=== PATIENT | female | born 1965 | race Caucasian/White ===

== ENCOUNTER 2023-12-07 20:51 | Inpatient (IN) | payer MEDICARE, SELFPAY ==
[2023-12-07] VITALS (11 sets, daily range): BP systolic 132–226; BP diastolic 75–121; PULSE 53–78; RESP 13–20; TEMP 35.1–35.8; O2SAT 94–100; BMI 33.3
--- NOTE | 2023-12-07 20:55 | CT_ITS ---
PROCEDURE INFORMATION: Exam: CTA Abdomen and Pelvis With Contrast Exam date and time: 12/07/2023 9:48 PM Age: 57 years old Clinical indication: Abdominal pain; Other: Diffuse; Additional info: Pain out of proportion to exam, diffuse TECHNIQUE: Imaging protocol: Computed tomographic angiography of the abdomen and pelvis with contrast. Exam focused on the arteries. 3D rendering (Not supervised by radiologist): MIP and/or 3D reconstructed images were created by the technologist. Radiation optimization: All CT scans at this facility use at least one of these dose optimization techniques: automated exposure control; mA and/or kV adjustment per patient size (includes targeted exams where dose is matched to clinical indication); or iterative reconstruction. Contrast material: ISOVUE; Contrast volume: 91 ml; Contrast route: INTRAVENOUS (IV); COMPARISON: No relevant prior studies available. FINDINGS: Diaphragm: There is a moderate hiatal hernia. Aorta: No aortic aneurysm. No aortic dissection. Celiac trunk and mesenteric arteries: No occlusion or significant stenosis. Renal arteries: No occlusion or significant stenosis. Right iliac arteries: No occlusion or significant stenosis. Left iliac arteries: No occlusion or significant stenosis. Liver: No mass. Gallbladder and bile ducts: Unremarkable. No calcified stones. No ductal dilation. Pancreas: Unremarkable. No mass. No ductal dilation. Spleen: Unremarkable. No splenomegaly. Adrenal glands: Unremarkable. No mass. Kidneys and ureters: Unremarkable. No solid mass. No hydronephrosis. Stomach and bowel: This causes significant upstream fluid distension of small bowel loops. No evidence for perforation. There are scattered colonic diverticula without evidence for active diverticulitis. Appendix: No evidence of appendicitis. Intraperitoneal space: Unremarkable. No free air. No significant fluid collection. Lymph nodes: Unremarkable. No enlarged lymph nodes. Urinary bladder: Unremarkable. No mass. Reproductive: Unremarkable as visualized. Bones/joints: No acute fracture. Soft tissues: There is an umbilical hernia containing multiple loops of bowel including an obstructed loop of small bowel. IMPRESSION: 1. Large umbilical hernia containing multiple loops of bowel with associated small bowel obstruction. No evidence for perforation. 2. Moderate hiatal hernia.
--- NOTE | 2023-12-07 21:00 | ED_ITS ---
Discharge Plan Disposition Patient Disposition: Admitted Referrals Follow up/Referrals: Provider,Referral, MD [Primary Care Provider] - See instructions Clinical Impressions Clinical Impression: Complete obstruction of small intestine, Abdominal pain, Acidosis, lactic, Incarcerated hernia Instructions Patient Instructions: DI for Acute Abdominal Pain Discharge ED Provider: Demarco Orozco General Adult HPI General Chief complaint: Abdominal Pain Stated complaint: abd pain Time Seen by Provider: 12/07/23 20:55 History of Present Illness HPI narrative: 57-year-old female history of hypertension, hyperlipidemia, diabetes, previously repaired bilateral inguinal hernias, cholecystectomy, hiatal hernia presenting with abdominal pain. Patient states that she ate [employer] around 4 PM today about 5 hours prior to this visit and started vomiting immediately thereafter. Vomiting is nonbloody, nonbilious and looks like that she ate. Has not had a bowel movement today and has not been passing gas. Has severe epigastric abdominal pain that does not radiate. It is sharp and cramping. has not taken anything for the pain. Related Data Allergies Allergy/AdvReac Type Severity Reaction Status Date / Time No Known Allergies Allergy Verified 12/07/23 21:01 [facility] Disclaimer: The information contained in this section may have been updated after the patient was seen, as this information can be updated by other users. Social History Smoking Status: Unknown if ever smoked alcohol intake: never current occupational status: unemployed Travel in the last 8 weeks: None ROS Obtained: Yes All systems reviewed & no additional complaints except as documented Physical Exam General General appearance: alert and other (Ill-appearing, mottled) Head Head exam: atraumatic and normocephalic Eye Eye exam: Present normal appearance, PERRL and EOMI ENT ENT exam: Present mucous membranes moist Neck Neck exam: Present normal inspection, full ROM and trachea midline Respiratory Respiratory exam: Present normal lung sounds bilaterally; Absent respiratory distress, wheezes, stridor, accessory muscle use or prolonged expiratory phase Cardiovascular Cardiovascular exam: Present regular rate, normal rhythm and other (Capillary refill delayed 6-7) Abdominal Exam Abdominal exam: Present soft and tenderness; Absent distention, guarding, rebound or rigidity Abdominal tenderness: Present epigastrium and mild Extremities Exam Extremities exam: Absent edema Neurological Exam Neurological exam: Present alert, oriented X3, CN II-XII intact and normal gait; Absent motor sensory deficit Skin Skin exam: Present dry (And cold) and mottled; Absent diaphoresis or erythema Medical Decision Making Medical Records Medical records reviewed: Yes I reviewed the patient's medical records. Jarek Inquiry Pt receiving controlled substance: No Jarek was queried for this patient: No Vital Signs: 12/07/23 20:56 12/07/23 21:01 12/07/23 21:33 Temperature 95.1 F L Temperature Source Rectal Pulse Rate 63 53 L Pulse Rate [Right Radial] 54 L Respiratory Rate 20 17 Blood Pressure Blood Pressure [Right Arm] 135/75 Blood Pressure Mean Blood Pressure Mean [Right Arm] 95 Blood Pressure Source [Right Arm] Automatic Cuff Blood Pressure Position [Right Arm] Supine 02 Sat by Pulse Oximetry 99 97 94 L Oxygen Delivery Method Room Air 12/07/23 22:00 12/07/23 22:03 Temperature Temperature Source Pulse Rate 64 58 L Pulse Rate [Right Radial] Respiratory Rate 16 18 Blood Pressure 226/121 H Blood Pressure [Right Arm] Blood Pressure Mean 142 Blood Pressure Mean [Right Arm] Blood Pressure Source [Right Arm] Blood Pressure Position [Right Arm] 02 Sat by Pulse Oximetry 100 100 Oxygen Delivery Method Lab Data Lab Results 12/07/23 21:15: WBC 13.2 H, RBC 5.95 H, Hgb 17.3 H, Hct 52.4 H, MCV 88.0, MCH 29.0, MCHC 33.0, RDW 13.6, Plt Count 318, MPV 8.6, Neut % (Auto) 81.9 H, Lymph % (Auto) 13.3, [place] % (Auto) 3.0, Eos % (Auto) 0.9, Baso % (Auto) 0.8, Neut # (Auto) 10.8 H, Lymph # (Auto) 1.8, [place] # (Auto) 0.4, Eos # (Auto) 0.1, Baso # (Auto) 0.1, Sodium 138, Potassium 4.8, Chloride 100, Carbon Dioxide 24, Anion Gap 18.8 H, BUN 22 H, Creatinine 0.80, Estimated Creat Clear 110, Estimated GFR 74, Est GFR ( Amer) 89, Glucose 196 H, Lactate 2.5 H, Calcium 10.7 H, Total Bilirubin 0.8, AST 53 H, ALT 34, Alkaline Phosphatase 79, Troponin I < 0.01, Total Protein 8.3 H, Albumin 4.9, Globulin 3.4 H, Albumin/Globulin Ratio 1.4, Lipase 80 12/07/23 21:27: VBG pH 7.41, VBG pCO2 38.1, VBG pO2 28.0, VBG HCO3 23.8, VBG Total CO2 25.0, VBG O2 Saturation 55.8, VBG Base Excess -0.7, VBG Lactic Acid 3.1 H 12/07/23 21:15 12/07/23 21:15 Orders (Tests/Meds): ED MEDICATIONS Generic Name Dose Route Start Last Admin Trade Name Freq PRN Reason Stop Dose Admin Vancomycin HCl 2,000 mg/ 250 mls @ 125 mls/hr 12/07/23 21:30 12/07/23 22:04 Sodium Chloride IV 12/07/23 23:29 125 mls/hr ONCE ONE Administration Miscellaneous 1 each 12/07/23 21:00 12/07/23 21:25 Vancomycin Consult Request NOTAPPLIC 01/06/24 20:59 1 each CONSULT PHARMACY PREET Administration Discontinued Medications Generic Name Dose Route Start Last Admin Trade Name Freq PRN Reason Stop Dose Admin Fentanyl Citrate 50 mcg 12/07/23 21:35 12/07/23 22:04 Fentanyl 100mcg/2ml Vial IV 12/07/23 21:36 50 mcg ONCE ONE Administration Lactated Ringer's 1,000 mls @ 999 mls/hr 12/07/23 20:55 12/07/23 21:12 Lactated Ringer's 1000 Ml Bag IV 12/07/23 21:55 999 mls/hr .Q1H1M ONE Administration Ampicillin Sodium/Sulbactam 100 mls @ 200 mls/hr 12/07/23 21:00 12/07/23 21:24 Sodium 3 gm/ Sodium Chloride IV 12/07/23 21:01 200 mls/hr ONCE ONE Administration Iopamidol 91 ml 12/07/23 22:00 12/07/23 22:02 Iopamidol-370 (76%);100ml Bottle IV 12/07/23 22:01 91 ml ONCE ONE Administration Lidocaine HCl 15 ml 12/07/23 22:09 Lidocaine 2% Viscous Shirley 15ml Udc PO 12/07/23 22:10 ONCE ONE Sodium Chloride 40 ml 12/07/23 22:00 03/09/24 22:01 0.9 % Sodium Chloride 50 Ml Vial IV 12/07/23 22:01 40 ml ONCE ONE Administration Sodium Chloride 10 ml 12/07/23 22:00 12/07/23 22:01 Sodium Chloride 0.9% 10ml Syr (Rad Only) IV 12/07/23 22:01 10 ml ONCE ONE Administration ORDERS Category Date Time Status CT angio abdomen pelvis Stat Cat Scan 12/07/23 20:55 Completed XR KUB Stat Exams 12/07/23 22:31 Ordered CBC w/Auto Diff [Complete Blood Count Auto Diff] Stat Lab 12/07/23 21:15 Completed CMP [Comprehensive Metabolic Panel] Stat Lab 12/07/23 21:15 Completed Lactate Venous Routine Lab 12/08/23 01:45 Ordered Lactate Venous Stat Lab 12/07/23 21:27 Completed Lactic Acid Stat Lab 12/07/23 21:15 Completed Lipase Stat Lab 12/07/23 21:15 Completed Trop I [Troponin I] Stat Lab 12/07/23 21:15 Completed Troponin I Q3H Lab 12/07/23 23:55 Ordered Troponin I Q3H Lab 12/08/23 03:55 Ordered UA [Urinalysis and Microscopic] Stat Lab 12/07/23 22:40 Received VBG [Venous Blood Gas] Stat RT 12/07/23 21:27 Completed Medical Decision Narrative: 57-year-old female history of hypertension, hyperlipidemia, diabetes, previously repaired bilateral inguinal hernias, cholecystectomy, hiatal hernia presenting with abdominal pain. Patient states that she ate [employer] around 4 PM today about 5 hours prior to this visit and started vomiting immediately thereafter. Vomiting is nonbloody, nonbilious and looks like that she ate. Has not had a bowel movement today and has not been passing gas. Has severe epigastric abdominal pain that does not radiate. It is sharp and cramping. has not taken anything for the pain. History obtained with patient and EMS. On arrival, patient hemodynamically stable, alert, oriented x4, GCS 15, moving all extremities spontaneously, pupils equal and reactive to light, but appears ill. Full physical exam performed and significant for ill-appearing woman in no acute distress. She is not tachycardic, normotensive, but skin is cold, she is mottled, delayed capillary refill. Abdomen is soft, but diffusely tender, worse in the epigastrium without signs of peritonitis. No flank tenderness. Cardiac exam within normal limits and lungs are clear to auscultation bilaterally. Differential includes gastritis, pancreatitis, SBO, colitis, diverticulitis, appendicitis, hepatitis, torsion, aortic pathology, mesenteric ischemia among others. Patient was given fluids, empiric vancomycin and Unasyn, as well as fentanyl IV for symptomatic management and correction of underlying abnormalities. Workup independently interpreted and significant for leukocytosis 13.2 with neutrophilic shift. Patient has a lactate of 3.1. Kidney function normal. Troponin negative. Lipase negative. CT of the abdomen and pelvis demonstrated umbilical hernia with associated small bowel obstruction with concern for second transition point just inferior to that in the abdomen. Concern for closed-loop bowel obstruction. See radiology read for full review of final results. Independent interpretation of EKG shows sinus rhythm 65 beats a minute with no ST or T wave changes Concerning for acute ischemia. OK, QRS, QT intervals within normal limits. General surgery was contacted and case was discussed at length, they agreed to come see patient on concern for possible surgical intervention. Patient be taken to the OR then admitted to the hospitalist. Hospitalist was contacted and case was discussed at length, see their note for recommendations. Because patient high risk for clinical decompensation, deemed appropriate for inpatient admission. Results were relayed to patient who voiced understanding and patient was agreeable to inpatient admission and management. Patient was admitted to the hospital for further definitive management. Critical Care Critical Care Time Critical Care Time: No
--- NOTE | 2023-12-07 21:01 | PC.NURSE ---
rectal temp 95.1 during triage. Pt moved to room 4 and bear hugger placed on pt. Warm LR bolus started at this time
--- NOTE | 2023-12-07 21:03 | ECG_ITS ---
APPROVED REPORT Exam: Resting ECG HR:65 bpm ECG Measurements Heart Rate 65 AXES LA 140 P 34 QRSd 105 QRS 53 QT 440 T 63 QTc 451 Conclusion SINUS RHYTHM Electronically signed by : LINETTE CASAREZ, 12/07/2023 22:38:49
[2023-12-07] MEDS: LACTATED RINGERS 1000ML 1,000 ML 999 ML IV ×2 (21:12→23:30)
--- NOTE | 2023-12-07 21:13 | PC.NURSE ---
finger stick 196
[2023-12-07 21:22] LABS: Basophils # 0.1 K/mm3 (0-0.2); Basophils % 0.8 % (0.1-2.0); Eosinophils # 0.1 K/mm3 (0.0-0.4); Eosinophils % 0.9 % (0.1-12.0); Hematocrit 52.4 % (37.0-47.0); Hemoglobin 17.3 g/dL (12.2-16.2); Lymphocytes # 1.8 K/mm3 (0.7-4.5); Lymphocytes % 13.3 % (10-50); Mean Platelet Volume 8.6 fl (7.4-10.4); Monocytes # 0.4 K/mm3 (0.1-1.0); Neutrophils # 10.8 K/mm3 (1.8-7.8); Neutrophils % 81.9 % (37.0-80.0); Platelet Count 318 K/mm3 (142-424); Red Blood Count 5.95 M/mm3 (4.20-5.40); Red Cell Distribution Width 13.6 % (11.5-17.5); White Blood Count 13.2 K/mm3 (4.8-10.8)
[2023-12-07] MEDS: AMPICILLIN/SULBACTAM 3 GM in 0.9 % SODIUM CHLORIDE 100 ML IV (21:24)
[2023-12-07] MEDS: VANCOMYCIN CONSULT REQUEST 1 EACH NOTAPPLIC (21:25)
[2023-12-07 21:26] LABS: Alanine Aminotransferase 34 U/L (12-78); Albumin Level 4.9 g/dl (3.5-5.0); Albumin/Globulin Ratio 1.4 (1.1-1.8); Alkaline Phosphatase 79 U/L (38-126); Anion Gap 18.8 mEq/L (5-15); Aspartate Amino Transferase 53 U/L (14-36); Bilirubin,Total 0.8 mg/dl (0.2-1.3); Blood Urea Nitrogen 22 mg/dl (7-17); Calcium 10.7 mg/dl (8.4-10.2); Carbon Dioxide 24 mmol/L (22.0-30.0); Chloride 100 mmol/L (98-107); Creatinine Clearance Estimated 110 mL/min (50-200); Estimated Glomerular Filt Rate 74 ml/min (>60); GFR (African American) 89 ML/MIN (>60); Globulin 3.4 g/dL (1.3-3.2); Glucose 196 mg/dl (74-100); Lactic Acid 2.5 mmol/L (0.7-2.1); Lipase 80 U/L (23-300); Potassium 4.8 mmoL/L (3.5-5.1); Sodium 138 mmol/L (136-145); Total Protein,Serum 8.3 g/dl (6.3-8.2)
[2023-12-07 21:35] LABS: Lactate Venous 3.1 mmol/L (0.4-2.0); VBG Base Excess -0.7 mmol/L (-2.4-2.3); VBG HCO3 23.8 mmol/L (23-30); VBG Oxygen Saturation 55.8 % (50-70); VBG PCO2 38.1 mmol/L (35-51); VBG PH 7.41 mmol/L (7.31-7.41)
[2023-12-07 21:42] LABS: Troponin I < 0.01 ng/ml (0.00-0.034)
[2023-12-07] MEDS: SODIUM CHLORIDE 0.9% 10ML SYR (RAD ONLY) 10 ML IV (22:01)
[2023-12-07] MEDS: 0.9 % SODIUM CHLORIDE 50 ML VIAL 40 ML IV (22:01)
--- NOTE | 2023-12-07 22:01 | PC.NURSE ---
paged dr patel to [phone] d/t suspected bowel obstruction.
[2023-12-07] MEDS: IOPAMIDOL-370 (76%);100ML BOTTLE 91 ML IV (22:02)
--- NOTE | 2023-12-07 22:02 | PC.NURSE ---
dr patel returned call.
[2023-12-07] MEDS: VANCOMYCIN HCL 2,000 MG in 0.9 % SODIUM CHLORIDE 250 ML 125 MG IV (22:04)
[2023-12-07] MEDS: FENTANYL 100MCG/2ML VIAL 50 MCG IV (22:04)
--- NOTE | 2023-12-07 22:31 | XR_ITS ---
PROCEDURE INFORMATION: Exam: XR Abdomen Exam date and time: 12/07/2023 10:48 PM Age: 58 years old Clinical indication: Device placement; Gi device; Nasogastric tube; Additional info: Ng placement TECHNIQUE: Imaging protocol: Radiologic exam of the abdomen. Views: Frontal supine view of the abdomen. 1 View. COMPARISON: CT ANGIO ABDOMEN PELVIS 12/07/2023 9:48 PM FINDINGS: Tubes, catheters and devices: Enteric tube in place, tip and side port project over the stomach. Heart/Mediastinum: Visualized portions of the heart, lungs, pleural spaces, and osseous structures are unchanged. Gastrointestinal tract: Stable bowel-gas pattern. Intraperitoneal space: There are right upper quadrant surgical clips suggesting prior cholecystectomy. Organs: There is a Terry catheter place within the urinary bladder. Excreted contrast in the urinary collecting system. Bones/joints: See Heart/Mediastinum finding. IMPRESSION: Radiographically appropriate position of enteric tube.
--- NOTE | 2023-12-07 22:41 | PC.NURSE ---
Dr. Valiente with patient and present in the ER spoke with Dr. Orozco
[2023-12-07 22:46] LABS: Microscopic, Urine URINE MICROSCOPIC (MICROSCOPIC)
--- NOTE | 2023-12-07 22:46 | PC.NURSE ---
house notified to call surg. team in
--- NOTE | 2023-12-07 22:49 | PC.NURSE ---
[phone]-Surgery team paged [phone]-Erickson returned call. [phone]-Alicia returned call. [phone]-[place] returned call.
--- NOTE | 2023-12-07 22:51 | PC.NURSE ---
Per patient request, Nicanor, family members have been updated with status and plan of care, understanding acknowledged
[2023-12-07 22:52] LABS: Appearance,Urine CLEAR (Clear); Blood, Urine Negative (Negative); Color,Urine YELLOW (Yellow); Glucose,Urine (UA) Negative (Negative); Ketones,Urine 2+ (Negative); Leukocyte Esterase,Urine Negative (Negative); Nitrate,Urine Negative (Negative); Protein,Urine Negative (Negative); Urobilinogen,Urine 0.2 EU/dl (0.2)
--- NOTE | 2023-12-07 22:57 | P.CONS_ITS ---
History of Present Illness *Admission Date: 12/07/23 *Reason for visit:: abdominal pain *History of present illness: 58 yo lady presents with diffuse abdominal pain. Sudden onset earlier today with severe cramping. Worse with time and eventually led to severe nausea and vomiting, bilious in nature. She denies any similar episodes. [facility] Disclaimer: The information contained in this section may have been updated after the patient was seen, as this information can be updated by other users. Social History (Updated 12/07/23 @ 22:48 by Demarco Orozco MD) Smoking Status: Unknown if ever smoked alcohol intake: never current occupational status: unemployed Travel in the last 8 weeks: None Review of Systems Review of Systems Review of systems:: pertinent systems reviewed and negative unless documented below Review of systems (narrative): Abdominal pain, vomiting, chills Meds Home Medications and Allergies New Prescriptions to Start Prescriptions: Allergies Allergy/AdvReac Type Severity Reaction Status Date / Time No Known Allergies Allergy Verified 12/07/23 21:01 Exam (Inpt) Vital signs and Labs for Last 24 Hours: Temp Pulse Resp BP Pulse Ox O2 Del Method 95.1 F L 58 L 18 226/121 H 100 Room Air 12/07/23 21:01 12/07/23 22:03 12/07/23 22:03 12/07/23 22:03 12/07/23 22:03 12/07/23 21:01 Laboratory Results - last 24 hr 12/07/23 21:15: WBC 13.2 H, RBC 5.95 H, Hgb 17.3 H, Hct 52.4 H, MCV 88.0, MCH 29.0, MCHC 33.0, RDW 13.6, Plt Count 318, MPV 8.6, Neut % (Auto) 81.9 H, Lymph % (Auto) 13.3, [place] % (Auto) 3.0, Eos % (Auto) 0.9, Baso % (Auto) 0.8, Neut # (Auto) 10.8 H, Lymph # (Auto) 1.8, [place] # (Auto) 0.4, Eos # (Auto) 0.1, Baso # (Auto) 0.1, Sodium 138, Potassium 4.8, Chloride 100, Carbon Dioxide 24, Anion Gap 18.8 H, BUN 22 H, Creatinine 0.80, Estimated Creat Clear 110, Estimated GFR 74, Est GFR ( Amer) 89, Glucose 196 H, Lactate 2.5 H, Calcium 10.7 H, Total Bilirubin 0.8, AST 53 H, ALT 34, Alkaline Phosphatase 79, Troponin I < 0.01, Total Protein 8.3 H, Albumin 4.9, Globulin 3.4 H, Albumin/Globulin Ratio 1.4, Lipase 80 12/07/23 21:27: VBG pH 7.41, VBG pCO2 38.1, VBG pO2 28.0, VBG HCO3 23.8, VBG Total CO2 25.0, VBG O2 Saturation 55.8, VBG Base Excess -0.7, VBG Lactic Acid 3.1 H I & O for Labs for Last 24 Hours: Intake & Output 12/04/23 12/05/23 12/06/23 12/07/23 23:59 23:59 23:59 23:59 Weight 200 lb Constitutional: mild distress and morbidly obese Comment:: Ill appearing, shaking chills Head: Present normocephalic and atraumatic Neck: Present normal inspection Respiratory: Present CTA bilaterally Cardiac: Present Reg Rate and Rhythm GI: Present soft, tenderness, guarding and hernia (Tender and incarcerated RLQ hernia, guarding, diffuse tenderness worse over hernia; obese) Extremities: Present cyanosis Results Labs 12/07/23 21:15 12/07/23 21:15 Labs: Laboratory Results - last 24 hr 12/07/23 21:15: WBC 13.2 H, RBC 5.95 H, Hgb 17.3 H, Hct 52.4 H, MCV 88.0, MCH 29.0, MCHC 33.0, RDW 13.6, Plt Count 318, MPV 8.6, Neut % (Auto) 81.9 H, Lymph % (Auto) 13.3, [place] % (Auto) 3.0, Eos % (Auto) 0.9, Baso % (Auto) 0.8, Neut # (Auto) 10.8 H, Lymph # (Auto) 1.8, [place] # (Auto) 0.4, Eos # (Auto) 0.1, Baso # (Auto) 0.1, Sodium 138, Potassium 4.8, Chloride 100, Carbon Dioxide 24, Anion Gap 18.8 H, BUN 22 H, Creatinine 0.80, Estimated Creat Clear 110, Estimated GFR 74, Est GFR ( Amer) 89, Glucose 196 H, Lactate 2.5 H, Calcium 10.7 H, Total Bilirubin 0.8, AST 53 H, ALT 34, Alkaline Phosphatase 79, Troponin I < 0.01, Total Protein 8.3 H, Albumin 4.9, Globulin 3.4 H, Albumin/Globulin Ratio 1.4, Lipase 80 12/07/23 21:27: VBG pH 7.41, VBG pCO2 38.1, VBG pO2 28.0, VBG HCO3 23.8, VBG Total CO2 25.0, VBG O2 Saturation 55.8, VBG Base Excess -0.7, VBG Lactic Acid 3.1 H Imaging US - abdomen: report reviewed and image reviewed (Agree with report) Assessment and Plan *Assessment and plan (1) Incarcerated hernia: Start date: 12/07/23 Problem Comment: Incarcerated hernia with tenderness and ct findings to suggest strangulation. I would recommend laparotomy and hernia repair. Risk of bleeding, infection, injury and anesthetic discussed and she agrees to proceed in an urgent manner. Status: Acute Category: Surgical Code(s): K46.0 - Unspecified abdominal hernia with obstruction, without gangrene Plan: See above discussion (2) Acidosis, lactic: Status: Acute Category: Medical Code(s): E87.20 - Acidosis, unspecified Plan: Aggressive resuscitation in the ER with fluid; start broad spectrum abx with suspicion for bowel ischemia. Hypothermia also suggests bowel ischemia. (3) Hypertension: Status: Acute Category: Medical Code(s): I10 - Essential (primary) hypertension Plan: Will admit to hospitalist. Aggressive pain control should help.
--- NOTE | 2023-12-07 22:59 | EXP.HP ---
History of Present Illness *Admission Date: 12/07/23 *Reason for visit:: abdominal pain *History of present illness: This is a 58-year-old morbidly obese female with PMHx of hypertension, hyperlipidemia, diabetes, previously repaired bilateral inguinal hernias, cholecystectomy, hiatal hernia presented to ED for acute abdominal pain. Patient stated that she ate [employer] around 4 PM today about 5 hours prior to this visit and started vomiting immediately thereafter. Vomiting is nonbloody, nonbilious and looks like that she ate. Has not had a bowel movement today and has not been passing gas. Has severe epigastric abdominal pain that does not radiate. It is sharp and cramping. has not taken anything for the pain. She denies any similar episodes. Admitted for treatment and management. [facility] Disclaimer: The information contained in this section may have been updated after the patient was seen, as this information can be updated by other users. Medical History (Updated 12/08/23 @ 06:21 by Carlos A Dumont APRN) Hernia Surgical History (Updated 12/08/23 @ 04:41 by Henny Swain RN) H/O hernia repair Hx of cholecystectomy H/O: hysterectomy Social History (Updated 12/07/23 @ 22:48 by Demarco Orozco MD) Smoking Status: Unknown if ever smoked alcohol intake: never current occupational status: unemployed Travel in the last 8 weeks: None Review of Systems Review of Systems Review of systems:: pertinent systems reviewed and negative unless documented below Meds Home Medications and Allergies Home Medications Medication Instructions Recorded Confirmed Type buspirone 30 mg tablet 30 mg PO BID Anxiety 12/07/23 12/08/23 History celecoxib 100 mg capsule 100 mg PO BID Pain 12/07/23 12/08/23 History duloxetine 20 mg capsule,delayed 20 mg PO BID Anxiety 12/07/23 12/08/23 History release ferrous sulfate 325 mg (65 mg 325 mg PO DAILY Supplement 12/07/23 12/07/23 History iron) tablet,delayed release hydroxyzine pamoate 25 mg capsule 25 mg PO QIDP PRN Itching 12/07/23 12/08/23 History loratadine 10 mg tablet 10 mg PO DAILY Allergy Symptoms 12/07/23 12/07/23 History losartan 25 mg tablet 25 mg PO DAILY High Blood Pressure 12/07/23 12/07/23 History montelukast 10 mg tablet 10 mg PO DAILY Allergy Symptoms 12/07/23 12/07/23 History omeprazole 20 mg capsule,delayed 20 mg PO DAILY Acid Reflux 12/07/23 12/07/23 History release ondansetron HCl 4 mg tablet 4 mg PO Q8HP PRN Vomiting 12/07/23 12/07/23 History magnesium oxide 400 mg (241.3 mg 400 mg PO DAILY Supplement 12/08/23 12/08/23 History magnesium) tablet metformin 1,000 mg tablet 1,000 mg PO BIDWMEAL Diabetes 12/08/23 12/08/23 History nystatin 100,000 unit/gram topical 1 applic topical DAILY Skin 12/08/23 12/08/23 History powder (Nystop) Condition rosuvastatin 40 mg tablet 40 mg PO HS Cholesterol 12/08/23 12/08/23 History New Prescriptions to Start Prescriptions: Allergies Allergy/AdvReac Type Severity Reaction Status Date / Time latex Allergy Verified 12/07/23 23:25 morphine AdvReac Verified 12/08/23 06:58 Exam Data for Last 24 hours Vital signs and Labs for Last 24 Hours: Temp Pulse Resp BP Pulse Ox O2 Del Method 95.1 F L 58 L 18 226/121 H 100 Room Air 12/07/23 21:01 12/07/23 22:03 12/07/23 22:03 12/07/23 22:03 12/07/23 22:03 12/07/23 21:01 Laboratory Results - last 24 hr 12/07/23 21:15: WBC 13.2 H, RBC 5.95 H, Hgb 17.3 H, Hct 52.4 H, MCV 88.0, MCH 29.0, MCHC 33.0, RDW 13.6, Plt Count 318, MPV 8.6, Neut % (Auto) 81.9 H, Lymph % (Auto) 13.3, [place] % (Auto) 3.0, Eos % (Auto) 0.9, Baso % (Auto) 0.8, Neut # (Auto) 10.8 H, Lymph # (Auto) 1.8, [place] # (Auto) 0.4, Eos # (Auto) 0.1, Baso # (Auto) 0.1, Sodium 138, Potassium 4.8, Chloride 100, Carbon Dioxide 24, Anion Gap 18.8 H, BUN 22 H, Creatinine 0.80, Estimated Creat Clear 110, Estimated GFR 74, Est GFR ( Amer) 89, Glucose 196 H, Lactate 2.5 H, Calcium 10.7 H, Total Bilirubin 0.8, AST 53 H, ALT 34, Alkaline Phosphatase 79, Troponin I < 0.01, Total Protein 8.3 H, Albumin 4.9, Globulin 3.4 H, Albumin/Globulin Ratio 1.4, Lipase 80 12/07/23 21:27: VBG pH 7.41, VBG pCO2 38.1, VBG pO2 28.0, VBG HCO3 23.8, VBG Total CO2 25.0, VBG O2 Saturation 55.8, VBG Base Excess -0.7, VBG Lactic Acid 3.1 H I & O for Last 24 hours: Intake & Output 12/04/23 12/05/23 12/06/23 12/07/23 23:59 23:59 23:59 23:59 Weight 90.718 kg Constitutional Constitutional: moderate distress, morbidly obese, diaphoretic and cooperative *Routine HEENT Exam Head: Present normocephalic and atraumatic Eye: Present EOMI, PERRL and normal accommodation ENT: Present mucous membranes moist *Routine Neck Exam Neck: Present supple, full ROM and trachea midline *Routine Respiratory Exam Respiratory: Present CTA bilaterally, normal respiratory effort and symmetric chest movement; Absent respiratory distress *Routine Cardiovascular Exam Cardiovascular: Present RRR, Normal S1, Normal S2 and tachycardia *Routine Abdominal Exam Abdominal: Present soft, tenderness, distended, rebound, guarding and obese; Absent normoactive bowel sounds *Routine Rectal Exam Rectal:: deferred *Routine Genitalia Exam Genitalia:: deferred *Routine Extremities Exam Extremities: Present full ROM and pulses intact; Absent cyanosis, clubbing or edema *Routine Skin Exam Skin: Present intact; Absent cyanosis, erythema or rash *Routine Neurological Exam Neurological: Present alert, oriented X3, normal reflexes, moving all extremities and normal speech Routine Psychiatric Exam Psychiatric: Present cooperative, good insight and good judgment H&P: Result Imaging and Cardiology CT scan - abdomen: Status: image reviewed by me, Preliminary report and final report EKG: Status: image reviewed by me, Preliminary report and final report Assessment and Plan *Assessment and plan (1) Abdominal pain: Status: Acute Qualifiers: Abdominal location: epigastric Qualified Code(s): R10.13 - Epigastric pain Category: Medical Code(s): R10.9 - Unspecified abdominal pain (2) Incarcerated hernia: Problem Comment: Incarcerated hernia with tenderness and ct findings to suggest strangulation. I would recommend laparotomy and hernia repair. Risk of bleeding, infection, injury and anesthetic discussed and she agrees to proceed in an urgent manner. Status: Acute Category: Surgical Code(s): K46.0 - Unspecified abdominal hernia with obstruction, without gangrene (3) Complete obstruction of small intestine: Status: Acute Category: Medical Code(s): K56.601 - Complete intestinal obstruction, unspecified as to cause (4) Acidosis, lactic: Status: Acute Category: Medical Code(s): E87.20 - Acidosis, unspecified (5) Hypertension: Status: Acute Qualifiers: Hypertension type: unspecified Qualified Code(s): I10 - Essential (primary) hypertension Category: Medical Code(s): I10 - Essential (primary) hypertension (6) Diabetes: Status: Acute Qualifiers: Diabetes mellitus complication status: with other specified complication Diabetes mellitus skilled nursing insulin use: without skilled nursing use Diabetes mellitus type: type 2 Qualified Code(s): E11.69 - Type 2 diabetes mellitus with other specified complication Category: Medical Code(s): E11.9 - Type 2 diabetes mellitus without complications Plan 58-year-old morbidly obese female with PMHx of hypertension, hyperlipidemia, diabetes, previously repaired bilateral inguinal hernias, cholecystectomy, hiatal hernia presented to ED for acute abdominal pain. initial work up included CTA of abdomen concerning for incarcerated hernia with complete obstruction of the bowel. elevated WBC, and lact acid. started on IV vanco. emergent taken to OR. Discussed with ED and surgical consulted. Plan as follow: -Acute abdominal pain secondary to incarcerated hernia complete SBO: leukocytosis and lactic acidosis: admit patient surgical consult. taken to OR started on Vancomycin and unasyn at ER. keep NPO NG inserted pain management. repeat labs. monitor for sepsis - HTN: resume home meds on losartan NIDDM: acute check on sliding scale. treat BS greater than 200 Continous IV hydration while NPO SCD for dvt ppx. On protonix Full code Rounded on patient after nurse practitioner. Personally examined and interviewed patient. Agree with exam findings and care plan as documented.
[2023-12-07 23:04] LABS: Bilirubin,Urine 1+ (Negative)
[2023-12-07 23:05] LABS: WBC,Urine Occasional #/hpf (0-3)
--- NOTE | 2023-12-07 23:10 | PC.NURSE ---
spoke with ahsan who is en route at this time.
[2023-12-07] MEDS: LIDOCAINE 2% VISCOUS SOL 15ML UDC 15 ML PO (23:24)
--- NOTE | 2023-12-07 23:25 | PC.NURSE ---
josafat gunderson received a phone call from a family member stating that patient has a hard time tolerating anesthesia. primary nurse aware and will advise surg team
[2023-12-07] MEDS: ONDANSETRON 4MG/2ML VIAL 4 MG IV (23:28)
--- NOTE | 2023-12-07 23:32 | PC.NURSE ---
Pt sitting up in bed. 18Fr NG placed in left nare @58cm 16Fr Terry catheter inserted, dark yellow clear urine draining at bedside.
--- NOTE | 2023-12-07 23:34 | PC.NURSE ---
2230 pt rectal temp 96.5. bare hugger removed. Warm blankets placed on pt
--- NOTE | 2023-12-07 23:50 | PC.NURSE ---
3 rings taken off pt and placed in specimen cup in pts medication box
--- NOTE | 2023-12-07 23:55 | PC.NURSE ---
pt to OR at this time
[2023-12-08] VITALS (22 sets, daily range): BP systolic 111–161; BP diastolic 62–95; PULSE 67–109; RESP 12–18; TEMP 35.3–43; O2SAT 91–100; BMI 34.9
--- NOTE | 2023-12-08 | PC.NURSE ---
registration notified patient left department and gone to surgery via surgery assistant and anesthesia
[2023-12-08 00:33] LABS: Troponin I < 0.01 ng/ml (0.00-0.034)
[2023-12-08] MEDS: BUPIVACAINE 0.25% 30ML VIAL 75 MG (00:42)
[2023-12-08] MEDS: SODIUM CHLORIDE IRRIG SOLUTION 3,000 ML 999 ML IR (00:42)
[2023-12-08 01:16] LABS: Reflex Lactic Add Lactic Reflex
--- NOTE | 2023-12-08 03:11 | EXP.COCOPNOT ---
Date of procedure: 12/08/23 Pre-op Diagnosis:: Incarcerated ventral hernia Post-op Diagnosis:: same Procedure performed:: Exploratory laparotomy with extensive lysis of adhesions and repair of incarcerated ventral hernia Surgeon:: Dion Valiente MD Road Design Draftsperson(s):: Yari Kothari Anesthesia: GETA Estimated blood loss (mL): 150 Clinical Note:: Mrs. Jarrell is a 58 yo lady that presented with an incarcerated ventral hernia with bowel compromise. She was taken urgently to the OR for exploration. Operative findings:: Incarerated ventral hernia with severe adhesions. Bowel viable Operative note:: Patient was taken to the OR and placed in the supine position. General anesthesia was instituted without complication. Her abdomen was prepped and draped in usual sterile fashion and a brief surgical pause was performed. I began the procedure with a midline laparotomy incision and carried this down to the fascial level above the incarcerated ventral hernia. I entered the abdomen with a knife and immediately encountered dense adhesions. I carried out an extensive lysis of adhesions for greater than 2 hours and I was finally able to reduce the incarcerated ventral hernia. The bowel was purple but became viable appearing after several minutes. I then ran the bowel from the ligament of Treitz all the way to the cecum and there were no further worrisome adhesions. I then irrigated the abdomen. I then excised the vast hernia sac. I then closed the fascia with 0 Ethibond in interrupted [id number] fashion. Given her morbid obesity and uncontrolled diabetes I felt that any mesh was likely to get infected and there were no biologic mesh options available. I then irrigated the subcu space with copious amounts of irrigation. I then placed a 19 DARREN drain through a stab incision on the right lateral aspect of the abdomen and to the previous space occupied by the hernia sac and incarcerated hernia. I closed the deep fat with 2-0 Vicryl in running fashion. Closed the skin with skin prabha and a sterile dressing was applied. She tolerated the procedure well was awoken from anesthesia and transferred to the PACU in stable condition. Condition: stable Disposition: PACU Complications:: none
--- NOTE | 2023-12-08 03:23 | EXP.ANES.I ---
[facility] Anesthesia Record Part I Anesthesia Record I Intake, IV Amount: 1,700 Hydration: Adequate Estimated blood loss (mL): 150 Urine output (mL): 100 Blood Products used (#): none Blood Pressure: 132/80 SaO2: 93 Pulse Rate: 85 Airway Patency: Patent Respiratory Rate: 12 Temperature: 97.0 F Patient is:: Awake and Stable Stable to PACU at:: 03:25
[2023-12-08 03:40] LABS: POC Glucose,Bedside 178 (70-110)
[2023-12-08 05:44] LABS: Basophils # 0.1 K/mm3 (0-0.2); Basophils % 0.5 % (0.1-2.0); Eosinophils # 0.1 K/mm3 (0.0-0.4); Hematocrit 40.1 % (37.0-47.0); Lymphocytes # 0.5 K/mm3 (0.7-4.5); Lymphocytes % 5.5 % (10-50); Mean Corpuscular HGB Conc 32.3 g/dL (31.8-35.4); Mean Corpuscular Hemoglobin 28.7 pg (27.0-31.2); Mean Corpuscular Volume 88.8 fl (81-99); Mean Platelet Volume 8.3 fl (7.4-10.4); Monocytes # 0.2 K/mm3 (0.1-1.0); Monocytes % 2.6 % (1.7-9.3); Neutrophils # 8.1 K/mm3 (1.8-7.8); Neutrophils % 90.4 % (37.0-80.0); Platelet Count 233 K/mm3 (142-424); Red Blood Count 4.51 M/mm3 (4.20-5.40); Red Cell Distribution Width 13.6 % (11.5-17.5); White Blood Count 8.9 K/mm3 (4.8-10.8)
[2023-12-08 05:51] LABS: Lactic Acid Follow Up (RFLX 1) 1.8 mmol/L (0.7-2.1)
[2023-12-08 05:52] LABS: Alanine Aminotransferase 28 U/L (12-78); Albumin Level 2.9 g/dl (3.5-5.0); Albumin/Globulin Ratio 1.3 (1.1-1.8); Alkaline Phosphatase 57 U/L (38-126); Anion Gap 9.6 mEq/L (5-15); Aspartate Amino Transferase 33 U/L (14-36); Bilirubin,Total 0.3 mg/dl (0.2-1.3); Blood Urea Nitrogen 17 mg/dl (7-17); Carbon Dioxide 25 mmol/L (22.0-30.0); Chloride 108 mmol/L (98-107); Creatinine Clearance Estimated 152 mL/min (50-200); Estimated Glomerular Filt Rate 102 ml/min (>60); GFR (African American) 124 ML/MIN (>60); Globulin 2.2 g/dL (1.3-3.2); Glucose 187 mg/dl (74-100); MANUAL DIFFERENTIAL MANUAL DIFFERENTIAL (MANUAL DIFF); Potassium 3.6 mmoL/L (3.5-5.1); Sodium 139 mmol/L (136-145); Total Protein,Serum 5.1 g/dl (6.3-8.2)
[2023-12-08 06:02] LABS: Lactate Venous 2.4 mmol/L (0.4-2.0)
[2023-12-08 06:04] LABS: Eosinophils % 1 % (0-3); Lymphocytes % 7 % (10-50); Monocytes % 5 % (2-9); Neutrophils % 87 % (42-76); Platelet Estimate Normal; RBC Morphology Normal; Total Cells Counted 100
[2023-12-08 06:23] LABS: POC Glucose,Bedside 179 (70-110)
[2023-12-08] MEDS: 0.9 % SODIUM CHLORIDE 1000ML 1,000 ML 100 ML IV ×2 (06:53→19:48)
[2023-12-08] MEDS: KETOROLAC 30MG/ML VIAL 30 MG IV (07:03)
--- NOTE | 2023-12-08 08:22 | SUR.OPER ---
12/07/23 4725- MD Valiente states he does not want patient to have any more preop abx, that he is satisfied with the abx patient received in the ER 12/08/23 7367- Detailed report given to NEGIN Guillen. NEGIN Guillen requested that this property underwriter would call report to 2nd floor nurse. Detailed report then given to NEGIN Willingham by this property underwriter. NEGIN Guillen did vitals and pt recovery in PACU.
[2023-12-08] MEDS: SODIUM CHLORIDE 0.9% 10ML VIAL 10 ML IV ×2 (08:43→20:59)
[2023-12-08] MEDS: PANTOPRAZOLE 40MG VIAL 40 MG IV ×2 (08:43→20:59)
[2023-12-08] MEDS: ACETAMINOPHEN 1,000 MG/100 ML ML 400 MG IV ×3 (09:45→19:48)
[2023-12-08 10:25] LABS: Lactate Venous 2.6 mmol/L (0.4-2.0)
[2023-12-08] MEDS: AMPICILLIN SODIUM/SULBACTAM 3 GM in 0.9 % SODIUM CHLORIDE 100 ML IV ×3 (10:31→20:59)
--- NOTE | 2023-12-08 10:41 | HMH.PHAINT1 ---
Pharmacy Intervention Comments: MEDICATION RECONCILIATION COMPLETE USING EXTERNAL PHARMACY FILL HISTORY.
[2023-12-08 10:51] LABS: POC Glucose,Bedside 154 (70-110)
--- NOTE | 2023-12-08 12:20 | EXP.ACUTE.PN ---
Subjective *Date: 12/08/23 *Time: 12:46 Interval history: Bilious morning of surgery, still having some mild abdominal pain. No nausea or vomiting. NG in place. Afebrile. On room air Medical Exam Vital signs and Labs for Last 24 Hours: Vital Signs Temp Pulse Pulse Resp BP BP Pulse Ox 12/08/23 11:00 98.2 F 100 H 18 122/72 94 L 12/08/23 11:00 12/08/23 10:00 98.2 F 102 H 18 114/62 94 L 12/08/23 09:00 97.5 F L 101 H 17 112/68 96 12/08/23 09:00 12/08/23 08:00 12/08/23 08:00 98.0 F 109 H 17 113/64 91 L 12/08/23 07:00 12/08/23 07:00 97.9 F 106 H 16 111/66 93 L 12/08/23 06:30 102 H 15 121/73 92 L 12/08/23 06:00 97.2 F L 101 H 16 123/83 93 L 12/08/23 05:30 94 H 15 126/78 95 12/08/23 05:00 12/08/23 05:00 90 13 132/83 96 12/08/23 04:45 87 13 133/83 96 12/08/23 04:30 82 13 127/77 91 L 12/08/23 04:15 95.6 F L 84 12 121/72 95 12/08/23 04:13 95.6 F L 84 12 121/72 95 12/08/23 04:00 95.6 F L 79 17 121/72 93 L 12/08/23 03:50 97.0 F L 81 16 161/83 H 96 12/08/23 03:40 97.4 F L 82 16 152/87 H 93 L 12/08/23 03:30 97.1 F L 82 18 153/95 H 94 L 12/08/23 03:28 97.0 F L 85 12 132/80 12/08/23 03:20 97 F L 84 17 135/84 92 L 12/07/23 23:56 96.5 F L 67 13 160/99 H 12/07/23 23:30 72 14 158/78 H 99 12/07/23 23:15 61 13 146/83 H 97 12/07/23 23:00 78 19 138/94 H 97 12/07/23 22:46 75 17 132/88 96 12/07/23 22:40 65 15 143/96 H 97 12/07/23 22:03 58 L 18 226/121 H 100 12/07/23 22:00 64 16 100 12/07/23 21:33 53 L 17 94 L 12/07/23 21:01 95.1 F L 54 L 20 135/75 97 12/07/23 20:56 63 99 O2 Del Method 12/08/23 11:00 Room Air 12/08/23 11:00 Room Air 12/08/23 10:00 Room Air 12/08/23 09:00 Room Air 12/08/23 09:00 Room Air 12/08/23 08:00 Room Air 12/08/23 08:00 Room Air 12/08/23 07:00 Room Air 12/08/23 07:00 Room Air 12/08/23 06:30 Room Air 12/08/23 06:00 Room Air 12/08/23 05:30 Room Air 12/08/23 05:00 Room Air 12/08/23 05:00 Room Air 12/08/23 04:45 Room Air 12/08/23 04:30 Room Air 12/08/23 04:15 Room Air 12/08/23 04:13 Room Air 12/08/23 04:00 Room Air 12/08/23 03:50 Room Air 12/08/23 03:40 Room Air 12/08/23 03:30 Room Air 12/08/23 03:28 12/08/23 03:20 Room Air 12/07/23 23:56 Room Air 12/07/23 23:30 12/07/23 23:15 12/07/23 23:00 12/07/23 22:46 12/07/23 22:40 12/07/23 22:03 12/07/23 22:00 12/07/23 21:33 12/07/23 21:01 Room Air 12/07/23 20:56 Intake and Output 12/07/23 12/08/23 12/08/23 22:59 07:59 15:59 Intake Total Output Total Balance 1679 Intake: Intake, Total IV Amount Output: Output, Urine Amount 0 / 0 Output, Drainage Amount Right Lower Abdomen Other: Number of Voids 0 Weight Patient Weight 12/09/23 00:59 Weight 95.254 kg Laboratory Results - last 24 hr 12/07/23 21:15: WBC 13.2 H, RBC 5.95 H, Hgb 17.3 H, Hct 52.4 H, MCV 88.0, MCH 29.0, MCHC 33.0, RDW 13.6, Plt Count 318, MPV 8.6, Neut % (Auto) 81.9 H, Lymph % (Auto) 13.3, [place] % (Auto) 3.0, Eos % (Auto) 0.9, Baso % (Auto) 0.8, Neut # (Auto) 10.8 H, Lymph # (Auto) 1.8, [place] # (Auto) 0.4, Eos # (Auto) 0.1, Baso # (Auto) 0.1, Sodium 138, Potassium 4.8, Chloride 100, Carbon Dioxide 24, Anion Gap 18.8 H, BUN 22 H, Creatinine 0.80, Estimated Creat Clear 110, Estimated GFR 74, Est GFR ( Amer) 89, Glucose 196 H, Lactate 2.5 H, Calcium 10.7 H, Total Bilirubin 0.8, AST 53 H, ALT 34, Alkaline Phosphatase 79, Troponin I < 0.01, Total Protein 8.3 H, Albumin 4.9, Globulin 3.4 H, Albumin/Globulin Ratio 1.4, Lipase 80 12/07/23 21:27: VBG pH 7.41, VBG pCO2 38.1, VBG pO2 28.0, VBG HCO3 23.8, VBG Total CO2 25.0, VBG O2 Saturation 55.8, VBG Base Excess -0.7, VBG Lactic Acid 3.1 H 12/07/23 22:40: Urine Color Yellow, Urine Appearance Clear, Urine pH 7.0, Ur Specific [place] 1.010, Urine Protein Negative, Urine Glucose (UA) Negative, Urine Ketones 2+, Urine Blood Negative, Urine Nitrate Negative, Urine Bilirubin 1+ A, Urine Urobilinogen 0.2, Ur Leukocyte Esterase Negative, Urine RBC None, Urine WBC Occasional, Ur Squamous Epith Cells None, Urine Bacteria None 12/07/23 23:53: Troponin I < 0.01 12/08/23 03:32: POC Glucose 178 H 12/08/23 05:30: WBC 8.9 D, RBC 4.51, Hgb 13.0 D, Hct 40.1, MCV 88.8, MCH 28.7, MCHC 32.3, RDW 13.6, Plt Count 233 D, MPV 8.3, Neut % (Auto) 90.4 H, Lymph % (Auto) 5.5 L, [place] % (Auto) 2.6, Eos % (Auto) 1.0, Baso % (Auto) 0.5, Neut # (Auto) 8.1 H, Lymph # (Auto) 0.5 L, [place] # (Auto) 0.2, Eos # (Auto) 0.1, Baso # (Auto) 0.1, Total Counted 100, Neutrophils % (Manual) 87 H, Lymphocytes % (Manual) 7 L, Monocytes % (Manual) 5, Eosinophils % (Manual) 1, Platelet Estimate Normal, RBC Morphology Normal, Sodium 139, Potassium 3.6 D, Chloride 108 H, Carbon Dioxide 25, Anion Gap 9.6, BUN 17, Creatinine 0.60 D, Estimated Creat Clear 152, Estimated GFR 102, Est GFR ( Amer) 124 D, Glucose 187 H, Lactate 1.8, Calcium 8.0 L, Total Bilirubin 0.3, AST 33 D, ALT 28, Alkaline Phosphatase 57, Total Protein 5.1 L D, Albumin 2.9 L D, Globulin 2.2, Albumin/Globulin Ratio 1.3 12/08/23 06:01: VBG Lactic Acid 2.4 H 12/08/23 06:09: POC Glucose 179 H 12/08/23 09:25: VBG Lactic Acid 2.6 H 12/08/23 09:35: POC Glucose 154 H I & O for Labs for Last 24 Hours: Intake & Output 12/05/23 12/06/23 12/07/23 12/09/23 23:59 23:59 23:59 00:59 Intake Total 1700 / 1700 Output Total Balance 1680 / 1680 Weight 90.718 kg 95.254 kg Constitutional: Present no acute distress, obese and cooperative Head: Present atraumatic and normocephalic ENT: Present normal exam Comment:: NG in left nare Respiratory: Present normal respiratory effort; Absent rhonchi, wheezes or crackles Cardiac: Present Reg Rate and Rhythm GI: Present soft, tenderness (lower abdomen) and diminished bowel sounds; Absent distention Comments:: DARREN in right lower quadrant with scant bloody drainage. Bandage on abdomen clean dry and intact Extremities: Present normal inspection and full ROM Skin: Present intact; Absent erythema Neuro: Present Grossly Intact, alert, awake, oriented x 3 and moves all extremities Assessment and Plan *Assessment and plan (1) Abdominal pain: Status: Acute Qualifiers: Abdominal location: epigastric Qualified Code(s): R10.13 - Epigastric pain Category: Medical Code(s): R10.9 - Unspecified abdominal pain (2) Incarcerated hernia: Problem Comment: Incarcerated hernia with tenderness and ct findings to suggest strangulation. I would recommend laparotomy and hernia repair. Risk of bleeding, infection, injury and anesthetic discussed and she agrees to proceed in an urgent manner. Status: Acute Category: Surgical Code(s): K46.0 - Unspecified abdominal hernia with obstruction, without gangrene (3) Complete obstruction of small intestine: Status: Acute Category: Medical Code(s): K56.601 - Complete intestinal obstruction, unspecified as to cause (4) Acidosis, lactic: Status: Acute Category: Medical Code(s): E87.20 - Acidosis, unspecified (5) Hypertension: Status: Acute Qualifiers: Hypertension type: unspecified Qualified Code(s): I10 - Essential (primary) hypertension Category: Medical Code(s): I10 - Essential (primary) hypertension (6) Diabetes: Status: Acute Qualifiers: Diabetes mellitus complication status: with other specified complication Diabetes mellitus intermission coordinator insulin use: without intermission coordinator use Diabetes mellitus type: type 2 Qualified Code(s): E11.69 - Type 2 diabetes mellitus with other specified complication Category: Medical Code(s): E11.9 - Type 2 diabetes mellitus without complications Plan 58-year-old morbidly obese female with PMHx of hypertension, hyperlipidemia, diabetes, previously repaired bilateral inguinal hernias, cholecystectomy, hiatal hernia presented to ED for acute abdominal pain. initial work up included CTA of abdomen concerning for incarcerated hernia with complete obstruction of the bowel. elevated WBC, and lact acid. Discontinue vancomycin, initiate Unasyn for 24 to 48 hours, monitor for stable labs. Patient feeling somewhat better this morning. Will discontinue Terry. Ambulate if tolerable by patient. Continues to require inpatient management. Problems addressed as follows: -Acute abdominal pain secondary to incarcerated hernia complete SBO: leukocytosis and lactic acidosis: Status post surgery for incarcerated hernia. No sections of bowel removed. -Discussed case with surgery, continues to require inpatient management. Okay to proceed with sips and chips. Okay to mobilize and ambulate as tolerated. -Continue Unasyn every 6 hours IV -Continue NG for decompression - Pain control with Toradol every 6 hours as needed and Tylenol every 4 hours as needed. Monitor kidney and liver function for toxicity - Kidney function normal with BUN of 17, creatinine 1.6. White cell count normal 8.9. HTN: Normotensive at this time, will hold losartan pending improvement in blood pressure. Hyperlipidemia: Holding statin, will resume prior to discharge NIDDM: acute check on sliding scale. treat BS greater than 200 Continous IV hydration while NPO PT and OT consults placed, assist with mobilization and rehab recommendations. CBC, CMP, ordered for the morning SCD for dvt ppx. On protonix Full code
--- NOTE | 2023-12-08 12:39 | XR_ITS ---
PROCEDURE INFORMATION: Exam: XR Abdomen Exam date and time: 12/08/2023 12:54 PM Age: 58 years old Clinical indication: Device placement; Gi device; Nasogastric tube; Additional info: Ng placement TECHNIQUE: Imaging protocol: Radiologic exam of the abdomen. Views: Frontal supine view of the abdomen. 1 View. COMPARISON: CR XR KUB 12/07/2023 10:48 PM FINDINGS: Tubes, catheters and devices: There is an NG tube coursing into the stomach with tip terminating at the gastroduodenal junction. Visualized bowel gas pattern is unremarkable. Lungs: Visualized lung bases are clear. Gastrointestinal tract: See Tubes, catheters and devices finding. Bones/joints: Unremarkable. IMPRESSION: NG tube tip within the distal stomach.
[2023-12-08 17:07] LABS: POC Glucose,Bedside 106 (70-110)
--- NOTE | 2023-12-08 18:08 | PC.NURSE ---
A&OX4. TOLERATING RA WELL. HAS BEEN UP TO CHAIR MAJORITY OF SHIFT. TOLERATING WELL. PT DOES VERY WELL WITH AMBULATING-STANDBY ASSIST. PAIN HAS BEEN VERY WELL UNDER CONTROL. HAS HAD NO COMPLAINTS THUS FAR THIS SHIFT. NG TUBE DID COME OUT AT ONE POINT. REINSERTED IN LEFT NARE AT 58CM. PLACEMENT CONFIRMED PER XRAY. LIGHT BROWN DRAINAGE NOTED FROM NG TUBE. MIDLINE INCISION PRESENT. DX INTACT. DARREN DRAIN TO LRQ, SMALL AMOUNT OF DARK RED BLOOD PRESENT, WILL MEASURE AND CHART AT END OF SHIFT. PT TOLERATED F/C REMOVAL WELL, AND IS ABOUT TO ATTEMPT TO URINATE. BEDSIDE COMMODE IN USE. HAS HAD SOME ICE CHIPS T/O DAY. VSS.
[2023-12-08 21:28] LABS: POC Glucose,Bedside 98 (70-110)
--- NOTE | 2023-12-08 22:56 | XR_ITS ---
PROCEDURE INFORMATION: Exam: XR Abdomen Exam date and time: 12/08/2023 10:58 PM Age: 58 years old Clinical indication: Device placement; Gi device; Nasogastric tube; Prior surgery; Surgery date: Post-operative (0-2 days); Surgery type: Hernia; Additional info: Ng placement TECHNIQUE: Imaging protocol: Radiologic exam of the abdomen. Views: Frontal supine view of the abdomen. 1 View. COMPARISON: CR XR KUB 12/08/2023 12:54 PM FINDINGS: Tubes, catheters and devices: Esophagogastric tube tip projecting in the right upper quadrant, grossly unchanged from prior exam. This could lie in the distal gastric lumen, pylorus, or duodenal bulb. Surgical skin prabha project over the rightward abdomen probable surgical drain projecting over the right hemipelvis. Gastrointestinal tract: Air distended borderline dilated mid abdominal small bowel loops unchanged. Intraperitoneal space: No gross free air is evident although supine technique limits sensitivity. Organs: Cholecystectomy clips in the right upper quadrant. Bones/joints: Osteopenia. Moderate thoracolumbar spondylosis. IMPRESSION: Esophagogastric tube tip projects in the right upper quadrant in the distribution of the distal gastric lumen, pylorus, or duodenal bulb. This is unchanged from prior exam.
--- NOTE | 2023-12-08 22:58 | PC.NURSE ---
Pt called out stating she felt nauseous. When assessing pt, ng tube was noted to be at 18cm. Ng tube was advanced back to 58cm without complication. E Tim made aware. Stated to order portable KUB STAT to confirm position. Radiology notified of order.
[2023-12-09] VITALS: BP 119/53; PULSE 68; RESP 18; TEMP 37.1; O2SAT 96
[2023-12-09] MEDS: AMPICILLIN SODIUM/SULBACTAM 3 GM in 0.9 % SODIUM CHLORIDE 100 ML IV ×4 (02:17→21:05)
[2023-12-09] MEDS: ACETAMINOPHEN 1,000 MG/100 ML ML 400 MG IV ×2 (02:17→08:44)
[2023-12-09 04:00] VITALS: BP 105/57; PULSE 69; RESP 18; TEMP 36.6; O2SAT 94; BMI 34.7
[2023-12-09 06:36] LABS: POC Glucose,Bedside 107 (70-110)
--- NOTE | 2023-12-09 07:02 | P.PN_ITS ---
Subjective Patient reports: no new complaints, no flatus and no bowel movement Exam Data for Last 24 hours Vital signs and Labs for Last 24 Hours: Temp Pulse Resp BP Pulse Ox O2 Del Method 97.9 F 69 18 105/57 L 94 L Room Air 12/09/23 04:00 12/09/23 04:00 12/09/23 04:00 12/09/23 04:00 12/09/23 04:00 12/09/23 06:11 Laboratory Results - last 24 hr 12/08/23 09:25: VBG Lactic Acid 2.6 H 12/08/23 09:35: POC Glucose 154 H 12/08/23 16:59: POC Glucose 106 12/08/23 21:06: POC Glucose 98 12/09/23 06:29: POC Glucose 107 I & O for Last 24 hours: Intake & Output 12/06/23 12/07/23 12/08/23 12/09/23 10:59 10:59 11:59 11:59 Intake Total 200 / 200 Output Total 1320 / 1320 Balance -1120 / -1120 Weight 208 lb 7 oz Constitutional Constitutional: no acute distress *Routine Respiratory Exam Respiratory: Absent respiratory distress *Routine Cardiovascular Exam Cardiovascular: Absent tachycardia *Routine Abdominal Exam Abdominal: Present soft Comments: Dressings intact. No spreading cellulitis. Serosanguineous fluid via Jeffry- Perdomo drain Progress Note: A&P Assessment and plan (1) Incarcerated hernia: Problem details: Status post exploratory laparotomy with lysis of adhesions and repair of incar cerated ventral hernia on December 08, 2023 Status: Acute Assessment and plan: Continue nasogastric decompression for now Increase ambulation (2) Complete obstruction of small intestine: Status: Acute (3) Acidosis, lactic: Status: Acute (4) Hypertension: Status: Acute (5) Diabetes: Status: Acute
[2023-12-09 07:59] LABS: Basophils # 0.1 K/mm3 (0-0.2); Basophils % 0.9 % (0.1-2.0); Eosinophils # 0.2 K/mm3 (0.0-0.4); Eosinophils % 2.9 % (0.1-12.0); Hematocrit 35.7 % (37.0-47.0); Hemoglobin 11.7 g/dL (12.2-16.2); Lymphocytes # 1.8 K/mm3 (0.7-4.5); Lymphocytes % 30.3 % (10-50); Mean Corpuscular HGB Conc 32.8 g/dL (31.8-35.4); Mean Corpuscular Hemoglobin 29.3 pg (27.0-31.2); Mean Corpuscular Volume 89.4 fl (81-99); Mean Platelet Volume 9.4 fl (7.4-10.4); Monocytes # 0.4 K/mm3 (0.1-1.0); Monocytes % 6.4 % (1.7-9.3); Neutrophils # 3.6 K/mm3 (1.8-7.8); Neutrophils % 59.5 % (37.0-80.0); Platelet Count 233 K/mm3 (142-424); Red Blood Count 3.99 M/mm3 (4.20-5.40); Red Cell Distribution Width 13.8 % (11.5-17.5)
[2023-12-09 08:22] LABS: Alanine Aminotransferase 18 U/L (12-78); Albumin Level 2.6 g/dl (3.5-5.0); Albumin/Globulin Ratio 1.1 (1.1-1.8); Alkaline Phosphatase 43 U/L (38-126); Anion Gap 7.2 mEq/L (5-15); Aspartate Amino Transferase 29 U/L (14-36); Bilirubin,Total 0.6 mg/dl (0.2-1.3); Blood Urea Nitrogen 14 mg/dl (7-17); Carbon Dioxide 26 mmol/L (22.0-30.0); Chloride 113 mmol/L (98-107); Creatinine Clearance Estimated 151 mL/min (50-200); Estimated Glomerular Filt Rate 102 ml/min (>60); GFR (African American) 124 ML/MIN (>60); Globulin 2.4 g/dL (1.3-3.2); Glucose 102 mg/dl (74-100); Potassium 4.2 mmoL/L (3.5-5.1); Sodium 142 mmol/L (136-145)
[2023-12-09] MEDS: PANTOPRAZOLE 40MG VIAL 40 MG IV ×2 (08:44→21:14)
--- NOTE | 2023-12-09 10:03 | HMH.OTEV ---
OT Inpatient Evaluation Rehab OT IP Evaluation Start: 12/08/23 12:42 Freq: ONCE Status: Active Protocol: Document 12/09/23 09:57 ELOISAMEME (Rec: 12/09/23 10:03 FIDE [id number]) Rehab OT IP Assessment Subjective History Mrs. Jarrell is a 58 yo lady that presented with an incarcerated ventral hernia with bowel compromise. She was taken urgently to the OR for exploration. Operative findings:: Incareratal ventral hernia with severe adhesions. Bowel viable. This is a 58- year-old morbidly obese female with PMHx of hypertension, hyperlipidemia, diabetes, previously repaired bilateral inguinal hernias, cholecystectomy, hiatal hernia presented to ED for acute abdominal pain. Patient stated that she ate [employer] around 4 PM today about 5 hours prior to this visit and started vomiting immediately thereafter. Vomiting is nonbloody, nonbilious and looks like that she ate. Has not had a bowel movement today and has not been passing gas. Has severe epigastric abdominal pain that does not radiate. It is sharp and cramping. has not taken anything for the pain. She denies any similar episodes. Admitted for treatment and management. I can get up. Resident lives alone in 1 story apt on the 2nd floor. Independent with ADLs and continues to drive daily. Subjective Assisted Patient on safety awareness during bed mobility, transfesr, ADLs of LB drsg and toileting. Patient completed all tasks with SBA for safety. Objective Patient Orientation Person,Place,Name,Age,Birthday ,Year Right Upper Extremity Gross ROM WFL Left Upper Extremity Gross ROM WFL Bed Mobility bed mobility - supine/sit Assist Level Supervision/Stand by Transfer Training Sit/Stand/Pivot Transfer Assist Level Supervision/Stand by Chair Transfer Ability Supervision/Stand by Chair Transfer Technique Sit to/from Ambulatory Performing Toilet Hygiene Ability Independent Overall Commode/Toilet Transfer Ability Standby Assistance Commode/Toilet Transfer Technique Sit to/from Ambulatory Rehab OT IP prob,goals,plan Problems Date of Evaluation: 12/09/23 OT IP Problems Bed Mobility,Transfers,Balance ,Self care,Safety Rehab Potential Rehab Potential Good Equipment Needs Assistive Devices Rolling / Wheeled Walker Plan OT intervention Plan Bed Mobility,Transfers,Balance ,Self care,Safety,Therapeutic Exercise OT Plan Frequency Daily Duration LOS Discharge Goals Bed Mobility Ability Independent Sit to Stand Chair Transfer Ability Independent Chair Transfer Ability Independent Chair Transfer Technique Sit to/from Ambulatory Discharge Plan OT Discharge Plan Patient to continue skilled OT IP services while here at [facility] . However after medical d/c, recommend patient to return home. Eval Complexity Eval Charge Codes 61747 - Low Complexity PHYSICIAN CERTIFICATION: I certify the specified therapy services for Kavitha Jarrell are required, authorized, and reviewed every 30 days.
--- NOTE | 2023-12-09 10:12 | PC.NURSE ---
Patient ambulated in pang with SBA. Tolerated fair. Returned to chair with NG to LCS.
--- NOTE | 2023-12-09 10:38 | HMH.PTEV ---
Physical Therapy Evaluation Rehab PT IP Evaluation Start: 12/08/23 12:42 Freq: ONCE Status: Active Protocol: Document 12/09/23 10:14 BONILLA (Rec: 12/09/23 10:38 BONILLA [id number]) Subjective/History History History Patient is a 58 year old female that admits to [facility] with an incarcerated hernia. The patient underwent an exploratory laparotomy. The patient has a PMH significant for HTN, HLD, DM, BL surgically repaired inguinal hernias, cholecsytectomy. Subjective Subjective The patient is agreeable to PT and presents with a peripheral IV and a NG tube. The patient reports that she is not in any pain at the moment. Reports that she lives alone in a second floor apartment with an elevator. Reports that she has no difficulty getting around, ADLs and drives at baseline. New diagnosis of cancer in past 12 No months? Rehab PT IP Eval Objective Appearance Patient Behavior Appropriate,Cooperative, Patient Baseline Patient Orientation Person,Place,Time,Birthday Difficulty following instructions none Speech Pattern Clear,Appropriate,Coherent Ambulation Patient Able to Ambulate Yes Ambulation Observation IP General Gait Pattern Observation Decrease Stride Lngth (R), Decrease Stride Lngth (L) Ambulation Distance (feet) 20 Ambulation Assistive Device None Ambulation Ability Contact Guard/Hand Hold Balance Ability to Arise Able, w/o using arms Sitting Balance Steady, safe Standing Balance Narrow stance w/o support Dynamic Sitting Balance Ability Good Dynamic Standing Balance Ability Good Transfers Bed Transfer Ability Supervision/Stand by Chair Transfer Ability Supervision/Stand by Sit to Stand Chair Transfer Ability Supervision/Stand by Pain abd Pain Intensity 0 Rehab PT IP prob,goals,plan Problems Date of Evaluation: 12/09/23 PT IP Problems Bed Mobility,Transfers,Gait, Balance Rehab Potential Rehab Potential Good Equipment Needs Assistive Devices None / NA Plan PT Intervention Plan Bed Mobility,Transfers,Gait, Balance,Therapeutic Exercise PT Plan Frequency Daily Duration LOS Discharge Goals Bed Transfer Ability Independent Sit to Stand Chair Transfer Ability Independent Ambulation Assistive Device None Ambulation Distance (feet) 100 Discharge Plan PT Discharge Plan Patient presents for initial evaluation. At baseline, the patient presents fully independent for all activities of daily living and lives alone. At present, the patient presents below baseline in her level of function. Skilled PT is indicated to promote a return to her prior level of function and to prevent further injuries during her hospital stay. The patient may be most appropriate for discharge to home upon her leave from the hospital. Eval Complexity Eval Charge Codes 44186 - High Complexity PHYSICIAN CERTIFICATION: I certify the specified therapy services for Kavitha Jarrell are required, authorized, and reviewed every 30 days.
[2023-12-09 11:57] LABS: POC Glucose,Bedside 87 (70-110)
[2023-12-09 12:00] VITALS: BP 135/84; PULSE 71; RESP 18; TEMP 36.6; O2SAT 98
--- NOTE | 2023-12-09 12:00 | PC.NURSE ---
Patient ambulated length of pang with SBA. Tolerated well
--- NOTE | 2023-12-09 14:13 | EXP.ACUTE.PN ---
Subjective *Date: 12/09/23 *Time: 14:13 Medical Exam Vital signs and Labs for Last 24 Hours: Vital Signs Temp Pulse Resp BP Pulse Ox O2 Del Method 12/09/23 13:04 Room Air 12/09/23 12:00 97.9 F 71 18 135/84 98 Room Air 12/09/23 11:57 Room Air 12/09/23 09:00 Room Air 12/09/23 08:36 Room Air 12/09/23 06:11 Room Air 12/09/23 05:00 Room Air 12/09/23 04:00 97.9 F 69 18 105/57 L 94 L Room Air 12/09/23 03:00 Room Air 12/09/23 01:00 Room Air 12/09/23 00:00 98.8 F 68 18 119/53 L 96 Room Air 12/08/23 23:00 Room Air 12/08/23 21:00 Room Air 12/08/23 20:00 Room Air 12/08/23 20:00 98.3 F 67 16 123/73 100 Room Air 12/08/23 18:57 Room Air 12/08/23 17:00 Room Air 12/08/23 16:00 98 F 104 H 17 128/64 94 L Room Air 12/08/23 15:00 Room Air Intake and Output 12/08/23 12/09/23 12/09/23 23:59 07:59 15:59 Intake Total 200 / 1900 311 / 311 Output Total 620 / 1340 Balance -420 / 560 311 / 311 Intake: Intake, Total IV Amount 200 / 200 311 / 311 0.9 % Sodium Chloride 1000ML 1, 311 / 311 000 ml @ 100 mls/hr IV .Q10H PREET Rx#:[id number] Acetaminophen 1,000 mg In 100 100 / 100 ml @ 400 mls/hr IV Q6H PREET Rx#: [id number] Ampicillin Sodium/Sulbactam 3 100 / 100 gm In 0.9 % Sodium Chloride 100 ml @ 200 mls/hr IV Q6H PREET Rx# :[id number] Output: Output, Urine Amount 0 / 700 Output, Gastric Drainage Amount 620 / 620 Left Nare 620 / 620 Other: Number of Voids 0 Number of Unmeasured Voids 1 Weight 94.546 kg Patient Weight 12/09/23 23:59 Weight 94.546 kg Laboratory Results - last 24 hr 12/08/23 16:59: POC Glucose 106 12/08/23 21:06: POC Glucose 98 12/09/23 06:29: POC Glucose 107 12/09/23 07:38: WBC 6.0 D, RBC 3.99 L, Hgb 11.7 L, Hct 35.7 L, MCV 89.4, MCH 29.3, MCHC 32.8, RDW 13.8, Plt Count 233, MPV 9.4, Neut % (Auto) 59.5, Lymph % (Auto) 30.3, [place] % (Auto) 6.4, Eos % (Auto) 2.9, Baso % (Auto) 0.9, Neut # (Auto) 3.6, Lymph # (Auto) 1.8, [place] # (Auto) 0.4, Eos # (Auto) 0.2, Baso # (Auto) 0.1, Sodium 142, Potassium 4.2, Chloride 113 H, Carbon Dioxide 26, Anion Gap 7.2, BUN 14, Creatinine 0.60, Estimated Creat Clear 151, Estimated GFR 102, Est GFR ( Amer) 124, Glucose 102 H, Calcium 8.0 L, Total Bilirubin 0.6, AST 29, ALT 18 D, Alkaline Phosphatase 43, Total Protein 5.0 L, Albumin 2.6 L D, Globulin 2.4, Albumin/Globulin Ratio 1.1 12/09/23 11:50: POC Glucose 87 I & O for Labs for Last 24 Hours: Intake & Output 12/06/23 12/07/23 12/08/23 12/09/23 22:59 22:59 23:59 23:59 Intake Total 311 / 311 Output Total Balance 311 / 311 Weight 94.546 kg Assessment and Plan *Assessment and plan (1) Abdominal pain: Status: Acute Qualifiers: Abdominal location: epigastric Qualified Code(s): R10.13 - Epigastric pain Category: Medical Code(s): R10.9 - Unspecified abdominal pain (2) Incarcerated hernia: Problem Comment: Status post exploratory laparotomy with lysis of adhesions and repair of incarcerated ventral hernia on December 08, 2023 Status: Acute Category: Surgical Code(s): K46.0 - Unspecified abdominal hernia with obstruction, without gangrene (3) Complete obstruction of small intestine: Status: Acute Category: Medical Code(s): K56.601 - Complete intestinal obstruction, unspecified as to cause (4) Acidosis, lactic: Status: Acute Category: Medical Code(s): E87.20 - Acidosis, unspecified (5) Hypertension: Status: Acute Qualifiers: Hypertension type: unspecified Qualified Code(s): I10 - Essential (primary) hypertension Category: Medical Code(s): I10 - Essential (primary) hypertension (6) Diabetes: Status: Acute Qualifiers: Diabetes mellitus type: type 2 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 initial work up included CTA of abdomen concerning for incarcerated hernia with complete obstruction of the bowel. elevated WBC, and lact acid. Discontinue vancomycin, initiate Unasyn for 24 to 48 hours, monitor for stable labs. Patient feeling somewhat better this morning. Ambulating. Pain stable. Still no advancement in diet, no flatus. Continues to require inpatient management. Problems addressed as follows: -Acute abdominal pain secondary to incarcerated hernia complete SBO: leukocytosis and lactic acidosis: Status post surgery for incarcerated hernia. No sections of bowel removed. -Discussed case with surgery, continues to require inpatient management. Continue with sips and chips and NG until passing flatus. Mobilize is much as possible. -Continue Unasyn every 6 hours IV, if white cell count remains stable tomorrow, consider discontinuing 48 hours after surgery. -Continue NG for decompression - Pain control with Toradol every 6 hours as needed and Tylenol every 4 hours as needed. Monitor kidney and liver function for toxicity - BUN 14, creatinine 0.6. No electrolyte disturbances. White cell count normal at 6. Hemoglobin 11.7. Repeat CBC, CMP, magnesium ordered for the morning. HTN: Normotensive at this time, will hold losartan pending improvement in blood pressure. Hyperlipidemia: Holding statin, will resume prior to discharge NIDDM: acute check on sliding scale. treat BS greater than 200 PT and OT consults placed, assist with mobilization and rehab recommendations. SCD for dvt ppx. On protonix Full code
--- NOTE | 2023-12-09 15:07 | PC.NURSE ---
Patient states she is passing flatus. Bowel sounds continue to be hypoactive
--- NOTE | 2023-12-09 15:10 | PC.NURSE ---
Patient alert and oriented. VSS. Minimal complaint of pain. Midline abdominal dressing dry and intact. Minimal DARREN outpu. NG to LCS when in room. Ambulated in hallway multiple times today with SBA. Voiding via toilet. States she is passing flatus. Plan to continue NG and increase activity as tolerated.
[2023-12-09 16:00] VITALS: BP 133/77; PULSE 73; RESP 18; TEMP 36.3; O2SAT 99
[2023-12-09 16:39] LABS: POC Glucose,Bedside 64 (70-110)
--- NOTE | 2023-12-09 16:51 | PC.NURSE ---
Dr. Stokes notified of patient's FSBS of 64. Order received to give juice and recheck. Suction to NG temporarily shut off
[2023-12-09 17:32] LABS: POC Glucose,Bedside 80 (70-110)
[2023-12-09 20:00] VITALS: BP 122/70; PULSE 64; RESP 16; TEMP 36.7; O2SAT 99
[2023-12-09] MEDS: SODIUM CHLORIDE 0.9% 10ML VIAL 10 ML IV (21:14)
[2023-12-09 21:20] LABS: POC Glucose,Bedside 75 (70-110)
--- NOTE | 2023-12-09 21:30 | PC.NURSE ---
patient ambulated hallway before bed - active bowel sounds, passing flatus but bm. NGT @58 on CLWS has yellow output, see I/O's. abd dsg intact with no drainage. DARREN drain intact with scant red output. patient denies pain, n/v.
[2023-12-10] VITALS: BP 115/67; PULSE 62; RESP 16; TEMP 36.6; O2SAT 93
[2023-12-10] MEDS: AMPICILLIN SODIUM/SULBACTAM 3 GM in 0.9 % SODIUM CHLORIDE 100 ML IV ×4 (01:56→20:44)
[2023-12-10 04:00] VITALS: BP 123/71; PULSE 72; RESP 16; TEMP 36.3; O2SAT 96; BMI 35.9
[2023-12-10 05:39] LABS: POC Glucose,Bedside 91 (70-110)
[2023-12-10 07:29] LABS: Alanine Aminotransferase 12 U/L (12-78); Albumin Level 2.8 g/dl (3.5-5.0); Albumin/Globulin Ratio 1.2 (1.1-1.8); Alkaline Phosphatase 57 U/L (38-126); Anion Gap 8.5 mEq/L (5-15); Aspartate Amino Transferase 22 U/L (14-36); Bilirubin,Total 0.4 mg/dl (0.2-1.3); Blood Urea Nitrogen 12 mg/dl (7-17); Calcium 8.2 mg/dl (8.4-10.2); Carbon Dioxide 25 mmol/L (22.0-30.0); Chloride 111 mmol/L (98-107); Creatinine Clearance Estimated 156 mL/min (50-200); Estimated Glomerular Filt Rate 102 ml/min (>60); GFR (African American) 124 ML/MIN (>60); Globulin 2.3 g/dL (1.3-3.2); Glucose 99 mg/dl (74-100); Magnesium 1.9 mg/dl (1.6-2.3); Potassium 3.5 mmoL/L (3.5-5.1); Sodium 141 mmol/L (136-145); Total Protein,Serum 5.1 g/dl (6.3-8.2)
--- NOTE | 2023-12-10 07:47 | P.PNANES_ITS ---
[facility] Anesthesia Record Part II Anesthesia Record Part II Discharge Time: 03:50 Destination: Medical Surgical Department PACU nurse assessment reviewed?: Yes Patient Condition:: Good Anesthesia Complications:: None Swallowing reflex intact?: Yes Airway Patency: Patent Cyanosis?: No Blood Pressure: 161/83 SaO2: 96 Respiratory Rate: 16 Pulse Rate: 81 Temperature: 97 F Mental Status: Alert & Oriented Pain level:: 0 Nausea and/or vomitting:: None Intake, IV Amount: 0 Hydration: Adequate
[2023-12-10 07:48] VITALS: BP 161/83; PULSE 81; RESP 16; TEMP 36.1; O2SAT 96
[2023-12-10 08:00] VITALS: BP 107/67; PULSE 63; RESP 16; TEMP 37.1; O2SAT 95
[2023-12-10 08:14] LABS: Basophils % 0.5 % (0.1-2.0); Eosinophils # 0.2 K/mm3 (0.0-0.4); Eosinophils % 3.9 % (0.1-12.0); Hematocrit 35.6 % (37.0-47.0); Hemoglobin 12.6 g/dL (12.2-16.2); Lymphocytes # 1.6 K/mm3 (0.7-4.5); Lymphocytes % 27.6 % (10-50); Mean Corpuscular HGB Conc 35.3 g/dL (31.8-35.4); Mean Corpuscular Volume 90.8 fl (81-99); Mean Platelet Volume 8.7 fl (7.4-10.4); Monocytes # 0.3 K/mm3 (0.1-1.0); Monocytes % 5.3 % (1.7-9.3); Neutrophils # 3.6 K/mm3 (1.8-7.8); Neutrophils % 62.7 % (37.0-80.0); Platelet Count 225 K/mm3 (142-424); Red Blood Count 3.92 M/mm3 (4.20-5.40); Red Cell Distribution Width 13.7 % (11.5-17.5); White Blood Count 5.7 K/mm3 (4.8-10.8)
--- NOTE | 2023-12-10 08:33 | EXP.SURG.PN ---
Subjective Patient reports: feels better and flatus Exam Data for Last 24 hours Vital signs and Labs for Last 24 Hours: Temp Pulse Resp BP Pulse Ox O2 Del Method 98.8 F 63 16 107/67 L 95 Room Air 12/10/23 08:00 12/10/23 08:00 12/10/23 08:00 12/10/23 08:00 12/10/23 08:00 12/10/23 08:00 Laboratory Results - last 24 hr 12/09/23 11:50: POC Glucose 87 12/09/23 16:31: POC Glucose 64 L 12/09/23 17:23: POC Glucose 80 12/09/23 21:12: POC Glucose 75 12/10/23 05:32: POC Glucose 91 12/10/23 07:00: WBC 5.7, RBC 3.92 L, Hgb 12.6, Hct 35.6 L, MCV 90.8, MCH 32.0 H, MCHC 35.3, RDW 13.7, Plt Count 225, MPV 8.7, Neut % (Auto) 62.7, Lymph % (Auto) 27.6, [place] % (Auto) 5.3, Eos % (Auto) 3.9, Baso % (Auto) 0.5, Neut # (Auto) 3.6, Lymph # (Auto) 1.6, [place] # (Auto) 0.3, Eos # (Auto) 0.2, Baso # (Auto) 0.0, Sodium 141, Potassium 3.5, Chloride 111 H, Carbon Dioxide 25, Anion Gap 8.5, BUN 12, Creatinine 0.60, Estimated Creat Clear 156, Estimated GFR 102, Est GFR ( Amer) 124, Glucose 99, Calcium 8.2 L, Magnesium 1.9, Total Bilirubin 0.4, AST 22, ALT 12 D, Alkaline Phosphatase 57, Total Protein 5.1 L, Albumin 2.8 L, Globulin 2.3, Albumin/Globulin Ratio 1.2 I & O for Last 24 hours: Intake & Output 12/07/23 12/08/23 12/09/23 12/10/23 10:59 11:59 11:59 11:59 Intake Total 511 / 511 660 / 660 Output Total 1320 / 1320 1056 / 1056 Balance -809 / -809 -396 / -396 Weight 208 lb 7 oz 215 lb 9.6 oz Constitutional Constitutional: no acute distress *Routine Respiratory Exam Respiratory: Absent respiratory distress *Routine Cardiovascular Exam Cardiovascular: Absent tachycardia *Routine Abdominal Exam Abdominal: Present soft Comments: Serosanguineous Jeffry-Perdomo drainage Progress Note: A&P Assessment and plan (1) Incarcerated hernia: Problem details: Status post exploratory laparotomy with lysis of adhesions and repair of incarcerated ventral hernia on December 08, 2023 Status: Acute Assessment and plan: Overall, doing well status post extensive lysis of adhesions and primary repair of hernia. Bowel function returning. Likely remove nasogastric tube and slowly increase diet later today (2) Complete obstruction of small intestine: Status: Acute
[2023-12-10] MEDS: SODIUM CHLORIDE 0.9% 10ML VIAL 10 ML IV ×2 (09:09→20:44)
[2023-12-10] MEDS: PANTOPRAZOLE 40MG VIAL 40 MG IV ×2 (09:09→20:44)
[2023-12-10 11:46] LABS: POC Glucose,Bedside 121 (70-110)
--- NOTE | 2023-12-10 13:36 | PC.NURSE ---
pt has ambulated a few rounds around the unit independently today and yesterday. pt ambulates well with minimal rest periods taken. pt is back in her room, up to chair with call light within reach
[2023-12-10 16:00] VITALS: BP 125/73; PULSE 65; RESP 18; TEMP 36.8; O2SAT 99
[2023-12-10 16:53] LABS: POC Glucose,Bedside 132 (70-110)
--- NOTE | 2023-12-10 17:05 | PC.NURSE ---
A&OX4. TOLERATING RA WELL. NG REMOVED TODAY, ADVANCED TO CLEAR LIQUID DIET, TOLERATING WELL. PT UP INDEPENDENTLY IN ROOM AND HALLWAY. PASSING GAS AND HAS HAD FORMED BM X1. NO NEEDS OR C/O NOTED. MIDLINE PRESENT, WILLIE INTACT AND APPROXIMATED. DARREN DRAIN PRESENT WITH MINIMAL AMOUNT OF SEROSANG DRAINAGE NOTED. VSS.
[2023-12-10 20:00] VITALS: BP 148/71; PULSE 64; RESP 16; TEMP 36.9; O2SAT 91
[2023-12-10 21:09] LABS: POC Glucose,Bedside 84 (70-110)
[2023-12-11] MEDS: AMPICILLIN SODIUM/SULBACTAM 3 GM in 0.9 % SODIUM CHLORIDE 100 ML IV ×4 (03:18→20:29)
[2023-12-11 04:00] VITALS: BP 148/78; PULSE 60; RESP 16; TEMP 36.6; O2SAT 97; BMI 35.3
[2023-12-11 05:39] LABS: POC Glucose,Bedside 111 (70-110)
--- NOTE | 2023-12-11 06:42 | PC.NURSE ---
ambulated frequently tonight, rested well. denies pain n/v. incision WNL. tolerating diet well w/ advancing
[2023-12-11 07:24] LABS: Alanine Aminotransferase 15 U/L (12-78); Albumin/Globulin Ratio 1.2 (1.1-1.8); Alkaline Phosphatase 60 U/L (38-126); Anion Gap 8.5 mEq/L (5-15); Aspartate Amino Transferase 24 U/L (14-36); Bilirubin,Total 0.4 mg/dl (0.2-1.3); Blood Urea Nitrogen 8 mg/dl (7-17); Calcium 8.6 mg/dl (8.4-10.2); Carbon Dioxide 28 mmol/L (22.0-30.0); Chloride 108 mmol/L (98-107); Creatinine Clearance Estimated 153 mL/min (50-200); Estimated Glomerular Filt Rate 102 ml/min (>60); GFR (African American) 124 ML/MIN (>60); Globulin 2.5 g/dL (1.3-3.2); Glucose 115 mg/dl (74-100); Potassium 3.5 mmoL/L (3.5-5.1); Sodium 141 mmol/L (136-145); Total Protein,Serum 5.5 g/dl (6.3-8.2)
[2023-12-11 08:00] VITALS: BP 146/87; PULSE 77; RESP 19; TEMP 36.6; O2SAT 97
[2023-12-11] MEDS: SODIUM CHLORIDE 0.9% 10ML VIAL 10 ML IV ×2 (08:04→20:29)
[2023-12-11] MEDS: PANTOPRAZOLE 40MG VIAL 40 MG IV ×2 (08:04→20:29)
--- NOTE | 2023-12-11 08:48 | P.PN_ITS ---
Subjective Patient reports: no new complaints, feels better and bowel movement Exam Data for Last 24 hours Vital signs and Labs for Last 24 Hours: Temp Pulse Resp BP Pulse Ox O2 Del Method 97.9 F 60 16 148/78 H 97 Room Air 12/11/23 04:00 12/11/23 04:00 12/11/23 04:00 12/11/23 04:00 12/11/23 04:00 12/11/23 06:34 Laboratory Results - last 24 hr 12/10/23 11:29: POC Glucose 121 H 12/10/23 16:46: POC Glucose 132 H 12/10/23 20:44: POC Glucose 84 12/11/23 05:32: POC Glucose 111 H 12/11/23 07:00: Sodium 141, Potassium 3.5, Chloride 108 H, Carbon Dioxide 28, Anion Gap 8.5, BUN 8 D, Creatinine 0.60, Estimated Creat Clear 153, Estimated GFR 102, Est GFR ( Amer) 124, Glucose 115 H, Calcium 8.6, Total Bilirubin 0.4, AST 24, ALT 15, Alkaline Phosphatase 60, Total Protein 5.5 L, Albumin 3.0 L , Globulin 2.5, Albumin/Globulin Ratio 1.2 I & O for Last 24 hours: Intake & Output 12/08/23 12/09/23 12/10/23 12/11/23 11:59 11:59 11:59 11:59 Intake Total 511 / 511 660 / 660 1645 / 1645 Output Total 1320 / 1320 1056 / 1056 0 / 0 Balance -809 / -809 -396 / -396 1645 / 1645 Weight 208 lb 7 oz 215 lb 9.6 oz 212 lb 1.355 oz Constitutional Constitutional: no acute distress *Routine Respiratory Exam Respiratory: Absent respiratory distress *Routine Cardiovascular Exam Cardiovascular: Absent tachycardia *Routine Abdominal Exam Abdominal: Present soft Comments: Minimal Jeffry-Perdomo drainage Progress Note: A&P Assessment and plan (1) Incarcerated hernia: Problem details: Status post exploratory laparotomy with lysis of adhesions and repair of incarcerated ventral hernia on December 08, 2023 Status: Acute Assessment and plan: Overall, doing well status post extensive lysis of adhesions and primary repair of hernia. Bowel function returning. Continue to slowly advance diet If she continues to progress she will likely be stable for discharge home tomorrow (2) Complete obstruction of small intestine: Status: Acute
[2023-12-11 09:44] VITALS: BMI 35.3
--- NOTE | 2023-12-11 09:55 | PC.NURSE ---
Pt voices concerns of not passing gas and no bowel movements this shift. Pt C/O moderate pain in abdomen. Pt abdomen not extended, bowel sounds normal in all 4 quads, incision site is free of signs of infection and DARREN drain remains with scant amount of drainage. SAHARA Strauss made aware at 2203, no new orders at this time.
--- NOTE | 2023-12-11 10:38 | SW/DCPLANNER ---
I spoke w/ this patient regarding discharge plans. PT evaluated patient and recommended home health services. Patient is not interested in home health services at this time. The plan for this patient is to discharge home tomorrow. I will continue to follow up w/ this patient until medically stable for discharge.
--- NOTE | 2023-12-11 15:51 | P.PN_ITS ---
Subjective *Date: 12/10/23 *Time: 10:00 Interval history: patient seen at bedside, complains of not feeling well, denied CP, SOB, N/V Exam Data for Last 24 hours Vital signs and Labs for Last 24 Hours: Temp Pulse Resp BP Pulse Ox O2 Del Method 97.9 F 77 19 146/87 H 97 Room Air 12/11/23 08:00 12/11/23 08:00 12/11/23 08:00 12/11/23 08:00 12/11/23 08:00 12/11/23 13:00 Laboratory Results - last 24 hr 12/10/23 16:46: POC Glucose 132 H 12/10/23 20:44: POC Glucose 84 12/11/23 05:32: POC Glucose 111 H 12/11/23 07:00: Sodium 141, Potassium 3.5, Chloride 108 H, Carbon Dioxide 28, Anion Gap 8.5, BUN 8 D, Creatinine 0.60, Estimated Creat Clear 153, Estimated GFR 102, Est GFR ( Amer) 124, Glucose 115 H, Calcium 8.6, Total Bilirubin 0.4, AST 24, ALT 15, Alkaline Phosphatase 60, Total Protein 5.5 L, Albumin 3.0 L , Globulin 2.5, Albumin/Globulin Ratio 1.2 I & O for Last 24 hours: Intake & Output 12/08/23 12/09/23 12/10/23 12/11/23 23:59 23:59 23:59 23:59 Intake Total 871 / 871 1525 / 1745 1180 / 1180 Output Total 806 / 806 250 / 250 0 / 0 Balance 65 / 65 1275 / 1495 1180 / 1180 Weight 94.546 kg 97.795 kg 96.2 kg Constitutional Constitutional: no acute distress *Routine HEENT Exam Head: Present normocephalic Eye: Present EOMI and PERRL ENT: Present mucous membranes moist *Routine Neck Exam Neck: Present supple; Absent lymphadenopathy *Routine Respiratory Exam Respiratory: Present CTA bilaterally *Routine Cardiovascular Exam Cardiovascular: Present RRR *Routine Abdominal Exam Abdominal: Present soft and normoactive bowel sounds; Absent tenderness *Routine Extremities Exam Extremities: Absent cyanosis, clubbing or edema *Routine Skin Exam Skin: Present warm; Absent rash *Routine Neurological Exam Neurological: Present alert and oriented X3 Assessment and Plan *Assessment and plan (1) Abdominal pain: Status: Acute Qualifiers: Abdominal location: epigastric Qualified Code(s): R10.13 - Epigastric pain Category: Medical Code(s): R10.9 - Unspecified abdominal pain (2) Incarcerated hernia: Problem Comment: Status post exploratory laparotomy with lysis of adhesions and repair of incarcerated ventral hernia on December 08, 2023 Status: Acute Category: Surgical Code(s): K46.0 - Unspecified abdominal hernia with obstruction, without gangrene (3) Complete obstruction of small intestine: Status: Acute Category: Medical Code(s): K56.601 - Complete intestinal obstruction, unspecified as to cause (4) Acidosis, lactic: Status: Acute Category: Medical Code(s): E87.20 - Acidosis, unspecified (5) Hypertension: Status: Acute Qualifiers: Hypertension type: unspecified Qualified Code(s): I10 - Essential (primary) hypertension Category: Medical Code(s): I10 - Essential (primary) hypertension (6) Diabetes: Status: Acute Qualifiers: Diabetes mellitus type: type 2 Diabetes mellitus longterm insulin use: without longwall foreman use Diabetes mellitus complication status: with other specified complication Qualified Code(s): E11.69 - Type 2 diabetes mellitus with other specified complication Category: Medical Code(s): E11.9 - Type 2 diabetes mellitus without complications Plan 58-year-old morbidly obese female with PMHx of hypertension, hyperlipidemia, diabetes, previously repaired bilateral inguinal hernias, cholecystectomy, hiatal hernia presented to ED for acute abdominal pain. initial work up included CTA of abdomen concerning for incarcerated hernia with complete obstruction of the bowel. elevated WBC, and lact acid. Discontinue vancomycin, initiate Unasyn for 24 to 48 hours, monitor for stable labs. Patient feeling somewhat better this morning. Ambulating. Pain stable. Still no advancement in diet, no flatus. Continues to require inpatient management. Problems addressed as follows: -Acute abdominal pain secondary to incarcerated hernia complete SBO: leukocytosis and lactic acidosis: Status post surgery for incarcerated hernia. -Discussed case with surgery, continues to require inpatient management. Continue with sips and chips and NG until passing flatus. Mobilize is much as possible. -Continue Unasyn every 6 hours IV, if white cell count remains stable tomorrow, consider discontinuing 48 hours after surgery. -Continue NG for decompression - Pain control with Toradol every 6 hours as needed and Tylenol every 4 hours as needed. Monitor kidney and liver function for toxicity - BUN 14, creatinine 0.6. No electrolyte disturbances. White cell count normal at 6. Hemoglobin 11.7. Repeat CBC, CMP, magnesium ordered for the morning. HTN: Normotensive at this time, will hold losartan pending improvement in blood pressure. Hyperlipidemia: Holding statin, will resume prior to discharge NIDDM: acute check on sliding scale. treat BS greater than 200 PT and OT consults placed, assist with mobilization and rehab recommendations. SCD for dvt ppx. On protonix Full code continue to advance diet as tolerated
[2023-12-11 16:00] VITALS: BP 151/92; PULSE 67; RESP 19; O2SAT 99
--- NOTE | 2023-12-11 16:02 | EXP.PN ---
Subjective *Date: 12/11/23 *Time: 16:02 Interval history: patient seen at bedside, complains of not feeling well, however able to hold down food, no nausea vomiting, had breakfast, denied CP, SOB, N/V Exam Data for Last 24 hours Vital signs and Labs for Last 24 Hours: Temp Pulse Resp BP Pulse Ox O2 Del Method 97.9 F 77 19 146/87 H 97 Room Air 12/11/23 08:00 12/11/23 08:00 12/11/23 08:00 12/11/23 08:00 12/11/23 08:00 12/11/23 13:00 Laboratory Results - last 24 hr 12/10/23 16:46: POC Glucose 132 H 12/10/23 20:44: POC Glucose 84 12/11/23 05:32: POC Glucose 111 H 12/11/23 07:00: Sodium 141, Potassium 3.5, Chloride 108 H, Carbon Dioxide 28, Anion Gap 8.5, BUN 8 D, Creatinine 0.60, Estimated Creat Clear 153, Estimated GFR 102, Est GFR ( Amer) 124, Glucose 115 H, Calcium 8.6, Total Bilirubin 0.4, AST 24, ALT 15, Alkaline Phosphatase 60, Total Protein 5.5 L, Albumin 3.0 L, Globulin 2.5, Albumin/Globulin Ratio 1.2 I & O for Last 24 hours: Intake & Output 12/08/23 12/09/23 12/10/23 12/11/23 23:59 23:59 23:59 23:59 Intake Total 871 / 871 1525 / 1745 1180 / 1180 Output Total 806 / 806 250 / 250 0 / 0 Balance 65 / 65 1275 / 1495 1180 / 1180 Weight 94.546 kg 97.795 kg 96.2 kg Constitutional Constitutional: no acute distress *Routine HEENT Exam Head: Present normocephalic Eye: Present EOMI and PERRL ENT: Present mucous membranes moist *Routine Neck Exam Neck: Present supple; Absent lymphadenopathy *Routine Respiratory Exam Respiratory: Present CTA bilaterally *Routine Cardiovascular Exam Cardiovascular: Present RRR *Routine Abdominal Exam Abdominal: Present soft and normoactive bowel sounds; Absent tenderness *Routine Extremities Exam Extremities: Absent cyanosis, clubbing or edema *Routine Skin Exam Skin: Present warm; Absent rash *Routine Neurological Exam Neurological: Present alert and oriented X3 Assessment and Plan *Assessment and plan (1) Abdominal pain: Status: Acute Qualifiers: Abdominal location: epigastric Qualified Code(s): R10.13 - Epigastric pain Category: Medical Code(s): R10.9 - Unspecified abdominal pain (2) Incarcerated hernia: Problem Comment: Status post exploratory laparotomy with lysis of adhesions and repair of incarcerated ventral hernia on December 08, 2023 Status: Acute Category: Surgical Code(s): K46.0 - Unspecified abdominal hernia with obstruction, without gangrene (3) Complete obstruction of small intestine: Status: Acute Category: Medical Code(s): K56.601 - Complete intestinal obstruction, unspecified as to cause (4) Acidosis, lactic: Status: Acute Category: Medical Code(s): E87.20 - Acidosis, unspecified (5) Hypertension: Status: Acute Qualifiers: Hypertension type: unspecified Qualified Code(s): I10 - Essential (primary) hypertension Category: Medical Code(s): I10 - Essential (primary) hypertension (6) Diabetes: Status: Acute Qualifiers: Diabetes mellitus type: type 2 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 initial work up included CTA of abdomen concerning for incarcerated hernia with complete obstruction of the bowel. elevated WBC, and lact acid. Discontinue vancomycin, initiate Unasyn for 24 to 48 hours, monitor for stable labs. Patient feeling somewhat better this morning. Ambulating. Pain stable. Still no advancement in diet, no flatus. Continues to require inpatient management. Problems addressed as follows: -Acute abdominal pain secondary to incarcerated hernia complete SBO: leukocytosis and lactic acidosis: Status post surgery for incarcerated hernia. -Discussed case with surgery, continues to require inpatient management. Continue with sips and chips and NG until passing flatus. Mobilize is much as possible. -Continue NG for decompression - Pain control with Toradol every 6 hours as needed and Tylenol every 4 hours as needed. Monitor kidney and liver function for toxicity - BUN 14, creatinine 0.6. No electrolyte disturbances. White cell count normal at 6. Hemoglobin 11.7. Repeat CBC, CMP, magnesium ordered for the morning. HTN: Normotensive at this time, will hold losartan pending improvement in blood pressure. Hyperlipidemia: Holding statin, will resume prior to discharge NIDDM: acute check on sliding scale. treat BS greater than 200 PT and OT consults placed, assist with mobilization and rehab recommendations. SCD for dvt ppx. On protonix Full code continue to advance diet as tolerated, started on reguklar diet today, likely DC tomorrow
--- NOTE | 2023-12-11 17:40 | PC.NURSE ---
A&OX4. TOLERATING RA WELL. HAS HAD NO C/O THUS FAR THIS SHIFT. HAS BEEN UP WALKING PLENTY AROUND FLOOR AND ROOM. HAD SHOWER. NEW DRESSING APPLIED TO DARREN DRAIN INSERTION SITE. DRAINING SMALL AMOUNT OF SEROSANG DRAINAGE. TOLERATING REGULAR DIET WELL. VSS.
[2023-12-11 20:00] VITALS: BP 154/95; PULSE 80; RESP 18; TEMP 36.6; O2SAT 96
[2023-12-11 21:01] LABS: POC Glucose,Bedside 135 (70-110)
[2023-12-11] MEDS: KETOROLAC 30MG/ML VIAL 30 MG IV (21:45)
[2023-12-12] MEDS: AMPICILLIN SODIUM/SULBACTAM 3 GM in 0.9 % SODIUM CHLORIDE 100 ML IV (02:34)
[2023-12-12 04:00] VITALS: BP 136/71; PULSE 61; RESP 18; TEMP 36.4; O2SAT 100; BMI 35.2
[2023-12-12 06:25] LABS: POC Glucose,Bedside 106 (70-110)
--- NOTE | 2023-12-12 06:46 | PC.NURSE ---
Pt is alert and oriented x4, and currently tolerating RA. Pt midline incision site remains free of infection and open to air with prabha intact. DARREN drain is dressed with gauze and tegaderm and scant amount of drainage. Pt denies pain at this time but did c/o pain earlier in shift and was treated per nov. Pt glucose has been slightly elevated but dose not require insulin. Pt has slept well since pain medication was given and denies pain and other needs.
[2023-12-12 06:53] LABS: Basophils # 0.1 K/mm3 (0-0.2); Basophils % 1.2 % (0.1-2.0); Eosinophils # 0.3 K/mm3 (0.0-0.4); Eosinophils % 6.9 % (0.1-12.0); Hematocrit 35.6 % (37.0-47.0); Lymphocytes # 1.7 K/mm3 (0.7-4.5); Lymphocytes % 37.4 % (10-50); Mean Corpuscular HGB Conc 33.7 g/dL (31.8-35.4); Mean Corpuscular Hemoglobin 29.7 pg (27.0-31.2); Mean Corpuscular Volume 88.1 fl (81-99); Mean Platelet Volume 8.9 fl (7.4-10.4); Monocytes # 0.3 K/mm3 (0.1-1.0); Monocytes % 5.9 % (1.7-9.3); Neutrophils # 2.2 K/mm3 (1.8-7.8); Neutrophils % 48.6 % (37.0-80.0); Platelet Count 238 K/mm3 (142-424); Red Blood Count 4.04 M/mm3 (4.20-5.40); Red Cell Distribution Width 13.4 % (11.5-17.5); White Blood Count 4.5 K/mm3 (4.8-10.8)
[2023-12-12 07:10] LABS: Alanine Aminotransferase 14 U/L (12-78); Albumin/Globulin Ratio 1.3 (1.1-1.8); Alkaline Phosphatase 61 U/L (38-126); Anion Gap 7.4 mEq/L (5-15); Aspartate Amino Transferase 23 U/L (14-36); Bilirubin,Total 0.5 mg/dl (0.2-1.3); Blood Urea Nitrogen 10 mg/dl (7-17); Calcium 8.6 mg/dl (8.4-10.2); Carbon Dioxide 27 mmol/L (22.0-30.0); Chloride 108 mmol/L (98-107); Creatinine Clearance Estimated 153 mL/min (50-200); Estimated Glomerular Filt Rate 102 ml/min (>60); GFR (African American) 124 ML/MIN (>60); Globulin 2.4 g/dL (1.3-3.2); Glucose 120 mg/dl (74-100); Potassium 3.4 mmoL/L (3.5-5.1); Sodium 139 mmol/L (136-145); Total Protein,Serum 5.4 g/dl (6.3-8.2)
[2023-12-12 07:58] VITALS: BP 130/69; PULSE 65; RESP 17; TEMP 36.7; O2SAT 98
[2023-12-12] MEDS: PANTOPRAZOLE 40MG VIAL 40 MG IV (08:01)
--- NOTE | 2023-12-12 09:20 | P.PN_ITS ---
Subjective Patient reports: no new complaints, feels better, flatus and bowel movement Exam Data for Last 24 hours Vital signs and Labs for Last 24 Hours: Temp Pulse Resp BP Pulse Ox O2 Del Method 98.1 F 65 17 130/69 98 Room Air 12/12/23 07:58 12/12/23 07:58 12/12/23 07:58 12/12/23 07:58 12/12/23 07:58 12/12/23 07:58 Laboratory Results - last 24 hr 12/11/23 20:28: POC Glucose 135 H 12/12/23 06:00: POC Glucose 106 12/12/23 06:31: WBC 4.5 L, RBC 4.04 L, Hgb 12.0 L, Hct 35.6 L, MCV 88.1, MCH 29.7, MCHC 33.7, RDW 13.4, Plt Count 238, MPV 8.9, Neut % (Auto) 48.6, Lymph % (Auto) 37.4, [place] % (Auto) 5.9, Eos % (Auto) 6.9, Baso % (Auto) 1.2, Neut # (Auto) 2.2, Lymph # (Auto) 1.7, [place] # (Auto) 0.3, Eos # (Auto) 0.3, Baso # (Auto) 0.1, Sodium 139, Potassium 3.4 L, Chloride 108 H, Carbon Dioxide 27, Anion Gap 7.4, BUN 10, Creatinine 0.60, Estimated Creat Clear 153, Estimated GFR 102, Est GFR ( Amer) 124, Glucose 120 H, Calcium 8.6, Total Bilirubin 0.5, AST 23, ALT 14, Alkaline Phosphatase 61, Total Protein 5.4 L, Albumin 3.0 L , Globulin 2.4, Albumin/Globulin Ratio 1.3 I & O for Last 24 hours: Intake & Output 12/09/23 12/10/23 12/11/23 12/12/23 11:59 11:59 11:59 11:59 Intake Total 511 / 511 660 / 660 5 / 2245 1450 / 1450 Output Total 1320 / 1320 1056 / 1056 0 / 0 0 / 0 Balance -809 / -809 -396 / -396 2244 / 2245 1450 / 1450 Weight 208 lb 7 oz 215 lb 9.6 oz 212 lb 1.355 oz 211 lb 6.4 oz Constitutional Constitutional: no acute distress *Routine Respiratory Exam Respiratory: Absent respiratory distress *Routine Cardiovascular Exam Cardiovascular: Absent tachycardia *Routine Abdominal Exam Abdominal: Present soft Comments: Incision healing without evidence of infection. Minimal Jeffry-Perdomo drainage. Progress Note: A&P Assessment and plan (1) Incarcerated hernia: Problem details: Status post exploratory laparotomy with lysis of adhesions and repair of incarcerated ventral hernia on December 08, 2023 Status: Acute Assessment and plan: Overall, doing well status post extensive lysis of adhesions and primary repair of hernia. Bowel function returned. Okay from surgical standpoint for discharge home with close outpatient follow-up (2) Complete obstruction of small intestine: Status: Acute
[2023-12-12 11:42] LABS: POC Glucose,Bedside 121 (70-110)
--- NOTE | 2023-12-12 11:57 | EXP.DC.SUM ---
General Admission date:: 12/08/23 Discharge date: 12/12/23 HPI HPI HPI: This is a 58-year-old morbidly obese female with PMHx of hypertension, hyperlipidemia, diabetes, previously repaired bilateral inguinal hernias, cholecystectomy, hiatal hernia presented to ED for acute abdominal pain. Patient stated that she ate [employer] around 4 PM today about 5 hours prior to this visit and started vomiting immediately thereafter. Vomiting is nonbloody, nonbilious and looks like that she ate. Has not had a bowel movement today and has not been passing gas. Has severe epigastric abdominal pain that does not radiate. It is sharp and cramping. has not taken anything for the pain. She denies any similar episodes. Admitted for treatment and management. Hospital Course Hospital Course Hospital Course: Patient was seen and evaluated at the bedside on the day of discharge. Patient wishes to be discharged. All patient questions were answered and patient was given time to ask questions. Patient was discharged in stable condition. Patient understands that she can return to ER in case of any sudden changes in health. Total time spent on DC - 38 mins 58-year-old morbidly obese female with PMHx of hypertension, hyperlipidemia, diabetes, previously repaired bilateral inguinal hernias, cholecystectomy, hiatal hernia presented to ED for acute abdominal pain. Acute abdominal pain secondary to incarcerated hernia - s/p surgery complete SBO: - resolved, having BMs and passing gas, tolerating diet Status post surgery for incarcerated hernia HTN: Normotensive at this time NIDDM: stable PT and OT consults placed, assist with mobilization and rehab recommendations follow up with surgery as OP Exam Data for Last 24 hours Vital signs and Labs for Last 24 Hours: Temp Pulse Resp BP Pulse Ox O2 Del Method 98.1 F 65 17 130/69 98 Room Air 12/12/23 07:58 12/12/23 07:58 12/12/23 07:58 12/12/23 07:58 12/12/23 07:58 12/12/23 11:00 Laboratory Results - last 24 hr 12/11/23 20:28: POC Glucose 135 H 12/12/23 06:00: POC Glucose 106 12/12/23 06:31: WBC 4.5 L, RBC 4.04 L, Hgb 12.0 L, Hct 35.6 L, MCV 88.1, MCH 29.7, MCHC 33.7, RDW 13.4, Plt Count 238, MPV 8.9, Neut % (Auto) 48.6, Lymph % (Auto) 37.4, [place] % (Auto) 5.9, Eos % (Auto) 6.9, Baso % (Auto) 1.2, Neut # (Auto) 2.2, Lymph # (Auto) 1.7, [place] # (Auto) 0.3, Eos # (Auto) 0.3, Baso # (Auto) 0.1, Sodium 139, Potassium 3.4 L, Chloride 108 H, Carbon Dioxide 27, Anion Gap 7.4, BUN 10, Creatinine 0.60, Estimated Creat Clear 153, Estimated GFR 102, Est GFR ( Amer) 124, Glucose 120 H, Calcium 8.6, Total Bilirubin 0.5, AST 23, ALT 14, Alkaline Phosphatase 61, Total Protein 5.4 L, Albumin 3.0 L, Globulin 2.4, Albumin/Globulin Ratio 1.3 12/12/23 11:35: POC Glucose 121 H I & O for Last 24 hours: Intake & Output 12/09/23 12/10/23 12/11/23 12/12/23 23:59 23:59 23:59 23:59 Intake Total 871 / 871 1525 / 1745 1449 820 / 820 Output Total 806 / 806 250 / 250 0 / 0 350 / 350 Balance 65 / 65 1275 / 1495 1449 / 2029 470 / 470 Weight 94.546 kg 97.795 kg 96.2 kg 95.889 kg Constitutional Constitutional: no acute distress *Routine HEENT Exam Head: Present normocephalic Eye: Present EOMI and PERRL ENT: Present mucous membranes moist *Routine Neck Exam Neck: Present supple; Absent lymphadenopathy *Routine Respiratory Exam Respiratory: Present CTA bilaterally *Routine Cardiovascular Exam Cardiovascular: Present RRR *Routine Abdominal Exam Abdominal: Present soft and normoactive bowel sounds; Absent tenderness *Routine Extremities Exam Extremities: Absent cyanosis, clubbing or edema *Routine Skin Exam Skin: Present warm; Absent rash *Routine Neurological Exam Neurological: Present alert and oriented X3 Results Data Completed and Pending Labs on day of discharge: Labs from last 24 hours 12/12/23 12/12/23 12/12/23 11:35 06:31 06:00 WBC 4.5 L RBC 4.04 L Hgb 12.0 L Hct 35.6 L MCV 88.1 MCH 29.7 MCHC 33.7 RDW 13.4 Plt Count 238 MPV 8.9 Neut % (Auto) 48.6 Lymph % (Auto) 37.4 [place] % (Auto) 5.9 Eos % (Auto) 6.9 Baso % (Auto) 1.2 Neut # (Auto) 2.2 Lymph # (Auto) 1.7 [place] # (Auto) 0.3 Eos # (Auto) 0.3 Baso # (Auto) 0.1 Sodium 139 Potassium 3.4 L Chloride 108 H Carbon Dioxide 27 Anion Gap 7.4 BUN 10 Creatinine 0.60 Estimated Creat Clear 153 Estimated GFR 102 Est GFR ( Amer) 124 Glucose 120 H POC Glucose 121 H 106 Calcium 8.6 Total Bilirubin 0.5 AST 23 ALT 14 Alkaline Phosphatase 61 Total Protein 5.4 L Albumin 3.0 L Globulin 2.4 Albumin/Globulin Ratio 1.3 12/11/23 20:28 WBC RBC Hgb Hct MCV MCH MCHC RDW Plt Count MPV Neut % (Auto) Lymph % (Auto) [place] % (Auto) Eos % (Auto) Baso % (Auto) Neut # (Auto) Lymph # (Auto) [place] # (Auto) Eos # (Auto) Baso # (Auto) Sodium Potassium Chloride Carbon Dioxide Anion Gap BUN Creatinine Estimated Creat Clear Estimated GFR Est GFR ( Amer) Glucose POC Glucose 135 H Calcium Total Bilirubin AST ALT Alkaline Phosphatase Total Protein Albumin Globulin Albumin/Globulin Ratio DS: Diagnosis Discharge Diagnosis (1) Incarcerated hernia: Status: Acute Code(s): K46.0 - Unspecified abdominal hernia with obstruction, without gangrene Problem details: Status post exploratory laparotomy with lysis of adhesions and repair of incarcerated ventral hernia on December 08, 2023 (2) Complete obstruction of small intestine: Status: Acute Code(s): K56.601 - Complete intestinal obstruction, unspecified as to cause Meds Home Medications and Allergies Home Medications Medication Instructions Recorded Confirmed Type buspirone 30 mg tablet 30 mg PO BID Anxiety 12/07/23 12/08/23 History celecoxib 100 mg capsule 100 mg PO BID Pain 12/07/23 12/08/23 History duloxetine 20 mg capsule,delayed 20 mg PO BID Anxiety 12/07/23 12/08/23 History release ferrous sulfate 325 mg (65 mg 325 mg PO DAILY Supplement 12/07/23 12/07/23 History iron) tablet,delayed release hydroxyzine pamoate 25 mg capsule 25 mg PO QIDP PRN Itching 12/07/23 12/08/23 History loratadine 10 mg tablet 10 mg PO DAILY Allergy Symptoms 12/07/23 12/07/23 History losartan 25 mg tablet 25 mg PO DAILY High Blood Pressure 12/07/23 12/07/23 History montelukast 10 mg tablet 10 mg PO DAILY Allergy Symptoms 12/07/23 12/07/23 History omeprazole 20 mg capsule,delayed 20 mg PO DAILY Acid Reflux 12/07/23 12/07/23 History release ondansetron HCl 4 mg tablet 4 mg PO Q8HP PRN Vomiting 12/07/23 12/07/23 History magnesium oxide 400 mg (241.3 mg 400 mg PO DAILY Supplement 12/08/23 12/08/23 History magnesium) tablet metformin 1,000 mg tablet 1,000 mg PO BIDWMEAL Diabetes 12/08/23 12/08/23 History nystatin 100,000 unit/gram topical 1 applic topical DAILY Skin 12/08/23 12/08/23 History powder (Nystop) Condition rosuvastatin 40 mg tablet 40 mg PO HS Cholesterol 12/08/23 12/08/23 History New Prescriptions to Start Prescriptions: Allergies Allergy/AdvReac Type Severity Reaction Status Date / Time latex Allergy Verified 12/07/23 23:25 morphine AdvReac Verified 12/08/23 06:58 Discharge Plan Disposition Patient Disposition: Home, Self-Care Condition: Good Discharge Order Discharge Orders: Discharge Order (Routine); Ordered 12/12/23 Ordered By: Xiao Londono Follow up Plan Follow up with: [place] MD [Staff Physician] - 12/18/23 2:45 pm Prescriptions/Medication Reconciliation: Continued ondansetron HCl 4 mg tablet 4 mg PO Q8HP PRN (Reason: Vomiting) Patient Comments: TAKE 1 TABLET BY MOUTH EVERY 8 HOURS NEEDED FOR NAUSEA AND VOMITING buspirone 30 mg tablet 30 mg PO BID Patient Comments: TAKE 1 TABLET BY MOUTH TWICE DAILY losartan 25 mg tablet 25 mg PO DAILY Patient Comments: TAKE 1 TABLET BY MOUTH DAILY omeprazole 20 mg capsule,delayed release(DR/EC) 20 mg PO DAILY Patient Comments: TAKE 1 CAPSULE BY MOUTH ONCE DAILY montelukast 10 mg tablet 10 mg PO DAILY Patient Comments: TAKE 1 TABLET BY MOUTH DAILY ferrous sulfate 325 mg (65 mg iron) tablet,delayed release (DR/EC) 325 mg PO DAILY Patient Comments: TAKE 1 TABLET BY MOUTH DAILY celecoxib 100 mg capsule 100 mg PO BID Patient Comments: TAKE 1 CAPSULE BY MOUTH TWICE DAILY loratadine 10 mg Tablet 10 mg PO DAILY hydroxyzine pamoate 25 mg capsule 25 mg PO QIDP PRN (Reason: Itching) Patient Comments: TAKE 1 CAPSULE BY MOUTH 4 TIMES DAILY NEEDED FOR ITCHING duloxetine 20 mg capsule,delayed release(DR/EC) 20 mg PO BID Patient Comments: TAKE 1 CAPSULE BY MOUTH TWICE DAILY magnesium oxide 400 mg (241.3 mg magnesium) tablet 400 mg PO DAILY Patient Comments: TAKE 1 TABLET BY MOUTH ONCE DAILY metformin 1,000 mg tablet 1,000 mg PO BIDWMEAL nystatin [Nystop] 100,000 unit/gram powder 1 applic TOPICAL DAILY Patient Comments: APPLY POWDER TOPICALLY ONCE DAILY rosuvastatin 40 mg tablet 40 mg PO HS Problem Reconciliation Problems Reviewed?: Yes Patient Discharge Instructions ACTIVITY: Ambulate as tolerated DIET: continue same diet Patient Instructions: DI for Acute Abdominal Pain Providers Primary Care Provider: Provider,Referral Admit Provider: Galdino Stokes Attending Provider: Galdino Stokes
--- NOTE | 2023-12-16 16:53 | CARE MANAGER ---
Attempted to contact patient x2 related to hospital discharge. Left VM message. NEGIN Mckeon
== END 2023-12-12 14:10 | disposition home or self-care (01) | DRG 354 ==
LOC: ER 23:04 → OR 12-08 00:01 → 2ND 12-08 00:49
PROVIDERS: Internal Medicine; Nurse Practitioner Family; Student in an Organized Health Care Education/Training Program; Admitting Provider Internal Medicine Adolescent Medicine; Emergency Provider Emergency Medicine; Visit Provider Internal Medicine Adolescent Medicine
PROC: 0WQF0ZZ Repair Abdominal Wall, Open Approach (ICD-10-PCS; CPT 49000; principal; 2023-12-08)
DX: K43.6 Other and unspecified ventral hernia with obstruction, without gangrene (principal); E87.20 Acidosis, unspecified; I10 Essential (primary) hypertension; E11.69 Type 2 diabetes mellitus with other specified complication; Z79.84 Long term (current) use of oral hypoglycemic drugs
CPT/HCPCS: 49592; 36415; 51702; 74018; 74174; 80053; 81001; 82803; 82962; 83605; 83690; 83735; 84484; 85007; 85025; 93005; 96374; 97116; 97163; 97165; 97530; 97535; 99285; J0131; J2405; J3370; Q9967

== ENCOUNTER 2024-01-08 14:20 | Outpatient (CLI) | payer MEDICARE, SELFPAY ==
--- NOTE | 2024-01-08 14:26 | XR_ITS ---
FINAL REPORT CLINICAL HISTORY: RT KNEE PAIN injury years ago FINDINGS: Right knee Three views were obtained. There is no acute fracture or dislocation. There are moderate to severe degenerative changes. No joint effusion is identified. No soft tissue abnormality is identified. IMPRESSION: Degenerative changes as above. Reviewed, Interpreted and Dictated by Yosef Tom III, MD Transcribed by Jenna Lopez Authenticated and [facility]
== END 2024-01-08 23:59 ==
PROVIDERS: PCP Family Medicine; Visit Provider Family Medicine
DX: M25.561 Pain in right knee (principal)
CPT/HCPCS: 73562

== ENCOUNTER 2024-07-22 10:28 | Outpatient (CLI) | payer MEDICARE, SELFPAY ==
--- NOTE | 2024-07-22 10:33 | XR_ITS ---
PROCEDURE INFORMATION: Exam: XR Right Knee Exam date and time: 07/22/2024 10:34 AM Age: 58 years old Clinical indication: Pain; Knee; Right; Additional info: Knee pain TECHNIQUE: Imaging protocol: Radiologic exam of the right knee. Views: 3 views. COMPARISON: CR XR KNEE RT 3V 01/08/2024 2:31 PM FINDINGS: Bones/joints: Severe Tricompartmental joint space narrowing and osteophyte formation consistent with degenerative changes. There is no evidence of acute fracture.There is no evidence of malalignment or dislocation. Soft tissues: Normal. IMPRESSION: 1. Severe Tricompartmental joint space narrowing and osteophyte formation consistent with degenerative changes. 2. There is no evidence of acute fracture.There is no evidence of malalignment or dislocation.
--- OUTSIDE RECORDS SUMMARY | 2024-07-22 10:33 | XMS_ITS | Continuity of Care Document ---
Author Name [facility] [employer] Address [facility] [address] [place] [id number] Organization [facility] [employer] Address [address] [place] [id number] Support Name Relationship Address Phone Nisa Hunter Primary Care Provider [facility] [place] [place] [id number] [address] Nisa Hunter Attending Provider [facility] [place] [id number] [address] Allergies, Adverse Reactions, Alerts Allergen Type Severity Reaction Last Updated Verified Status latex Allergy Rash April 05, 2022 Y Active Medications Active Medications Medication Dose Units Route Sig Qty Days Start Date Status Instructions Levalbuterol Hcl [Xopenex] 0.63 MG INHALED EVERY 6-8 HOURS PRN For shortness of breath or wheezing March 07, 2022 Active Losartan 25 MG ORAL DAILY 30 March Active Potassium Chloride 10 MEQ ORAL DAILY PRN For for swelling April 09, 2022 Active Rosuvastatin 40 MG ORAL DAILY 30 Mar Active Duloxetine 30 MG ORAL DAILY 30 April 23, 2022 Active Metformin 1000 MG ORAL TWICE A DAY 60 April 25, 2022 Active Montelukast 10 MG ORAL DAILY 30 April 25, 2022 Active Magnesium Oxide 400 MG ORAL DAILY 30 April 25, 2022 Active Ergocalciferol (Vitamin D2) 1250 MCG ORAL Every Week 4 April 25, 2022 Active Celecoxib 100 MG ORAL TWICE A DAY 60 April 25, 2022 Active Buspirone 30 MG ORAL TWICE A DAY 60 May 07, 2022 Active Fvfgpjy-Ldpz-Lm jvt-Ovzs-Ehgdvx 1 CAP ORAL DAILY Oct2020 Active Hydrocodone-Ibu profen 1 TAB ORAL DAILY April 05, 2022 Active Gabapentin 400 MG ORAL DAILY April 05, 2022 Active Nitrofurantoin Monohyd/M-Cryst [Macrobid] 100 MG ORAL TWICE A DAY August 17, 2021 Active must administer with a meal/food Ferrous Sulfate 325 MG ORAL DAILY August 09, 2021 Active Ondansetron Hcl [Zofran] 4 MG ORAL Q8H PRN For nausea and vomiting August 09, 2021 Active Empagliflozin 25 MG ORAL DAILY 30 Ju ne 2021 Active Albuterol Sulfate [Ventolin Hfa] 2 PUFF INHALED Q6H PRN For shortness of breath or wheezing 8.5 January 10, 2022 Active Cyanocobalamin (Vitamin B-12) 1000 MCG INTRAMUSCULA R every month January 10, 2022 Active Furosemide 40 MG ORAL DAILY PRN For for swelling January 10, 2022 Active Duloxetine 60 MG ORAL DAILY 30 January 10, 2022 Active Discontinued Medications Medication Dose Units Route Sig Qty Days Start Date Discontinued Date Status Instructions Duloxetine 60 MG ORAL DAILY 30 December 24, 2019 February 24, 2020 Discont inued Buspirone 15 MG ORAL TWICE A DAY PRN For anxie ty 60 December 24, 2019 February 24, 2020 Discont inued Potassium Chloride 10 MEQ ORAL DAILY PRN For edema 30 December 24, 2019 February 24, 2020 Discont inued take with lasix Albuterol Sulfate [Proair Respiclick] 2 INHALAT ION INHALED Q6H PRN For short ness of breat h or wheez ing 1 December 30, 2019 February 25, 2020 Discont inued Fluticasone Propion-Salm eterol [Advair Diskus] 1 INHALAT ION INHALED TWICE A DAY 60 December 30, 2019 October 24, 2020 Discont inued Celecoxib 100 MG ORAL TWICE A DAY 60 December 30, 2019 June 03, 2020 Discont inued Ergocalcifer ol (Vitamin D2) [Vitamin D2] 04990 UNIT ORAL Every Week 4 December 30, 2019 June 03, 2020 Discont inued Metformin 1000 MG ORAL TWICE A DAY 60 December 30, 2019 May 25, 2020 Discont inued Montelukast 10 MG ORAL DAILY 30 Apri l 2019June 03, 2020 Discont inued Rosuvastatin [Crestor] 40 MG ORAL DAILY 30 December 30, 2019 June 03, 2020 Discont inued Magnesium Oxide 400 MG ORAL DAILY 30 December 30, 2019 June 03, 2020 Discont inued Ferrous Sulfate 325 MG ORAL DAILY 30 December 30, 2019 April 07, 2020 Discont inued Ascorbic Acid (Vitamin C) 500 MG ORAL DAILY 30 December 30, 2019 June 03, 2020 Discont inued Take with iron Empagliflozi n [Jardiance] 10 MG ORAL DAILY 30 December 30, 2019 April 25, 2020 Discont inued Cyanocobalam in (Vitamin B-12) 1000 MCG INTRAMU SCULAR every month December 30, 2019 June 03, 2020 Discont inued Buspirone 15 MG ORAL TWICE A DAY PRN For anxie ty 60 February 24, 2020 June 03, 2020 Discont inued Duloxetine 60 MG ORAL DAILY 30 February 24, 2020 June 03, 2020 Discont inued Potassium Chloride 10 MEQ ORAL DAILY PRN For edema February 24, 2020 June 03, 2020 Discont inued take with lasix Albuterol Sulfate [Ventolin Hfa] 2 PUFF INHALED Q6H PRN For short ness of breat h or wheez ing 8.5 February 25, 2020 June 03, 2020 Discont inued Ferrous Sulfate 325 MG ORAL DAILY 30 April 07, 2020 June 03, 2020 Discont inued Empagliflozi n [Jardiance] 10 MG ORAL DAILY 30 April 25, 2020 June 03, 2020 Discont inued Metformin 1000 MG ORAL TWICE A DAY 60 May 25, 2020 June 03, 2020 Discont inued Empagliflozi n [Jardiance] 10 MG ORAL DAILY 30 Novemb er 2019August 23, 2020 Discont inued Potassium Chloride 10 MEQ ORAL DAILY PRN For edema 30 Februa ry 2020February 13, 2021 Discont inued Metformin 1000 MG ORAL TWICE A DAY 60 November 30, 2020 February 15, 2021 Discont inued Magnesium Oxide 400 MG ORAL DAILY 30 November 30, 2020 February 15, 2021 Discont inued Buspirone 15 MG ORAL TWICE A DAY PRN For for anxie ty 60 January 25, 2021 May 16, 2021 Discont inued Duloxetine 60 MG ORAL DAILY 30 January 26, 2021 April 03, 2021 Discont inued Fluticasone Propion-Salm eterol [Advair Diskus] 1 INHALAT ION INHALED TWICE A DAY 60 January 26, 2021 February 13, 2021 Discont inued Albuterol Sulfate [Ventolin Hfa] 2 PUFF INHALED Q6H PRN For short ness of breat h or wheez ing 8.5 January 26, 2021 August 09, 2021 Discont inued Gabapentin 400 MG ORAL DAILY 30 February 14, 2021 March 15, 2021 Discont inued Hydrocodone- Ibuprofen 1 TAB ORAL . daily PRN For sever e pain 7 February 14, 2021 March 15, 2021 Discont inued Buspirone 15 MG ORAL TWICE A DAY PRN For for anxie ty 60 May 16, 2021 August 09, 2021 Discont inued Furosemide 40 MG ORAL DAILY PRN For for swell ing 30 May 22, 2021 August 09, 2021 Discont inued Metformin 1000 MG ORAL TWICE A DAY 60 May 22, 2021 August 09, 2021 Discont inued Duloxetine 60 MG ORAL DAILY 30 Augus t 2020August 09, 2021 Discont inued Ferrous Sulfate 325 MG ORAL DAILY 30 May 22, 2021 August 09, 2021 Discont inued Potassium Chloride 10 MEQ ORAL DAILY 30 May 22, 2021 August 09, 2021 Discont inued Empagliflozi n [Jardiance] 25 MG ORAL DAILY 30 Septem ra 2020August 07, 2021 Discont inued Montelukast 10 MG ORAL DAILY 30 Octo be r 2020August 09, 2021 Discont inued Magnesium Oxide 400 MG ORAL DAILY 30 Novemb er 2020August 07, 2021 Discont inued Empagliflozi n [Jardiance] 10 MG ORAL DAILY 30 Novemb er 2020August 07, 2021 Discont inued Magnesium Oxide 400 MG ORAL DAILY 30 Novemb er 2020April 25, 2022 Discont inued Empagliflozi n [Jardiance] 10 MG ORAL DAILY 30 Novemb er 2020January 10, 2022 Discont inued Rosuvastatin [Crestor] 40 MG ORAL DAILY 30 Decemb er 2020January 10, 2022 Discont inued Hydrocodone- Ibuprofen 1 TAB ORAL DAILY 28 Decemb er 2020October 09, 2021 Discont inued Buspirone 15 MG ORAL TWICE A DAY PRN For for anxie ty 60 Sepuar y 2021January 10, 2022 Discont inued Celecoxib 100 MG ORAL TWICE A DAY 60 Januar y 2021January 10, 2022 Discont inued Ergocalcifer ol (Vitamin D2) 1250 MCG ORAL Every Week 4 ry 2021January 10, 2022 Discont inued Potassium Chloride 10 MEQ ORAL DAILY PRN For for swell ing 30 ua ry 2021January 10, 2022 Discont inued Metformin 1000 MG ORAL TWICE A DAY 60 January 29, 2022 April 25, 2022 Discont inued Montelukast 10 MG ORAL DAILY 30 April 23, 2022 April 25, 2022 Discont inued Esomeprazole Magnesium [Nexium] 40 MG ORAL DAILY February 13, 2021 February 01, 2022 Discont inued Potassium Chloride 10 MEQ ORAL DAILY February 13, 2021 May 22, 2021 Discont inued Lisinopril 2.5 MG ORAL DAILY PRN For Hyper tensi on February 13, 2021 July 21, 2021 Discont inued Celecoxib [Celebrex] 100 MG ORAL TWICE A DAY April 03, 2021 October 30, 2021 Discont inued Duloxetine [Cymbalta] 60 MG ORAL DAILY April 03, 2021 May 22, 2021 Discont inued Empagliflozi n [Jardiance] 25 MG ORAL DAILY April 03, 2021 June 01, 2021 Discont inued Cinnamon Bark [Cinnamon] 500 MG ORAL DAILY Octobe r 2020February 01, 2022 Discont inued Gabapentin 400 MG ORAL DAILY 30 Decem b er 2019October 26, 2020 Discont inued Hydrocodone- Ibuprofen 1 TAB ORAL . daily PRN For sever e pain 30 Decemb er 2019October 26, 2020 Discont inued Celecoxib 100 MG ORAL TWICE A DAY 60 r y 2020December 21, 2020 Discont inued Gabapentin 400 MG ORAL DAILY 30 Sepua r y 2020December 21, 2020 Discont inued Hydrocodone- Ibuprofen 1 TAB ORAL . daily PRN For sever e pain 30 Sepuar y 2020December 21, 2020 Discont inued ketorolac 30 mg/mL (1 mL) injection solution 30 MG INTRAMU SCULAR ONCE 1 December 21, 2020 December 21, 2020 Discont inued dexamethason e sodium phosphate 4 mg/mL injection solution 4 MG INTRAMU SCULAR ONCE 1 December 21, 2020 December 21, 2020 Discont inued Gabapentin 400 MG ORAL DAILY 30 December 21, 2020 January 18, 2021 Discont inued Hydrocodone- Ibuprofen 1 TAB ORAL . daily PRN For sever e pain 30 December 21, 2020 January 18, 2021 Discont inued Celecoxib 100 MG ORAL TWICE A DAY 60 December 21, 2020 January 18, 2021 Discont inued Gabapentin 400 MG ORAL DAILY 30 January 18, 2021 February 14, 2021 Discont inued Hydrocodone- Ibuprofen 1 TAB ORAL . daily PRN For sever e pain 30 January 18, 2021 January 18, 2021 Discont inued Celecoxib 100 MG ORAL TWICE A DAY 60 January 18, 2021 April 03, 2021 Discont inued Hydrocodone- Ibuprofen 1 TAB ORAL . daily PRN For sever e pain January 18, 2021 February 14, 2021 Discont inued Gabapentin 400 MG ORAL DAILY 28 Septe m ra 2020August 02, 2021 Discont inued Hydrocodone- Ibuprofen 1 TAB ORAL DAILY 28 Septem ra 2020August 02, 2021 Discont inued Gabapentin 400 MG ORAL DAILY 30 March 15, 2021 April 27, 2021 Discont inued Hydrocodone- Ibuprofen 1 TAB ORAL . daily PRN For sever e pain March 15, 2021 April 03, 2021 Discont inued Gabapentin 400 MG ORAL DAILY 30 April 27, 2021 May 25, 2021 Discont inued Hydrocodone- Ibuprofen 1 TAB ORAL DAILY April 27, 2021 May 25, 2021 Discont inued Gabapentin 400 MG ORAL DAILY 28 Augus t 2020June 21, 2021 Discont inued Hydrocodone- Ibuprofen 1 TAB ORAL DAILY May 25, 2021 June 21, 2021 Discont inued Gabapentin 400 MG ORAL DAILY 28 Decem b er 2020October 09, 2021 Discont inued Ferrous Sulfate [Ferosul] 325 MG ORAL DAILY ry 2021February 01, 2022 Discont inued Gabapentin 400 MG ORAL DAILY 28 Febru a ry 2021December 06, 2021 Discont inued Hydrocodone- Ibuprofen 1 TAB ORAL DAILY 28 ua ry 2021December 06, 2021 Discont inued Hydrocodone- Ibuprofen 1 TAB ORAL DAILY 28 December 06, 2021 January 04, 2022 Discont inued Gabapentin 400 MG ORAL DAILY 28 December 06, 2021 January 04, 2022 Discont inued Hydrocodone- Ibuprofen 1 TAB ORAL DAILY January 04, 2022 January 04, 2022 Discont inued Gabapentin 400 MG ORAL DAILY January 04, 2022 January 04, 2022 Discont inued Hydrocodone- Ibuprofen 1 TAB ORAL DAILY January 04, 2022 February 01, 2022 Discont inued Gabapentin 400 MG ORAL DAILY January 04, 2022 February 01, 2022 Discont inued Gabapentin 400 MG ORAL DAILY Novem b er 2020August 30, 2021 Discont inued Hydrocodone- Ibuprofen 1 TAB ORAL DAILY Novemb er 2020September 06, 2021 Discont inued Gabapentin [Neurontin] 400 MG ORAL DAILY Novemb er 2020August 30, 2021 Discont inued Gabapentin 400 MG ORAL DAILY r y 2021November 06, 2021 Discont inued Hydrocodone- Ibuprofen 1 TAB ORAL DAILY y 2021November 06, 2021 Discont inued Gabapentin 400 MG ORAL DAILY JanuaryMarch 05, 2022 Discont inued Hydrocodone- Ibuprofen 1 TAB ORAL DAILY February 01, 2022 March 05, 2022 Discont inued Gabapentin 400 MG ORAL DAILY March 05, 2022 April 05, 2022 Discont inued Hydrocodone- Ibuprofen 1 TAB ORAL DAILY March 05, 2022 April 05, 2022 Discont inued Ergocalcifer ol (Vitamin D2) [Vitamin D2] 1 CAP ORAL Every Week ua ry 2018March 09, 2019 Discont inued Buspirone 15 MG ORAL TWICE A DAY ua ry 2018March 09, 2019 Discont inued Duloxetine 60 MG ORAL DAILY a ry 2018March 09, 2019 Discont inued Metformin 1000 MG ORAL TWICE A DAY ua ry 2018March 09, 2019 Discont inued Montelukast 10 MG ORAL DAILY ua ry 2018March 09, 2019 Discont inued Budesonide-F ormoterol [Symbicort] 2 INHALAT ION INHALED TWICE A DAY ua ry 2018March 09, 2019 Discont inued Gabapentin 400 MG ORAL DAILY u a ry 2018March 09, 2019 Discont inued Hydrocodone- Acetaminophe n 1 TAB ORAL DAILY ua ry 2018March 09, 2019 Discont inued Lisinopril-H ydrochloroth iazide 1 TAB ORAL DAILY 2018March 09, 2019 Discont inued Simvastatin 40 MG ORAL DAILY Febr ua ry 2018March 09, 2019 Discont inued Furosemide 40 MG ORAL DAILY Febru a 2018March 09, 2019 Discont inued Potassium Chloride 10 MEQ ORAL DAILY 2018March 09, 2019 Discont inued Celecoxib 100 MG ORAL TWICE A DAY January 20, 2019 March 09, 2019 Discont inued Budesonide-F ormoterol [Symbicort] 2 INHALAT ION INHALED TWICE A DAY 10.2 2018November 02, 2019 Discont inued Buspirone 15 MG ORAL TWICE A DAY PRN For anxie ty 60 2018November 02, 2019 Discont inued Celecoxib 100 MG ORAL TWICE A DAY 60 2018November 02, 2019 Discont inued Duloxetine 60 MG ORAL DAILY 30 2018November 02, 2019 Discont inued Ergocalcifer ol (Vitamin D2) [Vitamin D2] 97367 UNIT ORAL Every Week 4 2018November 02, 2019 Discont inued Furosemide 40 MG ORAL DAILY PRN For edema 30 2018November 02, 2019 Discont inued Lisinopril 2.5 MG ORAL DAILY 30 2018November 02, 2019 Discont inued Metformin 1000 MG ORAL TWICE A DAY 60 2018November 02, 2019 Discont inued Montelukast 10 MG ORAL DAILY 30 MayNovember 02, 2019 Discont inued Potassium Chloride 10 MEQ ORAL DAILY PRN For edema 30 2018November 02, 2019 Discont inued take with lasix Simvastatin 40 MG ORAL DAILY 30 May em 2018June 25, 2019 Discont inued Rosuvastatin [Crestor] 40 MG ORAL DAILY 2018December 30, 2019 Discont inued Budesonide-F ormoterol [Symbicort] 2 INHALAT ION INHALED TWICE A DAY 10.2 March 09, 2019 June 09, 2019 Discont inued Buspirone 15 MG ORAL TWICE A DAY PRN For anxie ty 60 March 09, 2019 June 09, 2019 Discont inued Celecoxib 100 MG ORAL TWICE A DAY 60 March 09, 2019 June 09, 2019 Discont inued Duloxetine 60 MG ORAL DAILY 30 March 09, 2019 June 09, 2019 Discont inued Ergocalcifer ol (Vitamin D2) [Vitamin D2] 74079 UNIT ORAL Every Week 4 March 09, 2019 June 09, 2019 Discont inued Furosemide 40 MG ORAL DAILY PRN For edema 30 March 09, 2019 June 09, 2019 Discont inued Gabapentin 400 MG ORAL DAILY March 09, 2019 June 28, 2020 Discont inued Hydrocodone- Acetaminophe n 1 TAB ORAL DAILY March 09, 2019 June 28, 2020 Discont inued Metformin 1000 MG ORAL TWICE A DAY 60 March 09, 2019 June 09, 2019 Discont inued Montelukast 10 MG ORAL DAILY 30 March 09, 2019 June 09, 2019 Discont inued Potassium Chloride 10 MEQ ORAL DAILY PRN For edema 30 March 09, 2019 June 09, 2019 Discont inued take with lasix Simvastatin 40 MG ORAL DAILY 30 March 09, 2019 June 09, 2019 Discont inued Lisinopril 2.5 MG ORAL DAILY 30 March 09, 2019 June 09, 2019 Discont inued methylpredni solone acetate 40 mg/mL suspension for injection 40 MG INTRAMU SCULAR ONCE 1 Februa ry 2019November 02, 2019 Discont inued Budesonide-F ormoterol [Symbicort] 2 INHALAT ION INHALED TWICE A DAY 10.2 Februa ry 2019December 30, 2019 Discont inued Buspirone 15 MG ORAL TWICE A DAY PRN For anxie ty 60 Februa ry 2019December 24, 2019 Discont inued Celecoxib 100 MG ORAL TWICE A DAY 60 Februa ry 2019December 30, 2019 Discont inued Duloxetine 60 MG ORAL DAILY 30 Febru a ry 2019December 24, 2019 Discont inued Ergocalcifer ol (Vitamin D2) [Vitamin D2] 71731 UNIT ORAL Every Week 4 Februa ry 2019December 30, 2019 Discont inued Furosemide 40 MG ORAL DAILY PRN For edema 30 Februa ry 2019June 03, 2020 Discont inued Lisinopril 2.5 MG ORAL DAILY 30 Febru a ry 2019December 30, 2019 Discont inued Metformin 1000 MG ORAL TWICE A DAY 60 Februa ry 2019December 30, 2019 Discont inued Potassium Chloride 10 MEQ ORAL DAILY PRN For edema 30 Februa ry 2019December 24, 2019 Discont inued take with lasix Montelukast 10 MG ORAL DAILY 30 Febr ua ry 2019December 30, 2019 Discont inued Albuterol Sulfate [Ventolin Hfa] 2 PUFF INHALED Q6H PRN For short ness of breat h or wheez ing 8.5 Septem ra 2019August 23, 2020 Discont inued Buspirone 15 MG ORAL TWICE A DAY PRN For anxie ty 60 Septem ra 2019August 23, 2020 Discont inued Celecoxib 100 MG ORAL TWICE A DAY 60 Septem ra 2019August 23, 2020 Discont inued Cyanocobalam in (Vitamin B-12) 1000 MCG INTRAMU SCULAR every month 1 Mayem ra 2019August 23, 2020 Discont inued Duloxetine 60 MG ORAL DAILY 30 Septe m ra 2019August 23, 2020 Discont inued Empagliflozi n [Jardiance] 10 MG ORAL DAILY 30 Mayem ra 2019August 08, 2020 Discont inued Ergocalcifer ol (Vitamin D2) [Vitamin D2] 22268 UNIT ORAL Every Week 4 Mayem ra 2019August 23, 2020 Discont inued Ferrous Sulfate 325 MG ORAL DAILY 30 Septem ra 2019August 23, 2020 Discont inued Furosemide 40 MG ORAL DAILY PRN For edema 30 Mayem ra , 2019August 23, 2020 Discont inued Magnesium Oxide 400 MG ORAL DAILY 30 Septem ra 2019August 23, 2020 Discont inued Metformin 1000 MG ORAL TWICE A DAY 60 Septem ra 2019August 23, 2020 Discont inued Montelukast 10 MG ORAL DAILY 30 Sept em ra 2019August 23, 2020 Discont inued Potassium Chloride 10 MEQ ORAL DAILY PRN For edema 30 Mayem ra 2019August 23, 2020 Discont inued take with lasix Rosuvastatin [Crestor] 40 MG ORAL DAILY 30 Septem ra 2019August 23, 2020 Discont inued Fluconazole [Diflucan] 150 MG ORAL DAILY 2 2 Septem ra 2019June 05, 2020 Discont inued Gabapentin 400 MG ORAL DAILY 30 Octob e r 2019August 23, 2020 Discont inued Hydrocodone- Ibuprofen 1 TAB ORAL . daily PRN For sever e pain 30 Octobe r 2019August 23, 2020 Discont inued Albuterol Sulfate [Ventolin Hfa] 2 PUFF INHALED Q6H PRN For short ness of breat h or wheez ing 8.5 Novemb er 2019January 26, 2021 Discont inued Buspirone 15 MG ORAL TWICE A DAY PRN For anxie ty 60 Novemb er , 2019October 24, 2020 Discont inued Celecoxib 100 MG ORAL TWICE A DAY 60 Novemb er , 2019October 24, 2020 Discont inued Cyanocobalam in (Vitamin B-12) 1000 MCG INTRAMU SCULAR every month 1 Novemb er , 2019October 24, 2020 Discont inued Diabetic Supplies, Miscellan. 0 Route .MEDS UPPLY 1 Novemb er , 2019October 24, 2020 Discont inued Test Strips and Lancets for daily BG testing Duloxetine 60 MG ORAL DAILY 30 Novem b er , 2019October 24, 2020 Discont inued Empagliflozi n [Jardiance] 10 MG ORAL DAILY 30 Novemb er , 2019September 20, 2020 Discont inued Ergocalcifer ol (Vitamin D2) [Vitamin D2] 74703 UNIT ORAL Every Week 4 Novemb er , 2019October 24, 2020 Discont inued Ferrous Sulfate 325 MG ORAL DAILY 30 Novemb er , 2019October 24, 2020 Discont inued Furosemide 40 MG ORAL DAILY PRN For edema 30 Novemb er , 2019October 24, 2020 Discont inued Gabapentin 400 MG ORAL DAILY 30 Novem b er , 2019September 28, 2020 Discont inued Metformin 1000 MG ORAL TWICE A DAY 60 Novemb er , 2019October 24, 2020 Discont inued Magnesium Oxide 400 MG ORAL DAILY 30 Novemb er , 2019October 24, 2020 Discont inued Montelukast 10 MG ORAL DAILY 30 Nove mb er 2019October 24, 2020 Discont inued Potassium Chloride 10 MEQ ORAL DAILY PRN For edema 30 Novemb er 2019October 24, 2020 Discont inued take with lasix Rosuvastatin [Crestor] 40 MG ORAL DAILY 30 Novemb er , 2019October 24, 2020 Discont inued Hydrocodone- Ibuprofen 1 TAB ORAL . daily PRN For sever e pain 30 Novemb er 2019September 28, 2020 Discont inued Lisinopril 2.5 MG ORAL DAILY 30 Novem b er 2019October 24, 2020 Discont inued Buspirone 15 MG ORAL TWICE A DAY PRN For anxie ty 60 2020January 25, 2021 Discont inued Celecoxib 100 MG ORAL TWICE A DAY 60 2020October 26, 2020 Discont inued Cyanocobalam in (Vitamin B-12) 1000 MCG INTRAMU SCULAR every month 1 2020February 15, 2021 Discont inued Diabetic Supplies, Miscellan. 0 Route .MEDS UPPLY 1 2020February 15, 2021 Discont inued Test Strips and Lancets for daily BG testing Duloxetine 60 MG ORAL DAILY 30 r 2020January 26, 2021 Discont inued Empagliflozi n 25 MG ORAL DAILY 30 2020February 13, 2021 Discont inued Ergocalcifer ol (Vitamin D2) [Vitamin D2] 49052 UNIT ORAL Every Week 4 2020February 15, 2021 Discont inued Ferrous Sulfate 325 MG ORAL DAILY 30 2020February 15, 2021 Discont inued Fluticasone Propion-Salm eterol [Advair Diskus] 1 INHALAT ION INHALED TWICE A DAY 60 2020January 26, 2021 Discont inued Furosemide 40 MG ORAL DAILY PRN For edema 30 2020February 15, 2021 Discont inued Lisinopril 2.5 MG ORAL DAILY 30 r 2020February 13, 2021 Discont inued Magnesium Oxide 400 MG ORAL DAILY 30 2020November 30, 2020 Discont inued Metformin 1000 MG ORAL TWICE A DAY 60 2020November 30, 2020 Discont inued Montelukast 10 MG ORAL DAILY 30 2020February 15, 2021 Discont inued Potassium Chloride 10 MEQ ORAL DAILY PRN For edema 30 2020November 08, 2020 Discont inued take with lasix Rosuvastatin [Crestor] 40 MG ORAL DAILY 30 2020February 15, 2021 Discont inued Cyanocobalam in (Vitamin B-12) 1000 MCG INTRAMU SCULAR every month 1 February 15, 2021 August 09, 2021 Discont inued Diabetic Supplies, Miscellan. 0 Route .MEDS UPPLY February 15, 2021 April 03, 2021 Discont inued Test Strips and Lancets for daily BG testing Ergocalcifer ol (Vitamin D2) [Vitamin D2] 14638 UNIT ORAL Every Week 4 February 15, 2021 August 09, 2021 Discont inued Ferrous Sulfate 325 MG ORAL DAILY 30 February 15, 2021 May 22, 2021 Discont inued Furosemide 40 MG ORAL DAILY PRN For edema February 15, 2021 May 22, 2021 Discont inued Magnesium Oxide 400 MG ORAL DAILY 30 February 15, 2021 August 07, 2021 Discont inued Metformin 1000 MG ORAL TWICE A DAY 60 February 15, 2021 May 22, 2021 Discont inued Montelukast 10 MG ORAL DAILY 30 February 15, 2021 July 04, 2021 Discont inued Rosuvastatin [Crestor] 40 MG ORAL DAILY 30 February 15, 2021 September 04, 2021 Discont inued Empagliflozi n 25 MG ORAL DAILY 30 February 15, 2021 April 03, 2021 Discont inued Albuterol Sulfate [Ventolin Hfa] 2 PUFF INHALED Q6H PRN For short ness of breat h or wheez ing 8.5 Novemb er 2020January 10, 2022 Discont inued Buspirone 15 MG ORAL TWICE A DAY PRN For for anxie ty 60 Novemb er 2020October 23, 2021 Discont inued Cyanocobalam in (Vitamin B-12) 1000 MCG INTRAMU SCULAR every month 1 Novemb er 2020January 10, 2022 Discont inued Duloxetine 60 MG ORAL DAILY 30 Novem b er 2020January 10, 2022 Discont inued Ergocalcifer ol (Vitamin D2) [Vitamin D2] 05484 UNIT ORAL Every Week 4 Novemb er 2020November 02, 2021 Discont inued Furosemide 40 MG ORAL DAILY PRN For for swell ing 30 Novemb er 2020January 10, 2022 Discont inued Metformin 1000 MG ORAL TWICE A DAY 60 Novemb er 2020January 10, 2022 Discont inued Montelukast 10 MG ORAL DAILY 30 Nove mb er 2020January 10, 2022 Discont inued Potassium Chloride 10 MEQ ORAL DAILY 30 Novemb er 2020November 27, 2021 Discont inued Dextromethor jaramillo-Guaifen esin 10 ML ORAL EVERY 4-8 HOURS PRN For cough 180 Novemb er 2020February 01, 2022 Discont inued methylpredni solone sod suc(PF) 125 mg/2 mL solution for injection 125 MG INTRAMU SCULAR ONCE 1 2019June 28, 2020 Discont inued Gabapentin 400 MG ORAL DAILY 30 m 2019July 30, 2020 Discont inued Hydrocodone- Ibuprofen 1 TAB ORAL . daily PRN For sever e pain 30 2019July 30, 2020 Discont inued Blood-Glucos e Meter 0 Route .MEDS UPPLY 1 2019April 03, 2021 Discont inued Glucometer Diabetic Supplies, Miscellan. 0 Route .MEDS UPPLY 1 2019August 23, 2020 Discont inued Test Strips and Lancets for daily BG testing Empagliflozi n 25 MG ORAL DAILY 30 Decemb er 2019October 24, 2020 Discont inued Amoxicillin- Pot Clavulanate [Augmentin] 1 TAB ORAL Q12H 19 07May 09, 2021 May 19, 2021 Discont inued Methylpredni solone [Medrol (Lb)] 0 ORAL Per packa ge direc tions 21 May 09, 2021 July 21, 2021 Discont inued PO PER PKG DIR Fluconazole [Diflucan] 150 MG ORAL Q3D 2 May 09, 2021 July 21, 2021 Discont inued may repeat second dose 72 hrs after first dose if symptoms persist Duloxetine 30 MG ORAL DAILY 30 January 10, 2022 April 23, 2022 Discont inued Take with 60mg to make 90mg total Losartan 25 MG ORAL DAILY 30 January 10, 2022 April 09, 2022 Discont inued Buspirone 30 MG ORAL TWICE A DAY 60 January 10, 2022 May 07, 2022 Discont inued Celecoxib 100 MG ORAL TWICE A DAY 60 January 10, 2022 April 25, 2022 Discont inued Empagliflozi n [Jardiance] 10 MG ORAL DAILY 30 January 10, 2022 February 28, 2022 Discont inued Ergocalcifer ol (Vitamin D2) 1250 MCG ORAL Every Week 4 January 10, 2022 April 25, 2022 Discont inued Metformin 1000 MG ORAL TWICE A DAY 60 January 10, 2022 January 29, 2022 Discont inued Montelukast 10 MG ORAL DAILY 30 Apri l 2021April 23, 2022 Discont inued Potassium Chloride 10 MEQ ORAL DAILY PRN For for swell ing 30 January 10, 2022 April 09, 2022 Discont inued Rosuvastatin [Crestor] 40 MG ORAL DAILY 30 January 10, 2022 April 09, 2022 Discont inued Problem List Active Problems Medical Problem Onset Date Status Diabetes mellitus type 2 in obese Active Obstructive sleep apnea Active Other senior care (current) drug therapy Active Lumbar radiculopathy Active Low back pain Active Joint pain Active Shortness of breath Active Palpitations Active Chronic fatigue Active Increased urinary frequency Acti ve Anxiety Active Bereavement Active Depression Active Hyperlipidemia Active Osteoarthritis Active Diastolic dysfunction Active Skin lesion Active Spondylolisthesis Active 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 Right knee pain Active Chronic neck pain Active Chronic pain syndrome Active Lumbar disc disease Active Hospital discharge follow-up Act karolina Hypertension Active Vitamin D deficiency Active Lumbar spondylosis Active Obesity Active Asthma Active Hypomagnesemia Active Inactive/Resolved Problems Medical Problem Onset Date Status Candidiasis Resolved Dysuria Resolved Small bowel obstruction Resolved Procedures Procedure Date Status Blood Culture February 01, [address] abdomen pelvis w con February 01, 2022 complete d Reason for Referral Reason for Referral Date Referral was Provided Provider Office Contact Location Z. - Disappearance and of family member January 10, 2022 Nisa Hunter [facility] [place] [id number] [place] [address] Relevant Diagnostic Tests and/or Laboratory Data Laboratory Results Test Date/Time Result Interp. Ref. Range Result Co mment White Blood Count February 01, 2022 9:08pm 16.62 x10^3/uL High 3.98-10.04 Red Blood Count February 01, 2022 9:08pm 5.90 x10^6/uL High 3.93-5.22 Hemoglobin February 01, 2022 9:08pm 16.5 g/dL High 11.8-15.3 Hematocrit February 01, 2022 9:08pm 50.2 % High 36.9-46.9 Mean Corpuscular Volume February 01, 2022 9:08pm 85.1 fL 79.4-94.8 Mean Corpuscular Hemoglobin February 01, 2022 9:08pm 28.0 pg 25.6-32.2 Mean Corpuscular Hemoglobin Concent February 01, 2022 9:08pm 32.9 g/dL 32.2-35.5 RDW Standard Deviation February 01, 2022 9:08pm 40.6 fL 36.4-46.3 RDW Coefficient of Variation February 01, 2022 9:08pm 13.1 % 11.7-14.4 Platelet Count February 01, 2022 9:08pm 329 x10^3/uL 182-369 Mean Platelet Volume February 01, 2022 9:08pm 10.1 fL 9.4-12.3 Neutrophils (%) (Auto) February 01, 2022 9:08pm 88.5 % High 34.0-71.1 Lymphocytes (%) (Auto) February 01, 2022 9:08pm 8.1 % Low 19.3-51.7 Monocytes (%) (Auto) February 01, 2022 9:08pm 2.7 % Low 4.7-12.5 Eosinophils (%) (Auto) February 01, 2022 9:08pm 0.1 % Low 0.7-5.8 Basophils (%) (Auto) February 01, 2022 9:08pm 0.2 % 0.1-1.2 Nucleated Red Blood Cells % (auto) February 01, 2022 9:08pm 0.0 /100 WBC 0-0.2 Immature/Total Granulocytes (auto) February 01, 2022 9:08pm 0.400 % 0-0.429 Neutrophils # (Auto) February 01, 2022 9:08pm 14.70 x10^3/uL High 1.56-6.13 Lymphocytes # (Auto) February 01, 2022 9:08pm 1.35 x10^3/uL 1.18-3.74 Monocytes # (Auto) February 01, 2022 9:08pm 0.45 x10^3/uL 0.24-0.86 Eosinophils # (Auto) February 01, 2022 9:08pm 0.01 x10^3/uL Low 0.04-0.36 Basophils # (Auto) February 01, 2022 9:08pm 0.04 x10^3/uL 0.01-0.08 Nucleated Red Blood Cells # February 01, 2022 9:08pm 0.000 x10^3/uL 0-0.012 Absolute Immature Granulocyte (auto February 01, 2022 9:08pm 0.0700 X10^3/uL High 0-0.0310 Sodium Level February 01, 2022 9:08pm 138 mmol/L 136-145 Potassium Level February 01, 2022 9:08pm 4.3 mmol/L 3.5-5.1 Chloride Level February 01, 2022 9:08pm 98 mmol/L 98-107 Carbon Dioxide Level February 01, 2022 9:08pm 23.9 mmol/L 21.0-32 Anion Gap February 01, 2022 9:08pm 16.1 mmol/L High 5.0-15.0 Blood Urea Nitrogen February 01, 2022 9:08pm 17 mg/dL 7.0-18.0 Creatinine February 01, 2022 9:08pm 0.87 mg/dL 0.55-1.02 Estimat Glomerular Filtration Rate February 01, 2022 9:08pm > 60.0 eGFR Interpretation: Disease State Ref Ranges (Calculated) Units: ml/min/1.73 m2 Stage eGFR Description I/II >60 Normal/Mildly reduced kidney function III 30-59 Moderately reduced kidney function IV 15-29 Severely reduced kidney function V <15 End-stage kidney failure Calculated using MDRD formula based on gender,race(*GFR AA is for the population),and age. GFR estimates are unreliable in patients with rapidly changing kidney function,recent dialysis,extremes in body size,severe malnutrition or obesity,loss of limbs, abnormal muscle mass,or during . In these patients,alternati ve determinations of GFR should be obtained. Estimated GFR () February 01, 2022 9:08pm > 60.0 BUN/Creatinine Ratio February 01, 2022 9:08pm 19.5 Ratio 6.0-20.0 Glucose Level February 01, 2022 9:08pm 249 mg/dL High 70-99 Falsely depresse d or elevated results may occur on samples drawn from patients taking Sulfasalazine and Sulfapyridine, if the blood sample is drawn before clearance of the drug. Calcium Level February 01, 2022 9:08pm 11.1 mg/dL High 8.5-10.1 Total Bilirubin February 01, 2022 9:08pm 0.61 mg/dL 0.20-1.00 Use of this assa y is not recommended for patients undergoing treatment with eltrombopag due to the potential for falsely elevated results Aspartate Amino Transf (AST/SGOT) February 01, 2022 9:08pm 31 U/L 15-37 Falsely depresse d or elevated results may occur on samples drawn from patients taking Sulfasalazine and Sulfapyridine, if the blood sample is drawn before clearance of the drug. Alanine Aminotransferase February 01, 2022 9:08pm 42 U/L 14-59 Falsely depresse d or elevated results may occur on samples drawn from patients taking Sulfasalazine and Sulfapyridine, if the blood sample is drawn before clearance of the drug. Troponin I February 01, 2022 11:00pm 7.0 pg/mL 4.0-51.3 PLEASE NOTE: Method Change and New Reference Ranges This Troponin is a High Sensitive method. The units have changed from ng/mL to pg/mL. Critical threshold is at the 99th percentile based on gender. Consideration should be given to any significant changes from the initial Troponin result to the 2nd and 3rd samples collected in a series. Excess Biotin intake can cause falsely depressed results Total Protein February 01, 2022 9:08pm 8.3 g/dL High 6.4-8.2 Albumin February 01, 2022 9:08pm 4.7 g/dL 3.4-5.0 Albumin/Globulin Ratio February 01, 2022 9:08pm 1.3 Ratio 1.0-2.0 Alkaline Phosphatase February 01, 2022 9:08pm 102 U/L 46-116 Lipase February 01, 2022 9:08pm 123 U/L 73-393 Influenza Virus Type A (PCR) February 01, 2022 9:58pm Negative Negative Influenza Virus Type B (PCR) February 01, 2022 9:58pm Negative Negative Respiratory Syncytial Virus (PCR) February 01, 2022 9:58pm Negative Negative Coronavirus (COVID-19)(PCR) February 01, 2022 9:58pm Negative DNAPCR Negative Coronavirus (COVID-19)(PCR) May 05, 2022 8:15am Positive DNAPCR Neg/NotDet Microbiology Results Procedure Source Result Collection Date/Time Resu lt Date/Time Blood Culture Blood NO GROWTH AFTER 5 DAYS February 01 9:08pm Advance Directives Advance Directive Response Recorded Date/ Time Advance Directives No February 01, 2022 8 :49pm Living Will No February 01, 2022 8:49 pm Power of Dispatcher Radio No February 01, 2022 8: 49pm Chief Complaint and Reason for Visit Encounter Admit Date Chief Complaint Reason for V isit Departed Clinical May 05, 2022 7:33am COVID Hospital Discharge Instructions No known hospital discharge instructions. Hospital Discharge Medications Medication Dose Units Route Sig Qty Days Order Date Status Instructions Duloxetine 60 MG ORAL DAILY 30 December 24, 2019 Discontin ued Buspirone 15 MG ORAL TWICE A DAY PRN For anxiety 60 December 24, 2019 Discontin ued Potassium Chloride 10 MEQ ORAL DAILY PRN For edema December 24, 2019 Discontin ued take with lasix Albuterol Sulfate 2 INHALATIO N INHALED Q6H PRN For shortne ss of breath or wheezin g 1 December 30, 2019 Discontin ued Fluticasone Propion-Salmet payal 1 INHALATIO N INHALED TWICE A DAY 60 December 30, 2019 Discontin ued Celecoxib 100 MG ORAL TWICE A DAY 60 December 30, 2019 Discontin ued Ergocalciferol (Vitamin D2) 97100 UNIT ORAL Every Week 4 December 30, 2019 Discontin ued Metformin 1000 MG ORAL TWICE A DAY 60 December 30, 2019 Discontin ued Montelukast 10 MG ORAL DAILY 30 Apri l 2019 Discontin ued Rosuvastatin 40 MG ORAL DAILY 30 Dec il 2019 Discontin ued Magnesium Oxide 400 MG ORAL DAILY 30 December 30, 2019 Discontin ued Ferrous Sulfate 325 MG ORAL DAILY 30 December 30, 2019 Discontin ued Ascorbic Acid (Vitamin C) 500 MG ORAL DAILY 30 December 30, 2019 Discontin ued Take with iron Empagliflozin 10 MG ORAL DAILY 30 Ap ril 2019 Discontin ued Cyanocobalamin (Vitamin B-12) 1000 MCG INTRAMUSC ULAR every month December 30, 2019 Discontin ued Buspirone 15 MG ORAL TWICE A DAY PRN For anxiety 60 February 24, 2020 Discontin ued Duloxetine 60 MG ORAL DAILY January [id number] Discontin ued Potassium Chloride 10 MEQ ORAL DAILY PRN For edema February 24, 2020 Discontin ued take with lasix Albuterol Sulfate 2 PUFF INHALED Q6H PRN For shortne ss of breath or wheezin g 8.5 February 25, 2020 Discontin ued Ferrous Sulfate 325 MG ORAL DAILY 30 April 07, 2020 Discontin ued Empagliflozin 10 MG ORAL DAILY 30 Ju ly 2019 Discontin ued Metformin 1000 MG ORAL TWICE A DAY 60 May 25, 2020 Discontin ued Empagliflozin 10 MG ORAL DAILY 30 No vember 2019 Discontin ued Potassium Chloride 10 MEQ ORAL DAILY PRN For edema November 08, 2020 Discontin ued Metformin 1000 MG ORAL TWICE A DAY 60 November 30, 2020 Discontin ued Magnesium Oxide 400 MG ORAL DAILY 30 November 30, 2020 Discontin ued Buspirone 15 MG ORAL TWICE A DAY PRN For for anxiety 60 January 25, 2021 Discontin ued Duloxetine 60 MG ORAL DAILY 30 January 26, 2021 Discontin ued Fluticasone Propion-Salmet payal 1 INHALATIO N INHALED TWICE A DAY 60 January 26, 2021 Discontin ued Albuterol Sulfate 2 PUFF INHALED Q6H PRN For shortne ss of breath or wheezin g 8.5 January 26, 2021 Discontin ued Gabapentin 400 MG ORAL DAILY 30 January [id number] Discontin ued Hydrocodone-Ib uprofen 1 TAB ORAL . daily PRN For severe pain 7 February 14, 2021 Discontin ued Buspirone 15 MG ORAL TWICE A DAY PRN For for anxiety 60 May 16, 2021 Discontin ued Furosemide 40 MG ORAL DAILY PRN For for swellin g 30 May 22, 2021 Discontin ued Metformin 1000 MG ORAL TWICE A DAY 60 May 22, 2021 Discontin ued Duloxetine 60 MG ORAL DAILY 30 Augus t 2020 Discontin ued Ferrous Sulfate 325 MG ORAL DAILY 30 May 22, 2021 Discontin ued Potassium Chloride 10 MEQ ORAL DAILY 30 May 22, 2021 Discontin ued Empagliflozin 25 MG ORAL DAILY 30 Se ptember 2020 Discontin ued Montelukast 10 MG ORAL DAILY 30 Octo ra 2020 Discontin ued Magnesium Oxide 400 MG ORAL DAILY 30 August 07, 2021 Discontin ued Empagliflozin 10 MG ORAL DAILY 30 No vember 2020 Discontin ued Magnesium Oxide 400 MG ORAL DAILY August 07, 2021 Discontin ued Empagliflozin 10 MG ORAL DAILY 30 No vember , 2021 Discontin ued Rosuvastatin 40 MG ORAL DAILY 30 Aug Discontin ued Hydrocodone-Ib uprofen 1 TAB ORAL DAILY September 06, 2021 Discontin ued Buspirone 15 MG ORAL TWICE A DAY PRN For for anxiety 60 October 23, 2021 Discontin ued Celecoxib 100 MG ORAL TWICE A DAY 60 October 30, 2021 Discontin ued Ergocalciferol (Vitamin D2) 1250 MCG ORAL Every Week 4 November 02, 2021 Discontin ued Potassium Chloride 10 MEQ ORAL DAILY PRN For for swellin g 30 November 27, 2021 Discontin ued Metformin 1000 MG ORAL TWICE A DAY 60 January 29, 2022 Discontin ued Levalbuterol Hcl 0.63 MG INHALED EVERY 6-8 HOURS PRN For shortne ss of breath or wheezin g March 07, 2022 Active Losartan 25 MG ORAL DAILY 30 March Active Potassium Chloride 10 MEQ ORAL DAILY PRN For for swellin g April 09, 2022 Active Rosuvastatin 40 MG ORAL DAILY 30 Mar Active Montelukast 10 MG ORAL DAILY 30 April 23, 2022 Discontin ued Duloxetine 30 MG ORAL DAILY 30 April 23, 2022 Active Metformin 1000 MG ORAL TWICE A DAY 60 April 25, 2022 Active Montelukast 10 MG ORAL DAILY 30 April 25, 2022 Active Magnesium Oxide 400 MG ORAL DAILY 30 April 25, 2022 Active Ergocalciferol (Vitamin D2) 1250 MCG ORAL Every Week 4 April 25, 2022 Active Celecoxib 100 MG ORAL TWICE A DAY 60 April 25, 2022 Active Buspirone 30 MG ORAL TWICE A DAY 60 May 07, 2022 Active Esomeprazole Magnesium 40 MG ORAL DAILY February 13, 2021 Discontin ued Potassium Chloride 10 MEQ ORAL DAILY February 13, 2021 Discontin ued Lisinopril 2.5 MG ORAL DAILY PRN For Hyperte nsion February 13, 2021 Discontin ued Celecoxib 100 MG ORAL TWICE A DAY April 03, 2021 Discontin ued Duloxetine 60 MG ORAL DAILY April 03, 2021 Discontin ued Empagliflozin 25 MG ORAL DAILY Ju ly 2020 Discontin ued Cinnamon Bark 500 MG ORAL DAILY Oc tober 2020 Discontin ued Ckywjqw-Xirk-O fuuu-Kjud-Qxcz yl 1 CAP ORAL DAILY July 21, 2021 Active Gabapentin 400 MG ORAL DAILY 30 Dece2019 Discontin ued Hydrocodone-Ib uprofen 1 TAB ORAL . daily PRN For severe pain September 28, 2020 Discontin ued Celecoxib 100 MG ORAL TWICE A DAY 60 October 26, 2020 Discontin ued Gabapentin 400 MG ORAL DAILY 30 ry 2020 Discontin ued Hydrocodone-Ib uprofen 1 TAB ORAL . daily PRN For severe pain October 26, 2020 Discontin ued ketorolac 30 mg/mL (1 mL) injection solution 30 MG INTRAMUSC ULAR ONCE December 21, 2020 Discontin ued dexamethasone sodium phosphate 4 mg/mL injection solution 4 MG INTRAMUSC ULAR ONCE December 21, 2020 Discontin ued Gabapentin 400 MG ORAL DAILY 30 December 21, 2020 Discontin ued Hydrocodone-Ib uprofen 1 TAB ORAL . daily PRN For severe pain December 21, 2020 Discontin ued Celecoxib 100 MG ORAL TWICE A DAY 60 December 21, 2020 Discontin ued Gabapentin 400 MG ORAL DAILY 30 January 18, 2021 Discontin ued Hydrocodone-Ib uprofen 1 TAB ORAL . daily PRN For severe pain January 18, 2021 Discontin ued Celecoxib 100 MG ORAL TWICE A DAY 60 January 18, 2021 Discontin ued Hydrocodone-Ib uprofen 1 TAB ORAL . daily PRN For severe pain January 18, 2021 Discontin ued Gabapentin 400 MG ORAL DAILY [id number] Discontin ued Hydrocodone-Ib uprofen 1 TAB ORAL DAILY June 21, 2021 Discontin ued Gabapentin 400 MG ORAL DAILY March 15, 2021 Discontin ued Hydrocodone-Ib uprofen 1 TAB ORAL . daily PRN For severe pain March 15, 2021 Discontin ued Gabapentin 400 MG ORAL DAILY April 27, 2021 Discontin ued Hydrocodone-Ib uprofen 1 TAB ORAL DAILY April 27, 2021 Discontin ued Gabapentin 400 MG ORAL DAILY Aprus t 2020 Discontin ued Hydrocodone-Ib uprofen 1 TAB ORAL DAILY May 25, 2021 Discontin ued Gabapentin 400 MG ORAL DAILY Dece ra 2020 Discontin ued Ferrous Sulfate 325 MG ORAL DAILY November 06, 2021 Discontin ued Gabapentin 400 MG ORAL DAILY u kevin 2021 Discontin ued Hydrocodone-Ib uprofen 1 TAB ORAL DAILY November 06, 2021 Discontin ued Hydrocodone-Ib uprofen 1 TAB ORAL DAILY December 06, 2021 Discontin ued Gabapentin 400 MG ORAL DAILY December 06, 2021 Discontin ued Hydrocodone-Ib uprofen 1 TAB ORAL DAILY January 04, 2022 Discontin ued Gabapentin 400 MG ORAL DAILY January 04, 2022 Discontin ued Hydrocodone-Ib uprofen 1 TAB ORAL DAILY January 04, 2022 Discontin ued Gabapentin 400 MG ORAL DAILY January 04, 2022 Discontin ued Hydrocodone-Ib uprofen 1 TAB ORAL DAILY April 05, 2022 Active Gabapentin 400 MG ORAL DAILY April 05, 2022 Active Gabapentin 400 MG ORAL DAILY 2020 Discontin ued Hydrocodone-Ib uprofen 1 TAB ORAL DAILY August 02, 2021 Discontin ued Gabapentin 400 MG ORAL DAILY 2020 Discontin ued Gabapentin 400 MG ORAL DAILY 2021 Discontin ued Hydrocodone-Ib uprofen 1 TAB ORAL DAILY October 09, 2021 Discontin ued Gabapentin 400 MG ORAL DAILY January Discontin ued Hydrocodone-Ib uprofen 1 TAB ORAL DAILY February 01, 2022 Discontin ued Gabapentin 400 MG ORAL DAILY March 05, 2022 Discontin ued Hydrocodone-Ib uprofen 1 TAB ORAL DAILY March 05, 2022 Discontin ued Ergocalciferol (Vitamin D2) 1 CAP ORAL Every Week November 04, 2018 Discontin ued Buspirone 15 MG ORAL TWICE A DAY November 04, 2018 Discontin ued Duloxetine 60 MG ORAL DAILY 2018 Discontin ued Metformin 1000 MG ORAL TWICE A DAY November 04, 2018 Discontin ued Montelukast 10 MG ORAL DAILY 2018 Discontin ued Budesonide-For moterol 2 INHALATIO N INHALED TWICE A DAY November 04, 2018 Discontin ued Gabapentin 400 MG ORAL DAILY 2018 Discontin ued Hydrocodone-Ac etaminophen 1 TAB ORAL DAILY November 04, 2018 Discontin ued Lisinopril-Hyd rochlorothiazi de 1 TAB ORAL DAILY November 04, 2018 Discontin ued Simvastatin 40 MG ORAL DAILY 2018 Discontin ued Furosemide 40 MG ORAL DAILY 2018 Discontin ued Potassium Chloride 10 MEQ ORAL DAILY November 04, 2018 Discontin ued Celecoxib 100 MG ORAL TWICE A DAY January 20, 2019 Discontin ued Nitrofurantoin Monohyd/M-Gifty t 100 MG ORAL TWICE A DAY 10 August 17, 2021 Active must administer with a meal/food Budesonide-For moterol 2 INHALATIO N INHALED TWICE A DAY 10.2 June 09, 2019 Discontin ued Buspirone 15 MG ORAL TWICE A DAY PRN For anxiety 60 June 09, 2019 Discontin ued Celecoxib 100 MG ORAL TWICE A DAY 60 June 09, 2019 Discontin ued Duloxetine 60 MG ORAL DAILY 30 2018 Discontin ued Ergocalciferol (Vitamin D2) 39053 UNIT ORAL Every Week 4 June 09, 2019 Discontin ued Furosemide 40 MG ORAL DAILY PRN For edema 30 June 09, 2019 Discontin ued Lisinopril 2.5 MG ORAL DAILY 30 2018 Discontin ued Metformin 1000 MG ORAL TWICE A DAY 60 June 09, 2019 Discontin ued Montelukast 10 MG ORAL DAILY 30 May Discontin ued Potassium Chloride 10 MEQ ORAL DAILY PRN For edema 30 June 09, 2019 Discontin ued take with lasix Simvastatin 40 MG ORAL DAILY 30 May Discontin ued Rosuvastatin 40 MG ORAL DAILY May Discontin ued Budesonide-For moterol 2 INHALATIO N INHALED TWICE A DAY 10.2 March 09, 2019 Discontin ued Buspirone 15 MG ORAL TWICE A DAY PRN For anxiety 60 March 09, 2019 Discontin ued Celecoxib 100 MG ORAL TWICE A DAY 60 March 09, 2019 Discontin ued Duloxetine 60 MG ORAL DAILY 30 March 09, 2019 Discontin ued Ergocalciferol (Vitamin D2) 77237 UNIT ORAL Every Week 4 March 09, 2019 Discontin ued Furosemide 40 MG ORAL DAILY PRN For edema 30 March 09, 2019 Discontin ued Gabapentin 400 MG ORAL DAILY March 09, 2019 Discontin ued Hydrocodone-Ac etaminophen 1 TAB ORAL DAILY March 09, 2019 Discontin ued Metformin 1000 MG ORAL TWICE A DAY 60 March 09, 2019 Discontin ued Montelukast 10 MG ORAL DAILY 30 March 09, 2019 Discontin ued Potassium Chloride 10 MEQ ORAL DAILY PRN For edema March 09, 2019 Discontin ued take with lasix Simvastatin 40 MG ORAL DAILY 30 March 09, 2019 Discontin ued Lisinopril 2.5 MG ORAL DAILY 30 March 09, 2019 Discontin ued methylpredniso lone acetate 40 mg/mL suspension for injection 40 MG INTRAMUSC ULAR ONCE 1 November 02, 2019 Discontin ued Budesonide-For moterol 2 INHALATIO N INHALED TWICE A DAY 10.2 November 02, 2019 Discontin ued Buspirone 15 MG ORAL TWICE A DAY PRN For anxiety 60 November 02, 2019 Discontin ued Celecoxib 100 MG ORAL TWICE A DAY 60 November 02, 2019 Discontin ued Duloxetine 60 MG ORAL DAILY 30 2019 Discontin ued Ergocalciferol (Vitamin D2) 73147 UNIT ORAL Every Week November 02, 2019 Discontin ued Furosemide 40 MG ORAL DAILY PRN For edema November 02, 2019 Discontin ued Lisinopril 2.5 MG ORAL DAILY 30 2019 Discontin ued Metformin 1000 MG ORAL TWICE A DAY 60 November 02, 2019 Discontin ued Potassium Chloride 10 MEQ ORAL DAILY PRN For edema November 02, 2019 Discontin ued take with lasix Montelukast 10 MG ORAL DAILY 30 [id number] Discontin ued Albuterol Sulfate 2 PUFF INHALED Q6H PRN For shortne ss of breath or wheezin g 8.5 June 03, 2020 Discontin ued Buspirone 15 MG ORAL TWICE A DAY PRN For anxiety 60 June 03, 2020 Discontin ued Celecoxib 100 MG ORAL TWICE A DAY 60 June 03, 2020 Discontin ued Cyanocobalamin (Vitamin B-12) 1000 MCG INTRAMUSC ULAR every month June 03, 2020 Discontin ued Duloxetine 60 MG ORAL DAILY 30 [id number] Discontin ued Empagliflozin 10 MG ORAL DAILY 30 ptember 2019 Discontin ued Ergocalciferol (Vitamin D2) 87325 UNIT ORAL Every Week June 03, 2020 Discontin ued Ferrous Sulfate 325 MG ORAL DAILY 30 June 03, 2020 Discontin ued Furosemide 40 MG ORAL DAILY PRN For edema June 03, 2020 Discontin ued Magnesium Oxide 400 MG ORAL DAILY 30 June 03, 2020 Discontin ued Metformin 1000 MG ORAL TWICE A DAY 60 June 03, 2020 Discontin ued Montelukast 10 MG ORAL DAILY 30 May Discontin ued Potassium Chloride 10 MEQ ORAL DAILY PRN For edema June 03, 2020 Discontin ued take with lasix Rosuvastatin 40 MG ORAL DAILY 30 May Discontin ued Fluconazole 150 MG ORAL DAILY 2 2 May Discontin ued Gabapentin 400 MG ORAL DAILY 30 2019 Discontin ued Hydrocodone-Ib uprofen 1 TAB ORAL . daily PRN For severe pain July 30, 2020 Discontin ued Albuterol Sulfate 2 PUFF INHALED Q6H PRN For shortne ss of breath or wheezin g 8.5 August 23, 2020 Discontin ued Buspirone 15 MG ORAL TWICE A DAY PRN For anxiety August 23, 2020 Discontin ued Celecoxib 100 MG ORAL TWICE A DAY August 23, 2020 Discontin ued Cyanocobalamin (Vitamin B-12) 1000 MCG INTRAMUSC ULAR every month August 23, 2020 Discontin ued Diabetic Supplies, Miscellan. 0 Route .MEDSUP PLY August 23, 2020 Discontin ued Test Strips and Lancets for daily BG testing Duloxetine 60 MG ORAL DAILY 30 2019 Discontin ued Empagliflozin 10 MG ORAL DAILY 30 2019 Discontin ued Ergocalciferol (Vitamin D2) 89806 UNIT ORAL Every Week August 23, 2020 Discontin ued Ferrous Sulfate 325 MG ORAL DAILY August 23, 2020 Discontin ued Furosemide 40 MG ORAL DAILY PRN For edema August 23, 2020 Discontin ued Gabapentin 400 MG ORAL DAILY 2019 Discontin ued Metformin 1000 MG ORAL TWICE A DAY August 23, 2020 Discontin ued Magnesium Oxide 400 MG ORAL DAILY August 23, 2020 Discontin ued Montelukast 10 MG ORAL DAILY 30 2019 Discontin ued Potassium Chloride 10 MEQ ORAL DAILY PRN For edema August 23, 2020 Discontin ued take with lasix Rosuvastatin 40 MG ORAL DAILY 30 Jul Discontin ued Hydrocodone-Ib uprofen 1 TAB ORAL . daily PRN For severe pain August 29, 2020 Discontin ued Lisinopril 2.5 MG ORAL DAILY 30 2019 Discontin ued Buspirone 15 MG ORAL TWICE A DAY PRN For anxiety October 24, 2020 Discontin ued Celecoxib 100 MG ORAL TWICE A DAY 60 October 24, 2020 Discontin ued Cyanocobalamin (Vitamin B-12) 1000 MCG INTRAMUSC ULAR every month October 24, 2020 Discontin ued Diabetic Supplies, Miscellan. 0 Route .MEDSUP PLY October 24, 2020 Discontin ued Test Strips and Lancets for daily BG testing Duloxetine 60 MG ORAL DAILY 30 2020 Discontin ued Empagliflozin 25 MG ORAL DAILY 30 Ja nuary 2020 Discontin ued Ergocalciferol (Vitamin D2) 75161 UNIT ORAL Every Week October 24, 2020 Discontin ued Ferrous Sulfate 325 MG ORAL DAILY 30 October 24, 2020 Discontin ued Fluticasone Propion-Salmet payal 1 INHALATIO N INHALED TWICE A DAY 60 October 24, 2020 Discontin ued Furosemide 40 MG ORAL DAILY PRN For edema October 24, 2020 Discontin ued Lisinopril 2.5 MG ORAL DAILY 30 Sepua ry 2020 Discontin ued Magnesium Oxide 400 MG ORAL DAILY 30 October 24, 2020 Discontin ued Metformin 1000 MG ORAL TWICE A DAY 60 October 24, 2020 Discontin ued Montelukast 10 MG ORAL DAILY 30 Ghassan kevin 2020 Discontin ued Potassium Chloride 10 MEQ ORAL DAILY PRN For edema October 24, 2020 Discontin ued take with lasix Rosuvastatin 40 MG ORAL DAILY 30 Sep uary 2020 Discontin ued Cyanocobalamin (Vitamin B-12) 1000 MCG INTRAMUSC ULAR every month February 15, 2021 Discontin ued Diabetic Supplies, Miscellan. 0 Route .MEDSUP PLY February 15, 2021 Discontin ued Test Strips and Lancets for daily BG testing Ergocalciferol (Vitamin D2) 09813 UNIT ORAL Every Week February 15, 2021 Discontin ued Ferrous Sulfate 325 MG ORAL DAILY 30 February 15, 2021 Discontin ued Furosemide 40 MG ORAL DAILY PRN For edema February 15, 2021 Discontin ued Magnesium Oxide 400 MG ORAL DAILY 30 February 15, 2021 Discontin ued Metformin 1000 MG ORAL TWICE A DAY 60 February 15, 2021 Discontin ued Montelukast 10 MG ORAL DAILY 30 February 15, 2021 Discontin ued Rosuvastatin 40 MG ORAL DAILY 30 February 15, 2021 Discontin ued Empagliflozin 25 MG ORAL DAILY 30 Ma y 2020 Discontin ued Albuterol Sulfate 2 PUFF INHALED Q6H PRN For shortne ss of breath or wheezin g 8.5 August 09, 2021 Discontin ued Buspirone 15 MG ORAL TWICE A DAY PRN For for anxiety 60 August 09, 2021 Discontin ued Cyanocobalamin (Vitamin B-12) 1000 MCG INTRAMUSC ULAR every month August 09, 2021 Discontin ued Duloxetine 60 MG ORAL DAILY 30 2020 Discontin ued Ergocalciferol (Vitamin D2) 87557 UNIT ORAL Every Week 4 August 09, 2021 Discontin ued Ferrous Sulfate 325 MG ORAL DAILY 30 August 09, 2021 Active Furosemide 40 MG ORAL DAILY PRN For for swellin g 30 August 09, 2021 Discontin ued Metformin 1000 MG ORAL TWICE A DAY 60 August 09, 2021 Discontin ued Montelukast 10 MG ORAL DAILY 30 Nover 2020 Discontin ued Potassium Chloride 10 MEQ ORAL DAILY 30 August 09, 2021 Discontin ued Dextromethorph an-Guaifenesin 10 ML ORAL EVERY 4-8 HOURS PRN For cough 180 August 09, 2021 Discontin ued Ondansetron Hcl 4 MG ORAL Q8H PRN For nausea and vomitin g 30 August 09, 2021 Active methylpredniso lone sod suc(PF) 125 mg/2 mL solution for injection 125 MG INTRAMUSC ULAR ONCE June 28, 2020 Discontin ued Gabapentin 400 MG ORAL DAILY 30 er 2019 Discontin ued Hydrocodone-Ib uprofen 1 TAB ORAL . daily PRN For severe pain June 28, 2020 Discontin ued Blood-Glucose Meter 0 Route .MEDSUP PLY June 28, 2020 Discontin ued Glucometer Diabetic Supplies, Miscellan. 0 Route .MEDSUP PLY June 28, 2020 Discontin ued Test Strips and Lancets for daily BG testing Empagliflozin 25 MG ORAL DAILY 30 2019 Discontin ued Amoxicillin-Po t Clavulanate 1 TAB ORAL Q12H 20 May 09, 2021 Discontin ued Methylpredniso lone 0 ORAL Per package directi ons May 09, 2021 Discontin ued PO PER PKG DIR Fluconazole 150 MG ORAL Q3D [address] 2020 Discontin ued may repeat second dose 72 hrs after first dose if symptoms persist Empagliflozin 25 MG ORAL DAILY 30 ne 2021 Active Duloxetine 30 MG ORAL DAILY 30 January 10, 2022 Discontin ued Take with 60mg to make 90mg total Losartan 25 MG ORAL DAILY December 292021 Discontin ued Buspirone 30 MG ORAL TWICE A DAY 60 January 10, 2022 Discontin ued Albuterol Sulfate 2 PUFF INHALED Q6H PRN For shortne ss of breath or wheezin g 8.5 January 10, 2022 Active Celecoxib 100 MG ORAL TWICE A DAY 60 January 10, 2022 Discontin ued Cyanocobalamin (Vitamin B-12) 1000 MCG INTRAMUSC ULAR every month 1 January 10, 2022 Active Empagliflozin 10 MG ORAL DAILY 30 Ap ril 2021 Discontin ued Ergocalciferol (Vitamin D2) 1250 MCG ORAL Every Week 4 January 10, 2022 Discontin ued Furosemide 40 MG ORAL DAILY PRN For for swellin g 30 January 10, 2022 Active Metformin 1000 MG ORAL TWICE A DAY 60 January 10, 2022 Discontin ued Montelukast 10 MG ORAL DAILY 30 Apri l 2021 Discontin ued Potassium Chloride 10 MEQ ORAL DAILY PRN For for swellin g 30 January 10, 2022 Discontin ued Rosuvastatin 40 MG ORAL DAILY 30 Dec [place] 2021 Discontin ued Duloxetine 60 MG ORAL DAILY 30 January 10, 2022 Active Encounters Encounter Facility Location Admit/Visit Date Discharge/Departure Date Attending Provider Departed Clinical [facility] May 05, 2022 7:33am May 05, 2022 7:34am Nisa Hunter Departed Clinical [facility] Sleep April 25, 2022 6:36pm April 26, 2022 6:00am Nisa Hunter Departed Physician/Pro vider Office Visit [facility] April 05, 2022 1:52pm April 05, 2022 2:33pm Moises Pinzon Departed Physician/Pro vider Office Visit [facility] March 05, 2022 3:58pm March 05, 2022 11:59pm Araceli Sethi Departed Clinical [facility] February 28, 2022 6:25pm March 01, 2022 6:00am Nisa Hunter Departed Physician/Pro vider Office Visit [facility] February 14, 2022 3:29pm February 14, 2022 4:46pm Nisa Hunter Registered Inpatient [facility] February 01, 2022 8:39pm Yaya Parham Departed Physician/Pro vider Office Visit [facility] February 01, 2022 3:20pm February 01, 2022 3:30pm Moises Pinzon Departtristin Physician/Pro vider Office Visit [facility] January 10, 2022 3:55pm January 10, 2022 5:26pm Nisa Hunter Functional Status No known functional status. Immunizations No known immunizations. Plan of Care No Known Plan of Care Information Social History Query Response Date Recorded Comment alcohol intake never February 01, 2022 8:49pm substance use type does not use February 01, 2022 8:49pm Query Response Start Date Stop Date Smoking Status Never smoker Vital Signs Vital Reading Result Reference Range Collection Date/Time Height 5 ft 1 in April 05, 2022 2: 20pm Weight 243 lb April 05, 2022 2: 20pm Temperature 97.4 F 97.6 F-99.6 F April 05, 2022 2 :20pm Pulse 78 BPM 60-100 April 05, 2022 2: 20pm Respiration 20 RPM 12-20 April 05, 2022 2: 20pm Pulse Oximetry 98 % 95-100 April 05, 2022 2:20pm Blood Pressure Systolic 146 90-120 April 05, 2022 2:20pm Blood Pressure Diastolic 88 60-80 Alberto 2021 2:20pm Body Mass Index 45.9 April 05, 2022 2:20pm
--- OUTSIDE RECORDS SUMMARY | 2024-07-22 10:33 | XMS_ITS | Continuity of Care Document ---
Author Name [facility] Address [address] [place] [id number] Organization [facility] Address [address] [place] [id number] Support Name Relationship Address Phone Jason Mi Attending Provider [id number] M n [id number] [place] [address] Nisa Hunter Primary Care Provider [facility] [place] [place] [address] [facility] [address]nd [place] [address] Allergies, Adverse Reactions, Alerts Allergen Type Severity Reaction Last Updated Verified Status latex Allergy Rash May 23, 2022 Y Active Medications Active Medications Medication Dose Units Route Sig Qty Days Start Date Status Ins tructions Levalbuterol Hcl [Xopenex] 0.63 MG INHALED EVERY 6-8 HOURS PRN For shortness of breath or wheezing 15 March 07, 2022 Active Ergocalciferol (Vitamin D2) 1250 MCG ORAL Every Week 4 April 25, 2022 Active Celecoxib 100 MG ORAL TWICE A DAY 60 April 25, 2022 Active Buspirone 30 MG ORAL TWICE A DAY 60 May 07, 2022 Active Furosemide 40 MG ORAL DAILY PRN For for swelling May 22, 2022 Active Njsbqpy-Zwyo-Zx rqu-Dyfo-Jttpqw 1 CAP ORAL DAILY 2020 Active Hydrocodone-Ibu profen 1 TAB ORAL DAILY June 13, 2022 Active Gabapentin 400 MG ORAL DAILY mb2021 Active Ondansetron Hcl [Zofran] 4 MG ORAL Q8H PRN For nausea and vomiting August 09, 2021 Active Albuterol Sulfate [Ventolin Hfa] 2 PUFF INHALED Q6H PRN For shortness of breath or wheezing 8.5 January 10, 2022 Active Cyanocobalamin (Vitamin B-12) 1000 MCG INTRAMUSCUL AR every month 1 May 23, 2022 Active Duloxetine 120 MG ORAL DAILY 60 Augus t 2021 Active Empagliflozin 25 MG ORAL DAILY 30 Au mary lou 2021 Active Ferrous Sulfate 325 MG ORAL DAILY 30 May 23, 2022 Active Losartan 25 MG ORAL DAILY 30 May 23, 2022 Active Magnesium Oxide 400 MG ORAL DAILY 30 May 23, 2022 Active Metformin 1000 MG ORAL TWICE A DAY 60 May 23, 2022 Active Montelukast 10 MG ORAL DAILY [address] 2021 Active Rosuvastatin 40 MG ORAL DAILY 30 Apr ust 2021 Active Potassium Chloride 10 MEQ ORAL DAILY PRN For for swelling May 23, 2022 Active Discontinued Medications Medication Dose Units Route Sig Qty Days Start Date Discontinued Date Status Instructions Duloxetine 60 MG ORAL DAILY 30 December 24, 2019 February 24, 2020 Discont inued Buspirone 15 MG ORAL TWICE A DAY PRN For anxie ty 60 December 24, 2019 February 24, 2020 Discont inued Potassium Chloride 10 MEQ ORAL DAILY PRN For edema December 24, 2019 February 24, 2020 Discont [...] inued Ergocalcifer ol (Vitamin D2) [Vitamin D2] 99854 UNIT ORAL Every Week 4 December 30, [...] 1000 MCG INTRAMU SCULAR every month 1 December 30, 2019 June 03, 2020 Discont inued Buspirone 15 MG ORAL TWICE A DAY PRN For anxie ty 60 February 24, 2020 June 03, 2020 Discont inued Duloxetine 60 MG ORAL DAILY 30 February 24, 2020 June 03, 2020 Discont inued Potassium Chloride 10 MEQ ORAL DAILY PRN For edema 30 February 24, 2020 June 03, 2020 [...] MEQ ORAL DAILY PRN For edema 30 2020February 13, 2021 Discont inued Metformin 1000 [...] 100 MG ORAL TWICE A DAY 60 Sepuar y 2021January 10, 2022 Discont inued Ergocalcifer ol (Vitamin D2) 1250 MCG ORAL Every Week 4 ry 2021January 10, 2022 Discont inued Potassium Chloride 10 MEQ ORAL DAILY PRN For for swell ing 30 Februa ry 2021January 10, 2022 Discont inued Metformin 1000 MG ORAL TWICE A DAY 60 January 29, 2022 April 25, 2022 Discont inued Losartan 25 MG ORAL DAILY 30 April 09, 2022 May 23, 2022 Discont inued Potassium Chloride 10 MEQ ORAL DAILY PRN For for swell ing 30 April 09, 2022 May 23, 2022 Discont inued Rosuvastatin 40 MG ORAL DAILY 30 MarMay 23, 2022 Discont inued Montelukast 10 MG ORAL DAILY 30 April 23, 2022 April 25, 2022 Discont inued Duloxetine 30 MG ORAL DAILY 30 April 23, 2022 May 23, 2022 Discont inued Metformin 1000 MG ORAL TWICE A DAY 60 April 25, 2022 May 23, 2022 Discont inued Montelukast 10 MG ORAL DAILY 30 April 25, 2022 May 23, 2022 Discont inued Magnesium Oxide 400 MG ORAL DAILY 30 April 25, 2022 May 23, 2022 Discont inued Esomeprazole Magnesium [Nexium] 40 [...] 100 MG ORAL TWICE A DAY 60 Sepua y 2020December 21, 2020 Discont inued Gabapentin 400 MG ORAL DAILY 30 r y 2020December 21, 2020 Discont inued Hydrocodone- Ibuprofen 1 TAB ORAL . daily PRN For sever e pain 30 r y 2020December 21, 2020 Discont inued ketorolac 30 mg/mL (1 mL) injection solution 30 MG INTRAMU SCULAR ONCE December 21, 2020 December 21, 2020 Discont inued dexamethason e sodium phosphate 4 mg/mL injection solution 4 MG INTRAMU SCULAR ONCE December 21, 2020 December 21, 2020 Discont inued Gabapentin 400 MG ORAL DAILY 30 December 21, 2020 January 18, 2021 Discont inued Hydrocodone- Ibuprofen 1 TAB ORAL . daily PRN For sever e pain December 21, 2020 January 18, 2021 Discont [...] daily PRN For sever e pain 7 January 18, 2021 February 14, 2021 Discont [...] Hydrocodone- Ibuprofen 1 TAB ORAL DAILY 28 April 27, 2021 May 25, 2021 Discont inued Gabapentin 400 MG ORAL DAILY 28 Augus t 2020June 21, 2021 Discont inued Hydrocodone- Ibuprofen 1 TAB ORAL DAILY 28 May 25, 2021 June 21, 2021 Discont inued Gabapentin 400 MG ORAL DAILY 28 Decem b er 2020October 09, 2021 Discont inued Ferrous Sulfate [Ferosul] 325 MG ORAL DAILY ua ry 2021February 01, 2022 Discont inued Gabapentin 400 MG ORAL DAILY Febru a ry 2021December 06, 2021 Discont inued Hydrocodone- Ibuprofen 1 TAB ORAL DAILY Februa ry 2021December 06, 2021 Discont inued Hydrocodone- Ibuprofen 1 TAB ORAL DAILY December 06, 2021 January 04, 2022 Discont inued Gabapentin 400 MG ORAL DAILY December 06, 2021 January 04, 2022 Discont inued Hydrocodone- Ibuprofen 1 TAB ORAL DAILY January 04, 2022 January 04, 2022 Discont inued Gabapentin 400 MG ORAL DAILY January 04, 2022 January 04, 2022 Discont inued Hydrocodone- Ibuprofen 1 TAB ORAL DAILY January 04, 2022 February 01, 2022 Discont inued Gabapentin 400 MG ORAL DAILY January 04, 2022 February 01, 2022 Discont inued Hydrocodone- Ibuprofen 1 TAB ORAL DAILY April 05, 2022 May 14, 2022 Discont inued Gabapentin 400 MG ORAL DAILY April 05, 2022 May 14, 2022 Discont inued Gabapentin 400 MG ORAL DAILY Augus t 2021June 13, 2022 Discont inued Hydrocodone- Ibuprofen 1 TAB ORAL DAILY May 14, 2022 June 13, 2022 Discont inued Gabapentin 400 MG ORAL DAILY Novem b er 2020August 30, 2021 Discont inued Hydrocodone- Ibuprofen 1 TAB ORAL DAILY Novemb er 2020September 06, 2021 Discont inued Gabapentin [Neurontin] 400 MG ORAL DAILY Novemb er 2020August 30, 2021 Discont inued Gabapentin 400 MG ORAL DAILY 28 Sepua r y 2021November 06, 2021 Discont inued Hydrocodone- Ibuprofen 1 TAB ORAL DAILY Sepuar y 2021November 06, 2021 Discont inued Gabapentin [...] [Vitamin D2] 1 CAP ORAL Every Week Februa ry 2018March 09, 2019 Discont inued Buspirone 15 MG ORAL TWICE A DAY Februa ry 2018March 09, 2019 Discont inued Duloxetine 60 MG ORAL DAILY Febru a 2018March 09, 2019 Discont inued Metformin 1000 MG ORAL TWICE A DAY Februa 2018March 09, 2019 Discont inued Montelukast 10 MG ORAL DAILY Febr ua 2018March 09, 2019 Discont inued Budesonide-F ormoterol [Symbicort] 2 INHALAT ION INHALED TWICE A DAY ua 2018March 09, 2019 Discont inued Gabapentin 400 MG ORAL DAILY Febru a 2018March 09, 2019 Discont inued Hydrocodone- Acetaminophe n 1 TAB ORAL DAILY 2018March 09, 2019 Discont inued Lisinopril-H ydrochloroth iazide 1 TAB ORAL DAILY Februa 2018March 09, 2019 Discont inued Simvastatin 40 MG ORAL DAILY Febr ua ry 2018March 09, 2019 Discont inued Furosemide 40 MG ORAL DAILY Febru a 2018March 09, 2019 Discont inued Potassium Chloride 10 MEQ ORAL DAILY Februa 2018March 09, 2019 Discont inued Celecoxib 100 MG ORAL TWICE A DAY January 20, 2019 March 09, 2019 Discont inued Nitrofuranto in Monohyd/M-Cr yst [Macrobid] 100 MG ORAL TWICE A DAY 10 Novemb er 2020May 23, 2022 Discont inued must administer with a meal/food Budesonide-F ormoterol [Symbicort] 2 INHALAT ION INHALED TWICE A DAY 10.2 Septem ra 2018November 02, 2019 Discont inued Buspirone 15 MG ORAL TWICE A DAY PRN For anxie ty 60 Mayem ra 2018November 02, 2019 Discont inued Celecoxib 100 MG ORAL TWICE A DAY 60 Mayem ra 2018November 02, 2019 Discont inued Duloxetine 60 MG ORAL DAILY 30 Septe m 2018November 02, 2019 Discont inued Ergocalcifer ol (Vitamin D2) [Vitamin D2] 78520 UNIT ORAL Every Week 4 2018November 02, 2019 Discont inued Furosemide 40 MG ORAL DAILY PRN For edema 30 2018November 02, 2019 Discont inued Lisinopril 2.5 MG ORAL DAILY 30 Septe m 2018November 02, 2019 Discont inued Metformin 1000 MG ORAL TWICE A DAY 60 2018November 02, 2019 Discont inued Montelukast 10 MG ORAL DAILY 30 Sept em 2018November 02, 2019 Discont inued Potassium Chloride 10 MEQ ORAL DAILY PRN For edema 30 2018November 02, 2019 Discont inued take with lasix Simvastatin 40 MG ORAL DAILY 30 Sept em 2018June 25, 2019 Discont inued Rosuvastatin [Crestor] 40 MG ORAL DAILY Septem 2018December 30, 2019 Discont inued Budesonide-F ormoterol [...] inued Ergocalcifer ol (Vitamin D2) [Vitamin D2] 50476 UNIT ORAL Every Week 4 March 09, [...] 60 MG ORAL DAILY 30 Febru a 2019December 24, 2019 Discont inued Ergocalcifer ol (Vitamin D2) [Vitamin D2] 15845 UNIT ORAL Every Week 4 ua ry 2019December 30, 2019 Discont inued Furosemide 40 MG ORAL DAILY PRN For edema 30 ua ry 2019June 03, 2020 Discont inued Lisinopril 2.5 MG ORAL DAILY 30 u a ry 2019December 30, 2019 Discont inued Metformin 1000 MG ORAL TWICE A DAY 60 ua ry 2019December 30, 2019 Discont inued Potassium Chloride 10 MEQ ORAL DAILY PRN For edema 30 ua ry 2019December 24, 2019 Discont inued take with lasix Montelukast 10 MG ORAL DAILY 30 ua ry 2019December 30, 2019 Discont inued [...] n [Jardiance] 10 MG ORAL DAILY 30 Septem ra 2019August 08, 2020 Discont inued Ergocalcifer ol (Vitamin D2) [Vitamin D2] 26511 UNIT ORAL Every Week 4 Septem ra , 2019August 23, 2020 Discont inued Ferrous Sulfate 325 MG ORAL DAILY 30 Septem ra , 2019August 23, 2020 Discont inued Furosemide 40 MG ORAL DAILY PRN For edema 30 Septem ra 4, 2019August 23, 2020 Discont inued Magnesium Oxide 400 MG ORAL DAILY 30 Septem ra , 2019August 23, 2020 Discont inued Metformin 1000 MG ORAL TWICE A DAY 60 Septem ra , 2019August 23, 2020 Discont inued Montelukast 10 MG ORAL DAILY 30 Sept em ra 4, 2019August 23, 2020 Discont inued Potassium Chloride 10 MEQ ORAL DAILY PRN For edema 30 Septem ra 4, 2019August 23, 2020 Discont inued take with lasix Rosuvastatin [Crestor] 40 MG ORAL DAILY 30 Septem ra , 2019August 23, 2020 Discont inued Fluconazole [Diflucan] 150 MG ORAL DAILY 2 2 Septem ra , 2019June 05, 2020 Discont inued Gabapentin 400 MG ORAL DAILY 30 Octob e r 2019August 23, 2020 Discont inued Hydrocodone- Ibuprofen 1 TAB ORAL . daily PRN For sever e pain 30 Octobe r 2019August 23, 2020 Discont inued Albuterol Sulfate [Ventolin Hfa] 2 PUFF INHALED Q6H PRN For short ness of breat h or wheez ing 8.5 Novemb er , 2019January 26, 2021 Discont inued Buspirone 15 MG ORAL TWICE A DAY PRN For anxie ty 60 Novemb er , 2019October 24, 2020 Discont inued Celecoxib 100 MG ORAL TWICE A DAY 60 Novemb er 2019October 24, 2020 Discont inued Cyanocobalam in (Vitamin B-12) 1000 MCG INTRAMU SCULAR every month 1 Novemb er 2019October 24, 2020 Discont inued Diabetic Supplies, Miscellan. 0 Route .MEDS UPPLY 1 Novemb er , 2019October 24, 2020 Discont inued Test Strips and Lancets for daily BG testing Duloxetine 60 MG ORAL DAILY 30 Novem b er , 2019October 24, 2020 Discont inued Empagliflozi n [Jardiance] 10 MG ORAL DAILY 30 Novemb er 2019September 20, 2020 Discont inued Ergocalcifer ol (Vitamin D2) [Vitamin D2] 85586 UNIT ORAL Every Week 4 Novemb er [...] MG ORAL DAILY 30 Nove mb er , 2019October 24, 2020 Discont inued Potassium Chloride 10 MEQ ORAL DAILY PRN For edema 30 Novemb er , 2019October 24, 2020 Discont inued take with lasix Rosuvastatin [Crestor] 40 MG ORAL DAILY 30 Novemb er , 2019October 24, 2020 Discont inued Hydrocodone- Ibuprofen 1 TAB ORAL . daily PRN For sever e pain 30 Novemb er , 2019September 28, 2020 Discont inued Lisinopril 2.5 MG ORAL DAILY 30 Novem b er , 2019October 24, 2020 Discont inued Buspirone 15 MG ORAL TWICE A DAY PRN For anxie ty 60 r y 2020January 25, 2021 Discont inued Celecoxib 100 MG ORAL TWICE A DAY 60 Sepuar y 2020October 26, 2020 Discont inued Cyanocobalam in (Vitamin B-12) 1000 MCG INTRAMU SCULAR every month 1 y 2020February 15, 2021 Discont inued Diabetic Supplies, Miscellan. 0 Route .MEDS UPPLY 1 r y 2020February 15, 2021 Discont inued Test Strips and Lancets for daily BG testing Duloxetine 60 MG ORAL DAILY 30 r y 2020January 26, 2021 Discont inued Empagliflozi n 25 MG ORAL DAILY 30 Sepuar y 2020February 13, 2021 Discont inued Ergocalcifer ol (Vitamin D2) [Vitamin D2] 29969 UNIT ORAL Every Week 4 r y 2020February 15, 2021 Discont inued Ferrous Sulfate 325 MG ORAL DAILY 30 y 2020February 15, 2021 Discont inued Fluticasone Propion-Salm eterol [Advair Diskus] 1 INHALAT ION INHALED TWICE A DAY 60 y 2020January 26, 2021 Discont inued Furosemide 40 MG ORAL DAILY PRN For edema 30 2020February 15, 2021 Discont inued Lisinopril 2.5 MG ORAL DAILY 30 r 2020February 13, 2021 Discont inued Magnesium Oxide 400 MG ORAL DAILY 30 y 2020November 30, 2020 Discont inued Metformin 1000 MG ORAL TWICE A DAY 60 2020November 30, 2020 Discont inued Montelukast 10 MG ORAL DAILY 30 y 2020February 15, 2021 Discont inued Potassium Chloride 10 MEQ ORAL DAILY PRN For edema 30 2020November 08, 2020 Discont inued take with lasix Rosuvastatin [Crestor] 40 MG ORAL DAILY 30 2020February 15, 2021 Discont inued Cyanocobalam in (Vitamin B-12) 1000 MCG INTRAMU SCULAR every month February 15, 2021 August 09, 2021 Discont inued Diabetic Supplies, Miscellan. 0 Route .MEDS UPPLY February 15, 2021 April 03, 2021 Discont inued Test Strips and Lancets for daily BG testing Ergocalcifer ol (Vitamin D2) [Vitamin D2] 95494 UNIT ORAL Every Week 4 February 15, 2021 August 09, 2021 Discont inued Ferrous Sulfate 325 MG ORAL DAILY 30 February 15, 2021 May 22, 2021 Discont inued Furosemide 40 MG ORAL DAILY PRN For edema 30 February 15, 2021 May 22, 2021 [...] inued Ergocalcifer ol (Vitamin D2) [Vitamin D2] 20325 UNIT ORAL Every Week 4 Novemb er 2020November 02, 2021 Discont inued Ferrous Sulfate 325 MG ORAL DAILY 30 Novemb er 2020May 23, 2022 Discont inued Furosemide 40 MG ORAL DAILY [...] injection 125 MG INTRAMU SCULAR ONCE 1 Mayem ra 2019June 28, 2020 Discont inued Gabapentin 400 MG ORAL DAILY 30 Septe m 2019July 30, 2020 Discont inued Hydrocodone- Ibuprofen 1 TAB ORAL . daily PRN For sever e pain 30 Mayem ra 2019July 30, 2020 Discont inued Blood-Glucos e Meter 0 Route .MEDS UPPLY 1 2019April 03, 2021 Discont inued Glucometer Diabetic Supplies, Miscellan. 0 Route .MEDS UPPLY 1 Sept2019August 23, 2020 Discont inued Test Strips and Lancets for daily BG testing Empagliflozi n 25 MG ORAL DAILY 30 Decemb er 2019October 24, 2020 Discont inued Amoxicillin- Pot Clavulanate [Augmentin] 1 TAB ORAL Q12H 20 May 09, 2021 May 19, 2021 Discont inued Methylpredni solone [Medrol (Lb)] 0 ORAL Per packa ge direc tions May 09, 2021 July 21, 2021 Discont inued PO PER PKG DIR Fluconazole [Diflucan] 150 MG ORAL Q3D May 09, 2021 July 21, 2021 Discont inued may repeat second dose 72 hrs after first dose if symptoms persist Empagliflozi n 25 MG ORAL DAILY 30 February 28, 2022 May 23, 2022 Discont inued Duloxetine 30 MG ORAL DAILY 30 January [...] 10, 2022 April 25, 2022 Discont inued Cyanocobalam in (Vitamin B-12) 1000 MCG INTRAMU SCULAR every month 1 January 10, 2022 May 23, 2022 Discont inued Empagliflozi n [Jardiance] 10 MG ORAL DAILY 30 January 10, 2022 February 28, 2022 Discont inued Ergocalcifer ol (Vitamin D2) 1250 MCG ORAL Every Week 4 January 10, 2022 April 25, 2022 Discont inued Furosemide 40 MG ORAL DAILY PRN For for swell ing 30 January 10, 2022 May 22, 2022 Discont inued Metformin 1000 MG ORAL TWICE A DAY 60 January 10, 2022 January 29, 2022 Discont inued Montelukast 10 MG ORAL DAILY 30 Apri 2021April 23, 2022 Discont inued Potassium Chloride 10 MEQ ORAL DAILY PRN For for swell ing 30 January 10, 2022 April 09, 2022 Discont inued Rosuvastatin [Crestor] 40 MG ORAL DAILY 30 January 10, 2022 April 09, 2022 Discont inued Duloxetine 60 MG ORAL DAILY January 10, 2022 May 23, 2022 Discont inued Problem List Active Problems Medical Problem Onset Date Status Diabetes mellitus type 2 in obese Active Obstructive sleep apnea Active 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 Lumbar radiculopathy Active Low back pain Active Joint pain Active Shortness of breath Active Palpitations Active Chronic fatigue Active Increased urinary frequency Acti ve Anxiety Active Bereavement Active Depression Active Hyperlipidemia Active Osteoarthritis Active Diastolic dysfunction Active Skin lesion Active Spondylolisthesis Active Long-term use of high-risk medication Active 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 Relevant Diagnostic Tests and/or Laboratory Data Laboratory Results Test Date/Time Result Interp. Ref. Range Result Co mment White Blood Count July 20, 2022 6:08am 7.00 x10^3/uL 3.98-10.04 Red Blood Count July 20, 2022 6:08am 4.94 x10^6/uL 3.93-5.22 Hemoglobin July 20, 2022 6:08am 13.9 g/dL 11.8-15.3 Hematocrit July 20, 2022 6:08am 42.3 % 36.9-46.9 Mean Corpuscular Volume July 20, 2022 6:08am 85.6 fL 79.4-94.8 Mean Corpuscular Hemoglobin July 20, 2022 6:08am 28.1 pg 25.6-32.2 Mean Corpuscular Hemoglobin Concent July 20, 2022 6:08am 32.9 g/dL 32.2-35.5 RDW Standard Deviation July 20, 2022 6:08am 43.8 fL 36.4-46.3 RDW Coefficient of Variation July 20, 2022 6:08am 13.7 % 11.7-14.4 Platelet Count July 20, 2022 6:08am 305 x10^3/uL 182-369 Mean Platelet Volume July 20, 2022 6:08am 9.6 fL 9.4-12.3 Neutrophils (%) (Auto) July 20, 2022 6:08am 50.9 % 34.0-71.1 Lymphocytes (%) (Auto) July 20, 2022 6:08am 35.9 % 19.3-51.7 Monocytes (%) (Auto) July 20, 2022 6:08am 8.4 % 4.7-12.5 Eosinophils (%) (Auto) July 20, 2022 6:08am 4.4 % 0.7-5.8 Basophils (%) (Auto) July 20, 2022 6:08am 0.3 % 0.1-1.2 Immature/Total Granulocytes (auto) July 20, 2022 6:08am 0.100 % 0-0.429 Neutrophils # (Auto) July 20, 2022 6:08am 3.56 x10^3/uL 1.56-6.13 Lymphocytes # (Auto) July 20, 2022 6:08am 2.51 x10^3/uL 1.18-3.74 Monocytes # (Auto) July 20, 2022 6:08am 0.59 x10^3/uL 0.24-0.86 Eosinophils # (Auto) July 20, 2022 6:08am 0.31 x10^3/uL 0.04-0.36 Basophils # (Auto) July 20, 2022 6:08am 0.02 x10^3/uL 0.01-0.08 Absolute Immature Granulocyte (auto July 20, 2022 6:08am 0.0100 X10^3/uL 0-0.0310 Urine Microalbumin July 20, 2022 6:08am 5.3 mg/L 1.3-20.0 Sodium Level July 20, 2022 6:08am 140 mmol/L 136-145 Potassium Level July 20, 2022 6:08am 4.6 mmol/L 3.5-5.0 Chloride Level July 20, 2022 6:08am 103 mmol/L 98.0-107 Carbon Dioxide Level July 20, 2022 6:08am 25.0 mmol/L 23.0-29.0 Anion Gap July 20, 2022 6:08am 12.0 mmol/L 5.0-15.0 Blood Urea Nitrogen July 20, 2022 6:08am 14 mg/dL 8- Creatinine July 20, 2022 6:08am 0.70 mg/dL 0.70-1.20 Estimat Glomerular Filtration Rate July 20, 2022 6:08am > 60.0 eGFR Interpretation: Disease State Ref [...] GFR should be obtained. Estimated GFR () July 20, 2022 6:08am > 60.0 BUN/Creatinine Ratio July 20, 2022 6:08am 20.0 Ratio 6.0-20.0 Glucose Level July 20, 2022 6:08am 160 mg/dL High 70-105 Hemoglobin A1c July 20, 2022 6:08am 7.8 % High 4.5-5.7 Estimated Average Glucose (eAG) July 20, 2022 6:08am 177 mg/dL High 70-99 Calcium Level July 20, 2022 6:08am 9.2 mg/dL 8.8-10.2 Magnesium Level July 20, 2022 6:08am 1.7 mg/dL 1.4-2.4 Total Bilirubin July 20, 2022 6:08am 0.31 mg/dL 0.00-1.30 Aspartate Amino Transf (AST/SGOT) July 20, 2022 6:08am 18 U/L 7.0-27.0 Alanine Aminotransferase July 20, 2022 6:08am 18 U/L 3.5-33.9 Total Protein July 20, 2022 6:08am 6.6 g/dL 6.6-8.7 Albumin July 20, 2022 6:08am 3.8 g/dL 3.5-5.0 Albumin/Globulin Ratio July 20, 2022 6:08am 1.0 Ratio 1.0-2.0 Triglycerides Level July 20, 2022 6:08am 249 mg/dL High 30.0-200 Cholesterol Level July 20, 2022 6:08am 192 mg/dL 0-199 LDL Cholesterol Direct July 20, 2022 6:08am 115 mg/dL High 0-99 VLDL Cholesterol July 20, 2022 6:08am 50 mg/dL High 0-30 HDL Cholesterol July 20, 2022 6:08am 41 mg/dL 35.0-55.0 Cholesterol/HDL Ratio July 20, 2022 6:08am 4 Ratio 4-5 Alkaline Phosphatase July 20, 2022 6:08am 86 U/L 45-122 Vitamin B12 Level July 20, 2022 6:08am 640.4 pg/mL 181-879.4 Folic Acid (LAB) July 20, 2022 6:08am > 20.00 ng/mL 3.17-24.25 Thyroid Stimulating Hormone (TSH) July 20, 2022 6:08am 2.13 mIU/mL 0.34-4.82 Falsely depresse d or elevated results may occur on samples drawn from patients taking supplements that contain Biotin in excess of the daily recommended allowance, if the blood sample is drawn before clearance of the drug. 25-Hydroxy Vitamin D Total July 20, 2022 6:08am 17.1 ng/mL Low 30.0-100.0 Vitamin D deficiency has been defined by the [place] [employer] and an [employer] Society practice guideline as a level of serum 25-OH vitamin D less than 20 ng/mL. This Total Vitamin D result includes both the D2 and D3 precursors. Coronavirus (COVID-19)(PCR) July 19, 2022 7:50pm Negative DNAPCR Negative Coronavirus (COVID-19)(PCR) May 05, 2022 8:15am Positive DNAPCR Neg/NotDet Urine Opiates Screen June 11, 2022 2:08pm Negative Negative Urine Barbiturates Screen June 11, 2022 2:08pm Negative Negative E522 Urine Amphetamines Screen June 11, 2022 2:08pm Negative Negative E522 Urine Benzodiazepines Screen June 11, 2022 2:08pm Negative Negative Urine Cocaine Screen June 11, 2022 2:08pm Negative Negative Urine Marijuana (THC) Screen June 11, 2022 2:08pm Positive Negative Serum Alcohol June 11, 2022 2:08pm < 10 mg/dL 0-10 FOR MEDICAL PURPOSES ONLY Urine Oxycodone Screen June 11, 2022 2:08pm Negative Negative Urine Methadone Screen June 11, 2022 2:08pm Negative Negative Urine Buprenorphine Screen June 11, 2022 2:08pm Negative Negative ~~~Drug Screen Cut-Off Levels (ng/ml):~~~ Benzo - 200 Skylar - 200 Rosa - 300 Metdon - 300 Amp - 1000 Propoxy - 300 THC - 50 Methaq - 300 Opi - 300 Bup - 5 Oxy - 100 Bup - 10 (Kit) All Drug Screen results are unconfirmed. If confirmation is desired, order the specific Drug Confirmation and results will follow. All unconfirmed Drug Screen results are for medical purposes only. Chief Complaint and Reason for Visit Encounter Admit Date Chief Complaint Reason for V isit Departed Clinical July 19, 2022 7:28pm [facility] Discharge Instructions No known hospital discharge [...] 30, 2019 Discontin ued Ergocalciferol (Vitamin D2) 80056 UNIT ORAL Every Week 4 December 30, [...] Duloxetine 60 MG ORAL DAILY 30 January 292019 Discontin ued Potassium Chloride 10 [...] Empagliflozin 10 MG ORAL DAILY 30 No [id number] Discontin ued Potassium Chloride 10 MEQ ORAL [...] ued Gabapentin 400 MG ORAL DAILY January 282020 Discontin ued Hydrocodone-Ib uprofen 1 [...] Empagliflozin 10 MG ORAL DAILY 30 No 2020 Discontin ued Rosuvastatin 40 MG ORAL DAILY [...] shortne ss of breath or wheezin g 15 March 07, 2022 Active Losartan 25 MG ORAL DAILY 30 March Discontin ued Potassium Chloride 10 MEQ ORAL DAILY PRN For for swellin g 30 April 09, 2022 Discontin ued Rosuvastatin 40 MG ORAL DAILY 30 Mar Discontin ued Montelukast 10 MG ORAL DAILY 30 April 23, 2022 Discontin ued Duloxetine 30 MG ORAL DAILY 30 April 23, 2022 Discontin ued Metformin 1000 MG ORAL TWICE A DAY 60 April 25, 2022 Discontin ued Montelukast 10 MG ORAL DAILY 30 April 25, 2022 Discontin ued Magnesium Oxide 400 MG ORAL DAILY 30 April 25, 2022 Discontin ued Ergocalciferol (Vitamin D2) 1250 MCG ORAL Every Week 4 April 25, 2022 Active Celecoxib 100 MG ORAL TWICE A DAY 60 April 25, 2022 Active Buspirone 30 MG ORAL TWICE A DAY 60 May 07, 2022 Active Furosemide 40 MG ORAL DAILY PRN For for swellin g 30 May 22, 2022 Active Esomeprazole Magnesium 40 MG ORAL [...] ORAL DAILY Oc tober 2020 Discontin ued Pbtodrz-Gscu-C vjwd-Urxb-Yhlv yl 1 CAP ORAL DAILY July 21, 2021 Active Gabapentin 400 MG ORAL DAILY 30 Decem ra 2019 Discontin ued Hydrocodone-Ib uprofen 1 TAB ORAL . daily PRN For severe pain September 28, 2020 Discontin ued Celecoxib 100 MG ORAL TWICE A DAY 60 October 26, 2020 Discontin ued Gabapentin 400 MG ORAL DAILY 30 Janua ry 2020 Discontin ued Hydrocodone-Ib uprofen 1 [...] Discontin ued Gabapentin 400 MG ORAL DAILY mber 2020 Discontin ued Hydrocodone-Ib uprofen 1 TAB [...] Discontin ued Gabapentin 400 MG ORAL DAILY Augus t 2020 Discontin ued Hydrocodone-Ib uprofen 1 TAB ORAL DAILY May 25, 2021 Discontin ued Gabapentin 400 MG ORAL DAILY 28 Decem ra 1, 2021 Discontin ued Ferrous Sulfate 325 MG [...] 1 TAB ORAL DAILY April 05, 2022 Discontin ued Gabapentin 400 MG ORAL DAILY April 05, 2022 Discontin ued Gabapentin 400 MG ORAL DAILY 2021 Discontin ued Hydrocodone-Ib uprofen 1 TAB ORAL DAILY May 14, 2022 Discontin ued Gabapentin 400 MG ORAL [...] Hydrocodone-Ib uprofen 1 TAB ORAL DAILY June 13, 2022 Active Gabapentin 400 MG ORAL DAILY 2021 Active Ergocalciferol (Vitamin D2) 1 CAP ORAL Every Week November 04, 2018 Discontin ued Buspirone 15 MG ORAL TWICE A DAY November 04, 2018 Discontin ued Duloxetine 60 MG ORAL DAILY 2018 Discontin ued Metformin 1000 MG ORAL TWICE A DAY November 04, 2018 Discontin ued Montelukast 10 MG ORAL DAILY ry 2018 Discontin ued Budesonide-For moterol 2 INHALATIO [...] t 100 MG ORAL TWICE A DAY August 17, 2021 Discontin ued must administer with a meal/food Budesonide-For moterol 2 INHALATIO N INHALED TWICE A DAY 10.2 June 09, 2019 Discontin ued Buspirone 15 MG ORAL TWICE A DAY PRN For anxiety 60 June 09, 2019 Discontin ued Celecoxib 100 MG ORAL TWICE A DAY 60 June 09, 2019 Discontin ued Duloxetine 60 MG ORAL DAILY 30 2018 Discontin ued Ergocalciferol (Vitamin D2) 68081 UNIT ORAL Every Week 4 June 09, [...] Discontin ued Rosuvastatin 40 MG ORAL DAILY Sep 2018 Discontin ued Budesonide-For moterol 2 INHALATIO N INHALED TWICE A DAY 10.2 March 09, 2019 Discontin ued Buspirone 15 MG ORAL TWICE A DAY PRN For anxiety 60 March 09, 2019 Discontin ued Celecoxib 100 MG ORAL TWICE A DAY 60 March 09, 2019 Discontin ued Duloxetine 60 MG ORAL DAILY 30 March 09, 2019 Discontin ued Ergocalciferol (Vitamin D2) 19104 UNIT ORAL Every Week 4 March 09, [...] edema 30 March 09, 2019 Discontin ued take with [...] ued Duloxetine 60 MG ORAL DAILY 30 Febru kevin2019 Discontin ued Ergocalciferol (Vitamin D2) 59525 UNIT ORAL Every Week November 02, 2019 Discontin ued Furosemide 40 MG ORAL DAILY PRN For edema November 02, 2019 Discontin ued Lisinopril 2.5 MG ORAL DAILY 30 u kevin2019 Discontin ued Metformin 1000 MG ORAL TWICE A DAY 60 November 02, 2019 Discontin ued Potassium Chloride 10 MEQ ORAL DAILY PRN For edema November 02, 2019 Discontin ued take with lasix Montelukast 10 MG ORAL DAILY 30 Febr [email or web address] Discontin ued Albuterol Sulfate 2 PUFF INHALED Q6H PRN For shortne ss of breath or wheezin g 8.5 June 03, 2020 Discontin ued Buspirone 15 MG ORAL TWICE A DAY PRN For anxiety 60 June 03, 2020 Discontin ued Celecoxib 100 MG ORAL TWICE A DAY 60 June 03, 2020 Discontin ued Cyanocobalamin (Vitamin B-12) 1000 MCG INTRAMUSC ULAR every month 1 June 03, 2020 Discontin ued Duloxetine 60 MG ORAL DAILY 30 Septe mb2019 Discontin ued Empagliflozin 10 MG ORAL DAILY 30 Se ptember 2019 Discontin ued Ergocalciferol (Vitamin D2) 60682 UNIT ORAL Every Week June 03, 2020 Discontin ued Ferrous Sulfate 325 MG ORAL DAILY 30 June 03, 2020 Discontin ued Furosemide 40 MG ORAL DAILY PRN For edema June 03, 2020 Discontin ued Magnesium Oxide 400 MG ORAL DAILY 30 June 03, 2020 Discontin ued Metformin 1000 MG ORAL TWICE A DAY June 03, 2020 Discontin ued Montelukast 10 MG ORAL DAILY 30 May Discontin ued Potassium Chloride 10 MEQ ORAL DAILY PRN For edema June 03, 2020 Discontin ued take with lasix Rosuvastatin 40 MG ORAL DAILY 30 May Discontin ued Fluconazole 150 MG ORAL DAILY 2 2 May Discontin ued Gabapentin 400 MG ORAL DAILY 30 Junob er 2019 Discontin ued Hydrocodone-Ib uprofen 1 [...] 30 2019 Discontin ued Ergocalciferol (Vitamin D2) 81493 UNIT ORAL Every Week August 23, 2020 [...] TWICE A DAY PRN For anxiety 60 October 24, 2020 Discontin ued Celecoxib 100 [...] ued Empagliflozin 25 MG ORAL DAILY 30 nuary 2020 Discontin ued Ergocalciferol (Vitamin D2) 07843 UNIT ORAL Every Week October 24, 2020 Discontin ued Ferrous Sulfate 325 MG ORAL DAILY 30 October 24, 2020 Discontin ued Fluticasone Propion-Salmet payal 1 INHALATIO N INHALED TWICE A DAY 60 October 24, 2020 Discontin ued Furosemide 40 MG ORAL DAILY PRN For edema October 24, 2020 Discontin ued Lisinopril 2.5 MG ORAL DAILY 30 2020 Discontin ued Magnesium Oxide 400 MG ORAL DAILY 30 October 24, 2020 Discontin ued Metformin 1000 MG ORAL TWICE A DAY 60 October 24, 2020 Discontin ued Montelukast 10 MG ORAL DAILY 30 kevin2020 Discontin ued Potassium Chloride 10 MEQ ORAL [...] for daily BG testing Ergocalciferol (Vitamin D2) 08912 UNIT ORAL Every Week February 15, 2021 [...] 1000 MCG INTRAMUSC ULAR every month 1 August 09, 2021 Discontin ued Duloxetine 60 MG ORAL DAILY 30 2020 Discontin ued Ergocalciferol (Vitamin D2) 92892 UNIT ORAL Every Week 4 August 09, 2021 Discontin ued Ferrous Sulfate 325 MG ORAL DAILY 30 August 09, 2021 Discontin ued Furosemide 40 MG ORAL DAILY PRN For for swellin g 30 August 09, 2021 Discontin ued Metformin 1000 MG ORAL TWICE A DAY 60 August 09, 2021 Discontin ued Montelukast 10 MG ORAL DAILY 30 2020 Discontin ued Potassium Chloride 10 MEQ [...] persist Empagliflozin 25 MG ORAL DAILY 30 Ju ne 2021 Discontin ued Duloxetine 30 MG ORAL DAILY 30 January 10, 2022 Discontin ued Take with 60mg to make 90mg total Losartan 25 MG ORAL DAILY 30 December 292021 Discontin ued Buspirone 30 MG ORAL TWICE A DAY 60 January 10, 2022 Discontin ued Albuterol Sulfate 2 PUFF INHALED Q6H PRN For shortne ss of breath or wheezin g 8.5 January 10, 2022 Active Celecoxib 100 MG ORAL TWICE A DAY 60 January 10, 2022 Discontin ued Cyanocobalamin (Vitamin B-12) 1000 MCG INTRAMUSC ULAR every month 1 January 10, 2022 Discontin ued Empagliflozin 10 MG ORAL DAILY 30 Ap ril 2021 Discontin ued Ergocalciferol (Vitamin D2) 1250 MCG ORAL Every Week 4 January 10, 2022 Discontin ued Furosemide 40 MG ORAL DAILY PRN For for swellin g 30 January 10, 2022 Discontin ued Metformin 1000 MG ORAL TWICE A DAY 60 January 10, 2022 Discontin ued Montelukast 10 MG ORAL DAILY 30 Apri l 2021 Discontin ued Potassium Chloride 10 MEQ ORAL DAILY PRN For for swellin g 30 January 10, 2022 Discontin ued Rosuvastatin 40 MG ORAL DAILY 30 Apr il 2021 Discontin ued Duloxetine 60 MG ORAL DAILY 30 January 10, 2022 Discontin ued Cyanocobalamin (Vitamin B-12) 1000 MCG INTRAMUSC ULAR every month May 23, 2022 Active Duloxetine 120 MG ORAL DAILY 60 Augus t 2021 Active Empagliflozin 25 MG ORAL DAILY 30 Au mary lou 2021 Active Ferrous Sulfate 325 MG ORAL DAILY 30 May 23, 2022 Active Losartan 25 MG ORAL DAILY 30 May 23, 2022 Active Magnesium Oxide 400 MG ORAL DAILY 30 May 23, 2022 Active Metformin 1000 MG ORAL TWICE A DAY 60 May 23, 2022 Active Montelukast 10 MG ORAL DAILY [address] 2021 Active Rosuvastatin 40 MG ORAL DAILY 30 Aug ust 2021 Active Potassium Chloride 10 MEQ ORAL DAILY PRN For for swellin g 30 May 23, 2022 Active Encounters Encounter Facility Location Admit/Visit Date Discharge/Departure Date Attending Provider Departed Clinical [facility] July 20, 2022 5:48am July 20, 2022 5:49am Nisa Hunter Departed Clinical [facility] July 19, 2022 7:31pm July 19, 2022 7:32pm Jason Mi Departed Clinical [facility] July 19, 2022 7:28pm July 20, 2022 6:00am Jason Mi Departed Physician/Pro vider Office Visit [facility] June 13, 2022 3:04pm June 13, 2022 11:59pm Araceli Sethi Departed Clinical [facility] June 11, 2022 1:46pm June 11, 2022 1:47pm Moises Gamez Departed Physician/Pro vider Office Visit [facility] DC TM June 11, 2022 1:19pm June 11, 2022 3:49pm Moises Gamez Departed Physician/Pro vider Office [facility] May 23, 2022 3:27pm May 23, 2022 3:58pm Nisa Hunter Departed Physician/Pro vider Office Visit [facility] May 14, 2022 3:47pm May 14, 2022 11:59pm Moises Pinzon Departed Clinical [facility] May 05, 2022 7:33am May 05, 2022 7:34am Nisa Hunter Departed Clinical [facility] Sleep April 25, 2022 6:36pm April 26, 2022 6:00am Nisa Hunter Departed Physician/Pro vider Office Visit [facility] April 05, 2022 1:52pm April 05, 2022 2:33pm Moises Pinzon Functional Status Query Response Date Recorded Comment Patient Behavior Appropriate Cooperative June 11, 2022 6:28pm Immunizations No known immunizations. Plan of Care No Known Plan of Care Information Social History Query Response Date Recorded Comment alcohol intake never May 14, 2022 2:13pm substance use type does not use May 14, 2022 2:13pm Query Response Start Date Stop Date Smoking Status Never smoker Vital Signs Vital Reading Result Reference Range Collection Date/Time Height 5 ft 1 in May 23, 2022 3:31pm Weight 241 lb May 23, 2022 3:31pm Temperature 97.1 F 97.6 F-99.6 F May 23 3:31pm Pulse 87 BPM 60-100 May 23, 2022 3:31pm Respiration 18 RPM 12-20 May 23, 2022 3:31pm Pulse Oximetry 97 % 95-100 May 23 3:31pm [facility] 138 [facility] Blood Pressure Diastolic 86 60-80 Apr t 2021 3:31pm Body Mass Index 45.5 May 23 022 3:31pm
--- OUTSIDE RECORDS SUMMARY | 2024-07-22 10:34 | XMS_ITS | Continuity of Care Document ---
Author Name [email or web address] Address [facility] [address] [place] [id number] Organization [email or web address] Address [address] [place] [id number] Support Name Relationship Address Phone Nisa Hunter Primary Care Provider [facility] [place] [address] [facility] [address] [place] [address] Jason Mi Attending Provider [address] [place], [place] [id number] Allergies, Adverse Reactions, Alerts Allergen Type Severity [...] For for swelling May 22, 2022 Active Unowrub-Nqwg-Pl ilp-Tdhy-Ufecie 1 CAP ORAL DAILY 2020 Active Hydrocodone-Ibu profen 1 TAB ORAL DAILY June 13, 2022 Active Gabapentin 400 MG ORAL DAILY 2021 Active Ondansetron Hcl [Zofran] 4 MG [...] inued Ergocalcifer ol (Vitamin D2) [Vitamin D2] 14247 UNIT ORAL Every Week 4 December 30, [...] inued Ergocalcifer ol (Vitamin D2) [Vitamin D2] 79817 UNIT ORAL Every Week 4 2018November 02, [...] inued Ergocalcifer ol (Vitamin D2) [Vitamin D2] 07383 UNIT ORAL Every Week 4 March 09, [...] inued Ergocalcifer ol (Vitamin D2) [Vitamin D2] 49964 UNIT ORAL Every Week 4 ua ry [...] inued Ergocalcifer ol (Vitamin D2) [Vitamin D2] 66898 UNIT ORAL Every Week 4 Septem ra [...] inued Ergocalcifer ol (Vitamin D2) [Vitamin D2] 98627 UNIT ORAL Every Week 4 Novemb er [...] inued Ergocalcifer ol (Vitamin D2) [Vitamin D2] 28149 UNIT ORAL Every Week 4 r y [...] testing Ergocalcifer ol (Vitamin D2) [Vitamin D2] 01648 UNIT ORAL Every Week 4 February 15, [...] inued Ergocalcifer ol (Vitamin D2) [Vitamin D2] 78390 UNIT ORAL Every Week 4 Novemb er [...] obese Active Obstructive sleep apnea 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 Ref. Range Result Co mment Coronavirus (COVID-19)(PCR) July 19, 2022 7:50pm Negative [...] Encounter Admit Date Chief Complaint Reason for Annie chiu Departed Clinical July 19, 2022 7:31pm Covid swab f or sleep study Hospital Discharge Instructions No known hospital discharge [...] 30, 2019 Discontin ued Ergocalciferol (Vitamin D2) 12057 UNIT ORAL Every Week 4 December 30, 2019 Discontin ued Metformin 1000 MG ORAL TWICE A DAY 60 December 30, 2019 Discontin ued Montelukast 10 MG ORAL DAILY 30 l 2019 Discontin ued Rosuvastatin 40 MG ORAL DAILY 30 Dec Discontin ued Magnesium Oxide 400 MG ORAL [...] ORAL . daily PRN For severe pain February 14, 2021 Discontin ued Buspirone 15 [...] ued Montelukast 10 MG ORAL DAILY 30 Juno 2020 Discontin ued Magnesium Oxide 400 MG ORAL DAILY 30 August 07, 2021 Discontin ued Empagliflozin 10 MG ORAL DAILY 30 No [email or web address] Discontin ued Magnesium Oxide 400 MG ORAL DAILY 30 August 07, 2021 Discontin ued Empagliflozin 10 MG ORAL DAILY 30 No [email or web address] Discontin ued Rosuvastatin 40 MG ORAL DAILY 30 Aug emb2020 Discontin ued Hydrocodone-Ib uprofen 1 TAB ORAL [...] ued Empagliflozin 25 MG ORAL DAILY Ju 2020 Discontin ued Cinnamon Bark 500 MG ORAL DAILY Oc tober 2020 Discontin ued Oycewsb-Cohu-Y fokz-Btnn-Uytp yl 1 CAP ORAL DAILY July 21, [...] ued Gabapentin 400 MG ORAL DAILY December 21, 2020 Discontin ued Hydrocodone-Ib uprofen [...] 100 MG ORAL TWICE A DAY January 18, 2021 Discontin ued Hydrocodone-Ib uprofen [...] Discontin ued Furosemide 40 MG ORAL DAILY Febru 2018 Discontin ued Potassium Chloride 10 MEQ ORAL DAILY November 04, 2018 Discontin ued Celecoxib 100 MG ORAL TWICE A DAY January 20, 2019 Discontin ued Nitrofurantoin Monohyd/M-Gifty t 100 MG ORAL TWICE A DAY 10 August 17, 2021 Discontin ued must administer [...] 30 2018 Discontin ued Ergocalciferol (Vitamin D2) 41962 UNIT ORAL Every Week 4 June 09, 2019 Discontin ued Furosemide 40 MG ORAL DAILY PRN For edema 30 June 09, 2019 Discontin ued Lisinopril 2.5 MG ORAL DAILY 30 2018 Discontin ued Metformin 1000 MG ORAL TWICE A DAY 60 June 09, 2019 Discontin ued Montelukast 10 MG ORAL DAILY 30 May [facility]2018 Discontin ued Potassium Chloride 10 MEQ ORAL [...] 09, 2019 Discontin ued Ergocalciferol (Vitamin D2) 35996 UNIT ORAL Every Week 4 March 09, 2019 Discontin ued Furosemide 40 MG ORAL DAILY PRN For edema March 09, 2019 Discontin ued Gabapentin 400 [...] ued Duloxetine 60 MG ORAL DAILY 30 kevin2019 Discontin ued Ergocalciferol (Vitamin D2) 88393 UNIT ORAL Every Week November 02, 2019 [...] ptember 2019 Discontin ued Ergocalciferol (Vitamin D2) 22653 UNIT ORAL Every Week June 03, 2020 Discontin ued Ferrous Sulfate 325 MG ORAL DAILY June 03, 2020 Discontin ued Furosemide 40 [...] 30 2019 Discontin ued Ergocalciferol (Vitamin D2) 98432 UNIT ORAL Every Week August 23, 2020 [...] nuary 2020 Discontin ued Ergocalciferol (Vitamin D2) 61893 UNIT ORAL Every Week October 24, 2020 [...] ued Montelukast 10 MG ORAL DAILY 30 kevin 2020 Discontin ued Potassium Chloride 10 [...] for daily BG testing Ergocalciferol (Vitamin D2) 42946 UNIT ORAL Every Week February 15, 2021 Discontin ued Ferrous Sulfate 325 MG ORAL DAILY February 15, 2021 Discontin ued Furosemide 40 MG ORAL DAILY PRN For edema February 15, 2021 Discontin ued Magnesium Oxide 400 MG ORAL DAILY February 15, 2021 Discontin ued Metformin 1000 MG ORAL TWICE A DAY 60 February 15, 2021 Discontin ued Montelukast 10 MG ORAL DAILY 30 February 15, 2021 Discontin ued Rosuvastatin 40 MG ORAL DAILY 30 February 15, 2021 Discontin ued Empagliflozin 25 MG ORAL DAILY 30 2020 Discontin ued Albuterol Sulfate 2 PUFF [...] 30 2020 Discontin ued Ergocalciferol (Vitamin D2) 82477 UNIT ORAL Every Week 4 August 09, [...] ued Potassium Chloride 10 MEQ ORAL DAILY August 09, 2021 Discontin ued Dextromethorph an-Guaifenesin [...] Amoxicillin-Po t Clavulanate 1 TAB ORAL Q12H 19 07May 09, 2021 Discontin ued Methylpredniso lone 0 ORAL Per package directi ons May 09, 2021 Discontin ued PO PER PKG DIR Fluconazole 150 MG ORAL Q3D 2 2020 Discontin ued may repeat second dose 72 hrs after first dose if symptoms persist Empagliflozin 25 MG ORAL DAILY 30 2021 Discontin ued Duloxetine 30 MG ORAL DAILY January 10, 2022 Discontin ued Take with [...] 1000 MCG INTRAMUSC ULAR every month 1 May 23, 2022 Active [...] Departed Clinical [facility] July 19, 2022 7:31pm July 19, 2022 7:32pm Jason Mi Registered Clinical [facility] Sleep July 19, 2022 7:28pm Jason Mi Departed Physician/Pro vider Office Visit [facility] June 13, 2022 3:04pm June 13, 2022 11:59pm Araceli Sethi Departed Clinical [facility] June 11, 2022 1:46pm June [...] Clinical [facility] May 05, 2022 7:33am May 05, 2022 7:34am Nisa Hunter Departed Clinical [facility] April 25, 2022 6:36pm April 26, [...] 23 3:31pm [facility] 138 90[facility] Blood Pressure Diastolic 86 60-80 Apr 2021 3:31pm Body Mass Index 45.5 May 23 3:31pm
--- OUTSIDE RECORDS SUMMARY | 2024-07-22 10:34 | XMS_ITS | Continuity of Care Document ---
Author Name [facility] Address [address] [place] [id number] Organization [facility] Address [address] [place] [address] Support Name Relationship Address Phone Galdino Langford Attending Provider [facility] [address] [address] Allergies, Adverse Reactions, Alerts Allergen Type Severity Reaction Last Updated Verified Status latex Allergy Rash September 07, 2022 Y Active Medications Active Medications Medication Dose Units Route Sig Qty Days Start Date Status Ins tructions Levalbuterol Hcl [Xopenex] 0.63 MG INHALED EVERY 6-8 HOURS PRN For shortnes s of breath or wheezing March 07, 2022 Active Furosemide 40 MG ORAL DAILY PRN For for swelling May 22, 2022 Active Udxcile-Bthj-Azu bu-Pmou-Tdlwhh 1 CAP ORAL DAILY Octob er 2020 Active Hydrocodone-Ibup rofen 1 TAB ORAL DAILY June 13, 2022 Active Gabapentin 400 MG ORAL DAILY 2021 Active Ondansetron Hcl [Zofran] 4 MG ORAL Q8H PRN For nausea and vomiting August 09, 2021 Active Albuterol Sulfate [Ventolin Hfa] 2 PUFF INHALED Q6H PRN For shortnes s of breath or wheezing 8.5 January 10, 2022 Active Potassium Chloride 10 MEQ ORAL DAILY PRN For for swelling May 23, 2022 Active Fluconazole [Diflucan] 150 MG ORAL Q3D 2 August 13, 2022 Active may repeat second dose 72 hrs after first dose if symptoms persist Mupirocin 1 JERRY TOPICAL TWICE A DAY August 13, 2022 Active Buspirone 30 MG ORAL TWICE A DAY 60 July 25, 2022 Active Celecoxib 100 MG ORAL TWICE A DAY 60 July 25, 2022 Active Cyanocobalamin (Vitamin B-12) 1000 MCG INTRAMUSCUL AR every month 1 July 25, 2022 Active Duloxetine 120 MG ORAL DAILY 60 Octob er 2021 Active Empagliflozin 25 MG ORAL DAILY 30 Oc tober 2021 Active Cholecalciferol (Vitamin D3) 1250 MCG ORAL Every Week 5 30 July 25, 2022 Active Ferrous Sulfate 325 MG ORAL DAILY 30 July 25, 2022 Active Losartan 25 MG ORAL DAILY 30 July 25, 2022 Active Magnesium Oxide 400 MG ORAL DAILY July 25, 2022 Active Metformin 1000 MG ORAL TWICE A DAY 60 July 25, 2022 Active Montelukast 10 MG ORAL DAILY 30 Octo ra 2021 Active Rosuvastatin 40 MG ORAL DAILY 30 Oct mark 2021 Active Cefdinir 300 MG ORAL Q12H 14 Decembe r 2021 Active Chlorpheniram-Dm -Acetaminophen [Coricidin Hbp Flu] 1 TAB ORAL Q4H PRN For cold symptoms September 07, 2022 Active Discontinued Medications Medication Dose Units [...] inued Ergocalcifer ol (Vitamin D2) [Vitamin D2] 27583 UNIT ORAL Every Week 4 December 30, [...] MEQ ORAL DAILY PRN For edema 30 ry 2020February 13, 2021 Discont inued Metformin [...] DAY PRN For for anxie ty 60 Januar y 2021January 10, 2022 Discont inued Celecoxib 100 MG ORAL TWICE A DAY 60 y 2021January 10, 2022 Discont inued Ergocalcifer ol (Vitamin D2) 1250 MCG ORAL Every Week 4 2021January 10, 2022 Discont inued Potassium Chloride 10 MEQ ORAL DAILY PRN For for swell ing 30 ry 2021January 10, 2022 Discont inued Metformin [...] 25, 2022 May 23, 2022 Discont inued Ergocalcifer ol (Vitamin D2) 1250 MCG ORAL Every Week 4 April 25, 2022 July 25, 2022 Discont inued Celecoxib 100 MG ORAL TWICE A DAY 60 April 25, 2022 July 25, 2022 Discont inued Buspirone 30 MG ORAL TWICE A DAY 60 May 07, 2022 July 25, 2022 Discont inued Esomeprazole Magnesium [Nexium] [...] ORAL TWICE A DAY 60 Sepuar y 2020December 21, 2020 Discont inued Gabapentin 400 MG ORAL DAILY 30 Janua r y 2020December 21, 2020 Discont inued [...] inued Hydrocodone- Ibuprofen 1 TAB ORAL DAILY ua ry 2021December 06, 2021 Discont inued [...] 400 MG ORAL DAILY 28 Augus t 2021June 13, 2022 Discont inued Hydrocodone- Ibuprofen 1 TAB ORAL DAILY May 14, 2022 June 13, 2022 Discont inued Gabapentin 400 MG ORAL DAILY 28 Novem b er 2020August 30, 2021 Discont inued Hydrocodone- Ibuprofen 1 TAB ORAL DAILY 28 Novemb er 2020September 06, 2021 Discont inued Gabapentin [Neurontin] 400 MG ORAL DAILY 28 Novemb er 2020August 30, 2021 Discont inued Gabapentin 400 MG ORAL DAILY 2021November 06, 2021 Discont inued Hydrocodone- Ibuprofen 1 TAB ORAL DAILY 2021November 06, 2021 Discont inued Gabapentin 400 [...] Discont inued Duloxetine 60 MG ORAL DAILY u a ry 2018March 09, 2019 Discont inued Metformin 1000 MG ORAL TWICE A DAY ua ry 2018March 09, 2019 Discont inued Montelukast 10 MG ORAL DAILY Febr ua ry 2018March [...] Potassium Chloride 10 MEQ ORAL DAILY Februa ry 2018March 09, 2019 Discont inued Celecoxib 100 [...] inued Ergocalcifer ol (Vitamin D2) [Vitamin D2] 49291 UNIT ORAL Every Week 4 2018November 02, [...] lasix Simvastatin 40 MG ORAL DAILY 30 MayJune 25, 2019 Discont inued Rosuvastatin [Crestor] 40 [...] inued Ergocalcifer ol (Vitamin D2) [Vitamin D2] 61925 UNIT ORAL Every Week 4 March 09, [...] injection 40 MG INTRAMU SCULAR ONCE 1 ua ry 2019November 02, 2019 Discont inued Budesonide-F ormoterol [Symbicort] 2 INHALAT ION INHALED TWICE A DAY 10.2 Februa 2019December 30, 2019 Discont inued Buspirone 15 MG ORAL TWICE A DAY PRN For anxie ty 60 Februa ry 2019December 24, 2019 Discont inued Celecoxib 100 MG ORAL TWICE A DAY 60 ua ry 2019December 30, 2019 Discont inued Duloxetine 60 MG ORAL DAILY 30 u a 2019December 24, 2019 Discont inued Ergocalcifer ol (Vitamin D2) [Vitamin D2] 15302 UNIT ORAL Every Week 4 ua ry [...] PRN For anxie ty 60 Septem ra 4, 2019August 23, 2020 Discont inued Celecoxib 100 MG ORAL TWICE A DAY 60 Septem ra 2019August 23, 2020 Discont inued Cyanocobalam in (Vitamin B-12) 1000 MCG INTRAMU SCULAR every month 1 Septem ra , 2019August 23, 2020 Discont inued Duloxetine 60 MG ORAL DAILY 30 Septe m ra , 2019August 23, 2020 Discont inued Empagliflozi n [Jardiance] 10 MG ORAL DAILY 30 Septem ra , 2019August 08, 2020 Discont inued Ergocalcifer ol (Vitamin D2) [Vitamin D2] 24021 UNIT ORAL Every Week 4 Septem ra , 2019August 23, 2020 Discont inued Ferrous Sulfate 325 MG ORAL DAILY 30 Septem ra , 2019August 23, 2020 Discont inued Furosemide 40 MG ORAL DAILY PRN For edema 30 Septem ra , 2019August 23, 2020 Discont inued Magnesium Oxide 400 MG ORAL DAILY 30 Septem ra , 2019August 23, 2020 Discont inued Metformin 1000 MG ORAL TWICE A DAY 60 Septem ra , 2019August 23, 2020 Discont inued Montelukast 10 MG ORAL DAILY 30 Sept em ra , 2019August 23, 2020 Discont inued Potassium Chloride 10 MEQ ORAL DAILY PRN For edema 30 Mayem ra , 2019August 23, 2020 Discont inued take with [...] daily PRN For sever e pain 30 Junobe r 2019August 23, 2020 Discont inued Albuterol Sulfate [Ventolin Hfa] 2 PUFF INHALED Q6H PRN For short ness of breat h or wheez ing 8.5 Novemb er 2019January 26, 2021 Discont inued Buspirone 15 MG ORAL TWICE A DAY PRN For anxie ty 60 Novemb er 2019October 24, 2020 Discont inued Celecoxib 100 MG ORAL TWICE A DAY 60 Novemb er 2019October 24, 2020 Discont inued Cyanocobalam in (Vitamin B-12) 1000 MCG INTRAMU SCULAR every month 1 Novemb er 2019October 24, 2020 Discont inued Diabetic Supplies, Miscellan. 0 Route .MEDS UPPLY 1 Novemb er 2019October 24, 2020 Discont inued Test Strips and Lancets for daily BG testing Duloxetine 60 MG ORAL DAILY 30 Novem b er 2019October 24, 2020 Discont inued Empagliflozi n [Jardiance] 10 MG ORAL DAILY 30 Novemb er , 2019September 20, 2020 Discont inued Ergocalcifer ol (Vitamin D2) [Vitamin D2] 52172 UNIT ORAL Every Week 4 Novemb er 2019October 24, 2020 Discont inued Ferrous Sulfate 325 MG ORAL DAILY 30 Novemb er , 2019October 24, 2020 Discont inued Furosemide 40 MG ORAL DAILY PRN For edema 30 Novemb er , 2019October 24, 2020 Discont inued Gabapentin 400 MG ORAL DAILY 30 Novem b er 2019September 28, 2020 Discont inued Metformin 1000 [...] A DAY PRN For anxie ty 60 Sepuar y 2020January 25, 2021 Discont inued Celecoxib [...] inued Ergocalcifer ol (Vitamin D2) [Vitamin D2] 20675 UNIT ORAL Every Week 4 2020February 15, [...] Supplies, Miscellan. 0 Route .MEDS UPPLY 1 February 15, 2021 April 03, 2021 Discont inued Test Strips and Lancets for daily BG testing Ergocalcifer ol (Vitamin D2) [Vitamin D2] 33708 UNIT ORAL Every Week 4 February 15, [...] inued Ergocalcifer ol (Vitamin D2) [Vitamin D2] 61318 UNIT ORAL Every Week 4 Novemb er [...] inued Gabapentin 400 MG ORAL DAILY 30 2019July 30, 2020 Discont inued Hydrocodone- Ibuprofen [...] MG ORAL DAILY 30 January 10, 2022 May 23, 2022 Discont inued Cyanocobalam in (Vitamin B-12) 1000 MCG INTRAMU SCULAR every month 1 May 23, 2022 July 25, 2022 Discont inued Duloxetine 120 MG ORAL DAILY 60 Aprus t 2021July 25, 2022 Discont inued Empagliflozi n 25 MG ORAL DAILY 30 May 23, 2022 July 25, 2022 Discont inued Ferrous Sulfate 325 MG ORAL DAILY 30 May 23, 2022 July 25, 2022 Discont inued Losartan 25 MG ORAL DAILY 30 May 23, 2022 July 25, 2022 Discont inued Magnesium Oxide 400 MG ORAL DAILY 30 May 23, 2022 July 25, 2022 Discont inued Metformin 1000 MG ORAL TWICE A DAY 60 May 23, 2022 July 25, 2022 Discont inued Montelukast 10 MG ORAL DAILY [address] 2021July 25, 2022 Discont inued Rosuvastatin 40 MG ORAL DAILY 30 Apr ust 2021July 25, 2022 Discont inued Doxycycline Hyclate 100 MG ORAL TWICE A DAY 14 7 Novemb er 2021August 20, 2022 Discont inued Problem List Active Problems Medical Problem Onset Date Status Diabetes mellitus type 2 in obese Active Obstructive sleep apnea Active 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 (current) drug therapy Active Lumbar radiculopathy Active Low back pain Active Joint pain Active Shortness of breath Active Palpitations Active Chronic fatigue Active Increased urinary frequency Acti ve Anxiety Active Bereavement Active Cough Active Depression Active Hyperlipidemia Active Osteoarthritis Active Diastolic dysfunction Active Skin lesion Active Spondylolisthesis Active Long-term use of high-risk medication Active Acute bronchitis Active 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 This Total Vitamin D result includes both the D2 and D3 precursors. Coronavirus (COVID-19)(PCR) July 19, 2022 7:50pm Negative DNAPCR Negative Urine Opiates Screen June 11, 2022 2:08pm [...] Screen results are for medical purposes only. Hospital Discharge Instructions No known hospital discharge instructions. Hospital Discharge Medications Medication Dose Units Route Sig Qty Days Order Date Status Instructions Duloxetine 60 MG ORAL DAILY 30 December 24, 2019 Discontin ued Buspirone 15 MG ORAL TWICE A DAY PRN For anxiety 60 December 24, 2019 Discontin ued Potassium Chloride 10 MEQ ORAL DAILY PRN For edema 30 December 24, 2019 Discontin ued take with lasix Albuterol Sulfate 2 INHALATIO N INHALED Q6H PRN For shortne ss of breath or wheezin g 1 December 30, 2019 Discontin ued Fluticasone Propion-Salmet payal 1 INHALATIO N INHALED TWICE A DAY 60 December 30, 2019 Discontin ued Celecoxib 100 MG ORAL TWICE A DAY 60 December 30, 2019 Discontin ued Ergocalciferol (Vitamin D2) 11026 UNIT ORAL Every Week 4 December 30, [...] 1000 MCG INTRAMUSC ULAR every month 1 December 30, 2019 Discontin ued Buspirone 15 [...] ued Duloxetine 60 MG ORAL DAILY 30 t 2020 Discontin ued Ferrous Sulfate 325 MG ORAL DAILY 30 May 22, 2021 Discontin ued Potassium Chloride 10 MEQ ORAL DAILY 30 May 22, 2021 Discontin ued Empagliflozin 25 MG ORAL DAILY 30 ptember 2020 Discontin ued Montelukast 10 MG ORAL DAILY 30 2020 Discontin ued Magnesium Oxide 400 MG ORAL DAILY 30 August 07, 2021 Discontin ued Empagliflozin 10 MG ORAL DAILY 30 No 2020 Discontin ued Magnesium Oxide 400 MG [...] ORAL Every Week 4 April 25, 2022 Discontin ued Celecoxib 100 MG ORAL TWICE A DAY 60 April 25, 2022 Discontin ued Buspirone 30 MG ORAL TWICE A DAY 60 May 07, 2022 Discontin ued Furosemide 40 MG ORAL [...] ORAL DAILY Oc tober 2020 Discontin ued Ntuqvxp-Kztk-R aequ-Zmho-Ulfp yl 1 CAP ORAL DAILY July 21, [...] Celecoxib 100 MG ORAL TWICE A DAY December 21, 2020 Discontin ued Gabapentin 400 MG ORAL DAILY January 18, 2021 Discontin ued Hydrocodone-Ib uprofen [...] Discontin ued Gabapentin 400 MG ORAL DAILY Decem ra 2020 Discontin ued Ferrous Sulfate 325 [...] 30 2018 Discontin ued Ergocalciferol (Vitamin D2) 41949 UNIT ORAL Every Week 4 June 09, [...] 09, 2019 Discontin ued Ergocalciferol (Vitamin D2) 60173 UNIT ORAL Every Week 4 March 09, [...] 30 2019 Discontin ued Ergocalciferol (Vitamin D2) 26998 UNIT ORAL Every Week 4 November 02, 2019 Discontin ued Furosemide 40 [...] ued Empagliflozin 10 MG ORAL DAILY 30 pt2019 Discontin ued Ergocalciferol (Vitamin D2) 29348 UNIT ORAL Every Week June 03, 2020 [...] Montelukast 10 MG ORAL DAILY 30 May emb2019 Discontin ued Potassium Chloride 10 MEQ ORAL [...] TWICE A DAY PRN For anxiety 60 August 23, 2020 Discontin ued Celecoxib 100 MG ORAL TWICE A DAY 60 August 23, 2020 Discontin ued Cyanocobalamin (Vitamin B-12) 1000 MCG INTRAMUSC ULAR every month August 23, 2020 Discontin ued Diabetic Supplies, Miscellan. 0 Route .MEDSUP PLY August 23, 2020 Discontin ued Test Strips and Lancets for daily BG testing Duloxetine 60 MG ORAL DAILY 30 2019 Discontin ued Empagliflozin 10 MG ORAL DAILY 30 2019 Discontin ued Ergocalciferol (Vitamin D2) 61053 UNIT ORAL Every Week August 23, 2020 [...] testing Duloxetine 60 MG ORAL DAILY 30 Janua ry 2020 Discontin ued Empagliflozin 25 MG ORAL DAILY 30 Ja nuary 2020 Discontin ued Ergocalciferol (Vitamin D2) 09577 UNIT ORAL Every Week 4 October 24, 2020 Discontin ued Ferrous Sulfate 325 MG ORAL DAILY 30 October 24, 2020 Discontin ued Fluticasone Propion-Salmet payal 1 INHALATIO N INHALED TWICE A DAY 60 October 24, 2020 Discontin ued Furosemide 40 MG ORAL DAILY PRN For edema 30 October 24, 2020 Discontin ued Lisinopril 2.5 MG ORAL DAILY 30 ry 2020 Discontin ued Magnesium Oxide 400 [...] for daily BG testing Ergocalciferol (Vitamin D2) 60236 UNIT ORAL Every Week February 15, 2021 [...] Discontin ued Rosuvastatin 40 MG ORAL DAILY February 15, 2021 Discontin ued Empagliflozin 25 [...] ued Duloxetine 60 MG ORAL DAILY 30 ra 2020 Discontin ued Ergocalciferol (Vitamin D2) 10468 UNIT ORAL Every Week 4 August 09, 2021 Discontin ued Ferrous Sulfate 325 MG ORAL DAILY 30 August 09, 2021 Discontin ued Furosemide 40 MG ORAL DAILY PRN For for swellin g 30 August 09, 2021 Discontin ued Metformin 1000 MG ORAL TWICE A DAY 60 August 09, 2021 Discontin ued Montelukast 10 MG ORAL DAILY 30 Nove 2020 Discontin ued Potassium Chloride 10 MEQ [...] for injection 125 MG INTRAMUSC ULAR ONCE 1 June 28, 2020 Discontin ued Gabapentin 400 [...] DIR Fluconazole 150 MG ORAL Q3D 2 st 2020 Discontin ued may repeat second [...] INTRAMUSC ULAR every month May 23, 2022 Discontin ued Duloxetine 120 MG ORAL DAILY 60 Augus t 2021 Discontin ued Empagliflozin 25 MG ORAL DAILY 30 Au mary lou 2021 Discontin ued Ferrous Sulfate 325 MG ORAL DAILY 30 May 23, 2022 Discontin ued Losartan 25 MG ORAL DAILY 30 May 23, 2022 Discontin ued Magnesium Oxide 400 MG ORAL DAILY 30 May 23, 2022 Discontin ued Metformin 1000 MG ORAL TWICE A DAY 60 May 23, 2022 Discontin ued Montelukast 10 MG ORAL DAILY [address] 2021 Discontin ued Rosuvastatin 40 MG ORAL DAILY 30 Aug ust 2021 Discontin ued Potassium Chloride 10 MEQ ORAL DAILY PRN For for swellin g May 23, 2022 Active Doxycycline Hyclate 100 MG ORAL TWICE A DAY 14 August 13, 2022 Discontin ued Fluconazole 150 MG ORAL Q3D 2 Nove mber 2021 Active may repeat second dose 72 hrs after first dose if symptoms persist Mupirocin 1 JERRY TOPICAL TWICE A DAY August 13, 2022 Active Buspirone 30 MG ORAL TWICE A DAY 60 July 25, 2022 Active Celecoxib 100 MG ORAL TWICE A DAY 60 July 25, 2022 Active Cyanocobalamin (Vitamin B-12) 1000 MCG INTRAMUSC ULAR every month 1 July 25, 2022 Active Duloxetine 120 MG ORAL DAILY 60 Octob er 2021 Active Empagliflozin 25 MG ORAL DAILY 30 Oc tober 2021 Active Cholecalcifero l (Vitamin D3) 1250 MCG ORAL Every Week 5 30 July 25, 2022 Active Ferrous Sulfate 325 MG ORAL DAILY 30 July 25, 2022 Active Losartan 25 MG ORAL DAILY 30 July 25, 2022 Active Magnesium Oxide 400 MG ORAL DAILY 30 July 25, 2022 Active Metformin 1000 MG ORAL TWICE A DAY 60 July 25, 2022 Active Montelukast 10 MG ORAL DAILY 30 Octo ra 2021 Active Rosuvastatin 40 MG ORAL DAILY 30 Oct mark 2021 Active Cefdinir 300 MG ORAL Q12H 14 Decembe r 2021 Active Chlorpheniram- Dm-Acetaminoph en 1 TAB ORAL Q4H PRN For cold symptom s September 07, 2022 Active Encounters Encounter Facility Location Admit/Visit Date Discharge/Departure Date Attending Provider Departed Clinical [facility] September 07, 2022 7:05pm September 07, 2022 7:06pm Galdino Langford Departed Physician/Pro vider Office Visit [facility] September 07, 2022 6:54pm September 07, 2022 7:55pm Galdino Langford Departed Physician/Pro vider Office Visit [facility] Telemed August 13, 2022 2:00pm August 13, 2022 2:20pm Stefan Pal Departed Physician/Pro vider Office Visit [facility] July 25, 2022 2:20pm July 25, 2022 2:53pm Stefan Pal Departed Clinical [facility] July 20, 2022 5:48am July 20, 2022 5:49am Nisa Hunter Departed Clinical [facility] July 19, 2022 7:31pm July 19, 2022 7:32pm Jason Mi Departed Clinical [facility] Sleep July 19, 2022 7:28pm July 20, 2022 6:00am Jason Mi Departed Physician/Pro vider Office Visit [facility] Pain [facility]V June 13, 2022 3:04pm June 13, 2022 11:59pm Araceli Sethi Departed Clinical [facility] June 11, 2022 1:46pm June 11, 2022 1:47pm Moises Gamez Departed Physician/Pro vider Office Visit [facility] BH DC TM June 11, 2022 1:19pm June 11, 2022 3:49pm Moises Gamez Departed Physician/Pro vider Office Visit [facility] May 23, 2022 3:27pm May 23, 2022 3:58pm Nisa Hunter Functional Status Query Response Date Recorded Comment Patient Behavior Appropriate Cooperative June 11, 2022 6:28pm Immunizations No known immunizations. Plan of Care No Known Plan of Care Information Social History No known social history. Vital Signs Vital Reading Result Reference Range Collection Date/Time Height 5 ft 1 in September 07 7:03pm Weight 242 lb September 07 7:03pm Temperature 97.2 F 97.6 F-99.6 F September 07 7:03pm Pulse 99 BPM 60-100 September 07 7:03pm Respiration 18 RPM -September 07 7:03pm Pulse Oximetry 98 % 95-100 September 07 022 7:03pm Blood Pressure Systolic 138 90-120 Octo ra 2021 2:25pm Blood Pressure Diastolic 90 60-80 Oct mark 2021 2:25pm Body Mass Index 45.7 September 07, 2022 7:03pm
--- OUTSIDE RECORDS SUMMARY | 2024-07-22 10:34 | XMS_ITS | Continuity of Care Document ---
Author Name [facility] Address [facility] [employer] [place] [address] Organization [facility] Address [address] [place] [address] Support Name Relationship Address Phone Nisa Hunter Primary Care Provider [facility] [place] [address] [address] Nisa Hunter Attending Provider [facility] [place] [address] [address] Allergies, Adverse Reactions, Alerts Allergen [...] A DAY 60 April 25, 2022 Active Jngcwwz-Iqvj-So fkr-Qfcp-Qhrlmo 1 CAP ORAL DAILY Juno 2020 Active Hydrocodone-Ibu profen 1 TAB ORAL DAILY 28 April 05, 2022 Active Gabapentin 400 MG ORAL DAILY 28 April 05, 2022 Active Nitrofurantoin Monohyd/M-Cryst [Macrobid] 100 MG ORAL TWICE A DAY 10 August 17, 2021 Active must administer with a meal/food Ferrous Sulfate 325 MG ORAL DAILY 30 August 09, 2021 Active Ondansetron Hcl [Zofran] 4 MG ORAL Q8H PRN For nausea and vomiting August 09, 2021 Active Empagliflozin 25 MG ORAL DAILY 30 Ju ne 2021 Active Buspirone 30 MG ORAL TWICE A DAY 60 January 10, 2022 Active Albuterol Sulfate [Ventolin Hfa] 2 PUFF INHALED Q6H PRN For shortness of breath or wheezing 8.5 January 10, 2022 Active Cyanocobalamin (Vitamin B-12) 1000 MCG INTRAMUSCULA R every month 1 January 10, 2022 Active Furosemide 40 MG [...] inued Ergocalcifer ol (Vitamin D2) [Vitamin D2] 14089 UNIT ORAL Every Week 4 December 30, 2019 June 03, 2020 Discont inued Metformin 1000 MG ORAL TWICE A DAY 60 December 30, 2019 May 25, 2020 Discont inued Montelukast 10 MG ORAL DAILY 30 2019June 03, 2020 Discont inued Rosuvastatin [Crestor] [...] Cinnamon Bark [Cinnamon] 500 MG ORAL DAILY Oct r 2020February 01, 2022 Discont inued Gabapentin [...] Ferrous Sulfate [Ferosul] 325 MG ORAL DAILY 2021February 01, 2022 Discont inued Gabapentin 400 MG ORAL DAILY 28 u a ry 2021December 06, 2021 Discont inued Hydrocodone- Ibuprofen 1 TAB ORAL DAILY 28 2021December 06, 2021 Discont inued Hydrocodone- Ibuprofen [...] 1000 MG ORAL TWICE A DAY Februa ry 2018March 09, 2019 Discont inued Montelukast [...] Lisinopril-H ydrochloroth iazide 1 TAB ORAL DAILY ua 2018March 09, 2019 Discont inued Simvastatin 40 MG ORAL DAILY Febr ua 2018March 09, 2019 Discont inued Furosemide 40 [...] inued Ergocalcifer ol (Vitamin D2) [Vitamin D2] 93930 UNIT ORAL Every Week 4 2018November 02, [...] inued Rosuvastatin [Crestor] 40 MG ORAL DAILY Mayem 2018December 30, 2019 Discont inued Budesonide-F ormoterol [...] inued Ergocalcifer ol (Vitamin D2) [Vitamin D2] 02426 UNIT ORAL Every Week 4 March 09, [...] inued Ergocalcifer ol (Vitamin D2) [Vitamin D2] 19667 UNIT ORAL Every Week 4 Februa ry 2019December 30, 2019 Discont inued Furosemide 40 MG ORAL DAILY PRN For edema 30 Februa ry 2019June 03, 2020 Discont inued Lisinopril 2.5 MG ORAL DAILY 30 Febru a ry 2019December 30, 2019 Discont inued Metformin 1000 MG ORAL TWICE A DAY 60 Februa ry , 2019December 30, 2019 Discont inued Potassium Chloride [...] inued Ergocalcifer ol (Vitamin D2) [Vitamin D2] 19283 UNIT ORAL Every Week 4 Septem ra 2019August 23, 2020 Discont inued Ferrous Sulfate 325 MG ORAL DAILY 30 Septem ra 2019August 23, 2020 Discont inued Furosemide 40 MG ORAL DAILY PRN For edema 30 Mayem ra 2019August 23, 2020 Discont inued Magnesium Oxide 400 MG ORAL DAILY 30 Septem ra 2019August 23, 2020 Discont inued Metformin 1000 MG ORAL TWICE A DAY 60 Septem ra 2019August 23, 2020 Discont inued Montelukast 10 MG ORAL DAILY 30 Sept em ra 2019August 23, 2020 Discont inued Potassium Chloride 10 MEQ ORAL DAILY PRN For edema 30 Septem ra 2019August 23, 2020 Discont inued take [...] inued Ergocalcifer ol (Vitamin D2) [Vitamin D2] 37741 UNIT ORAL Every Week 4 Novemb er [...] Novemb er 2019October 24, 2020 Discont inued Magnesium Oxide [...] inued Ergocalcifer ol (Vitamin D2) [Vitamin D2] 88443 UNIT ORAL Every Week 4 2020February 15, [...] testing Ergocalcifer ol (Vitamin D2) [Vitamin D2] 11500 UNIT ORAL Every Week 4 February 15, [...] inued Ergocalcifer ol (Vitamin D2) [Vitamin D2] 04557 UNIT ORAL Every Week 4 Novemb er [...] injection 125 MG INTRAMU SCULAR ONCE 1 ra 2019June 28, 2020 Discont inued Gabapentin 400 MG ORAL DAILY 30 Sept m ra 2019July 30, 2020 Discont inued Hydrocodone- Ibuprofen [...] 10, 2022 April 09, 2022 Discont inued Celecoxib 100 MG ORAL [...] obese Active Obstructive sleep apnea Active Other intermediate (current) drug therapy Active Lumbar radiculopathy Active [...] Referral was Provided Provider Office Contact Location Z63. - Disappearance and of family member January 10, 2022 Nisa Hunter [facility] [place] [address] [place] [address] Relevant Diagnostic Tests and/or Laboratory Data Laboratory [...] February 01, 2022 9:58pm Negative DNAPCR Negative Microbiology Results Procedure Source Result Collection Date/Time Resu lt Date/Time Blood Culture Blood NO GROWTH AFTER 5 DAYS February 01 9:08pm Advance Directives Advance Directive Response Recorded Date/ Time Advance Directives No February 01, 2022 8 :49pm Living Will No February 01, 2022 8:49 pm Power of Therapeutic Massage Technician No February 01, 2022 8: 49pm Chief Complaint and Reason for Visit Encounter Admit Date Chief Complaint Reason for V aram Departed Clinical May 05, 2022 7:33am [facility] Discharge Instructions No known hospital discharge [...] 30, 2019 Discontin ued Ergocalciferol (Vitamin D2) 54868 UNIT ORAL Every Week 4 December 30, [...] ued Ferrous Sulfate 325 MG ORAL DAILY April 07, 2020 Discontin ued Empagliflozin 10 [...] A DAY 60 April 25, 2022 Active Esomeprazole Magnesium 40 MG ORAL [...] ORAL DAILY Oc tober 2020 Discontin ued Rosokcp-Ckbp-X yusi-Xrkt-Zbsj yl 1 CAP ORAL DAILY July 21, 2021 Active Gabapentin 400 MG ORAL DAILY 30 Decem ra 2019 Discontin ued Hydrocodone-Ib uprofen 1 TAB ORAL . daily PRN For severe pain September 28, 2020 Discontin ued Celecoxib 100 MG ORAL TWICE A DAY 60 October 26, 2020 Discontin ued Gabapentin 400 MG ORAL DAILY 30 Sepua ry 2020 Discontin ued Hydrocodone-Ib uprofen 1 [...] Discontin ued Gabapentin 400 MG ORAL DAILY Febru kevin 2021 Discontin ued Hydrocodone-Ib uprofen 1 [...] 30 2018 Discontin ued Ergocalciferol (Vitamin D2) 32362 UNIT ORAL Every Week 4 June 09, 2019 Discontin ued Furosemide 40 MG ORAL DAILY PRN For edema June 09, 2019 Discontin ued Lisinopril 2.5 MG ORAL DAILY 30 2018 Discontin ued Metformin 1000 MG ORAL TWICE A DAY 60 June 09, 2019 Discontin ued Montelukast 10 MG ORAL DAILY 30 May Discontin ued Potassium Chloride 10 MEQ ORAL DAILY PRN For edema June 09, 2019 Discontin ued take with lasix Simvastatin 40 MG ORAL DAILY 30 May Discontin ued Rosuvastatin 40 MG ORAL DAILY May Discontin ued Budesonide-For moterol 2 INHALATIO N INHALED TWICE A DAY 10.2 March 09, 2019 Discontin ued Buspirone 15 MG ORAL TWICE A DAY PRN For anxiety March 09, 2019 Discontin ued Celecoxib 100 MG ORAL TWICE A DAY 60 March 09, 2019 Discontin ued Duloxetine 60 MG ORAL DAILY 30 March 09, 2019 Discontin ued Ergocalciferol (Vitamin D2) 28539 UNIT ORAL Every Week 4 March 09, [...] 30 2019 Discontin ued Ergocalciferol (Vitamin D2) 30977 UNIT ORAL Every Week November 02, 2019 Discontin ued Furosemide 40 MG ORAL DAILY PRN For edema November 02, 2019 Discontin ued Lisinopril 2.5 MG ORAL DAILY 30 2019 Discontin ued Metformin 1000 MG ORAL TWICE A DAY November 02, 2019 Discontin ued Potassium Chloride 10 MEQ ORAL DAILY PRN For edema November 02, 2019 Discontin ued take with lasix Montelukast 10 MG ORAL DAILY 30 ua2019 Discontin ued Albuterol Sulfate 2 PUFF INHALED Q6H PRN For shortne ss of breath or wheezin g 8.June 03, 2020 Discontin ued Buspirone 15 MG ORAL TWICE A DAY PRN For anxiety June 03, 2020 Discontin ued Celecoxib 100 MG ORAL TWICE A DAY June 03, 2020 Discontin ued Cyanocobalamin (Vitamin B-12) 1000 MCG INTRAMUSC ULAR every month June 03, 2020 Discontin ued Duloxetine 60 MG ORAL DAILY 30 mb2019 Discontin ued Empagliflozin 10 MG ORAL DAILY 30 ptember 2019 Discontin ued Ergocalciferol (Vitamin D2) 45422 UNIT ORAL Every Week June 03, 2020 [...] Rosuvastatin 40 MG ORAL DAILY 30 May tember 2019 Discontin ued Fluconazole 150 MG ORAL DAILY 2 2 May emb2019 Discontin ued Gabapentin 400 MG ORAL DAILY [...] 30 2019 Discontin ued Ergocalciferol (Vitamin D2) 76349 UNIT ORAL Every Week August 23, 2020 [...] nuary 2020 Discontin ued Ergocalciferol (Vitamin D2) 89081 UNIT ORAL Every Week 4 October 24, [...] for daily BG testing Ergocalciferol (Vitamin D2) 56784 UNIT ORAL Every Week February 15, 2021 [...] Empagliflozin 25 MG ORAL DAILY 30 Ma 2020 Discontin ued Albuterol Sulfate 2 PUFF [...] 30 2020 Discontin ued Ergocalciferol (Vitamin D2) 33260 UNIT ORAL Every Week 4 August 09, [...] 2020 Discontin ued Blood-Glucose Meter 0 Route .mobiDEOSP PLY June 28, 2020 Discontin ued Glucometer Diabetic Supplies, Miscellan. 0 Route .Project ManagerSUP PLY June 28, 2020 Discontin ued Test [...] ORAL DAILY 30 Ju ne 2021 Active Duloxetine 30 MG ORAL DAILY 30 January 10, 2022 Discontin ued Take with 60mg to make 90mg total Losartan 25 MG ORAL DAILY 30 December 292021 Discontin ued Buspirone 30 MG ORAL TWICE A DAY 60 January 10, 2022 Active Albuterol Sulfate 2 PUFF INHALED Q6H PRN [...] Departed Clinical [facility] LAB May 05, 2022 7:33am May 05, 2022 7:34am Nisa Hunter Departed Clinical [facility] Sleep April 25, 2022 6:36pm April 26, 2022 6:00am Nisa Hunter Departed Physician/Pro vider Office Visit [facility] April 05, 2022 1:52pm April 05, 2022 2:33pm Moises Pinzon Departed Physician/Pro vider Office Visit [facility] March 05, 2022 3:58pm March 05, 2022 11:59pm Araceli Sethi Departed Clinical [facility] February 28, 2022 6:25pm March 01, 2022 6:00am Nisa Hunter Departed Physician/Pro vider Office Visit [facility] February 14, 2022 3:29pm February 14, 2022 4:46pm Nisa Hunter Registered Inpatient [facility] February 01, 2022 8:39pm Yaya Parham Departed Physician/Pro vider Office Visit [facility] February 01, 2022 3:20pm February 01, 2022 3:30pm Moises Pinzon Departed Physician/Pro vider Office Visit [facility] January 10, 2022 [...]
--- OUTSIDE RECORDS SUMMARY | 2024-07-22 10:35 | XMS_ITS | Continuity of Care Document ---
Author Name [facility] Address [facility] [place] [id number] Organization [facility] Address [address] [place] [address] Support Name Relationship Address Phone Nisa Hunter Primary Care Provider [facility] [address] [address] Moises Pinzon Attending Provider [address] [place] [address] Allergies, Adverse Reactions, Alerts Allergen Type Severity [...] A DAY 60 May 07, 2022 Active Rrllfkd-Lwwh-Fu elr-Zetf-Vuhxod 1 CAP ORAL DAILY Octo 2020 Active Gabapentin 400 MG ORAL DAILY 2021 Active Hydrocodone-Ibu profen 1 TAB ORAL DAILY May 14, 2022 Active Nitrofurantoin Monohyd/M-Cryst [Macrobid] 100 MG [...] 2022 Active Duloxetine 60 MG ORAL DAILY January 10, 2022 Active Discontinued Medications Medication [...] inued Ergocalcifer ol (Vitamin D2) [Vitamin D2] 07407 UNIT ORAL Every Week 4 December 30, [...] inued Ferrous Sulfate 325 MG ORAL DAILY April 07, 2020 June 03, 2020 Discont [...] D2) 1250 MCG ORAL Every Week 4 ua ry 2021January 10, 2022 Discont inued Potassium [...] 400 MG ORAL DAILY 28 Septe m 2020August 02, 2021 Discont inued Hydrocodone- Ibuprofen [...] Hydrocodone- Ibuprofen 1 TAB ORAL DAILY 28 ry 2021December 06, 2021 Discont inued Hydrocodone- [...] inued Gabapentin 400 MG ORAL DAILY r 2021November 06, 2021 Discont inued Hydrocodone- Ibuprofen [...] Gabapentin 400 MG ORAL DAILY u a 2018March 09, 2019 Discont inued Hydrocodone- Acetaminophe n 1 TAB ORAL DAILY Febr2018March 09, 2019 Discont inued Lisinopril-H ydrochloroth iazide [...] inued Ergocalcifer ol (Vitamin D2) [Vitamin D2] 69377 UNIT ORAL Every Week 4 Mayem 2018November 02, 2019 Discont inued Furosemide 40 MG ORAL DAILY PRN For edema 30 2018November 02, 2019 Discont inued Lisinopril 2.5 MG ORAL DAILY 30 2018November 02, 2019 Discont inued Metformin 1000 MG ORAL TWICE A DAY 60 Mayem 2018November 02, 2019 Discont inued Montelukast 10 MG ORAL DAILY 30 May em 2018November 02, 2019 Discont inued Potassium Chloride 10 MEQ ORAL DAILY PRN For edema 30 Mayem ra 2018November 02, 2019 Discont inued take with lasix Simvastatin 40 MG ORAL DAILY 30 May em 2018June 25, 2019 Discont inued Rosuvastatin [Crestor] 40 MG ORAL DAILY Septem ra 2018December 30, 2019 Discont inued Budesonide-F ormoterol [...] inued Ergocalcifer ol (Vitamin D2) [Vitamin D2] 06838 UNIT ORAL Every Week 4 March 09, [...] injection 40 MG INTRAMU SCULAR ONCE 1 2019November 02, 2019 Discont inued Budesonide-F ormoterol [Symbicort] 2 INHALAT ION INHALED TWICE A DAY 10.2 2019December 30, 2019 Discont inued Buspirone 15 MG ORAL TWICE A DAY PRN For anxie ty 60 ua 2019December 24, 2019 Discont inued Celecoxib 100 MG ORAL TWICE A DAY 60 ua 2019December 30, 2019 Discont inued Duloxetine 60 MG ORAL DAILY 30 a 2019December 24, 2019 Discont inued Ergocalcifer ol (Vitamin D2) [Vitamin D2] 02432 UNIT ORAL Every Week 4 2019December 30, 2019 Discont inued Furosemide 40 MG ORAL DAILY PRN For edema 30 2019June 03, 2020 Discont inued Lisinopril 2.5 MG ORAL DAILY 30 u a 2019December 30, 2019 Discont inued Metformin 1000 MG ORAL TWICE A DAY 60 Februa ry 32019December 30, 2019 Discont inued Potassium Chloride 10 [...] INTRAMU SCULAR every month 1 Septem ra 2019August 23, 2020 Discont inued Duloxetine 60 MG ORAL DAILY 30 Septe m ra 2019August 23, 2020 Discont inued Empagliflozi n [Jardiance] 10 MG ORAL DAILY 30 Septem ra 2019August 08, 2020 Discont inued Ergocalcifer ol (Vitamin D2) [Vitamin D2] 90310 UNIT ORAL Every Week 4 Mayem ra 2019August 23, 2020 Discont inued Ferrous Sulfate 325 MG ORAL DAILY 30 Septem ra 2019August 23, 2020 Discont inued Furosemide 40 MG ORAL DAILY PRN For edema 30 Septem ra 2019August 23, 2020 Discont inued Magnesium [...] inued Ergocalcifer ol (Vitamin D2) [Vitamin D2] 86121 UNIT ORAL Every Week 4 Novemb er [...] 400 MG ORAL DAILY 30 Novemb er 2019October 24, 2020 Discont inued Montelukast 10 [...] daily PRN For sever e pain 30 er 2019September 28, 2020 Discont inued Lisinopril 2.5 MG ORAL DAILY 30 b er 2019October 24, 2020 Discont inued [...] testing Duloxetine 60 MG ORAL DAILY 30 2020January 26, 2021 Discont inued Empagliflozi n 25 MG ORAL DAILY 30 2020February 13, 2021 Discont inued Ergocalcifer ol (Vitamin D2) [Vitamin D2] 00334 UNIT ORAL Every Week 4 2020February 15, [...] Rosuvastatin [Crestor] 40 MG ORAL DAILY 30 y 2020February 15, 2021 Discont inued Cyanocobalam in (Vitamin B-12) 1000 MCG INTRAMU SCULAR every month 1 February 15, 2021 August 09, 2021 Discont inued Diabetic Supplies, Miscellan. 0 Route .MEDS UPPLY February 15, 2021 April 03, 2021 Discont inued Test Strips and Lancets for daily BG testing Ergocalcifer ol (Vitamin D2) [Vitamin D2] 63226 UNIT ORAL Every Week 4 February 15, [...] inued Ergocalcifer ol (Vitamin D2) [Vitamin D2] 89718 UNIT ORAL Every Week 4 Novemb er [...] 400 MG ORAL DAILY 30 Sept m 2019July 30, 2020 Discont inued Hydrocodone- Ibuprofen 1 TAB ORAL . daily PRN For sever e pain 30 Mayem 2019July 30, 2020 Discont inued Blood-Glucos e [...] 09, 2021 July 21, 2021 Discont inued january repeat second dose 72 hrs after first [...] obese Active Obstructive sleep apnea Active Other nursing home (current) drug therapy Active Lumbar radiculopathy Active [...] w con February 01, 2022 complete d Relevant Diagnostic Tests and/or Laboratory Data Laboratory [...] February 01, 2022 8:49 pm Power of Sand Molder No February 01, 2022 8: 49pm Chief Complaint and Reason for Visit Encounter Admit Date Chief Complaint Reason for V isit Registered Physician/Provider Office Visit May 14, 2022 3:47pm Lumbar spondylosi s Hospital Discharge Instructions No known hospital discharge [...] 30, 2019 Discontin ued Ergocalciferol (Vitamin D2) 92870 UNIT ORAL Every Week 4 December 30, [...] MEQ ORAL DAILY PRN For edema 30 November 08, 2020 Discontin ued Metformin 1000 [...] ued Hydrocodone-Ib uprofen 1 TAB ORAL DAILY 28 September 06, 2021 Discontin ued Buspirone 15 [...] for swellin g 30 April 09, 2022 Active Rosuvastatin 40 MG [...] ORAL DAILY Oc tober 2020 Discontin ued Otgqerb-Mzzg-C chzr-Dyfx-Bmol yl 1 CAP ORAL DAILY July 21, 2021 Active Gabapentin 400 MG ORAL DAILY 30 Decem ra 2019 Discontin ued Hydrocodone-Ib uprofen 1 TAB ORAL . daily PRN For severe pain September 28, 2020 Discontin ued Celecoxib 100 MG ORAL TWICE A DAY 60 October 26, 2020 Discontin ued Gabapentin 400 MG ORAL DAILY 30 2020 Discontin ued Hydrocodone-Ib uprofen 1 TAB [...] Discontin ued Gabapentin 400 MG ORAL DAILY ra 2020 Discontin ued Ferrous Sulfate 325 MG ORAL DAILY November 06, 2021 Discontin ued Gabapentin 400 MG ORAL DAILY u kevin2021 Discontin ued Hydrocodone-Ib uprofen 1 TAB ORAL [...] ued Gabapentin 400 MG ORAL DAILY 2021 Active Hydrocodone-Ib uprofen 1 TAB ORAL DAILY May 14, 2022 Active Gabapentin 400 MG ORAL DAILY [...] 30 2018 Discontin ued Ergocalciferol (Vitamin D2) 70158 UNIT ORAL Every Week 4 June 09, [...] 09, 2019 Discontin ued Ergocalciferol (Vitamin D2) 52969 UNIT ORAL Every Week 4 March 09, [...] ued Duloxetine 60 MG ORAL DAILY 30 u kevin2019 Discontin ued Ergocalciferol (Vitamin D2) 79345 UNIT ORAL Every Week November 02, 2019 [...] ptember 2019 Discontin ued Ergocalciferol (Vitamin D2) 21228 UNIT ORAL Every Week June 03, 2020 [...] 30 2019 Discontin ued Ergocalciferol (Vitamin D2) 24971 UNIT ORAL Every Week August 23, 2020 [...] nuary 2020 Discontin ued Ergocalciferol (Vitamin D2) 67239 UNIT ORAL Every Week October 24, 2020 [...] for daily BG testing Ergocalciferol (Vitamin D2) 79290 UNIT ORAL Every Week February 15, 2021 [...] 30 2020 Discontin ued Ergocalciferol (Vitamin D2) 82527 UNIT ORAL Every Week 4 August 09, [...] Buspirone 30 MG ORAL TWICE A DAY January 10, 2022 Discontin ued Albuterol Sulfate [...] Location Admit/Visit Date Discharge/Departure Date Attending Provider Registered Physician/Pro vider Office Visit [facility] May 14, 2022 3:47pm Moises Pinzon Departed Clinical [facility] LAB May 05, 2022 7:33am May 05, 2022 7:34am Nisa Hunter Departed Clinical [facility] Sleep April 25, 2022 6:36pm April 26, 2022 6:00am Nisa Hunter Departed Physician/Pro vider Office Visit [facility] April 05, 2022 1:52pm April 05, 2022 2:33pm Moises Pinzon Departed Physician/Pro vider Office Visit [facility] March 05, 2022 3:58pm March 05, 2022 11:59pm Araceli Sethi Departed Clinical [facility] Sleep February 28, 2022 6:25pm March 01, 2022 6:00am Nisa Hunter Departed Physician/Pro vider Office Visit [facility] February 14, 2022 3:29pm February 14, 2022 4:46pm Nisa Hunter Registered Inpatient [facility] Radiology February 01, 2022 8:39pm Yaya Parham Departed Physician/Pro vider Office Visit [facility] February 01, 2022 3:20pm February 01, 2022 3:30pm Moises Pinzon Encounter Diagnosis Onset Date Lumbar spondylosis Functional Status No known functional status. Immunizations [...] 2022 2:20pm Blood Pressure Diastolic 88 60-80 Mar 2:20pm Body Mass Index 45.9 April 05, 2022 2:20pm
--- OUTSIDE RECORDS SUMMARY | 2024-07-22 10:35 | XMS_ITS | Continuity of Care Document ---
[facility] Address [facility] [place] [address] Organization [facility] Address [address] [place] [address] Support Name Relationship Address Phone Nisa Hunter Primary Care Provider [facility] [place] [address] [address] Nisa Hunter Attending Provider [facility] [place] [place] [phone] [address] Allergies, Adverse Reactions, Alerts Allergen [...] A DAY 60 April 25, 2022 Active Hmnlfuv-Xify-Ms zhg-Nrtu-Dmpoba 1 CAP ORAL DAILY Juno 2020 Active [...] inued Ergocalcifer ol (Vitamin D2) [Vitamin D2] 04933 UNIT ORAL Every Week 4 December 30, [...] inued Ergocalcifer ol (Vitamin D2) [Vitamin D2] 46713 UNIT ORAL Every Week 4 2018November 02, [...] inued Ergocalcifer ol (Vitamin D2) [Vitamin D2] 10613 UNIT ORAL Every Week 4 March 09, [...] inued Ergocalcifer ol (Vitamin D2) [Vitamin D2] 33641 UNIT ORAL Every Week 4 Februa ry [...] inued Ergocalcifer ol (Vitamin D2) [Vitamin D2] 24665 UNIT ORAL Every Week 4 Septem ra [...] inued Ergocalcifer ol (Vitamin D2) [Vitamin D2] 37760 UNIT ORAL Every Week 4 Novemb er [...] inued Ergocalcifer ol (Vitamin D2) [Vitamin D2] 90643 UNIT ORAL Every Week 4 2020February 15, [...] testing Ergocalcifer ol (Vitamin D2) [Vitamin D2] 68396 UNIT ORAL Every Week 4 February 15, [...] inued Ergocalcifer ol (Vitamin D2) [Vitamin D2] 30264 UNIT ORAL Every Week 4 Novemb er [...] family member January 10, 2022 Nisa Hunter [facility] [place] [address] [place] [address] Relevant Diagnostic Tests and/or Laboratory Data Laboratory [...] February 01, 2022 9:58pm Negative DNAPCR Negative Comp Ur Drug Scn Interpretive Notes January 04, 2022 3:21pm Final . == COMPREHENSIVE DRUG ANALYSIS,UR Test Result Flag Units Drug Present Alcohol, Ethyl >0.400 g/dL Sources of ethyl alcohol include alcoholic beverages or as a fermentation product of glucose; glucose is present in this specimen. The high concentration of ethyl alcohol and the presence of glucose supports fermentation as the source of ethyl alcohol in this specimen. Hydrocodone 296 ng/mg creat Dihydrocodeine 146 ng/mg creat Norhydrocodone 347 ng/mg creat Sources of hydrocodone include scheduled prescription medications. Dihydrocodeine and norhydrocodone are expected metabolites of hydrocodone. Dihydrocodeine is also available as a scheduled prescription medication. Gabapentin PRESENT Duloxetine PRESENT Ibuprofen PRESENT Test Result Flag Units Ref Range Creatinine 98 mg/dL >=20 For clinical consultation, please call . Performed at: [facility] [address] [place] [id number] District Customs Director: Mae Nichole [facility], Phone: [phone] Microbiology Results Procedure Source Result Collection Date/Time Resu lt Date/Time Blood Culture Blood NO GROWTH AFTER 5 DAYS February 01 9:08pm Advance Directives Advance Directive Response Recorded Date/ Time Advance Directives No February 01, 2022 8 :49pm Living Will No February 01, 2022 8:49 pm Power of Project Intern No February 01, 2022 8: 49pm Chief Complaint and Reason for Visit Encounter Admit Date Chief Complaint Reason for V isit Departed Clinical April 25, 2022 6:36pm Sleep apnea Hospital Discharge Instructions No known hospital discharge instructions. Hospital Discharge Medications Medication Dose Units Route Sig Qty Days Order Date Status Instructions Duloxetine 60 MG ORAL DAILY December 24, 2019 Discontin ued Buspirone 15 [...] 30, 2019 Discontin ued Ergocalciferol (Vitamin D2) 11649 UNIT ORAL Every Week 4 December 30, 2019 Discontin ued Metformin 1000 MG ORAL TWICE A DAY 60 December 30, 2019 Discontin ued Montelukast 10 MG ORAL DAILY 30 Deci l 2019 Discontin ued Rosuvastatin 40 MG [...] DAILY 30 No vember 2020 Discontin ued Rosuvastatin 40 MG ORAL [...] ORAL DAILY Oc tober 2020 Discontin ued Hrbvyxf-Ytze-C zhxa-Uwui-Hkbr yl 1 CAP ORAL DAILY July 21, [...] 30 2018 Discontin ued Ergocalciferol (Vitamin D2) 84932 UNIT ORAL Every Week 4 June 09, [...] 09, 2019 Discontin ued Ergocalciferol (Vitamin D2) 57689 UNIT ORAL Every Week 4 March 09, [...] Febru kevin2019 Discontin ued Ergocalciferol (Vitamin D2) 31850 UNIT ORAL Every Week 4 November 02, [...] lasix Montelukast 10 MG ORAL DAILY 30 uary 2019 Discontin ued Albuterol Sulfate 2 PUFF INHALED [...] ptember 2019 Discontin ued Ergocalciferol (Vitamin D2) 52561 UNIT ORAL Every Week June 03, 2020 [...] Rosuvastatin 40 MG ORAL DAILY 30 Sep tem2019 Discontin ued Fluconazole 150 MG ORAL DAILY [...] 30 2019 Discontin ued Ergocalciferol (Vitamin D2) 47638 UNIT ORAL Every Week August 23, 2020 [...] ued Empagliflozin 25 MG ORAL DAILY 30 ary 2020 Discontin ued Ergocalciferol (Vitamin D2) 36829 UNIT ORAL Every Week 4 October 24, [...] for daily BG testing Ergocalciferol (Vitamin D2) 65519 UNIT ORAL Every Week February 15, 2021 Discontin ued Ferrous Sulfate 325 MG ORAL DAILY 30 February 15, 2021 Discontin ued Furosemide 40 MG ORAL DAILY PRN For edema February 15, 2021 Discontin ued Magnesium Oxide 400 MG ORAL DAILY February 15, 2021 Discontin ued Metformin 1000 MG ORAL TWICE A DAY 60 February 15, 2021 Discontin ued Montelukast 10 MG ORAL DAILY February 15, 2021 Discontin ued Rosuvastatin 40 [...] 30 2020 Discontin ued Ergocalciferol (Vitamin D2) 44516 UNIT ORAL Every Week 4 August 09, [...] Date Discharge/Departure Date Attending Provider Departed Clinical [facility] Sleep April 25, 2022 6:36pm April 26, 2022 6:00am Nisa Hunter Departed Physician/Pro vider Office Visit [facility] April 05, 2022 1:52pm April 05, 2022 2:33pm Moises Pinzon Departed Physician/Pro vider Office Visit [facility] March 05, 2022 3:58pm March 05, 2022 11:59pm Araceli Sethi Departed Clinical [facility] February 28, 2022 6:25pm March 01, 2022 6:00am Nisa Hunter Departed Physician/Pro vider Office Visit [facility] February 14, 2022 3:29pm February 14, 2022 4:46pm Nisa Hunter Registered Inpatient [facility] February 01, 2022 8:39pm Yaya Parham Departed Physician/Pro vider Office Visit [facility] February 01, 2022 3:20pm February 01, 2022 3:30pm Moises Pinzon Departed Physician/Pro vider Office Visit [facility] January 10, 2022 3:55pm January 10, 2022 5:26pm Nisa Hunter Departed Physician/Pro vider Office Visit [facility] January 04, 2022 2:48pm January 04, 2022 3:20pm Araceli Setih Functional Status No known functional status. Immunizations [...]
--- OUTSIDE RECORDS SUMMARY | 2024-07-22 10:35 | XMS_ITS | Continuity of Care Document ---
Author Name [facility] Organization [facility] Support Name Relationship Address Phone Nisa Hunter Attending Provider [id number] [facility] [phone] [address] Allergies, Adverse Reactions, Alerts No known allergies. Medications Active Medications Medication Dose Units Route Sig Qty Start Date Status In structions Budesonide-Formo terol [Symbicort] 2 INHALATION INHALED TWICE A DAY 10.2 June 09, 2019 Active Buspirone 15 MG ORAL TWICE A DAY PRN For anxiety 60 June 09, 2019 Active Celecoxib 100 MG ORAL TWICE A DAY 60 June 09, 2019 Active Duloxetine 60 MG ORAL DAILY 30 June 09, 2019 Active Ergocalciferol (Vitamin D2) [Vitamin D2] 42395 UNIT ORAL Every Week 4 June 09, 2019 Active Furosemide 40 MG ORAL DAILY PRN For edema 30 June 09, 2019 Active Lisinopril 2.5 MG ORAL DAILY 30 June 09, 2019 Active Metformin 1000 MG ORAL TWICE A DAY 60 June 09, 2019 Active Montelukast 10 MG ORAL DAILY 30 June 09, 2019 Active Potassium Chloride 10 MEQ ORAL DAILY PRN For edema June 09, 2019 Active take with lasix Simvastatin 40 MG ORAL DAILY June 09, 2019 Active Gabapentin 400 MG ORAL DAILY March 09, 2019 Active Hydrocodone-Acet aminophen 1 TAB ORAL DAILY March 09, 2019 Active Discontinued Medications Medication Dose Units Route Sig Qty Start Date Discontinued Date Status Instructions Ergocalcifero l (Vitamin D2) [Vitamin D2] 1 CAP ORAL Every Week ua y 2018March 09, 2019 Disconti nued Buspirone 15 MG ORAL TWICE A DAY ua y 2018March 09, 2019 Disconti nued Duloxetine 60 MG ORAL DAILY uar y 2018March 09, 2019 Disconti nued Metformin 1000 MG ORAL TWICE A DAY y 2018March 09, 2019 Disconti nued Montelukast 10 MG ORAL DAILY uar y 2018March 09, 2019 Disconti nued Budesonide-Fo rmoterol [Symbicort] 2 INHALATI ON INHALED TWICE A DAY 2018March 09, 2019 Disconti nued Gabapentin 400 MG ORAL DAILY 2018March 09, 2019 Disconti nued Hydrocodone-A cetaminophen 1 TAB ORAL DAILY 2018March 09, 2019 Disconti nued Lisinopril-Hy drochlorothia zide 1 TAB ORAL DAILY y 2018March 09, 2019 Disconti nued Simvastatin 40 MG ORAL DAILY r y 2018March 09, 2019 Disconti nued Furosemide 40 MG ORAL DAILY y 2018March 09, 2019 Disconti nued Potassium Chloride 10 MEQ ORAL DAILY y 2018March 09, 2019 Disconti nued Celecoxib 100 MG ORAL TWICE A DAY January 20, 2019 March 09, 2019 Disconti nued Budesonide-Fo rmoterol [Symbicort] 2 INHALATI ON INHALED TWICE A DAY 10.2 March 09, 2019 June 09, 2019 Disconti nued Buspirone 15 MG ORAL TWICE A DAY PRN For anxie ty 60 March 09, 2019 June 09, 2019 Disconti nued Celecoxib 100 MG ORAL TWICE A DAY 60 March 09, 2019 June 09, 2019 Disconti nued Duloxetine 60 MG ORAL DAILY 30 March 09, 2019 June 09, 2019 Disconti nued Ergocalcifero l (Vitamin D2) [Vitamin D2] 36986 UNIT ORAL Every Week 4 March 09, 2019 June 09, 2019 Disconti nued Furosemide 40 MG ORAL DAILY PRN For edema 30 March 09, 2019 June 09, 2019 Disconti nued Metformin 1000 MG ORAL TWICE A DAY 60 March 09, 2019 June 09, 2019 Disconti nued Montelukast 10 MG ORAL DAILY 30 March 09, 2019 June 09, 2019 Disconti nued Potassium Chloride 10 MEQ ORAL DAILY PRN For edema 30 March 09, 2019 June 09, 2019 Disconti nued take with lasix Simvastatin 40 MG ORAL DAILY 30 March 09, 2019 June 09, 2019 Disconti nued Lisinopril 2.5 MG ORAL DAILY 30 March 09, 2019 June 09, 2019 Disconti nued Problem List Active Problems Medical Problem Onset Date Status Diabetes mellitus type 2 in obese Active Anxiety Active Hyperlipidemia Active Osteoarthritis Active Chronic pain syndrome Active Hypertension Active Vitamin D deficiency Active Asthma Active Hypomagnesemia Active Procedures No known history of procedures. Relevant Diagnostic Tests and/or Laboratory Data Laboratory Results Test Date/Time Result Interp. Ref. Range Result Co mment White Blood Count 5.92 x10^3/uL 3.98-10. 04 Red Blood Count 4.31 x10^6/uL 3.93-5.22 Hemoglobin 11.4 g/dL Low 11.8-15.3 Hematocrit 36.2 % Low 36.9-46.9 Mean Corpuscular Volume 84.0 fL 79.4-94.8 Mean Corpuscular Hemoglobin 26.5 pg 25.6-32.2 Mean Corpuscular Hemoglobin Concent 31.5 g/dL Low 32.2-35.5 RDW Standard Deviation 45.6 fL 36.4-46 .3 RDW Coefficient of Variation 15.1 % High 11.7-14.4 Platelet Count 281 x10^3/uL 182-369 Mean Platelet Volume 9.9 fL 9.4-12.3 Neutrophils (%) (Auto) 50.2 % 34.0-71 .1 Lymphocytes (%) (Auto) 36.0 % 19.3-51 .7 Monocytes (%) (Auto) 8.4 % 4.7-12.5 Eosinophils (%) (Auto) 4.9 % 0.7-5.8 Basophils (%) (Auto) 0.5 % 0.1-1.2 Nucleated Red Blood Cells % (auto) Not Reportable Immature/Total Granulocytes (auto) Not Reportable Neutrophils # (Auto) 2.97 x10^3/uL 1.56- 6.13 Lymphocytes # (Auto) 2.13 x10^3/uL 1.18- 3.74 Monocytes # (Auto) 0.50 x10^3/uL 0.24-0. 86 Eosinophils # (Auto) 0.29 x10^3/uL 0.04- 0.36 Basophils # (Auto) 0.03 x10^3/uL 0.01-0. 08 Nucleated Red Blood Cells # Not Reportable Absolute Immature Granulocyte (auto Not Reportable Urine Microalbumin < 12.0 mg/L 1.3-20.0 Sodium Level 142 mEq/L 136-145 Potassium Level 4.7 mEq/L 3.5-5.0 Chloride Level 102 mEq/L 98.0-107 Carbon Dioxide Level 24 mmol/L 23.0-29.0 Anion Gap 20.7 mEq/L High 10.0-20.0 Blood Urea Nitrogen 24 mg/dL High 8-21 Creatinine 0.70 mg/dL 0.70-1.20 Estimat Glomerular Filtration Rate > 60.0 eGFR Interpretation: Disease State Ref [...] abnormal muscle mass,or during . In these patients,alternativ e determinations of GFR should be obtained. Estimated GFR () > 60.0 BUN/Creatinine Ratio 34.3 Ratio High 6.0-20.0 Glucose Level 124 mg/dL High 70-105 Hemoglobin A1c 6.7 % High 4.5-5.7 Estimated Average Glucose (eAG) 146 mg/dL High 70-99 Calcium Level 9.4 mg/dL 8.8-10.2 Magnesium Level 1.3 ng/dL Low 1.4-2.4 Total Bilirubin 0.15 mg/dL 0.00-1.30 Aspartate Amino Transf (AST/SGOT) 15 U/L 7.0-27.0 Alanine Aminotransferase 14 U/L 3.5-33.9 Total Protein 7.1 g/dL 6.6-8.7 Albumin 3.9 g/dL 3.5-5.0 Albumin/Globulin Ratio Not Reportable Triglycerides Level 580 mg/dL High 30.0-200 Cholesterol Level 282 mg/dL High 0-199 LDL Cholesterol Direct 151 mg/dL High 0-99 VLDL Cholesterol Not Reportable Unable to calculate LDL and VLDL due to Trig >400 mg/dL HDL Cholesterol 37 mg/dL 35.0-55.0 Cholesterol/HDL Ratio 8 Ratio High 4-5 Alkaline Phosphatase 90 U/L 45-122 Vitamin B12 Level 243.2 pg/mL 181-879.4 Folic Acid (LAB) 7.93 ng/mL 3.17-24.25 Thyroid Stimulating Hormone (TSH) 3.72 mIU/mL 0.34-4.82 Falsely depres sed or elevated results may occur on samples drawn from patients taking supplements that contain Biotin in excess of the daily recommended allowance, if the blood sample is drawn before clearance of the drug. Chief Complaint and Reason for Visit Encounter Admit Date Chief Complaint Reason for V isit Departed Clinical June 22, 2019 10:31am Lab Hospital Discharge Instructions No known hospital discharge instructions. Hospital Discharge Medications Medication Dose Units Route Sig Qty Days Order Date Status Instructions Ergocalciferol (Vitamin D2) 1 CAP ORAL Every Week November 04, 2018 Discontinu ed Buspirone 15 MG ORAL TWICE A DAY November 04, 2018 Discontinu ed Duloxetine 60 MG ORAL DAILY 2018 Discontinu ed Metformin 1000 MG ORAL TWICE A DAY November 04, 2018 Discontinu ed Montelukast 10 MG ORAL DAILY 2018 Discontinu ed Budesonide-For moterol 2 INHALATIO N INHALED TWICE A DAY November 04, 2018 Discontinu ed Gabapentin 400 MG ORAL DAILY 2018 Discontinu ed Hydrocodone-Ac etaminophen 1 TAB ORAL DAILY November 04, 2018 Discontinu ed Lisinopril-Hyd rochlorothiazi de 1 TAB ORAL DAILY November 04, 2018 Discontinu ed Simvastatin 40 MG ORAL DAILY 2018 Discontinu ed Furosemide 40 MG ORAL DAILY 2018 Discontinu ed Potassium Chloride 10 MEQ ORAL DAILY November 04, 2018 Discontinu ed Celecoxib 100 MG ORAL TWICE A DAY January 20, 2019 Discontinu ed Budesonide-For moterol 2 INHALATIO N INHALED TWICE A DAY 10.2 June 09, 2019 Active Buspirone 15 MG ORAL TWICE A DAY PRN For anxiety 60 June 09, 2019 Active Celecoxib 100 MG ORAL TWICE A DAY 60 June 09, 2019 Active Duloxetine 60 MG ORAL DAILY 30 2018 Active Ergocalciferol (Vitamin D2) 03791 UNIT ORAL Every Week 4 June 09, 2019 Active Furosemide 40 MG ORAL DAILY PRN For edema 30 June 09, 2019 Active Lisinopril 2.5 MG ORAL DAILY 30 2018 Active Metformin 1000 MG ORAL TWICE A DAY 60 June 09, 2019 Active Montelukast 10 MG ORAL DAILY 30 May Active Potassium Chloride 10 MEQ ORAL DAILY PRN For edema 30 June 09, 2019 Active take with lasix Simvastatin 40 MG ORAL DAILY 30 May Active Budesonide-For moterol 2 INHALATIO N INHALED TWICE A DAY 10.2 March 09, 2019 Discontinu ed Buspirone 15 MG ORAL TWICE A DAY PRN For anxiety 60 March 09, 2019 Discontinu ed Celecoxib 100 MG ORAL TWICE A DAY 60 March 09, 2019 Discontinu ed Duloxetine 60 MG ORAL DAILY 30 March 09, 2019 Discontinu ed Ergocalciferol (Vitamin D2) 38015 UNIT ORAL Every Week 4 March 09, 2019 Discontinu ed Furosemide 40 MG ORAL DAILY PRN For edema 30 March 09, 2019 Discontinu ed Gabapentin 400 MG ORAL DAILY March 09, 2019 Active Hydrocodone-Ac etaminophen 1 TAB ORAL DAILY March 09, 2019 Active Metformin 1000 MG ORAL TWICE A DAY 60 March 09, 2019 Discontinu ed Montelukast 10 MG ORAL DAILY 30 March 09, 2019 Discontinu ed Potassium Chloride 10 MEQ ORAL DAILY PRN For edema 30 March 09, 2019 Discontinu ed take with lasix Simvastatin 40 MG ORAL DAILY 30 March 09, 2019 Discontinu ed Lisinopril 2.5 MG ORAL DAILY 30 March 09, 2019 Discontinu ed Encounters Encounter Facility Location Admit/Visit Date Discharge/Departure Date Attending Provider Departed Clinical [facility] June 22, 2019 10:31am June 22, 2019 10:32am Nisa Hunter Departed Physician/Pro vider Office Visit [facility] June 09, 2019 2:24pm June 09, 2019 4:02pm Brionna Mauro Departed Physician/Pro vider Office Visit [facility] March 09, 2019 2:43pm March 09, 2019 4:05pm Nisa Hunter Functional Status No known functional status. Immunizations No known immunizations. Payers Payer Name Policy Type Covered Democrat Covered Democrat Id Relationship Subscriber Subscriber Id [employer] Jarrell [id number] Stephania Jarrell [id number] [facility] Zina Camposestefania [id number] Self / Same As Patient Zina Jarrell [id number] SELF PAY Plan of Care No Known Plan of Care Information Social History No known social history. Vital Signs Vital Reading Result Reference Range Collection Date/Time Height 5 ft June 09 2:36pm Weight 273 lb June 09 2:36pm Temperature 97.6 F 97.6 F-99.6 F June 09, 2019 2:36pm Pulse 87 BPM 60-100 June 09 2:36pm Respiration 18 RPM 12-20 June 09 2:36pm Pulse Oximetry 98 % 95-100 June 09, 2019 2:36pm Blood Pressure Systolic 149 90-120 Sept emb2018 2:36pm Blood Pressure Diastolic 79 60-80 Sep tember 2018 2:36pm Body Mass Index 53.3 May 2:36pm
--- OUTSIDE RECORDS SUMMARY | 2024-07-22 10:36 | XMS_ITS | Continuity of Care Document ---
Author Name [facility] Address [facility] [place] [id number] Organization [facility] Address [address] [place] [address] Support Name Relationship Address Phone Nisa Hunter Primary Care Provider [facility] [place] [id number] [address] Nisa Hunter Attending Provider [facility] [place] [place] [id number] [address] Allergies, Adverse Reactions, Alerts Allergen [...] For for swelling May 22, 2022 Active Zawkypi-Nyas-Wv qfv-Zbgm-Quuabb 1 CAP ORAL DAILY 2020 Active Hydrocodone-Ibu [...] Active Montelukast 10 MG ORAL DAILY [address] 2021 Active Rosuvastatin 40 MG ORAL [...] inued Ergocalcifer ol (Vitamin D2) [Vitamin D2] 46767 UNIT ORAL Every Week 4 December 30, [...] . daily PRN For sever e pain r y 2020December 21, 2020 Discont inued [...] Hydrocodone- Ibuprofen 1 TAB ORAL DAILY 28 ra 2020August 02, 2021 Discont inued Gabapentin [...] 400 MG ORAL DAILY u a ry 2021December 06, 2021 Discont [...] Discont inued Gabapentin 400 MG ORAL DAILY Aprus t 2021June 13, 2022 Discont inued Hydrocodone- [...] [Vitamin D2] 1 CAP ORAL Every Week 2018March 09, 2019 Discont inued Buspirone 15 MG ORAL TWICE A DAY ua 2018March 09, 2019 Discont inued Duloxetine 60 MG ORAL DAILY u a 2018March 09, 2019 Discont inued Metformin 1000 MG ORAL TWICE A DAY ua 2018March 09, 2019 Discont inued Montelukast 10 MG ORAL DAILY ua 2018March 09, 2019 Discont inued Budesonide-F ormoterol [Symbicort] 2 INHALAT ION INHALED TWICE A DAY 2018March 09, 2019 Discont inued Gabapentin 400 MG ORAL DAILY u a 2018March 09, 2019 Discont inued Hydrocodone- Acetaminophe n 1 TAB ORAL DAILY 2018March 09, 2019 Discont inued Lisinopril-H ydrochloroth iazide 1 TAB ORAL DAILY 2018March 09, 2019 Discont inued Simvastatin 40 MG ORAL DAILY 2018March 09, 2019 Discont inued Furosemide 40 MG ORAL DAILY u a 2018March 09, 2019 Discont inued Potassium [...] INHALAT ION INHALED TWICE A DAY 10.2 Mayem ra 2018November 02, 2019 Discont inued Buspirone 15 MG ORAL TWICE A DAY PRN For anxie ty 60 Mayem 2018November 02, 2019 Discont inued Celecoxib 100 MG ORAL TWICE A DAY 60 2018November 02, 2019 Discont inued Duloxetine 60 MG ORAL DAILY 30 Sept2018November 02, 2019 Discont inued Ergocalcifer ol (Vitamin D2) [Vitamin D2] 44094 UNIT ORAL Every Week 4 Mayem 2018November [...] inued Ergocalcifer ol (Vitamin D2) [Vitamin D2] 07619 UNIT ORAL Every Week 4 March 09, [...] INHALAT ION INHALED TWICE A DAY 10.2 ua ry 2019December 30, 2019 Discont inued Buspirone 15 MG ORAL TWICE A DAY PRN For anxie ty 60 Februa ry 2019December 24, 2019 Discont inued Celecoxib 100 MG ORAL TWICE A DAY 60 Februa ry 2019December 30, 2019 Discont inued Duloxetine 60 MG ORAL DAILY 30 Febru a 2019December 24, 2019 Discont inued Ergocalcifer ol (Vitamin D2) [Vitamin D2] 07924 UNIT ORAL Every Week 4 ua ry [...] inued Ergocalcifer ol (Vitamin D2) [Vitamin D2] 72383 UNIT ORAL Every Week 4 Septem ra 4, 2019August 23, 2020 Discont inued Ferrous Sulfate [...] inued Ergocalcifer ol (Vitamin D2) [Vitamin D2] 94129 UNIT ORAL Every Week 4 Novemb er , 2019October 24, 2020 Discont inued Ferrous Sulfate 325 MG ORAL DAILY 30 Novemb er , 2019October 24, 2020 Discont inued Furosemide 40 MG ORAL DAILY PRN For edema 30 Novemb er 2019October 24, 2020 Discont inued Gabapentin 400 [...] A DAY PRN For anxie ty 60 y 2020January 25, 2021 Discont inued Celecoxib [...] Empagliflozi n 25 MG ORAL DAILY 30 r y 2020February 13, 2021 Discont inued Ergocalcifer ol (Vitamin D2) [Vitamin D2] 52690 UNIT ORAL Every Week 4 r y [...] testing Ergocalcifer ol (Vitamin D2) [Vitamin D2] 75221 UNIT ORAL Every Week 4 February 15, [...] inued Ergocalcifer ol (Vitamin D2) [Vitamin D2] 90682 UNIT ORAL Every Week 4 Novemb er [...] obese Active Obstructive sleep apnea Active 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 Coronavirus (COVID-19)(PCR) July 19, 2022 7:50pm Negative [...] Complaint Reason for V aram Departed Clinical July 20, 2022 5:48am Cobala min deficiency Fatigue [facility] Discharge Instructions No known hospital discharge [...] 30, 2019 Discontin ued Ergocalciferol (Vitamin D2) 99119 UNIT ORAL Every Week 4 December 30, 2019 Discontin ued Metformin 1000 MG ORAL TWICE A DAY 60 December 30, 2019 Discontin ued Montelukast 10 MG ORAL DAILY 30 Apr l 2019 Discontin ued Rosuvastatin 40 MG [...] ORAL DAILY Oc tober 2020 Discontin ued Ooetvsz-Mrtd-V bclr-Vhpq-Gurp yl 1 CAP ORAL DAILY July 21, [...] ued Furosemide 40 MG ORAL DAILY Febru kevin2018 Discontin ued Potassium Chloride 10 MEQ ORAL [...] 30 2018 Discontin ued Ergocalciferol (Vitamin D2) 25497 UNIT ORAL Every Week 4 June 09, [...] 09, 2019 Discontin ued Ergocalciferol (Vitamin D2) 73225 UNIT ORAL Every Week 4 March 09, [...] 30 2019 Discontin ued Ergocalciferol (Vitamin D2) 51465 UNIT ORAL Every Week November 02, 2019 [...] lasix Montelukast 10 MG ORAL DAILY 30 2019 Discontin ued Albuterol Sulfate 2 PUFF [...] ptember 2019 Discontin ued Ergocalciferol (Vitamin D2) 91627 UNIT ORAL Every Week June 03, 2020 [...] 30 2019 Discontin ued Ergocalciferol (Vitamin D2) 74368 UNIT ORAL Every Week August 23, 2020 [...] nuary 2020 Discontin ued Ergocalciferol (Vitamin D2) 57025 UNIT ORAL Every Week October 24, 2020 Discontin ued Ferrous Sulfate 325 MG ORAL DAILY October 24, 2020 Discontin ued Fluticasone Propion-Salmet [...] for daily BG testing Ergocalciferol (Vitamin D2) 51359 UNIT ORAL Every Week February 15, 2021 [...] 30 2020 Discontin ued Ergocalciferol (Vitamin D2) 89816 UNIT ORAL Every Week 4 August 09, [...] [facility] LAB July 20, 2022 5:48am July 20, 2022 5:49am Nisa Hunter Departed Clinical [facility] LAB July 19, 2022 7:31pm July 19, 2022 7:32pm Jason Mi Registered Clinical [facility] OL Sleep July 19, 2022 7:28pm Jason Mi Departed Physician/Pro vider Office Visit [facility] June 13, 2022 3:04pm June 13, 2022 11:59pm Araceli Sethi Departed Clinical [facility] POB Lab June 11, 2022 1:46pm June [...] Departed Clinical [facility] OLOW LAB May 05, 2022 7:33am May 05, 2022 7:34am Nisa Hunter Departed Clinical [facility] Sleep April 25, 2022 6:36pm April [...] 23 3:31pm [facility] 138 90[facility] 3[facility] Blood Pressure Diastolic 86 60-80 Apr [email or web address] 2021 3:31pm Body Mass Index 45.5 May 23 3:31pm
--- OUTSIDE RECORDS SUMMARY | 2024-07-22 10:36 | XMS_ITS | Continuity of Care Document ---
Author Name [email or web address] Address [facility] [place] [id number] Organization [facility] [email or web address] Address [address] [place] [id number] Support Name Relationship Address Phone Nisa Hunter Primary Care Provider [facility] [place] [phone] [address] Nisa Hunter Attending Provider [facility] [place] [address] [address] Allergies, Adverse Reactions, Alerts Allergen [...] A DAY 60 May 07, 2022 Active Rpiclic-Bypi-Xp dyh-Tceb-Dswdvj 1 CAP ORAL DAILY Oct2020 Active Hydrocodone-Ibu [...] inued Ergocalcifer ol (Vitamin D2) [Vitamin D2] 38219 UNIT ORAL Every Week 4 December 30, [...] inued Ergocalcifer ol (Vitamin D2) [Vitamin D2] 24585 UNIT ORAL Every Week 4 2018November 02, [...] inued Ergocalcifer ol (Vitamin D2) [Vitamin D2] 77247 UNIT ORAL Every Week 4 March 09, [...] inued Ergocalcifer ol (Vitamin D2) [Vitamin D2] 19833 UNIT ORAL Every Week 4 Februa ry [...] inued Ergocalcifer ol (Vitamin D2) [Vitamin D2] 88024 UNIT ORAL Every Week 4 Mayem ra [...] inued Ergocalcifer ol (Vitamin D2) [Vitamin D2] 89158 UNIT ORAL Every Week 4 Novemb er [...] inued Ergocalcifer ol (Vitamin D2) [Vitamin D2] 60115 UNIT ORAL Every Week 4 2020February 15, [...] testing Ergocalcifer ol (Vitamin D2) [Vitamin D2] 40828 UNIT ORAL Every Week 4 February 15, [...] inued Ergocalcifer ol (Vitamin D2) [Vitamin D2] 50949 UNIT ORAL Every Week 4 Novemb er [...] obese Active Obstructive sleep apnea Active Other fpc (current) drug therapy Active Lumbar radiculopathy Active [...] family member January 10, 2022 Nisa Hunter [facility] [place] [address] [place] [address] Relevant Diagnostic Tests and/or Laboratory Data Laboratory [...] February 01, 2022 8:49 pm 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 No February 01, 2022 8: 49pm [...] 30, 2019 Discontin ued Ergocalciferol (Vitamin D2) 58186 UNIT ORAL Every Week 4 December 30, [...] ORAL DAILY Oc tober 2020 Discontin ued Pkherwl-Pumu-E jntr-Xerx-Sjtd yl 1 CAP ORAL DAILY July 21, [...] 30 2018 Discontin ued Ergocalciferol (Vitamin D2) 73214 UNIT ORAL Every Week 4 June 09, [...] 09, 2019 Discontin ued Ergocalciferol (Vitamin D2) 27129 UNIT ORAL Every Week 4 March 09, [...] 30 2019 Discontin ued Ergocalciferol (Vitamin D2) 06188 UNIT ORAL Every Week November 02, 2019 [...] ptember 2019 Discontin ued Ergocalciferol (Vitamin D2) 24418 UNIT ORAL Every Week June 03, 2020 [...] 30 2019 Discontin ued Ergocalciferol (Vitamin D2) 22332 UNIT ORAL Every Week August 23, 2020 [...] nuary 2020 Discontin ued Ergocalciferol (Vitamin D2) 16617 UNIT ORAL Every Week October 24, 2020 [...] for daily BG testing Ergocalciferol (Vitamin D2) 39767 UNIT ORAL Every Week February 15, 2021 [...] 30 2020 Discontin ued Ergocalciferol (Vitamin D2) 91180 UNIT ORAL Every Week 4 August 09, [...] Departed Clinical [facility] LAB May 05, 2022 7:33am May 05, 2022 7:34am Nisa Hunter Departed Clinical [facility] Sleep April 25, 2022 6:36pm April 26, 2022 6:00am Nisa Hunter Departed Physician/Pro vider Office Visit [facility] April 05, 2022 1:52pm April 05, 2022 2:33pm Moises Pinzon Departed Physician/Pro vider Office Visit [facility] March 05, 2022 3:58pm March 05, 2022 11:59pm Araceli Sethi Departed Clinical [facility] Sleep February 28, 2022 6:25pm March 01, 2022 6:00am Nisa Hunter Departed Physician/Pro vider Office Visit [facility] February 14, 2022 3:29pm February 14, 2022 4:46pm Nisa Hunter Registered Inpatient [facility] February 01, 2022 8:39pm Yaya Parham Departed Physician/Pro vider Office Visit [facility] February 01, 2022 3:20pm February 01, 2022 3:30pm Moiess Pinzon Departtristin Physician/Pro vider Office Visit [facility] [...]
--- OUTSIDE RECORDS SUMMARY | 2024-07-22 10:37 | XMS_ITS | Continuity of Care Document ---
[facility] Organization [facility] Address [address] [place] [address] Support Name Relationship Address Phone DO Nisa Hunter Personal Relationship [facility] [place] [address] SAHARA Sethi Personal Relationship [address] [place] [address] DO Nisa Hunter Personal Relationship [address] [place] [address] MD Moises Pinzon Personal Relationship [address] [place] [address] F[place] [address] MD Yaya Parham Personal Relationship [address] [place] [address] Unavailable Chief Complaint and Reason for Visit Chief Complaint Back pain Office visit Wellness/Preventative Back pain abdominal pains 1 MONTH FOLLOW UP G47.33 - Obstructive sleep apnea (adult) (pediatri Back pain Reason for Visit Low back pain Lumbar spondylosis Lumbar radiculopathy Lumbar spondylosis Bereavement Depression Anxiety Asthma Chronic pain syndrome Diabetes mellitus type 2 in obese Hyperlipidemia Hypertension Hypomagnesemia Obesity Obstructive sleep apnea Osteoarthritis Vitamin D deficiency Low back pain Lumbar spondylosis Spondylolisthesis Bereavement Depression Hospital discharge follow-up Diabetes mellitus type 2 in obese Hypertension Obesity Small bowel obstruction Lumbar spondylosis Spondylolisthesis Lumbar spondylosis Spondylolisthesis Allergies, Adverse Reactions, Alerts Allergen Type Severity Reaction Last Updated Verified Status latex Allergy Rash April 05, 2022 2:21pm Yes Ac tive Social History Smoking Status Status Start Date End Date Date of Observa tion Unknown if ever smoked February 012021 8:49pm Observation Status Date of Observation Not March 05, 2022 Observation Status Observation Response Date of Response substance use type does not use February 01, 2022 8:49pm alcohol intake never February 01, 2022 8: 49pm Additional Data Assigned Sex Female Family History Relationship Condition Age at Onset Recorded Date/T francesco Not Specified Diabetes mellitus Unknown Hypertension Unknown Malignant neoplasm of colon Unknown Not Specified Diabetes mellitus Unknown Hypertension Unknown Malignant melanoma Unknown Problems Active Problems Medical Problem Onset Date Status Diabetes mellitus type 2 in obese Active Obstructive sleep apnea Active Other [facility] (current) drug therapy Active Lumbar radiculopathy Active [...] Resolved Dysuria Resolved Small bowel obstruction Resolved Medications Medication Status Dose Units Route Directions Qty Days St art Date End Date Instructions Duloxetine Disconti nued 60 MG PO DAILY December 24, 2019 1:45pm February 24, 2020 2:31pm Buspirone Disconti nued 15 MG PO TWICE A DAY December 24, 2019 1:45pm February 24, 2020 2:31pm Potassium Chloride Disconti nued 10 MEQ PO DAILY December 24, 2019 1:46pm February 24, 2020 2:31pm take with lasix Albuterol Sulfate (Proair Respiclick) 90 mcg/actuatio n aerosol powdr breath activated Disconti nued 2 INHALAT ION INH Q6H 1 December 30, 2019 2:18pm February 25, 2020 4:00pm Fluticasone Propion-Salm eterol (Advair Diskus) 250-50 mcg/dose blister with device Disconti nued 1 INHALAT ION INH TWICE A DAY December 30, 2019 2:33pm Sepua y 2020 12:40p m Celecoxib Disconti nued 100 MG PO TWICE A DAY 60 December 30, 2019 2:34pm Sept2019 3:48pm Ergocalcifer ol (Vitamin D2) (Vitamin D2) 1,250 mcg (50,000 unit) [place] [address] UNIT PO Every Week 4 December 30, 2019 2:34pm Septem 2019 3:48pm Metformin Disconti nued 1000 MG PO TWICE A DAY December 30, 2019 2:34pm May 25, 2020 8:44am Montelukast Disconti nued 10 MG PO DAILY December 30, 2019 2:34pm Septem 2019 3:48pm Rosuvastatin (Crestor) 40 mg tablet Disconti nued 40 MG PO DAILY December 30, 2019 2:34pm Septem 2019 3:48pm Magnesium Oxide Disconti nued 400 MG PO DAILY December 30, 2019 2:34pm Septem 2019 3:48pm Ferrous Sulfate Disconti nued 325 MG PO DAILY December 30, 2019 2:35pm April 07, 2020 9:05am Ascorbic Acid (Vitamin C) Disconti nued 500 MG PO DAILY December 30, 2019 2:35pm Septem 2019 3:43pm Take with iron Empagliflozi n (Jardiance) 10 mg tablet Disconti nued 10 MG PO DAILY December 30, 2019 2:36pm April 25, 2020 2:12pm Cyanocobalam in (Vitamin B-12) Disconti nued 1000 MCG IM every month 1 December 30, 2019 2:56pm Mayem 2019 3:48pm Buspirone Disconti nued 15 MG PO TWICE A DAY February 24, 2020 2:31pm Septem 2019 3:48pm Duloxetine Disconti nued 60 MG PO DAILY February 24, 2020 2:31pm Septem ra 2019 3:48pm Potassium Chloride Disconti nued 10 MEQ PO DAILY February 24, 2020 2:31pm Septem 2019 3:48pm take with lasix Albuterol Sulfate (Ventolin Hfa) 90 mcg/actuatio n HFA aerosol inhaler Disconti nued 2 PUFF INH Q6H 8.5 February 25, 2020 4:00pm Septem ra 2019 3:48pm Ferrous Sulfate Disconti nued 325 MG PO DAILY April 07, 2020 9:04am Septem ra 2019 3:48pm Empagliflozi n (Jardiance) 10 mg tablet Disconti nued 10 MG PO DAILY 30 April 25, 2020 2:11pm Septem 2019 3:48pm Metformin Disconti nued 1000 MG PO TWICE A DAY 60 May 25, 2020 8:44am Septem ra 2019 3:48pm Empagliflozi n (Jardiance) 10 mg tablet Disconti nued 10 MG PO DAILY 30 be r 2019 10:00am Novemb er 2019 7:37pm Potassium Chloride Disconti nued 10 MEQ PO DAILY 2020 9:40am February 13, 2021 6:25pm Metformin Disconti nued 1000 MG PO TWICE A DAY 60 November 30, 2020 10:28am February 15, 2021 5:54pm Magnesium Oxide Disconti nued 400 MG PO DAILY 30 November 30, 2020 5:04pm February 15, 2021 5:54pm Buspirone Disconti nued 15 MG PO TWICE A DAY 60 January 25, 2021 9:54am May 16, 2021 2:47pm Duloxetine Disconti nued 60 MG PO DAILY 30 January 26, 2021 7:55am April 03, 2021 11:58a m Fluticasone Propion-Salm eterol (Advair Diskus) 250-50 mcg/dose blister with device Disconti nued 1 INHALAT ION INH TWICE A DAY 60 January 26, 2021 3:17pm February 13, 2021 6:25pm Albuterol Sulfate (Ventolin Hfa) 90 mcg/actuatio n HFA aerosol inhaler Disconti nued 2 PUFF INH Q6H 8.5 January 26, 2021 3:18pm Novemb er 2020 10:38a m Gabapentin Disconti nued 400 MG PO DAILY 30 February 14, 2021 8:49am March 15, 2021 3:20pm Hydrocodone- Ibuprofen Disconti nued 1 TAB PO . daily 7 February 14, 2021 8:49am March 15, 2021 3:20pm Buspirone Disconti nued 15 MG PO TWICE A DAY 60 May 16, 2021 2:47pm Novemb er 2020 10:38a m Furosemide Disconti nued 40 MG PO DAILY May 22, 2021 8:20am Novemb er 2020 10:38a m Metformin Disconti nued 1000 MG PO TWICE A DAY May 22, 2021 8:20am Novemb er 2020 10:38a m Duloxetine Disconti nued 60 MG PO DAILY May 22, 2021 8:25am Novemb er 2020 10:38a m Ferrous Sulfate Disconti nued 325 MG PO DAILY May 22, 2021 11:34am Novemb er 2020 10:38a m Potassium Chloride Disconti nued 10 MEQ PO DAILY May 22, 2021 11:34am Novemb er 2020 10:38a m Empagliflozi n (Jardiance) 25 mg tablet Disconti nued 25 MG PO DAILY 2020 9:10am Novemb er 2020 9:57am Montelukast Disconti nued 10 MG PO DAILY July 04, 2021 11:15am Novemb er 2020 10:38a m Magnesium Oxide Disconti nued 400 MG PO DAILY r 2020 9:49am Novemb er 2020 10:21a m Empagliflozi n (Jardiance) 10 mg tablet Disconti nued 10 MG PO DAILY be r 2020 9:56am Novemb er 2020 10:51a m Magnesium Oxide Active 400 MG PO DAILY r 2020 10:21am Empagliflozi n (Jardiance) 10 mg tablet Disconti nued 10 MG PO DAILY r 2020 10:51am January 10, 2022 5:37pm Rosuvastatin (Crestor) 40 mg tablet Disconti nued 40 MG PO DAILY r 2020 11:41am January 10, 2022 5:37pm Hydrocodone- Ibuprofen Disconti nued 1 TAB PO DAILY r 2020 8:50am Januar y 2021 2:59pm Buspirone Disconti nued 15 MG PO TWICE A DAY 60 October 23, 2021 9:10am January 10, 2022 5:35pm Celecoxib Disconti nued 100 MG PO TWICE A DAY 60 October 30, 2021 9:33am January 10, 2022 5:37pm Ergocalcifer ol (Vitamin D2) Disconti nued 1250 MCG PO Every Week 4 2021 2:58pm January 10, 2022 5:37pm Potassium Chloride Disconti nued 10 MEQ PO DAILY 30 ua y 2021 9:27am January 10, 2022 5:37pm Metformin Active 1000 MG PO TWICE A DAY 60 2021 8:47am Levalbuterol Hcl (Xopenex) 0.63 mg/3 mL solution for nebulization Active 0.63 MG INH EVERY 6-8 HOURS March 07, 2022 10:38am Esomeprazole Magnesium (Nexium) 40 mg Capsule,Janey yed Release(Dr/E c) Disconti nued 40 MG PO DAILY February 13, 2021 6:19pm February 01, 2022 9:02pm Potassium Chloride Disconti nued 10 MEQ PO DAILY February 13, 2021 6:24pm May 22, 2021 11:35a m Lisinopril Disconti nued 2.5 MG PO DAILY February 13, 2021 6:24pm Octobe r 2020 2:40pm Celecoxib (Celebrex) 100 mg capsule Disconti nued 100 MG PO TWICE A DAY April 03, 2021 11:58am Sepuar 2021 9:34am Duloxetine (Cymbalta) 60 mg capsule,janey yed release(DR/E C) Disconti nued 60 MG PO DAILY April 03, 2021 11:58am May 22, 2021 8:25am Empagliflozi n (Jardiance) 25 mg tablet Disconti nued 25 MG PO DAILY April 03, 2021 11:58am Septem 2020 9:11am Cinnamon Bark (Cinnamon) 500 mg Capsule Disconti nued 500 MG PO DAILY July 21, 2021 3:07pm February 01, 2022 9:03pm Tumeric-Ging -Ashton-Oreg- Capryl Active 1 CAP PO DAILY July 21, 2021 3:07pm Gabapentin Disconti nued 400 MG PO DAILY 2019 5:19pm 2020 4:16pm Hydrocodone- Ibuprofen Disconti nued 1 TAB PO . daily 2019 5:20pm 2020 4:16pm Celecoxib Disconti nued 100 MG PO TWICE A DAY 60 October 26, 2020 4:16pm December 21, 2020 3:50pm Gabapentin Disconti nued 400 MG PO DAILY October 26, 2020 4:16pm December 21, 2020 3:50pm Hydrocodone- Ibuprofen Disconti nued 1 TAB PO . daily October 26, 2020 4:16pm December 21, 2020 3:50pm Gabapentin Disconti nued 400 MG PO DAILY December 21, 2020 3:49pm January 18, 2021 5:09pm Hydrocodone- Ibuprofen Disconti nued 1 TAB PO . daily December 21, 2020 3:49pm January 18, 2021 5:09pm Celecoxib Disconti nued 100 MG PO TWICE A DAY 60 December 21, 2020 3:49pm January 18, 2021 5:09pm Gabapentin Disconti nued 400 MG PO DAILY 30 January 18, 2021 5:08pm February 14, 2021 8:50am Hydrocodone- Ibuprofen Disconti nued 1 TAB PO . daily January 18, 2021 5:09pm January 18, 2021 5:20pm Celecoxib Disconti nued 100 MG PO TWICE A DAY 60 January 18, 2021 5:09pm April 03, 2021 11:58a m Hydrocodone- Ibuprofen Disconti nued 1 TAB PO . daily January 18, 2021 5:20pm February 14, 2021 8:50am Gabapentin Disconti nued 400 MG PO DAILY er 2020 4:26pm Novemb er 2020 4:09pm Hydrocodone- Ibuprofen Disconti nued 1 TAB PO DAILY er 2020 4:26pm Novemb er 2020 4:09pm Gabapentin Disconti nued 400 MG PO DAILY March 15, 2021 3:20pm April 27, 2021 10:21a m Hydrocodone- Ibuprofen Disconti nued 1 TAB PO . daily March 15, 2021 3:20pm April 03, 2021 11:56a m Gabapentin Disconti nued 400 MG PO DAILY April 27, 2021 10:19am May 25, 2021 12:53p m Hydrocodone- Ibuprofen Disconti nued 1 TAB PO DAILY April 27, 2021 10:19am May 25, 2021 12:53p m Gabapentin Disconti nued 400 MG PO DAILY May 25, 2021 12:51pm Septem ra 2020 4:27pm Hydrocodone- Ibuprofen Disconti nued 1 TAB PO DAILY May 25, 2021 12:52pm Septem ra 2020 4:27pm Gabapentin Disconti nued 400 MG PO DAILY 2020 3:28pm 2021 2:59pm Ferrous Sulfate (Ferosul) 325 mg (65 mg iron) tablet Disconti nued 325 MG PO DAILY 2021 4:10pm February 01, 2022 9:02pm Gabapentin Disconti nued 400 MG PO DAILY 2021 5:12pm December 06, 2021 2:55pm Hydrocodone- Ibuprofen Disconti nued 1 TAB PO DAILY 2021 5:12pm December 06, 2021 2:55pm Hydrocodone- Ibuprofen Disconti nued 1 TAB PO DAILY December 06, 2021 2:54pm January 04, 2022 3:20pm Gabapentin Disconti nued 400 MG PO DAILY December 06, 2021 2:55pm January 04, 2022 3:20pm Hydrocodone- Ibuprofen Disconti nued 1 TAB PO DAILY January 04, 2022 3:20pm January 04, 2022 3:22pm Gabapentin Disconti nued 400 MG PO DAILY January 04, 2022 3:20pm January 04, 2022 3:22pm Hydrocodone- Ibuprofen Disconti nued 1 TAB PO DAILY January 04, 2022 3:22pm February 01, 2022 3:28pm Gabapentin Disconti nued 400 MG PO DAILY January 04, 2022 3:22pm February 01, 2022 3:28pm Hydrocodone- Ibuprofen Active 1 TAB PO DAILY April 05, 2022 2:25pm Gabapentin Active 400 MG PO DAILY April 05, 2022 2:25pm Gabapentin Disconti nued 400 MG PO DAILY be r 2020 4:08pm Decemb er 2020 3:30pm Hydrocodone- Ibuprofen Disconti nued 1 TAB PO DAILY be r 2020 4:08pm Decemb er 2020 8:51am Gabapentin (Neurontin) 400 mg capsule Disconti nued 400 MG PO DAILY be r 2020 5:36pm Decemb er 2020 3:29pm Gabapentin Disconti nued 400 MG PO DAILY October 09, 2021 2:59pm Februa ry 2021 5:13pm Hydrocodone- Ibuprofen Disconti nued 1 TAB PO DAILY October 09, 2021 2:59pm Februa ry 2021 5:13pm Gabapentin Disconti nued 400 MG PO DAILY February 01, 2022 3:27pm March 05, 2022 4:44pm Hydrocodone- Ibuprofen Disconti nued 1 TAB PO DAILY February 01, 2022 3:27pm March 05, 2022 4:44pm Gabapentin Disconti nued 400 MG PO DAILY March 05, 2022 4:44pm April 05, 2022 2:26pm Hydrocodone- Ibuprofen Disconti nued 1 TAB PO DAILY March 05, 2022 4:44pm April 05, 2022 2:26pm Ergocalcifer ol (Vitamin D2) (Vitamin D2) 50,000 unit capsule Disconti nued 1 CAP PO Every Week 2018 12:02pm March 09, 2019 4:23pm Buspirone Disconti nued 15 MG PO TWICE A DAY 2018 12:03pm March 09, 2019 4:23pm Duloxetine Disconti nued 60 MG PO DAILY 2018 12:05pm March 09, 2019 4:23pm Metformin Disconti nued 1000 MG PO TWICE A DAY 2018 12:05pm March 09, 2019 4:23pm Montelukast Disconti nued 10 MG PO DAILY 2018 12:06pm March 09, 2019 4:23pm Budesonide-F ormoterol (Symbicort) 160-4.5 mcg/actuatio n HFA aerosol inhaler Disconti nued 2 INHALAT ION INH TWICE A DAY 2018 12:06pm March 09, 2019 4:23pm Gabapentin Disconti nued 400 MG PO DAILY 2018 12:07pm March 09, 2019 4:23pm Hydrocodone- Acetaminophe n Disconti nued 1 TAB PO DAILY 2018 12:08pm March 09, 2019 4:23pm Lisinopril-H ydrochloroth iazide Disconti nued 1 TAB PO DAILY 2018 12:08pm March 09, 2019 4:21pm Simvastatin Disconti nued 40 MG PO DAILY 2018 12:11pm March 09, 2019 4:23pm Furosemide Disconti nued 40 MG PO DAILY 2018 12:12pm March 09, 2019 4:23pm Potassium Chloride Disconti nued 10 MEQ PO DAILY 2018 12:12pm March 09, 2019 4:23pm Celecoxib Disconti nued 100 MG PO TWICE A DAY January 20, 2019 12:17pm March 09, 2019 4:23pm Nitrofuranto in Monohyd/M-Cr yst (Macrobid) 100 mg capsule Active 100 MG PO TWICE A DAY 2020 11:36pm must administer with a meal/food Budesonide-F ormoterol (Symbicort) 160-4.5 mcg/actuatio n HFA aerosol inhaler Disconti nued 2 INHALAT ION INH TWICE A DAY 10.2 2018 4:14pm Februa 2019 5:43pm Buspirone Disconti nued 15 MG PO TWICE A DAY 60 er 2018 4:14pm ua ry 2019 5:43pm Celecoxib Disconti nued 100 MG PO TWICE A DAY 60 2018 4:14pm ua ry 2019 5:43pm Duloxetine Disconti nued 60 MG PO DAILY 30 2018 4:14pm Februa ry 2019 5:43pm Ergocalcifer ol (Vitamin D2) (Vitamin D2) 50,000 [place] 27486 UNIT PO Every Week 4 2018 4:14pm Februa ry 2019 5:43pm Furosemide Disconti nued 40 MG PO DAILY 30 2018 4:15pm Februa ry 2019 5:43pm Lisinopril Disconti nued 2.5 MG PO DAILY 30 2018 4:15pm Februa ry 2019 5:43pm Metformin Disconti nued 1000 MG PO TWICE A DAY 60 2018 4:15pm Februa ry 2019 5:43pm Montelukast Disconti nued 10 MG PO DAILY 30 2018 4:15pm Februa ry 2019 5:43pm Potassium Chloride Disconti nued 10 MEQ PO DAILY 30 2018 4:15pm ua ry 2019 5:43pm take with lasix Simvastatin Disconti nued 40 MG PO DAILY 30 2018 4:15pm Septem ra 2018 4:44pm Rosuvastatin (Crestor) 40 mg tablet [facility]i nued 40 [facility] 4:44pm December 30, 2019 2:37pm Budesonide-F ormoterol (Symbicort) 160-4.5 mcg/actuatio n HFA aerosol inhaler Disconti nued 2 INHALAT ION INH TWICE A DAY 10.2 March 09, 2019 4:18pm Septem 2018 4:15pm Buspirone Disconti nued 15 MG PO TWICE A DAY 60 March 09, 2019 4:19pm Septem 2018 4:15pm Celecoxib Disconti nued 100 MG PO TWICE A DAY 60 March 09, 2019 4:19pm Septem 2018 4:15pm Duloxetine Disconti nued 60 MG PO DAILY 30 March 09, 2019 4:19pm Septem ra 2018 4:15pm Ergocalcifer ol (Vitamin D2) (Vitamin D2) 50,000 [place] 66733 UNIT PO Every Week 4 March 09, 2019 4:19pm Sept2018 4:15pm Furosemide Disconti nued 40 MG PO DAILY March 09, 2019 4:20pm 2018 4:15pm Gabapentin Disconti nued 400 MG PO DAILY March 09, 2019 4:20pm 2019 10:33a m Hydrocodone- Acetaminophe n Disconti nued 1 TAB PO DAILY March 09, 2019 4:20pm Sept2019 10:33a m Metformin Disconti nued 1000 MG PO TWICE A DAY 60 March 09, 2019 4:21pm 2018 4:15pm Montelukast Disconti nued 10 MG PO DAILY March 09, 2019 4:21pm 2018 4:15pm Potassium Chloride Disconti nued 10 MEQ PO DAILY March 09, 2019 4:21pm 2018 4:15pm take with lasix Simvastatin Disconti nued 40 MG PO DAILY March 09, 2019 4:22pm 2018 4:15pm Lisinopril Disconti nued 2.5 MG PO DAILY March 09, 2019 4:22pm 2018 4:15pm Budesonide-F ormoterol (Symbicort) 160-4.5 mcg/actuatio n HFA aerosol inhaler Disconti nued 2 INHALAT ION INH TWICE A DAY 10.2 2019 5:42pm December 30, 2019 2:33pm Buspirone Disconti nued 15 MG PO TWICE A DAY 60 2019 5:42pm December 24, 2019 1:46pm Celecoxib Disconti nued 100 MG PO TWICE A DAY 60 2019 5:42pm December 30, 2019 2:37pm Duloxetine Disconti nued 60 MG PO DAILY 2019 5:42pm December 24, 2019 1:46pm Ergocalcifer ol (Vitamin D2) (Vitamin D2) 1,250 mcg (50,000 unit) capsule [place] 64290 UNIT PO Every Week 4 2019 5:42pm December 30, 2019 2:37pm Furosemide Disconti nued 40 MG PO DAILY 30 2019 5:42pm Sept ra 2019 3:48pm Lisinopril Disconti nued 2.5 MG PO DAILY 30 2019 5:42pm December 30, 2019 2:07pm Metformin Disconti nued 1000 MG PO TWICE A DAY 60 2019 5:42pm December 30, 2019 2:37pm Potassium Chloride Disconti nued 10 MEQ PO DAILY 30 2019 5:42pm December 24, 2019 1:46pm take with lasix Montelukast Disconti nued 10 MG PO DAILY 2019 5:42pm December 30, 2019 2:37pm Albuterol Sulfate (Ventolin Hfa) 90 mcg/actuatio n HFA aerosol inhaler Disconti nued 2 PUFF INH Q6H 8.5 2019 3:42pm Novemb er 2019 7:37pm Buspirone Disconti nued 15 MG PO TWICE A DAY 60 2019 3:43pm Novemb er 2019 7:37pm Celecoxib Disconti nued 100 MG PO TWICE A DAY 60 2019 3:43pm b er 2019 7:37pm Cyanocobalam in (Vitamin B-12) Disconti nued 1000 MCG IM every month 1 2019 3:44pm b er 2019 7:37pm Duloxetine Disconti nued 60 MG PO DAILY 30 2019 3:44pm Novemb er 2019 7:37pm Empagliflozi n (Jardiance) 10 mg tablet Disconti nued 10 MG PO DAILY 30 2019 3:44pm b er 2019 10:01a m Ergocalcifer ol (Vitamin D2) (Vitamin D2) 1,250 mcg (50,000 unit) capsule [place]ued 83436 UNIT PO Every Week 4 2019 3:47pm Novemb er 2019 7:37pm Ferrous Sulfate Disconti nued 325 MG PO DAILY 30 2019 3:47pm Novemb er 2019 7:37pm Furosemide Disconti nued 40 MG PO DAILY 30 2019 3:47pm Novemb er 2019 7:37pm Magnesium Oxide Disconti nued 400 MG PO DAILY 30 er 2019 3:48pm Novemb er 2019 7:37pm Metformin Disconti nued 1000 MG PO TWICE A DAY 60 2019 3:48pm Novemb er 2019 7:37pm Montelukast Disconti nued 10 MG PO DAILY 30 er 2019 3:48pm Novemb er 2019 7:37pm Potassium Chloride Disconti nued 10 MEQ PO DAILY 30 er 2019 3:48pm Novemb er 2019 7:37pm take with lasix Rosuvastatin (Crestor) 40 mg tablet Disconti nued 40 MG PO DAILY 30 2019 3:48pm Novemb er 2019 7:37pm Fluconazole (Diflucan) 150 mg tablet Disconti nued 150 MG PO DAILY 2 2 2019 3:48pm Septem ra 2019 12:10a m Gabapentin Disconti nued 400 MG PO DAILY July 30, 2020 11:29am Novemb er 2019 7:37pm Hydrocodone- Ibuprofen Disconti nued 1 TAB PO . daily July 30, 2020 11:29am Novemb er 2019 7:37pm Albuterol Sulfate (Ventolin Hfa) 90 mcg/actuatio n HFA aerosol inhaler Disconti nued 2 PUFF INH Q6H 8.5 r 2019 7:35pm January 26, 2021 3:18pm Buspirone Disconti nued 15 MG PO TWICE A DAY 60 r 2019 7:35pm 2020 12:40p m Celecoxib Disconti nued 100 MG PO TWICE A DAY 60 r 2019 7:35pm Sepua2020 12:40p m Cyanocobalam in (Vitamin B-12) Disconti nued 1000 MCG IM every month 1 2019 7:35pm 2020 12:40p m Diabetic Supplies, Miscellan. Disconti nued 0 .ROUTE .MEDSUPPLY 1 2019 7:35pm 2020 12:40p m Test Strips and Lancets for daily BG testing Duloxetine Disconti nued 60 MG PO DAILY 30 2019 7:35pm 2020 12:40p m Empagliflozi n (Jardiance) 10 mg tablet Disconti nued 10 MG PO DAILY 30 2019 7:35pm Decemb er 2019 7:59pm Ergocalcifer ol (Vitamin D2) (Vitamin D2) 1,250 mcg (50,000 unit) capsule [place]ued 29639 UNIT PO Every Week 4 2019 7:35pm 2020 12:40p m Ferrous Sulfate Disconti nued 325 MG PO DAILY 2019 7:35pm 2020 12:40p m Furosemide Disconti nued 40 MG PO DAILY 2019 7:35pm 2020 12:40p m Gabapentin Disconti nued 400 MG PO DAILY 2019 7:36pm Decemb er 2019 5:23pm Metformin Disconti nued 1000 MG PO TWICE A DAY 60 2019 7:36pm 2020 12:40p m Magnesium Oxide Disconti nued 400 MG PO DAILY 2019 7:36pm 2020 12:40p m Montelukast Disconti nued 10 MG PO DAILY 2019 7:36pm 2020 12:40p m Potassium Chloride Disconti nued 10 MEQ PO DAILY 2019 7:36pm 2020 12:40p m take with lasix Rosuvastatin (Crestor) 40 mg tablet Disconti nued 40 MG PO DAILY 2019 7:36pm 2020 12:40p m Hydrocodone- Ibuprofen Disconti nued 1 TAB PO . daily 2019 7:36pm Decemb er 2019 5:23pm Lisinopril Disconti nued 2.5 MG PO DAILY 2019 7:41pm Januar y 2020 12:40p m Buspirone Disconti nued 15 MG PO TWICE A DAY October 24, 2020 12:39pm January 25, 2021 9:54am Celecoxib Disconti nued 100 MG PO TWICE A DAY October 24, 2020 12:39pm Januar y 2020 4:17pm Cyanocobalam in (Vitamin B-12) Disconti nued 1000 MCG IM every month October 24, 2020 12:39pm February 15, 2021 5:54pm Diabetic Supplies, Miscellan. Disconti nued 0 .ROUTE .MEDSUPPLY October 24, 2020 12:39pm February 15, 2021 5:54pm Test Strips and Lancets for daily BG testing Duloxetine Disconti nued 60 MG PO DAILY October 24, 2020 12:39pm January 26, 2021 7:56am Empagliflozi n Disconti nued 25 MG PO DAILY October 24, 2020 12:39pm February 13, 2021 6:25pm Ergocalcifer ol (Vitamin D2) (Vitamin D2) 1,250 mcg (50,000 unit) capsule [place]ued 26451 UNIT PO Every Week October 24, 2020 12:39pm February 15, 2021 5:54pm Ferrous Sulfate Disconti nued 325 MG PO DAILY October 24, 2020 12:39pm February 15, 2021 5:54pm Fluticasone Propion-Salm eterol (Advair Diskus) 250-50 mcg/dose blister with device Disconti nued 1 INHALAT ION INH TWICE A DAY October 24, 2020 12:39pm January 26, 2021 3:18pm Furosemide Disconti nued 40 MG PO DAILY October 24, 2020 12:39pm February 15, 2021 5:54pm Lisinopril Disconti nued 2.5 MG PO DAILY October 24, 2020 12:39pm February 13, 2021 6:25pm Magnesium Oxide Disconti nued 400 MG PO DAILY October 24, 2020 12:39pm November 30, 2020 5:04pm Metformin Disconti nued 1000 MG PO TWICE A DAY October 24, 2020 12:39pm November 30, 2020 10:28a m Montelukast Disconti nued 10 MG PO DAILY October 24, 2020 12:39pm February 15, 2021 5:54pm Potassium Chloride Disconti nued 10 MEQ PO DAILY October 24, 2020 12:40pm Februa ry 2020 9:41am take with lasix Rosuvastatin (Crestor) 40 mg tablet Disconti nued 40 MG PO DAILY October 24, 2020 12:40pm February 15, 2021 5:54pm Cyanocobalam in (Vitamin B-12) Disconti nued 1000 MCG IM every month February 15, 2021 5:53pm Novemb er 2020 10:38a m Diabetic Supplies, Miscellan. Disconti nued 0 .ROUTE .MEDSUPPLY February 15, 2021 5:53pm April 03, 2021 11:57a m Test Strips and Lancets for daily BG testing Ergocalcifer ol (Vitamin D2) (Vitamin D2) 1,250 mcg (50,000 unit) capsule [place]ued [id number] UNIT PO Every Week February 15, 2021 5:53pm Novemb er 2020 10:38a m Ferrous Sulfate Disconti nued 325 MG PO DAILY February 15, 2021 5:53pm May 22, 2021 11:35a m Furosemide Disconti nued 40 MG PO DAILY February 15, 2021 5:53pm May 22, 2021 8:20am Magnesium Oxide Disconti nued 400 MG PO DAILY February 15, 2021 5:53pm Novemb er 2020 9:50am Metformin Disconti nued 1000 MG PO TWICE A DAY February 15, 2021 5:53pm May 22, 2021 8:20am Montelukast Disconti nued 10 MG PO DAILY February 15, 2021 5:54pm Octobe r 2020 11:16a m Rosuvastatin (Crestor) 40 mg tablet Disconti nued 40 MG PO DAILY February 15, 2021 5:54pm Decemb er 2020 11:42a m Empagliflozi n Disconti nued 25 MG PO DAILY February 15, 2021 5:54pm April 03, 2021 11:58a m Albuterol Sulfate (Ventolin Hfa) 90 mcg/actuatio n HFA aerosol inhaler Disconti nued 2 PUFF INH Q6H 8.5 Novembe r 2020 10:35am January 10, 2022 5:37pm Buspirone Disconti nued 15 MG PO TWICE A DAY 60 be r 2020 10:36am Janua y 2021 9:10am Cyanocobalam in (Vitamin B-12) Disconti nued 1000 MCG IM every month 1 be r 2020 10:36am January 10, 2022 5:37pm Duloxetine Disconti nued 60 MG PO DAILY 30 be r 2020 10:36am January 10, 2022 5:38pm Ergocalcifer ol (Vitamin D2) (Vitamin D2) 1,250 mcg (50,000 unit) [place] [address]11 UNIT PO Every Week 4 be r 2020 10:36am Februa 2021 2:58pm Ferrous Sulfate Active 325 MG PO DAILY 30 be r 2020 10:36am Furosemide Disconti nued 40 MG PO DAILY 30 be r 2020 10:36am January 10, 2022 5:37pm Metformin Disconti nued 1000 MG PO TWICE A DAY 60 Novembe r 2020 10:36am January 10, 2022 5:37pm Montelukast Disconti nued 10 MG PO DAILY 30 be r 2020 10:36am January 10, 2022 5:37pm Potassium Chloride Disconti nued 10 MEQ PO DAILY 30 Novembe r 2020 10:36am Februa ry 2021 9:27am Dextromethor jaramillo-Guaifen esin Disconti nued 10 ML PO EVERY 4-8 HOURS 180 Novembe r 2020 10:37am February 01, 2022 9:03pm Ondansetron Hcl (Zofran) 4 mg tablet Active 4 MG PO Q8H 30 [facility] 2020 10:37am Gabapentin Disconti nued 400 MG [facility] 10:[facility]am Oct[facility] 2019 11:30a m Hydrocodone- Ibuprofen Disconti nued 1 TAB PO . [facility] 10:[facility]am Oct[facility] r 2019 11:30a m Blood-Glucos e Meter Disconti nued 0 .ROUTE .MEDSU[facility]PLY [facility] 10:34am April 03, 2021 11:57a m Glucometer Diabetic Supplies, Miscellan. Disconti nued 0 .ROUTE .MEDSU[facility]PLY [facility] 10:[facility]am [facility] 2019 7:37pm Test Strips and Lancets for daily BG testing Empagliflozi n Disconti nued 25 MG PO DAILY r 2019 7:58pm 2020 12:40p m Amoxicillin- Pot Clavulanate (Augmentin) 875-125 mg tablet Disconti nued 1 TAB PO Q12H 19 07May 09, 2021 2:25pm May 19, 2021 12:22a m Methylpredni solone (Medrol (Lb)) 4 mg tablets,dose pack Disconti nued 0 PO Per package directions May 09, 2021 2:[facility]pm [facility] 2:40pm PO PER PKG DIR Fluconazole (Diflucan) 150 mg tablet Disconti nued 150 MG PO Q3D May 09, 2021 2:29pm [facility] 2:40pm may repeat second dose 72 hrs after first dose if symptoms persist Empagliflozi n Active 25 MG PO DAILY February 28, 2022 10:53am Duloxetine Active 30 MG PO DAILY January 10, 2022 5:34pm Take with 60mg to make 90mg total Losartan Active 25 MG PO DAILY January 10, 2022 5:34pm Buspirone Active 30 MG PO TWICE A DAY 60 Ap ril 2021 5:35pm Albuterol Sulfate (Ventolin Hfa) 90 mcg/actuatio n HFA aerosol inhaler Active 2 PUFF INH Q6H 8.5 January 10, 2022 5:36pm Celecoxib Active 100 MG PO TWICE A DAY 60 Ap ril 2021 5:36pm Cyanocobalam in (Vitamin B-12) Active 1000 MCG IM every month 1 January 10, 2022 5:36pm Empagliflozi n (Jardiance) 10 mg tablet Disconti nued 10 MG PO DAILY 30 January 10, 2022 5:36pm February 28, 2022 10:53a m Ergocalcifer ol (Vitamin D2) Active 1250 MCG PO Every Week 4 January 10, 2022 5:36pm Furosemide Active 40 MG PO DAILY January 10, 2022 5:36pm Metformin Disconti nued 1000 MG PO TWICE A DAY 60 January 10, 2022 5:36pm January 29, 2022 8:47am Montelukast Active 10 MG PO DAILY January 10, 2022 5:37pm Potassium Chloride Active 10 MEQ PO DAILY January 10, 2022 5:37pm Rosuvastatin (Crestor) 40 mg tablet Active 40 MG PO DAILY January 10, 2022 5:37pm Duloxetine Active 60 MG PO DAILY January 10, 2022 5:38pm Vital Signs Vital Reading Result Reference Range Collection Date/Time Height 61 [in_i] December 06, 2021 2:49pm Weight 250.00 [lb_av] December 06 2:49pm Body Temperature 97.3 [degF] 97.6-99.6 December 06, 2021 2:49pm Heart Rate 78 /min 60-100 December 06, 2021 2:49pm Respiratory rate 18 /min 12-December 06, 2021 2:49pm Oxygen saturation by Pulse oximetry 96 % 95-100 December 06, 2021 2:49 pm BP Systolic 156 mm[Hg] 90-120 December 06, 2021 2:49pm BP Diastolic 103 mm[Hg] 60-80 December 06, 2021 2:49pm BMI (Body Mass Index) 47.2 kg/m2 December 06, 2021 2:49pm Height 61 [in_i] January 10 4:01pm Weight 249.37 [lb_av] January 10, 022 4:01pm Body Temperature 98.6 [degF] 97.6-99.6 January 10, 2022 4:01pm Heart Rate 78 /min 60-100 January 10 4:01pm Respiratory rate 18 /min -January 10, 2022 4:01pm Oxygen saturation by Pulse oximetry 98 % 95-100 January 10, 2022 4:0 1pm BP Systolic 167 mm[Hg] 90-120 January 10 4:01pm BP Diastolic 95 mm[Hg] 60-80 January 10 4:01pm BMI (Body Mass Index) 47.1 kg/m2 January 10, 2022 4:01pm Height 60 [in_i] February 01, 2022 8 :49pm Weight 244.00 [lb_av] February 01, 2022 8:49pm Body Temperature 98.7 [degF] 97.6-99.6 February 02 12:09am Heart Rate 104 /min 60-100 February 02, 2022 1 2:09am Respiratory rate 14 /min -February 02 12:09am Oxygen saturation by Pulse oximetry 93 % 95-100 February 02, 2022 12:09a m BP Systolic 127 mm[Hg] 90-120 February 02, 2022 1 2:09am BP Diastolic 92 mm[Hg] 60-80 February 02, 2022 1 2:09am BMI (Body Mass Index) 47.6 kg/m2 January 8:49pm Height 61 [in_i] February 14, 2022 3:44pm Weight 243.00 [lb_av] February 14 3:44pm Body Temperature 97.8 [degF] 97.6-99.6 February 14, 2 022 3:44pm Heart Rate 84 /min 60-100 February 14, 2022 3:44pm Respiratory rate 17 /min -February 14, 2 022 3:44pm Oxygen saturation by Pulse oximetry 96 % 95-100 February 14, 2022 3:44p m BP Systolic 123 mm[Hg] 90-120 February 14, 2022 3:44pm BP Diastolic 75 mm[Hg] 60-80 February 14, 2022 3:44pm BMI (Body Mass Index) 45.9 kg/m2 February 142021 3:44pm Height 61 [in_i] April 05, 2022 2:20pm Weight 243.00 [lb_av] April 05 2:20pm Body Temperature 97.4 [degF] 97.6-99.6 April 05, 2 022 2:20pm Heart Rate 78 /min 60-100 April 05, 2022 2:20pm Respiratory rate 20 /min 12-April 05, 2 022 2:20pm Oxygen saturation by Pulse oximetry 98 % 95-100 April 05, 2022 2:20p m BP Systolic 146 mm[Hg] 90-120 April 05, 2022 2:20pm BP Diastolic 88 mm[Hg] 60-80 April 05, 2022 2:20pm BMI (Body Mass Index) 45.9 kg/m2 April 052021 2:20pm Advance Directives Advance Directive Response Recorded Date/ Time Advance Directives No February 01, 2022 8:49pm Power of Assistant Professor Of Physics No February 01, 2022 8:49pm Living Will No February 01, 2022 8: 49pm Advance Directives No January 10 022 4:17pm Power of Assistant Professor Of Physics No January 10 4:17pm Living Will No January 10, 2022 4:17pm Insurance Providers Guarantor Kavitha Jarrell Address [address] [place] [id number] Contact Info. Home Phone: Payer Policy Id Coverage Id Subscriber's Name Subscriber Id Effective Date Expiration Date NITO HERMAN [id number] Stephania Jarrell [id number] [facility] [id number] Kavitha Jarrell [id number] MEDICARE A AND B [id number] Kavitha Jarrell [id number] [employer] MEDICARE O [id number] Kavitha Jarrell [id number] Encounters Encounter Location(s) Arrival/Admit Date Discharge/Depart Date Provider(s) Departed Physician/Prov ider Office Visit [facility] December 06, 2021 1:58pm December 06, 2021 2:55pm Araceli Sethi APRN Departed Physician/Prov ider Office Visit [facility] January 04, 2022 2:48pm January 04, 2022 3:20pm Araceli Sethi APRN Departed Physician/Prov ider Office Visit [facility] January 10, 2022 3:55pm January 10, 2022 5:26pm Nisa Hunter DO Departed Physician/Prov ider Office Visit [facility] February 01, 2022 3:20pm February 01, 2022 3:30pm Moises Pinzon MD Non-patient / Non-visit [facility] February 01, 2022 8:39pm Yaya Parham MD Departed Physician/Prov ider Office Visit [facility] February 14, 2022 3:29pm February 14, 2022 4:46pm Nisa Hunter DO Departed Clinical [facility] February 28, 2022 6:25pm March 01, 2022 6:00am Nisa Hunter DO Departed Physician/Prov ider Office Visit [facility] March 05, 2022 3:58pm March 05, 2022 11:59pm Araclei Sethi APRN Departed Physician/Prov ider Office Visit [facility] April 05, 2022 1:52pm April 05, 2022 2:33pm Moises Pinzon MD Recent Diagnosis Onset Date Low back pain Lumbar spondylosis Lumbar radiculopathy Lumbar spondylosis Bereavement Depression Anxiety Asthma Chronic pain syndrome Diabetes mellitus type 2 in obese Hyperlipidemia Hypertension Hypomagnesemia Obesity Obstructive sleep apnea Osteoarthritis Vitamin D deficiency Low back pain Lumbar spondylosis Spondylolisthesis Bereavement Depression Hospital discharge follow-up Diabetes mellitus type 2 in obese Hypertension Obesity Small bowel obstruction Lumbar spondylosis Spondylolisthesis Lumbar spondylosis Spondylolisthesis Assessments Diagnosis Onset Date Resolution Status Low back pain acute Lumbar spondylosis chronic Lumbar radiculopathy acute Lumbar spondylosis chronic Bereavement acute Depression acute Anxiety chronic Asthma chronic Chronic pain syndrome chroni c Diabetes mellitus type 2 in obese chronic Hyperlipidemia chronic Hypertension chronic Hypomagnesemia chronic Obesity chronic 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 Osteoarthritis chronic Vitamin D deficiency chronic Low back pain acute Lumbar spondylosis chronic Spondylolisthesis chronic Bereavement acute Depression acute Hospital discharge follow-up acute Diabetes mellitus type 2 in obese chronic Hypertension chronic Obesity chronic Small bowel obstruction reso lved Lumbar spondylosis chronic Spondylolisthesis chronic Lumbar spondylosis chronic Spondylolisthesis chronic Plan of Treatment Past injection history: RFA right-sided L3 and L4 medial branch and L5 dorsal ramus on April 04, 2021, right S1 transforaminal epidural steroid injection February 14, 2021 [facility] reviewed compliant, request [id number] ?? UDS -?? October 09, 2021 confirmation - positive for cup?? carboxyTHC at 30 ng/mg creatinine Opioid risk tool -October 09, 2021 scored as 1 placing patient at low risk category for opioid abuse PEG -October 09, 2021 scored average pain 7/10, enjoyment of life 8/10, generalized activity 9/10 ?? Studies/Imaging: ?? MRI cervical spine without contrast [facility] date of exam 07/22/2020 Impression: Negative study ?? MRI lumbar spine without contrast [facility] date of exam 07/22/2020 FINDINGS The lumbar vertebral bodies are normal in height and signal intensity. There is first-degree spondylolisthesis at L4-L5. Normal alignment is noted. The lumbar L1-L2, L3-L4 and L5-S1 discs are normal in height and signal intensity with no evidence of herniation of nucleous pulposus. There is mild degenerative changes at L2-L3 with mild desiccation of the disc. There is mild desiccation of the L4-5 disc with mild circumferential bulge with moderate to marked spinal stenosis with hypertrophy of the facet joint and ligamentum flavum. There is mild circumferential bulge at L5-S1 with mild spinal stenosis with hypertrophy of the facet joints. The conus medullaris is at T12 and unremarkable. The visualized neural foramina are unremarkable. IMPRESSION: ??There is mild degenerative changes at L2-L3 with mild desiccation of the disc. There is mild desiccation of the L4-5 disc with mild circumferential bulge with moderate to marked spinal stenosis with hypertrophy of the facet joint and ligamentum flavum. There is mild circumferential bulge at L5-S1 with mild spinal stenosis with hypertrophy of the facet joints. There is first-degree spondylolisthesis at L4-L5. Denies side effects to medications. RTC in 28 days. Patient educated on prescribed medications, universal precautions, [facility], & continue daily wellness therapies at home. Patient verbalized understanding. Past injection history: RFA right-sided L3 and L4 medial branch and L5 dorsal ramus on April 04, 2021, right S1 transforaminal epidural steroid injection February 14, 2021 [facility] reviewed compliant, request [id number] ?? UDS -?? October 09, 2021 confirmation - positive for cup?? carboxyTHC at 30 ng/mg creatinine Opioid risk tool -October 09, 2021 scored as 1 placing patient at low risk category for opioid abuse PEG -October 09, 2021 scored average pain 7/10, enjoyment of life 8/10, generalized activity 9/10 ?? Studies/Imaging: ?? MRI cervical spine without contrast [facility] date of exam 07/22/2020 Impression: Negative study ?? MRI lumbar spine without contrast [facility] date of exam 07/22/2020 FINDINGS The lumbar vertebral bodies are normal in height and signal intensity. There is first-degree spondylolisthesis at L4-L5. Normal alignment is noted. The lumbar L1-L2, L3-L4 and L5-S1 discs are normal in height and signal intensity with no evidence of herniation of nucleous pulposus. There is mild degenerative changes at L2-L3 with mild desiccation of the disc. There is mild desiccation of the L4-5 disc with mild circumferential bulge with moderate to marked spinal stenosis with hypertrophy of the facet joint and ligamentum flavum. There is mild circumferential bulge at L5-S1 with mild spinal stenosis with hypertrophy of the facet joints. The conus medullaris is at T12 and unremarkable. The visualized neural foramina are unremarkable. IMPRESSION: ??There is mild degenerative changes at L2-L3 with mild desiccation of the disc. There is mild desiccation of the L4-5 disc with mild circumferential bulge with moderate to marked spinal stenosis with hypertrophy of the facet joint and ligamentum flavum. There is mild circumferential bulge at L5-S1 with mild spinal stenosis with hypertrophy of the facet joints. There is first-degree spondylolisthesis at L4-L5. UDS today. Patient medications was sent twice due to computer errors. Pharmacy contacted to cancel one prescription for hydrocodone-ibuprofen 7.5mg/200mg daily #28 & Gabapentin 400mg po daily #28. RTC in 28 days. Ms. Jarrell?? is a pleasant 56-year-old female with a long history of axial back pain which has responded radiofrequency ablation of the lumbar facet in the past she currently rates her pain as a 3/10.?? patient complains of primarily axial back pain but does have occasional radicular symptoms Past injection history: RFA right-sided L3 and L4 medial branch and L5 dorsal ramus on April 04, 2021, right S1 transforaminal epidural steroid injection February 14, 2021 [facility] reviewed compliant, request [id number] ?? UDS -?? January 04, 2022 confirmation-positive hydrocodone in metabolites, gabapentin -consistent with therapy in [place] Opioid risk tool -October 09, 2021 scored as 1 placing patient at low risk category for opioid abuse PEG -October 09, 2021 scored average pain 7/10, enjoyment of life 8/10, generalized activity 9/10 ?? Studies/Imaging: ?? MRI cervical spine without contrast [facility] date of exam 07/22/2020 Impression: Negative study ?? MRI lumbar spine without contrast [facility] date of exam 07/22/2020 FINDINGS The lumbar vertebral bodies are normal in height and signal intensity. There is first-degree spondylolisthesis at L4-L5. Normal alignment is noted. The lumbar L1-L2, L3-L4 and L5-S1 discs are normal in height and signal intensity with no evidence of herniation of nucleous pulposus. There is mild degenerative changes at L2-L3 with mild desiccation of the disc. There is mild desiccation of the L4-5 disc with mild circumferential bulge with moderate to marked spinal stenosis with hypertrophy of the facet joint and ligamentum flavum. There is mild circumferential bulge at L5-S1 with mild spinal stenosis with hypertrophy of the facet joints. The conus medullaris is at T12 and unremarkable. The visualized neural foramina are unremarkable. IMPRESSION: ??There is mild degenerative changes at L2-L3 with mild desiccation of the disc. There is mild desiccation of the L4-5 disc with mild circumferential bulge with moderate to marked spinal stenosis with hypertrophy of the facet joint and ligamentum flavum. There is mild circumferential bulge at L5-S1 with mild spinal stenosis with hypertrophy of the facet joints. There is first-degree spondylolisthesis at L4-L5. Prescriptions E prescribed today: Vicoprofen 7.5/200 tab q.d. p.r.n., number 28 for 28 day supply Neurontin 400 mg p.o. q.h.s., Number 28 for 28 day supply Ms. Jarrell?? is a pleasant 55-year-old female with a long history of axial back pain which has responded radiofrequency ablation of the lumbar facet in the past she currently rates her pain as a 6/10.?? We are seeing the patient by virtual visit secondary to GI upset Past injection history: RFA right-sided L3 and L4 medial branch and L5 dorsal ramus on April 04, 2021, right S1 transforaminal epidural steroid injection February 14, 2021 [facility] reviewed compliant, request [id number] ?? UDS -?? October 09, 2021 confirmation - positive for cup?? carboxyTHC at 30 ng/mg creatinine Opioid risk tool -October 09, 2021 scored as 1 placing patient at low risk category for opioid abuse PEG -October 09, 2021 scored average pain 7/10, enjoyment of life 8/10, generalized activity 9/10 ?? Studies/Imaging: ?? MRI cervical spine without contrast [facility] date of exam 07/22/2020 Impression: Negative study ?? MRI lumbar spine without contrast [facility] date of exam 07/22/2020 FINDINGS The lumbar vertebral bodies are normal in height and signal intensity. There is first-degree spondylolisthesis at L4-L5. Normal alignment is noted. The lumbar L1-L2, L3-L4 and L5-S1 discs are normal in height and signal intensity with no evidence of herniation of nucleous pulposus. There is mild degenerative changes at L2-L3 with mild desiccation of the disc. There is mild desiccation of the L4-5 disc with mild circumferential bulge with moderate to marked spinal stenosis with hypertrophy of the facet joint and ligamentum flavum. There is mild circumferential bulge at L5-S1 with mild spinal stenosis with hypertrophy of the facet joints. The conus medullaris is at T12 and unremarkable. The visualized neural foramina are unremarkable. IMPRESSION: ??There is mild degenerative changes at L2-L3 with mild desiccation of the disc. There is mild desiccation of the L4-5 disc with mild circumferential bulge with moderate to marked spinal stenosis with hypertrophy of the facet joint and ligamentum flavum. There is mild circumferential bulge at L5-S1 with mild spinal stenosis with hypertrophy of the facet joints. There is first-degree spondylolisthesis at L4-L5. Prescriptions E prescribed today: Vicoprofen 7.5/200 tab q.d. p.r.n., number 28 for 28 day supply Neurontin 400 mg p.o. q.h.s., Number 28 for 28 day supply Past injection history: RFA right-sided L3 and L4 medial branch and L5 dorsal ramus on April 04, 2021, right S1 transforaminal epidural steroid injection February 14, 2021 [facility] reviewed compliant, request [id number] ?? UDS -?? October 09, 2021 confirmation - positive for cup?? carboxyTHC at 30 ng/mg creatinine Opioid risk tool -October 09, 2021 scored as 1 placing patient at low risk category for opioid abuse PEG -October 09, 2021 scored average pain 7/10, enjoyment of life 8/10, generalized activity 9/10 ?? Studies/Imaging: ?? MRI cervical spine without contrast [facility] date of exam 07/22/2020 Impression: Negative study ?? MRI lumbar spine without contrast [facility] date of exam 07/22/2020 FINDINGS The lumbar vertebral bodies are normal in height and signal intensity. There is first-degree spondylolisthesis at L4-L5. Normal alignment is noted. The lumbar L1-L2, L3-L4 and L5-S1 discs are normal in height and signal intensity with no evidence of herniation of nucleous pulposus. There is mild degenerative changes at L2-L3 with mild desiccation of the disc. There is mild desiccation of the L4-5 disc with mild circumferential bulge with moderate to marked spinal stenosis with hypertrophy of the facet joint and ligamentum flavum. There is mild circumferential bulge at L5-S1 with mild spinal stenosis with hypertrophy of the facet joints. The conus medullaris is at T12 and unremarkable. The visualized neural foramina are unremarkable. IMPRESSION: ??There is mild degenerative changes at L2-L3 with mild desiccation of the disc. There is mild desiccation of the L4-5 disc with mild circumferential bulge with moderate to marked spinal stenosis with hypertrophy of the facet joint and ligamentum flavum. There is mild circumferential bulge at L5-S1 with mild spinal stenosis with hypertrophy of the facet joints. There is first-degree spondylolisthesis at L4-L5. Patient did not receive any pain medications from surgeon. Patient informed of next clinic visit (in clinic) on April 03, 2022 at 2pm or prn. Patient verbalized understanding. Future Tests Future scheduled test information is unavailable Pending Tests Pending diagnostic test information is unavailable Future Visits Future appointment information is unavailable Referrals to Other Providers Reason for Referral Referral Start Date Provider Provider Contact Information Provider Address Nisa Elsa , DO Work Phone: [facility] [phone] [facility] [address] Z63.4 - Disappearance and of family member January 10, 2022 Grief Counseling Future Procedures Future procedure information is unavailable Future Medications Future medication information is unavailable Patient Instructions Small Bowel Obstruction (DC)
--- OUTSIDE RECORDS SUMMARY | 2024-07-22 10:37 | XMS_ITS | Continuity of Care Document ---
[facility] Organization [facility] Address [address] [place] [address] Support Name Relationship Address Phone DO Nisa Hunter Personal Relationship [facility] [place] [address] MD Moises Pinzon Personal Relationship [address] [place] [address] SAHARA Sethi Personal Relationship [address] [place] [address] DO Nisa Hunter Personal Relationship [address] [place] [address] FERNANDA [place] [address] DO Nisa Hunter Personal Relationship [address] [place] [address] Chief Complaint and Reason for Visit Chief Complaint Back pain Back pain Office visit Wellness/Preventative Back pain abdominal pains Reason for Visit Lumbar radiculopathy Lumbar disc disease Low back pain Lumbar spondylosis Lumbar radiculopathy Lumbar spondylosis Bereavement Depression Anxiety Asthma Chronic pain syndrome Diabetes mellitus type 2 in obese Hyperlipidemia Hypertension Hypomagnesemia Obesity Obstructive sleep apnea Osteoarthritis Vitamin D deficiency Low back pain Lumbar spondylosis Spondylolisthesis Allergies, Adverse Reactions, Alerts Allergen Type Severity Reaction Last Updated Verified Status latex Allergy Rash January 10, 2022 4:02pm Yes Active Social History Smoking Status Status Start Date End Date Date of Observa tion Unknown if ever smoked February 012021 8:49pm Observation Status Date of Observation Not February 01, 2022 Observation Status Observation Response Date of [...] obese Active Obstructive sleep apnea 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 Lumbar radiculopathy Active [...] neck pain Active Chronic pain syndrome Active Small bowel obstruction Active Lumbar disc disease Active Hypertension Active Vitamin D deficiency Active Lumbar spondylosis Active Obesity Active Asthma Active Hypomagnesemia Active Inactive/Resolved Problems Medical Problem Onset Date Status Candidiasis Resolved Dysuria Resolved Medications Medication Status Dose Units Route Directions Qty Days St art Date End Date Instructions Duloxetine Disconti nued 60 MG PO DAILY 30 December 24, 2019 1:45pm February 24, 2020 2:31pm Buspirone Disconti nued 15 MG PO TWICE A DAY 60 December 24, 2019 1:45pm February 24, 2020 2:31pm Potassium Chloride Disconti nued 10 MEQ PO DAILY 30 December 24, 2019 1:46pm February 24, 2020 2:31pm take with lasix Albuterol Sulfate (Proair Respiclick) 90 mcg/actuatio n aerosol powdr breath activated Disconti nued 2 INHALAT ION INH Q6H 1 December 30, 2019 2:18pm February 25, 2020 4:00pm Fluticasone Propion-Salm eterol (Advair Diskus) 250-50 mcg/dose blister with device Disconti nued 1 INHALAT ION INH TWICE A DAY 60 December 30, 2019 2:33pm 2020 12:40p m Celecoxib Disconti nued 100 MG PO TWICE A DAY 60 December 30, 2019 2:34pm 2019 3:48pm Ergocalcifer ol (Vitamin D2) (Vitamin D2) 1,250 mcg (50,000 unit) [place] [address] UNIT PO Every Week 4 December 30, 2019 2:34pm 2019 3:48pm Metformin Disconti nued 1000 MG [...] PO DAILY December 30, 2019 2:34pm Septem ra 2019 3:48pm Ferrous Sulfate Disconti [...] Disconti nued 1000 MCG IM every month December 30, 2019 2:56pm Septem 2019 3:48pm Buspirone Disconti nued 15 MG PO TWICE A DAY February 24, 2020 2:31pm Septem 2019 3:48pm Duloxetine Disconti nued 60 MG PO DAILY February 24, 2020 2:31pm Septem 2019 3:48pm Potassium Chloride Disconti nued 10 MEQ PO DAILY February 24, 2020 2:31pm Septem 2019 3:48pm take with lasix Albuterol Sulfate (Ventolin Hfa) 90 mcg/actuatio n HFA aerosol inhaler Disconti nued 2 PUFF INH Q6H 8.5 February 25, 2020 4:00pm Septem 2019 3:48pm Ferrous Sulfate Disconti nued 325 MG PO DAILY April 07, 2020 9:04am Septem 2019 3:48pm Empagliflozi n (Jardiance) 10 mg tablet Disconti nued 10 MG PO DAILY April 25, 2020 2:11pm Septem 2019 3:48pm Metformin Disconti nued 1000 MG PO TWICE A DAY 60 May 25, 2020 8:44am Septem ra 2019 3:48pm Empagliflozi n (Jardiance) 10 mg tablet Disconti nued 10 MG PO DAILY r 2019 10:00am Novemb er 2019 7:37pm Potassium Chloride Disconti nued 10 MEQ PO DAILY 2020 9:40am February 13, 2021 6:25pm Metformin Disconti nued 1000 MG PO TWICE A DAY 60 November 30, 2020 10:28am February 15, 2021 5:54pm Magnesium Oxide Disconti nued 400 MG PO DAILY November 30, 2020 5:04pm February 15, 2021 [...] Disconti nued 400 MG PO DAILY February 14, 2021 8:49am March 15, 2021 3:20pm Hydrocodone- Ibuprofen Disconti nued 1 TAB PO . daily February 14, 2021 8:49am March 15, 2021 [...] Oxide Disconti nued 400 MG PO DAILY be r 2020 9:49am Novemb er 2020 10:21a [...] 15 MG PO TWICE A DAY October 23, 2021 9:10am January 10, 2022 5:35pm Celecoxib Disconti nued 100 MG PO TWICE A DAY 60 October 30, 2021 9:33am January 10, 2022 5:37pm Ergocalcifer ol (Vitamin D2) Disconti nued 1250 MCG PO Every Week 4 2021 2:58pm January 10, 2022 5:37pm Potassium Chloride Disconti nued 10 MEQ PO DAILY y 2021 9:27am January 10, 2022 5:37pm Metformin Active 1000 MG PO TWICE A DAY 60 2021 8:47am Esomeprazole Magnesium (Nexium) 40 mg Capsule,Janey yed Release(Dr/E c) Disconti nued 40 MG PO DAILY February 13, 2021 6:19pm February 01, 2022 9:02pm Potassium Chloride Disconti nued 10 MEQ PO DAILY February 13, 2021 6:24pm May 22, 2021 11:35a m Lisinopril Disconti nued 2.5 MG PO DAILY February 13, 2021 6:24pm Oct r 2020 2:40pm Celecoxib (Celebrex) 100 mg capsule Disconti nued 100 MG PO TWICE A DAY April 03, 2021 11:58am Januar 2021 9:34am Duloxetine (Cymbalta) 60 mg capsule,janey [...] 2021 3:07pm February 01, 2022 9:03pm Tumeric-Ging -[place]-Oreg- Capryl Active 1 CAP PO DAILY July 21, 2021 3:07pm Gabapentin Disconti nued 400 MG PO DAILY Decemb r 2019 5:19pm Sepuar y 2020 4:16pm Hydrocodone- Ibuprofen Disconti nued 1 TAB PO . daily mb r 2019 5:20pm Galer y 2020 4:16pm Celecoxib Disconti nued 100 MG [...] Disconti nued 400 MG PO DAILY January 18, 2021 5:08pm February 14, 2021 8:50am Hydrocodone- Ibuprofen Disconti nued 1 TAB PO . daily January 18, 2021 5:09pm January 18, 2021 5:20pm Celecoxib Disconti nued 100 MG PO TWICE A DAY January 18, 2021 5:09pm April 03, 2021 11:58a m Hydrocodone- Ibuprofen Disconti nued 1 TAB PO . daily January 18, 2021 5:20pm February 14, 2021 8:50am Gabapentin Disconti nued 400 MG PO DAILY er 2020 4:26pm Novemb er 2020 4:09pm Hydrocodone- Ibuprofen Disconti nued 1 TAB PO DAILY Mayemb er 2020 4:26pm Novemb er 2020 4:09pm [...] 1 TAB PO DAILY January 04, 2022 3:pm February 01, 2022 3:28pm Gabapentin Disconti nued 400 MG PO DAILY January 04, 2022 3:22pm February 01, 2022 3:28pm Gabapentin Disconti nued 400 MG PO DAILY 2020 4:08pm [facility] 2020 3:30pm Hydrocodone- Ibuprofen Disconti nued 1 TAB PO DAILY r 2020 4:08pm Decemb er 2020 8:51am Gabapentin (Neurontin) 400 mg capsule Disconti nued 400 MG PO DAILY r 2020 5:36pm Decemb er 2020 3:29pm Gabapentin Disconti nued 400 MG PO DAILY October 09, 2021 2:59pm Februa ry 2021 5:13pm Hydrocodone- Ibuprofen Disconti nued 1 TAB PO DAILY October 09, 2021 2:59pm Februa ry 2021 5:13pm Gabapentin Active 400 MG PO DAILY February 01, 2022 3:27pm Hydrocodone- Ibuprofen Active 1 TAB PO DAILY February 01, 2022 3:27pm Ergocalcifer ol (Vitamin D2) (Vitamin D2) 50,000 [...] Active 100 MG PO TWICE A DAY 10 2020 11:36pm must administer with a meal/food Budesonide-F ormoterol (Symbicort) 160-4.5 mcg/actuatio n HFA aerosol inhaler Disconti nued 2 INHALAT ION INH TWICE A DAY 10.2 2018 4:14pm ua 2019 5:43pm Buspirone Disconti nued 15 MG PO TWICE A DAY 60 2018 4:14pm ua 2019 5:43pm Celecoxib Disconti nued 100 MG PO TWICE A DAY 60 2018 4:14pm ua 2019 5:43pm Duloxetine Disconti nued 60 MG PO DAILY 30 2018 4:14pm ua 2019 5:43pm Ergocalcifer ol (Vitamin D2) (Vitamin D2) 50,000 [place] [address] UNIT PO Every Week 4 2018 4:14pm Februa ry 2019 5:43pm Furosemide Disconti nued 40 MG PO DAILY 30 2018 4:15pm ua ry 2019 5:43pm Lisinopril Disconti nued 2.5 MG PO DAILY 30 2018 4:15pm ua ry 2019 5:43pm Metformin Disconti nued 1000 MG PO TWICE A DAY 60 2018 4:15pm ua ry 2019 5:43pm Montelukast Disconti nued 10 MG PO DAILY 30 2018 4:15pm Februa ry 2019 5:43pm Potassium Chloride Disconti nued 10 MEQ PO DAILY 30 2018 4:15pm Februa ry 2019 5:43pm take with lasix Simvastatin Disconti nued 40 MG PO DAILY 30 2018 4:15pm Septem ra 2018 4:44pm Rosuvastatin (Crestor) 40 mg tablet Disconti nued 40 MG PO DAILY [facility] 2018 4:44pm December 30, 2019 2:37pm Budesonide-F ormoterol (Symbicort) 160-4.5 mcg/actuatio n HFA aerosol inhaler Disconti nued 2 INHALAT ION INH TWICE A DAY 10.2 March 09, 2019 4:18pm Septem 2018 4:15pm Buspirone Disconti nued 15 MG PO TWICE A DAY 60 March 09, 2019 4:19pm Septem ra 2018 4:15pm Celecoxib Disconti nued 100 MG PO TWICE A DAY 60 March 09, 2019 4:19pm Septem 2018 4:15pm Duloxetine Disconti nued 60 MG PO DAILY 30 March 09, 2019 4:19pm Septem ra 2018 4:15pm Ergocalcifer ol (Vitamin D2) (Vitamin D2) 50,000 [place] [address]65 UNIT PO Every Week 4 March 09, 2019 4:19pm Septem 2018 4:15pm Furosemide Disconti nued 40 MG PO DAILY 30 March 09, 2019 4:20pm Septem ra 2018 4:15pm Gabapentin Disconti nued 400 MG PO DAILY March 09, 2019 4:20pm Septem ra 2019 10:33a m Hydrocodone- Acetaminophe n Disconti nued 1 TAB PO DAILY March 09, 2019 4:20pm Septem ra 2019 10:33a m Metformin Disconti nued 1000 MG PO TWICE A DAY 60 March 09, 2019 4:21pm Septem 2018 4:15pm Montelukast Disconti nued 10 MG PO DAILY 30 March 09, 2019 4:21pm Septem ra 2018 4:15pm Potassium Chloride Disconti nued 10 MEQ PO DAILY 30 March 09, 2019 4:21pm 2018 4:15pm take [...] nued 60 MG PO DAILY 30 2019 5:42pm December 24, 2019 1:46pm Ergocalcifer ol (Vitamin D2) (Vitamin D2) 1,250 mcg (50,000 unit) [place] [address]196 UNIT PO Every Week 4 2019 5:42pm December 30, 2019 2:37pm Furosemide Disconti nued 40 MG PO DAILY 30 2019 5:42pm 2019 3:48pm Lisinopril Disconti nued 2.5 MG PO DAILY 30 2019 5:42pm December 30, 2019 2:07pm Metformin Disconti nued 1000 MG PO TWICE A DAY 60 2019 5:42pm December 30, 2019 2:37pm Potassium Chloride Disconti nued 10 MEQ PO DAILY 30 2019 5:42pm December 24, 2019 1:46pm take with lasix Montelukast Disconti nued 10 MG PO DAILY 30 2019 5:42pm December 30, 2019 2:37pm Albuterol Sulfate (Ventolin Hfa) 90 mcg/actuatio n HFA aerosol inhaler Disconti nued 2 PUFF INH Q6H 8.5 2019 3:42pm b er 2019 7:37pm Buspirone Disconti nued 15 MG PO TWICE A DAY 60 2019 3:43pm b er 2019 7:37pm Celecoxib Disconti nued 100 MG PO TWICE A DAY 60 2019 3:43pm b er 2019 7:37pm Cyanocobalam in (Vitamin B-12) Disconti nued 1000 MCG IM every month 1 2019 3:44pm b er 2019 7:37pm Duloxetine Disconti nued 60 MG PO DAILY 30 2019 3:44pm b er 2019 7:37pm Empagliflozi n (Jardiance) 10 mg tablet Disconti nued 10 MG PO DAILY 30 2019 3:44pm b er 2019 10:01a m Ergocalcifer ol (Vitamin D2) (Vitamin D2) 1,250 mcg (50,000 unit) [place] 53201 UNIT PO Every Week 4 2019 3:47pm b er 2019 7:37pm Ferrous Sulfate Disconti nued 325 MG PO DAILY 30 2019 3:47pm b er 2019 7:37pm Furosemide Disconti nued 40 MG PO DAILY 30 2019 3:47pm b er 2019 7:37pm Magnesium Oxide Disconti nued 400 MG PO DAILY 30 2019 3:48pm b er 2019 7:37pm Metformin Disconti nued 1000 MG PO TWICE A DAY 60 2019 3:48pm b er 2019 7:37pm Montelukast Disconti nued 10 MG PO DAILY 30 2019 3:48pm b er 2019 7:37pm Potassium Chloride Disconti nued 10 MEQ PO DAILY 30 2019 3:48pm b er 2019 7:37pm take with lasix Rosuvastatin (Crestor) 40 mg tablet Disconti nued 40 MG PO DAILY 30 [facility] Fluconazole (Diflucan) 150 mg tablet Disconti nued 150 MG PO DAILY 2 2 2019 3:48pm Septem ra 2019 12:10a m Gabapentin Disconti nued 400 MG PO DAILY July 30, 2020 11:29am [facility] er 2019 7:37pm Hydrocodone- Ibuprofen Disconti nued 1 TAB PO . daily July 30, 2020 11:29am [facility] er 2019 7:37pm Albuterol Sulfate (Ventolin Hfa) [...] 60 MG PO DAILY 30 2019 7:35pm Sepua2020 12:40p m Empagliflozi n (Jardiance) 10 mg tablet Disconti nued 10 MG PO DAILY 30 2019 7:35pm [facility] er 2019 7:59pm Ergocalcifer ol (Vitamin D2) (Vitamin D2) 1,250 mcg (50,000 unit) capsule [place] 36856 UNIT PO Every Week 4 r 2019 7:35pm Sepua2020 12:40p m Ferrous Sulfate Disconti nued 325 MG PO DAILY 30 2019 7:35pm 2020 12:40p m Furosemide Disconti nued 40 MG PO DAILY 2019 7:35pm 2020 12:40p m Gabapentin Disconti nued 400 MG PO DAILY 2019 7:36pm Decemb er 2019 5:23pm Metformin Disconti nued 1000 MG PO TWICE A DAY 2019 7:36pm 2020 12:40p m Magnesium Oxide [...] nued 2.5 MG PO DAILY 2019 7:41pm 2020 12:40p m Buspirone Disconti nued 15 MG PO TWICE A DAY October 24, 2020 12:39pm January 25, 2021 9:54am Celecoxib Disconti nued 100 MG PO TWICE A DAY October 24, 2020 12:39pm 2020 4:17pm Cyanocobalam in (Vitamin B-12) Disconti [...] 1,250 mcg (50,000 unit) [place] 63317 UNIT PO Every Week October 24, 2020 [...] PO DAILY October 24, 2020 12:40pm Februa 2020 9:41am take with lasix Rosuvastatin (Crestor) [...] 1,250 mcg (50,000 unit) [place] 17857 UNIT PO Every Week 4 February 15, 2021 5:53pm Novemb er 2020 [...] 1000 MG PO TWICE A DAY 60 February 15, 2021 5:53pm May 22, 2021 8:20am Montelukast Disconti nued 10 MG PO DAILY February 15, 2021 5:54pm Octobe r 2020 11:16a m Rosuvastatin (Crestor) 40 mg tablet Disconti nued 40 MG PO DAILY February 15, 2021 5:54pm [facility] er 2020 11:42a m Empagliflozi n Disconti nued 25 MG PO DAILY February 15, 2021 5:54pm April 03, 2021 11:58a m Albuterol Sulfate (Ventolin Hfa) 90 mcg/actuatio n HFA aerosol inhaler Disconti nued 2 PUFF INH Q6H 8.5 Novembe r 2020 10:35am January 10, 2022 5:37pm Buspirone Disconti nued 15 MG PO TWICE A DAY 60 Novembe r 2020 10:36am Januar y 2021 9:10am Cyanocobalam in (Vitamin B-12) Disconti nued 1000 MCG IM every month 1 Novembe r 2020 10:36am January 10, 2022 5:37pm Duloxetine Disconti nued 60 MG PO DAILY 30 [facility] 2020 10:36am January 10, 2022 5:38pm Ergocalcifer ol (Vitamin D2) (Vitamin D2) 1,250 mcg (50,000 unit) [place] 40939 UNIT PO Every Week 4 [facility] 2020 10:36am Februa 2021 2:58pm Ferrous Sulfate Active 325 MG PO DAILY 30 [facility] 2020 10:36am Furosemide Disconti nued 40 MG PO DAILY 30 [facility] 2020 10:36am January 10, 2022 5:37pm Metformin Disconti nued 1000 MG PO TWICE A DAY 60 [facility] 2020 10:36am January 10, 2022 5:37pm Montelukast Disconti nued 10 MG PO DAILY 30 [facility] 2020 10:36am January 10, 2022 5:37pm Potassium Chloride Disconti nued 10 MEQ PO DAILY 30 [facility] 2020 10:36am Februa 2021 9:27am Dextromethor jaramillo-Guaifen esin Disconti nued 10 ML PO EVERY 4-8 HOURS 180 [facility] 2020 10:37am February 01, 2022 9:03pm Ondansetron Hcl (Zofran) 4 mg tablet Active 4 MG PO Q8H 30 [facility] 2020 10:37am Gabapentin Disconti nued 400 MG PO DAILY 30 [facility] 2019 10:32am Octobe r 2019 11:30a m Hydrocodone- Ibuprofen Disconti nued 1 TAB PO . daily 30 [facility] 2019 10:32am Octobe r 2019 11:30a m Blood-Glucos e Meter Disconti nued 0 .ROUTE .MEDSUPPLY 1 [facility] 2019 10:34am April 03, 2021 11:57a m Glucometer Diabetic Supplies, Miscellan. Disconti nued 0 .ROUTE .MEDSUPPLY 1 [facility] 2019 10:34am Novemb er 2019 7:37pm Test Strips and Lancets for daily BG testing Empagliflozi n Disconti nued 25 MG PO DAILY Decemb r 2019 7:58pm Januar y 2020 12:40p m Amoxicillin- Pot Clavulanate (Augmentin) 875-125 mg tablet Disconti nued 1 TAB PO Q12H 19 07May 09, 2021 2:25pm May 19, 2021 12:22a m Methylpredni solone (Medrol (Lb)) 4 mg tablets,dose pack Disconti nued 0 PO Per package directions May 09, 2021 2:28pm Octobe r 2020 2:40pm PO PER PKG DIR Fluconazole (Diflucan) 150 mg tablet Disconti nued 150 MG PO Q3D May 09, 2021 2:29pm Octobe r 2020 2:40pm may repeat second dose 72 hrs after first dose if symptoms persist Duloxetine Active 30 MG PO DAILY January 10, 2022 5:34pm Take with 60mg to make 90mg total Losartan Active 25 MG PO DAILY 30 January 10, 2022 5:34pm Buspirone Active 30 [...] 5:36pm Empagliflozi n (Jardiance) 10 mg tablet Active 10 MG PO DAILY January 10, 2022 5:36pm Ergocalcifer ol (Vitamin D2) Active 1250 MCG [...] MG PO DAILY January 10, 2022 5:38pm Procedures Procedure Date Performed Status CT abdomen pelvis w con February 01, 2022 8:42pm com pleted Blood Culture February 01, 2022 active Relevant Diagnostic Tests and/or Laboratory Data Laboratory Results Test Date/Time Result Interpretation Reference Range Result Comment Performing Site White Blood Count February 01, 2022 9:08pm 16.62 x10^3/uL 3.98-10.04 [facility] [address] [address] Red Blood Count February 01, 2022 9:08pm 5.90 x10^6/uL 3.93-5.22 [facility] [address] [address] Hemoglobin February 01, 2022 9:08pm 16.5 g/dL 11.8-15.3 [facility] [address] [address] Hematocrit February 01, 2022 9:08pm 50.2 % 36.9-46.9 [facility] [address] [address] Mean Corpuscular Volume February 01, 2022 9:08pm 85.1 fL 79.4-94.8 [facility] [address] [address] Mean Corpuscular Hemoglobin February 01, 2022 9:08pm 28.0 pg 25.6-32.2 [facility] [address] [address] Mean Corpuscular Hemoglobin Concent February 01, 2022 9:08pm 32.9 g/dL 32.2-35.5 [facility] [address] [address] RDW Standard Deviation February 01, 2022 9:08pm 40.6 fL 36.4-46.3 [facility] [address] [address] RDW Coefficient of Variation February 01, 2022 9:08pm 13.1 % 11.7-14.4 [facility] [address] [address] Platelet Count February 01, 2022 9:08pm 329 x10^3/uL 182-369 [place] [address] Mean Platelet Volume February 01, 2022 9:08pm 10.1 fL 9.4-12.3 [place] [address] Neutrophils (%) (Auto) February 01, 2022 9:08pm 88.5 % 34.0-71.1 [place] [address] Lymphocytes (%) (Auto) February 01, 2022 9:08pm 8.1 % 19.3-51.7 [place] [address] Monocytes (%) (Auto) February 01, 2022 9:08pm 2.7 % 4.7-12.5 [place] [address] Eosinophils (%) (Auto) February 01, 2022 9:08pm 0.1 % 0.7-5.8 [place] [address] Basophils (%) (Auto) February 01, 2022 9:08pm 0.2 % 0.1-1.2 [place] [address] Nucleated Red Blood Cells % (auto) February 01, 2022 9:08pm 0.0 /100 WBC 0-0.2 [place] [address] Immature/Total Granulocytes (auto) February 01, 2022 9:08pm 0.400 % 0-0.429 [place] [address] Neutrophils # (Auto) February 01, 2022 9:08pm 14.70 x10^3/uL 1.56-6.13 [place] [address] Lymphocytes # (Auto) February 01, 2022 9:08pm 1.35 x10^3/uL 1.18-3.74 [place] [address] Monocytes # (Auto) February 01, 2022 9:08pm 0.45 x10^3/uL 0.24-0.86 [place] [address] Eosinophils # (Auto) February 01, 2022 9:08pm 0.01 x10^3/uL 0.04-0.36 [facility] [address] [place] [address] Basophils # (Auto) February 01, 2022 9:08pm 0.04 x10^3/uL 0.01-0.08 [place] [address] [place] [address] Nucleated Red Blood Cells # February 01, 2022 9:08pm 0.000 x10^3/uL 0-0.012 [place] [address] [place] [address] Absolute Immature Granulocyte (auto February 01, 2022 9:08pm 0.0700 X10^3/uL 0-0.0310 [place] [address] Sodium Level February 01, 2022 9:08pm 138 mmol/L 136-145 [facility] [address] [place] [address] Potassium Level February 01, 2022 9:08pm 4.3 mmol/L 3.5-5.1 [facility] [address] [place] [address] Chloride Level February 01, 2022 9:08pm 98 mmol/L 98-107 [facility] [address] [place] [address] Carbon Dioxide Level February 01, 2022 9:08pm 23.9 mmol/L 21.0-32 [facility] [address] [place] [address] Anion Gap February 01, 2022 9:08pm 16.1 mmol/L 5.0-15.0 [facility] [address] [place] [address] Blood Urea Nitrogen February 01, 2022 9:08pm 17 mg/dL 7.0-18.0 [place] [address] Creatinine February 01, 2022 9:08pm 0.87 mg/dL 0.55-1.02 [facility] [address] [place] [address] Estimat Glomerular Filtration Rate February 01, 2022 9:08pm > 60.0 eGFR Interpretation: Disease State Ref Ranges (Calculated)Unit s: ml/min/1.73 m2 Stage eGFR Description I/II >60 Normal/Mildly reduced kidney function III 30-59 Moderately reduced kidney function IV 15-29 Severely reduced kidney function V <15 End-stage kidney failureCalculate d using MDRD formula based on gender,race(*GFR AA is for the population),and age. GFR estimates are unreliable in patients with rapidly changing kidney function,recent dialysis,extreme s in body size,severe malnutrition or obesity,loss of limbs, abnormal muscle mass,or during . In these patients,alterna tive determinations of GFR should be obtained. [facility] [address] [facility] [address] Estimated GFR () February 01, 2022 9:08pm > 60.0 [facility] [address] [facility] [address] BUN/Creatinine Ratio February 01, 2022 9:08pm 19.5 Ratio 6.0-20.0 [facility] [address] [facility] [address] Glucose Level February 01, 2022 9:08pm 249 mg/dL 70-99 Falsely depressed or elevated results may occur on samples drawn from patients taking Sulfasalazine and Sulfapyridine, if the blood sample is drawn before clearance of the drug. [facility] [address] [facility] [address] Calcium Level February 01, 2022 9:08pm 11.1 mg/dL 8.5-10.1 [facility] [address] [facility] [address] Total Bilirubin February 01, 2022 9:08pm 0.61 mg/dL 0.20-1.00 Use of this assay is not recommended for patients undergoing treatment with eltrombopag due to the potential for falsely elevated results [facility] [address] [facility] [address] Aspartate Amino Transf (AST/SGOT) February 01, 2022 9:08pm 31 U/L 15-37 Falsely depressed or elevated results may occur on samples drawn from patients taking Sulfasalazine and Sulfapyridine, if the blood sample is drawn before clearance of the drug. [facility] [address] [facility] [address] Alanine Aminotransfera se February 01, 2022 9:08pm 42 U/L 14-59 Falsely depressed or elevated results may occur on samples drawn from patients taking Sulfasalazine and Sulfapyridine, if the blood sample is drawn before clearance of the drug. [facility] [address] [facility] [address] Troponin I February 01, 2022 11:00pm 7.0 pg/mL 4.0-51.3 PLEASE NOTE: Method Change and New Reference RangesThis Troponin is a High Sensitive method. The units have changed from ng/mL to pg/mL. Critical threshold is at the 99th percentile based on gender. Consideration should be given to any significant changes from the initial Troponin result to the 2nd and 3rd samples collected in a series.Excess Biotin intake can cause falsely depressed results [place] [address] Total Protein February 01, 2022 9:08pm 8.3 g/dL 6.4-8.2 [place] [address] Albumin February 01, 2022 9:08pm 4.7 g/dL 3.4-5.0 [place] [address] Albumin/Globul in Ratio February 01, 2022 9:08pm 1.3 Ratio 1.0-2.0 [place] [address] Alkaline Phosphatase February 01, 2022 9:08pm 102 U/L 46-116 [place] [address] Lipase February 01, 2022 9:08pm 123 U/L 73-393 [place] [address] Influenza Virus Type A (PCR) February 01, 2022 9:58pm Negative Negative [place] [address] Influenza Virus Type B (PCR) February 01, 2022 9:58pm Negative Negative [place] [address] Respiratory Syncytial Virus (PCR) February 01, 2022 9:58pm Negative Negative [place] [address] Coronavirus (COVID-19)(PCR ) February 01, 2022 9:58pm Negative DNAPCR Negative [place] [address] Diagnostic Imaging Reports Report Dictated Date/Time Dictated By Status Radiology Report February 01, 2022 9:34pm [place] [address] CT Scan Report Signed [facility]#: [id number] Patient: Kavitha Jarrell MR#: [id number] : 1965 Acct:[id number] Age/Sex: 56 / F ADM Date: 2 Loc: EH.ED Attending Provider: Ordering Provider: Sid Freeman NP Date of Service: 02/01/22 Procedure(s): CT abdomen pelvis w con Accession Number(s): [id number] cc: Sid Freeman NP~ CLINICAL HISTORY: Abdominal pain with nausea. COMPARISON: None available. TECHNIQUE: Axial CT of the abdomen and pelvis with contrast. Sagittal and coronal reconstruction obtained. One or more techniques were utilized to decrease dose to the patient per CT protocol. These include: Automated exposure control, adjustment of the MA and/or KV according to patient size, or use of iterative reconstruction technique. CONTRAST: Omnipaque 300 FINDINGS: ABDOMEN: LUNG BASES: Moderate size hiatal hernia present. Trace subsegment atelectasis present. LIVER: Unremarkable. Homogeneous without acute process. GALLBLADDER: Gallbladder surgically absent. BILIARY TRACT: No pathologic intrahepatic or extrahepatic bile duct dilatation present. PANCREAS: Unremarkable. SPLEEN: Unremarkable, normal size. KIDNEYS: Renal size is normal. There is no hydronephrosis or renal stone identified. Mass lesion is not present. ADRENAL GLANDS: Unremarkable. APPENDIX REGION: There is no CT evidence of appendicitis. INTRAPERITONEAL AND BOWEL: Small bowel dilatation is present extending to the level of a hernia inferior pannus below the umbilicus with is inflammation and edema of the bowel present. Bowel extending from this hernia is decompressed. An obstructing process at the hernia is suspected with small bowel obstruction. Free air or free fluid is not present. There is a second umbilicus hernia containing fat above the partially incarcerated small bowel hernia. Colon is decompressed. There is mild diverticulosis present. There is mild constipation present. PELVIS: URINARY BLADDER: Unremarkable. REPRODUCTIVE: Uterus is surgically absent. Adnexal mass is not present. ABDOMEN AND PELVIS: VASCULATURE: Aorta is normal size. Minimal to no significant atherosclerotic changes of the aorta are present. No significant calcifications present. Portal venous system is unremarkable. IVC is unremarkable. LYMPH NODES: There is no pathologic lymphadenopathy identified within the retroperitoneum, abdomen or pelvis. OSSEOUS STRUCTURES: No acute osseous abnormality present. Chronic degenerative changes present. SOFT TISSUES: Soft tissues are unremarkable. IMPRESSION: 1. There is a small bowel obstruction secondary to a midline lower hernia below the umbilicus containing inflamed mildly incarcerated loop of small bowel. Free air or free fluid is not present. 2. Hiatal hernia, sliding-type present. 3. Diverticulosis without diverticulitis. Report electronically signed by: Henrique Pham MD (Co-signed by Yaya Parham MD) on February 01, 09:34 PM EDT Dictated By: Yaya Parham MD 02/01/222133 Transcribed By: Yyaa Parham MD 02/01/222133 Signed By: <Electronically signed by Yaya Parham MD in OV> 02/01/222133 Vital Signs Vital Reading Result Reference Range Collection Date/Time Height 61 [in_i] November 06, 2 022 4:10pm Weight 275.00 [lb_av] November 06, 2021 4:10pm Body Temperature 97.2 [degF] 97.6-99.6 October 4:10pm Heart Rate 72 /min 60-100 November 06, 2 022 4:10pm Respiratory rate 18 /min -October 4:10pm Oxygen saturation by Pulse oximetry 98 % 95-100 November 06, 2021 4 :10pm BP Systolic 157 mm[Hg] 90-120 November 06, 2 022 4:10pm BP Diastolic 92 mm[Hg] 60-80 November 06, 2 022 4:10pm BMI (Body Mass Index) 52.0 kg/m2 2021 4:10pm Height 61 [in_i] December 06, 2021 2:49pm [...] January 10 4:01pm Weight 249.37 [lb_av] January 10 4:01pm Body Temperature 98.6 [degF] 97.6-99.6 January [...] (Body Mass Index) 47.6 kg/m2 January 8:49pm Advance Directives Advance Directive Response Recorded Date/ Time Advance Directives No February 01, 2022 8:49pm Power of Skiver Machine Operator No February 01, 2022 8:49pm Living Will No February 01, 2022 8: 49pm Advance Directives No January 10 4:17pm Power of Skiver Machine Operator No January 10 4:17pm Living Will No January 10, 2022 4:17pm Insurance Providers Guarantor Kavitha Jarrell Address [address] [place], [place] [address] Contact Info. Home Phone: Payer Policy Id Coverage Id Subscriber's Name Subscriber Id Effective Date Expiration Date NITO HERMAN [id number] Stephania Jarrell [id number] MARY HERMAN [id number] Kavitha Jarrell [id number] MEDICARE A AND B [id number] Kavitha Jarrell [id number] SELF [employer] MEDICARE HMO [id number] Kavitha Jarrell [id number] Encounters Encounter Location(s) Arrival/Admit Date Discharge/Depart Date Provider(s) Departed Physician/Prov ider Office Visit [facility] November 06, 2021 3:53pm November 06, 2021 5:08pm Moises Pinzon MD Departed Physician/Prov ider Office Visit [facility] December 06, 2021 1:58pm December 06, 2021 2:55pm Araceli Sethi APRN Departed Physician/Prov ider Office Visit [facility] January 04, 2022 2:48pm January 04, 2022 3:20pm Araceli Sethi APRN Departed Physician/Prov ider Office Visit [facility] January 10, 2022 3:55pm January 10, 2022 5:26pm Nisa Hunter DO Departed Physician/Prov ider Office Visit [facility] February 01, 2022 3:20pm February 01, 2022 3:30pm Moises Pinzon MD Departed Emergency [facility] Emergency Department February 01, 2022 8:39pm February 02, 2022 12:05am null Recent Diagnosis Onset Date Lumbar radiculopathy Lumbar disc disease Low back pain Lumbar spondylosis Lumbar radiculopathy Lumbar spondylosis Bereavement Depression Anxiety Asthma Chronic pain syndrome Diabetes mellitus type 2 in obese Hyperlipidemia Hypertension Hypomagnesemia Obesity Obstructive sleep apnea Osteoarthritis Vitamin D deficiency Low back pain Lumbar spondylosis Spondylolisthesis Assessments Diagnosis Onset Date Resolution Status Lumbar radiculopathy acute Lumbar disc disease chronic Low back pain acute Lumbar spondylosis chronic Lumbar radiculopathy acute Lumbar spondylosis chronic Bereavement acute Depression acute Anxiety chronic Asthma chronic Chronic pain syndrome chroni c Diabetes mellitus type 2 in obese chronic Hyperlipidemia chronic Hypertension chronic Hypomagnesemia chronic Obesity chronic 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 Jarrell is a pleasant 55-year-old female with a long history of axial back pain which has responded to reside in knees in the past she currently rates her pain as a 4/10 and is convalescing from a recent COVID 19 infection. We are seeing the patient by virtual visit today secondary to her and her currently not a quarantine Past injection history: RFA right-sided L3 and L4 medial branch and L5 dorsal ramus on April 04, 2021, right S1 transforaminal epidural steroid injection February 14, 2021 Jarek reviewed compliant, request [id number] UDS - October 09, 2021 confirmation - positive for cup carboxyTHC at 30 ng/mg creatinine Opioid risk tool -October 09, 2021 scored as 1 placing patient at low risk category for opioid abuse PEG -October 09, 2021 scored average pain 7/10, enjoyment of life 8/10, generalized activity 9/10 Studies/Imaging: MRI cervical spine without contrast [facility] date of exam 07/22/2020 Impression: Negative study MRI lumbar spine without contrast [facility] date of exam 07/22/2020 FINDINGS The lumbar [...] The visualized neural foramina are unremarkable. IMPRESSION: There is mild degenerative changes at L2-L3 with mild desiccation of the disc. There is mild desiccation of the L4-5 disc with mild circumferential bulge with moderate to marked spinal stenosis with hypertrophy of the facet joint and ligamentum flavum. There is mild circumferential bulge at L5-S1 with mild spinal stenosis with hypertrophy of the facet joints. There is first-degree spondylolisthesis at L4-L5. We discussed with patient benefits/risks of left side RF ablation of L3 & L4 medial branches. since her last visit the the pain on the left side is now becoming daily and problematic and were going to proceed with the radiofrequency ablation on the left side. Patient just recently lost her after emergency surgery. I did address the THC and patient said that she had taken some [id number] CBD oral products. Advised patient to discontinue this is shows up his THC in her urine Prescriptions E prescribed today: Vicoprofen 7.5/200 tab q.d. p.r.n., number 28 for 28 day supply Neurontin 400 mg p.o. q.h.s., Number 28 for 28 day supply Past injection history: RFA right-sided L3 and L4 medial branch and L5 dorsal ramus on April 04, 2021, right S1 transforaminal epidural steroid injection February 14, 2021 Jarek reviewed compliant, request [id number] ?? UDS -?? October 09, 2021 confirmation - positive for cup?? carboxyTHC at 30 ng/mg creatinine Opioid risk tool -October 09, 2021 scored as 1 placing patient at low risk category for opioid abuse PEG -October 09, 2021 scored average pain 7/10, enjoyment of life 8/10, generalized activity 9/10 ?? Studies/Imaging: ?? MRI cervical spine without contrast [facility] date of exam 07/22/2020 Impression: Negative study ?? MRI lumbar spine without contrast [facility] date of exam 07/22/2020 FINDINGS The lumbar [...] transforaminal epidural steroid injection February 14, 2021 [facility] reviewed compliant, request [id number] ?? UDS -?? October 09, 2021 confirmation - positive for cup?? carboxyTHC at 30 ng/mg creatinine Opioid risk tool -October 09, 2021 scored as 1 placing patient at low risk category for opioid abuse PEG -October 09, 2021 scored average pain 7/10, enjoyment of life 8/10, generalized activity 9/10 ?? Studies/Imaging: ?? MRI cervical spine without contrast [facility] date of exam 07/22/2020 Impression: Negative study ?? MRI lumbar spine without contrast [facility] date of exam 07/22/2020 FINDINGS The lumbar [...] 28 days. Ms. Jarrell?? is a pleasant 55-year-old female [...] February 14, 2021 Jarek reviewed compliant, request [id number] ?? UDS -?? October 09, 2021 confirmation - positive for cup?? carboxyTHC at 30 ng/mg creatinine Opioid risk tool -October 09, 2021 scored as 1 placing patient at low risk category for opioid abuse PEG -October 09, 2021 scored average pain 7/10, enjoyment of life 8/10, generalized activity 9/10 ?? Studies/Imaging: ?? MRI cervical spine without contrast [facility] date of exam 07/22/2020 Impression: Negative study ?? MRI lumbar spine without contrast [facility] date of exam 07/22/2020 FINDINGS The lumbar [...] q.h.s., Number 28 for 28 day supply Future Tests Future scheduled test information is unavailable Pending Tests Pending diagnostic test information is unavailable Future Visits Future appointment information is unavailable Referrals to Other Providers Reason for Referral Referral Start Date Provider Provider Contact Information Provider Address Nisa Hunter , DO Work Phone: [facility] [id number] [address] Z63.4 - Disappearance and of family member January 10, 2022 Grief Counseling Future Procedures Future procedure information is unavailable Future Medications Future medication information is unavailable Patient Instructions Small Bowel Obstruction (DC)
--- OUTSIDE RECORDS SUMMARY | 2024-07-22 10:37 | XMS_ITS | Continuity of Care Document ---
[facility] Address [address] [place] [address] Support Name Relationship Address Phone DO Nisa Hunter Personal Relationship [facility] [place] [address] MD Moises Pinzon Personal Relationship [address] [place] [address] [place]NA[place] [address] MD Yaya Parham Personal Relationship [address] [place] [address] Unavailable DO Nisa Hunter Personal Relationship [address] [facility] [address] [place] [address] SAHARA Sethi Personal Relationship [address] [place] [address] Chief Complaint and Reason for Visit Chief Complaint Back pain abdominal pains 1 MONTH FOLLOW UP G47.33 - Obstructive sleep apnea (adult) (pediatri Back pain Sleep apnea COVID Reason for Visit Low back pain Lumbar spondylosis Spondylolisthesis Bereavement Depression Hospital discharge follow-up Diabetes mellitus type 2 in obese Hypertension Obesity Small bowel obstruction Lumbar spondylosis Spondylolisthesis Lumbar spondylosis Spondylolisthesis Lumbar spondylosis Allergies, Adverse Reactions, Alerts Allergen Type Severity Reaction Last Updated Verified Status latex Allergy Rash April 05, 2022 2:21pm Yes Ac tive Social History Smoking Status Status Start Date End Date Date of Observa tion Unknown if ever smoked Augus 2021 2:13pm Observation Status Date of Observation Not May 14, 2022 Observation Status Observation Response Date of Response substance use type does not use May 14, 2022 2:13pm alcohol intake never May 14 2:13pm Additional Data Assigned Sex Female Family History Relationship Condition Age at Onset Recorded Date/T francesco Not Specified Diabetes mellitus Unknown Hypertension Unknown Malignant neoplasm of colon Unknown Not Specified Diabetes mellitus Unknown Hypertension Unknown Malignant melanoma Unknown Problems Active Problems Medical Problem Onset Date Status Diabetes mellitus type 2 in obese Active Obstructive sleep apnea Active Other usp (current) drug therapy Active Lumbar radiculopathy Active [...] ION INH Q6H 1 December 30, 2019 12:00am February 25, 2020 4:00pm Fluticasone Propion-Salm eterol (Advair Diskus) 250-50 mcg/dose blister with device Disconti nued 1 INHALAT ION INH TWICE A DAY 60 December 30, 2019 12:00am Januar y 2020 12:40p m Celecoxib Disconti nued 100 MG PO TWICE A DAY 60 December 30, 2019 2:34pm 2019 3:48pm Ergocalcifer ol (Vitamin D2) (Vitamin D2) 1,250 mcg (50,000 unit) [place] [address] UNIT PO Every Week 4 December 30, [...] 400 MG PO DAILY December 30, 2019 12:00am Septem 2019 3:48pm Ferrous Sulfate Disconti nued 325 MG PO DAILY December 30, 2019 12:00am April 07, 2020 9:05am Ascorbic Acid (Vitamin C) Disconti nued 500 MG PO DAILY December 30, 2019 12:00am Septem 2019 3:43pm Take with iron Empagliflozi n (Jardiance) 10 mg tablet Disconti nued 10 MG PO DAILY December 30, 2019 12:00am April 25, 2020 2:12pm Cyanocobalam in (Vitamin B-12) Disconti nued 1000 MCG IM every month December 30, 2019 12:00am Septem 2019 3:48pm Buspirone Disconti nued 15 [...] PUFF INH Q6H 8.5 February 25, 2020 12:00am Septem ra 2019 3:48pm Ferrous Sulfate Disconti nued 325 MG PO DAILY April 07, 2020 9:04am Septem 2019 3:48pm Empagliflozi n (Jardiance) 10 mg tablet Disconti nued 10 MG PO DAILY April 25, 2020 2:11pm Septem 2019 3:48pm Metformin Disconti nued 1000 MG PO TWICE A DAY 60 May 25, 2020 8:44am Septem 2019 3:48pm Empagliflozi n (Jardiance) 10 [...] TAB PO . daily February 14, 2021 March 15, 2021 3:20pm Buspirone Disconti nued [...] Novemb er 2020 10:51a m Magnesium Oxide Disconti nued 400 MG PO DAILY r 2020 10:21am April 25, 2022 2:48pm Empagliflozi n (Jardiance) 10 mg tablet Disconti nued 10 MG PO DAILY r 2020 10:51am January 10, 2022 5:37pm Rosuvastatin (Crestor) 40 mg tablet Disconti nued 40 MG PO DAILY r 2020 11:41am January 10, 2022 5:37pm Hydrocodone- Ibuprofen Disconti nued 1 TAB PO DAILY r 2020 Januar y 2021 2:59pm Buspirone Disconti nued [...] Disconti nued 10 MEQ PO DAILY 30 2021 9:27am January 10, 2022 5:37pm Metformin Disconti nued 1000 MG PO TWICE A DAY 60 January 29, 2022 8:47am April 25, 2022 2:32pm Levalbuterol Hcl (Xopenex) 0.63 mg/3 mL solution for nebulization Active 0.63 MG INH EVERY 6-8 HOURS March 07, 2022 12:00am Losartan Active 25 MG PO DAILY April 09, 2022 11:43am Potassium Chloride Active 10 MEQ PO DAILY April 09, 2022 11:43am Rosuvastatin Active 40 MG PO DAILY April 09, 2022 11:44am Montelukast Disconti nued 10 MG PO DAILY April 23, 2022 8:25am April 25, 2022 2:46pm Duloxetine Active 30 MG PO DAILY April 23, 2022 8:25am Metformin Active 1000 MG PO TWICE A DAY 60 Ju ly 2021 2:32pm Montelukast Active 10 MG PO DAILY 30 April 25, 2022 2:46pm Magnesium Oxide Active 400 MG PO DAILY 30 April 25, 2022 2:47pm Ergocalcifer ol (Vitamin D2) Active 1250 MCG PO Every Week 4 April 25, 2022 2:47pm Celecoxib Active 100 MG PO TWICE A DAY 60 Ju ly 2021 2:58pm Buspirone Active 30 MG PO TWICE A DAY 60 Au mary lou 2021 8:15am Esomeprazole Magnesium (Nexium) 40 mg Capsule,Janey yed Release(Dr/E c) Disconti nued 40 MG PO DAILY February 13, 2021 12:00am February 01, 2022 9:02pm Potassium Chloride Disconti nued 10 MEQ PO DAILY February 13, 2021 6:24pm May 22, 2021 11:35a m Lisinopril Disconti nued 2.5 MG PO DAILY February 13, 2021 6:24pm Oct2020 2:40pm Celecoxib (Celebrex) 100 mg capsule Disconti nued 100 MG PO TWICE A DAY April 03, 2021 11:58am Januar y 2021 9:34am Duloxetine (Cymbalta) 60 mg capsule,janey yed release(DR/E C) Disconti nued 60 MG PO DAILY April 03, 2021 11:58am May 22, 2021 8:25am Empagliflozi n (Jardiance) 25 mg tablet Disconti nued 25 MG PO DAILY April 03, 2021 11:58am Septem 2020 9:11am Cinnamon Bark (Cinnamon) 500 mg Capsule Disconti nued 500 MG PO DAILY July 21, 2021 12:00am February 01, 2022 9:03pm Tumeric-Ging -[place]-Oreg- Capryl Active 1 CAP PO DAILY July 21, 2021 12:00am Gabapentin Disconti nued 400 MG PO DAILY 2019 5:19pm 2020 4:16pm Hydrocodone- Ibuprofen Disconti nued 1 TAB PO . daily 2019 4:16pm Celecoxib Disconti nued 100 MG PO TWICE A DAY October 26, 2020 4:16pm December 21, 2020 3:50pm Gabapentin Disconti nued 400 MG PO DAILY October 26, 2020 4:16pm December 21, 2020 3:50pm Hydrocodone- Ibuprofen Disconti nued 1 TAB PO . daily October 26, 2020 December 21, 2020 3:50pm Gabapentin Disconti nued 400 MG PO DAILY December 21, 2020 3:49pm January 18, 2021 5:09pm Hydrocodone- Ibuprofen Disconti nued 1 TAB PO . daily December 21, 2020 January 18, 2021 5:09pm Celecoxib Disconti nued 100 MG PO TWICE A DAY December 21, 2020 3:49pm January 18, 2021 5:09pm Gabapentin Disconti nued 400 MG PO DAILY January 18, 2021 5:08pm February 14, 2021 8:50am Hydrocodone- Ibuprofen Disconti nued 1 TAB PO . daily January 18, 2021 January 18, 2021 5:20pm Celecoxib Disconti nued 100 MG PO TWICE A DAY 60 January 18, 2021 5:09pm April 03, 2021 11:58a m Hydrocodone- Ibuprofen Disconti nued 1 TAB PO . daily January 18, 2021 February 14, 2021 8:50am Gabapentin Disconti nued 400 MG PO DAILY [facility] 2020 4:26pm Novemb er 2020 4:09pm Hydrocodone- Ibuprofen Disconti nued 1 TAB PO DAILY [facility] 2020 Novemb er 2020 4:09pm Gabapentin Disconti nued 400 MG PO DAILY March 15, 2021 3:20pm April 27, 2021 10:21a m Hydrocodone- Ibuprofen Disconti nued 1 TAB PO . daily March 15, 2021 April 03, 2021 11:56a m Gabapentin Disconti nued 400 MG PO DAILY April 27, 2021 10:19am May 25, 2021 12:53p m Hydrocodone- Ibuprofen Disconti nued 1 TAB PO DAILY April 27, 2021 May 25, 2021 12:53p m Gabapentin Disconti nued 400 MG PO DAILY May 25, 2021 12:51pm Septem ra 2020 4:27pm Hydrocodone- Ibuprofen Disconti nued 1 TAB PO DAILY May 25, 2021 Septem ra 2020 4:27pm Gabapentin Disconti nued 400 MG PO DAILY 2020 3:28pm 2021 2:59pm Ferrous Sulfate (Ferosul) 325 mg (65 mg iron) tablet Disconti nued 325 MG PO DAILY 2021 1:00am February 01, 2022 9:02pm Gabapentin Disconti nued 400 MG PO DAILY 2021 5:12pm December 06, 2021 2:55pm Hydrocodone- Ibuprofen Disconti nued 1 TAB PO DAILY 2021December 06, 2021 2:55pm Hydrocodone- Ibuprofen Disconti nued 1 TAB PO DAILY December 06, 2021 January 04, 2022 3:20pm Gabapentin Disconti nued 400 MG PO DAILY December 06, 2021 2:55pm January 04, 2022 3:20pm Hydrocodone- Ibuprofen Disconti nued 1 TAB PO DAILY January 04, 2022 January 04, 2022 3:22pm Gabapentin Disconti nued 400 MG PO DAILY January 04, 2022 3:20pm January 04, 2022 3:22pm Hydrocodone- Ibuprofen Disconti nued 1 TAB PO DAILY January 04, 2022 February 01, 2022 3:28pm Gabapentin Disconti nued 400 MG PO DAILY January 04, 2022 3:22pm February 01, 2022 3:28pm Hydrocodone- Ibuprofen Disconti nued 1 TAB PO DAILY April 05, 2022 May 14, 2022 3:55pm Gabapentin Disconti nued 400 MG PO DAILY April 05, 2022 2:25pm May 14, 2022 3:55pm Gabapentin Active 400 MG PO DAILY May 14, 2022 3:55pm Hydrocodone- Ibuprofen Active 1 TAB PO DAILY May 14, 2022 Gabapentin Disconti nued 400 MG PO DAILY r 2020 4:08pm Decemb er 2020 3:30pm Hydrocodone- Ibuprofen Disconti nued 1 TAB PO DAILY r 2020 Decemb er 2020 8:51am Gabapentin (Neurontin) 400 mg capsule Disconti nued 400 MG PO DAILY be r 2020 12:00am Decemb er 2020 3:29pm Gabapentin Disconti nued 400 MG PO DAILY October 09, 2021 2:59pm 2021 5:13pm Hydrocodone- Ibuprofen Disconti nued 1 TAB PO DAILY October 09, 20212021 5:13pm Gabapentin Disconti nued 400 MG PO DAILY February 01, 2022 3:27pm March 05, 2022 4:44pm Hydrocodone- Ibuprofen Disconti nued 1 TAB PO DAILY February 01, 2022 March 05, 2022 4:44pm Gabapentin Disconti nued 400 MG PO DAILY March 05, 2022 4:44pm April 05, 2022 2:26pm Hydrocodone- Ibuprofen Disconti nued 1 TAB PO DAILY March 05, 2022 April 05, 2022 2:26pm Ergocalcifer ol (Vitamin D2) (Vitamin D2) 50,000 unit capsule Disconti nued 1 CAP PO Every Week 2018 1:00am March 09, 2019 4:23pm Buspirone Disconti nued 15 MG PO TWICE A DAY 2018 1:00am March 09, 2019 4:23pm Duloxetine Disconti nued 60 MG PO DAILY 2018 1:00am March 09, 2019 4:23pm Metformin Disconti nued 1000 MG PO TWICE A DAY 2018 1:00am March 09, 2019 4:23pm Montelukast Disconti nued 10 MG PO DAILY 2018 1:00am March 09, 2019 4:23pm Budesonide-F ormoterol (Symbicort) 160-4.5 mcg/actuatio n HFA aerosol inhaler Disconti nued 2 INHALAT ION INH TWICE A DAY 2018 1:00am March 09, 2019 4:23pm Gabapentin Disconti nued 400 MG PO DAILY 2018 1:00am March 09, 2019 4:23pm Hydrocodone- Acetaminophe n Disconti nued 1 TAB PO DAILY 2018 1:00am March 09, 2019 4:23pm Lisinopril-H ydrochloroth iazide Disconti nued 1 TAB PO DAILY 2018 1:00am March 09, 2019 4:21pm Simvastatin Disconti nued 40 MG PO DAILY 2018 1:00am March 09, 2019 4:23pm Furosemide Disconti nued 40 MG PO DAILY 2018 1:00am March 09, 2019 4:23pm Potassium Chloride Disconti nued 10 MEQ PO DAILY 2018 1:00am March 09, 2019 4:23pm Celecoxib Disconti nued 100 MG PO TWICE A DAY January 20, 2019 12:00am March 09, 2019 4:23pm Nitrofuranto in Monohyd/M-Cr yst (Macrobid) 100 mg capsule Active 100 MG PO TWICE A DAY 10 2020 1:00am must administer with a meal/food Budesonide-F ormoterol (Symbicort) 160-4.5 mcg/actuatio n HFA aerosol inhaler Disconti nued 2 INHALAT ION INH TWICE A DAY 10.2 2018 4:14pm 2019 5:43pm Buspirone Disconti nued 15 MG PO TWICE A DAY 60 [facility] 2018 4:14pm 2019 5:43pm Celecoxib Disconti nued 100 MG PO TWICE A DAY 60 [facility] 2018 4:14pm [facility] 2019 5:43pm Duloxetine Disconti nued 60 MG PO DAILY 30 2018 4:14pm [facility] 2019 5:43pm Ergocalcifer ol (Vitamin D2) (Vitamin D2) 50,000 [place] 97501 UNIT PO Every Week 4 2018 4:14pm 2019 5:43pm Furosemide Disconti nued 40 MG PO DAILY 30 2018 4:15pm 2019 5:43pm Lisinopril Disconti nued 2.5 MG PO DAILY 30 2018 4:15pm [facility] 2019 5:43pm Metformin Disconti nued 1000 MG PO TWICE A DAY 60 2018 4:15pm 2019 5:43pm Montelukast Disconti nued 10 MG PO DAILY 30 [facility] 2018 4:15pm 2019 5:43pm Potassium Chloride Disconti nued 10 MEQ PO DAILY 30 [facility] 2018 4:15pm 2019 5:43pm take with lasix Simvastatin Disconti nued 40 MG PO DAILY 30 2018 4:15pm Septem 2018 4:44pm Rosuvastatin (Crestor) 40 mg tablet Disconti nued 40 MG PO DAILY Sept2018 12:00am December 30, 2019 2:37pm Budesonide-F ormoterol (Symbicort) 160-4.5 mcg/actuatio n HFA aerosol inhaler Disconti nued 2 INHALAT ION INH TWICE A DAY 10.2 March 09, 2019 4:18pm Septem ra 2018 4:15pm Buspirone Disconti nued 15 MG PO TWICE A DAY 60 March 09, 2019 4:19pm Septem ra 2018 4:15pm Celecoxib Disconti nued 100 MG PO TWICE A DAY 60 March 09, 2019 4:19pm Septem ra 2018 4:15pm Duloxetine Disconti nued 60 MG PO DAILY March 09, 2019 4:19pm Septem ra 2018 4:15pm Ergocalcifer ol (Vitamin D2) (Vitamin D2) 50,000 unit [place] 66513 UNIT PO Every Week 4 March 09, 2019 4:19pm Septem ra 2018 4:15pm Furosemide Disconti nued 40 MG PO DAILY March 09, 2019 4:20pm Septem ra 2018 4:15pm Gabapentin Disconti nued 400 MG PO DAILY March 09, 2019 4:20pm Septem ra 2019 10:33a m Hydrocodone- Acetaminophe n Disconti nued 1 TAB PO DAILY March 09, 2019 4:20pm Septem ra 2019 10:33a m Metformin Disconti nued 1000 MG PO TWICE A DAY March 09, 2019 4:pm Septem ra 2018 4:15pm Montelukast Disconti nued 10 MG PO DAILY March 09, 2019 4:pm Septem ra 2018 4:15pm Potassium Chloride Disconti nued 10 MEQ PO DAILY March 09, 2019 4:pm Septem ra 2018 4:15pm take with lasix Simvastatin Disconti nued 40 MG PO DAILY March 09, 2019 4:22pm Septem ra 2018 4:15pm Lisinopril Disconti nued 2.5 MG PO DAILY March 09, 2019 12:00am Septem ra 2018 4:15pm Budesonide-F ormoterol (Symbicort) 160-4.5 mcg/actuatio [...] 1,250 mcg (50,000 unit) [place] 16460 UNIT PO Every Week 4 2019 5:42pm December 30, 2019 2:37pm Furosemide Disconti nued 40 MG PO DAILY 30 2019 5:42pm Septem ra 2019 3:48pm Lisinopril Disconti nued 2.5 [...] Disconti nued 2 PUFF INH Q6H 8.5 Sept er 2019 3:42pm Novemb er 2019 7:37pm Buspirone Disconti nued 15 MG PO TWICE A DAY 60 Septemb er 2019 3:43pm Novemb er 2019 7:37pm Celecoxib Disconti nued 100 MG PO TWICE A DAY 60 Sept2019 3:43pm Novemb er 2019 7:37pm Cyanocobalam in (Vitamin B-12) Disconti nued 1000 MCG IM every month 1 2019 3:44pm Novemb er 2019 7:37pm Duloxetine Disconti nued 60 MG PO DAILY 30 2019 3:44pm b er 2019 7:37pm Empagliflozi n (Jardiance) 10 mg tablet Disconti nued 10 MG PO DAILY 30 2019 3:44pm Novemb er 2019 10:01a m Ergocalcifer ol (Vitamin D2) (Vitamin D2) 1,250 mcg (50,000 unit) [place] 28741 UNIT PO Every Week 4 2019 3:47pm b er 2019 7:37pm Ferrous Sulfate Disconti nued 325 MG PO DAILY 30 2019 [facility] Furosem[facility] Disconti nued 40 MG PO DAILY 30 2019 3:47pm b er 2019 7:37pm Magnesium Oxide Disconti nued 400 MG PO DAILY 30 2019 3:48pm b er 2019 7:37pm Metformin Disconti nued 1000 MG PO TWICE A DAY 60 2019 3:48pm b er 2019 7:37pm Montelukast Disconti nued 10 MG PO DAILY 30 2019 3:48pm [facility] Potassium Chloride Disconti nued 10 MEQ PO DAILY 30 2019 3:48pm [facility] 7[facility] take with lasix Rosuvastatin (Crestor) 40 mg tablet Disconti nued 40 MG PO DAILY 30 2019 3:48pm [facility] 7[facility] Fluconazole (Diflucan) 150 mg tablet Disconti nued 150 MG PO DAILY 2 2 2019 12:00am Septem ra 2019 12:10a m Gabapentin Disconti nued 400 MG PO DAILY July 30, 2020 11:29am [facility] Hydrocodone- Ibuprofen Disconti nued 1 TAB PO . daily July 30, 2020 Novem er 2019 7:37pm Albuterol Sulfate (Ventolin Hfa) 90 mcg/actuatio n HFA aerosol inhaler Disconti nued 2 PUFF INH Q6H 8.5 2019 7:35pm January 26, 2021 3:18pm Buspirone Disconti nued 15 MG PO TWICE A DAY 60 2019 7:35pm 2020 12:40p m Celecoxib Disconti nued 100 MG PO TWICE A DAY 60 2019 7:35pm 2020 12:40p m Cyanocobalam in (Vitamin B-12) Disconti [...] 10 MG PO DAILY 30 2019 7:35pm Dece er 2019 7:59pm Ergocalcifer ol (Vitamin D2) (Vitamin D2) 1,250 mcg (50,000 unit) [place] 29599 UNIT PO Every Week 4 2019 7:35pm 2020 12:40p m Ferrous Sulfate Disconti nued 325 MG PO DAILY 2019 7:35pm 2020 12:40p m Furosemide Disconti nued 40 MG PO DAILY 30 2019 7:35pm 2020 12:40p m Gabapentin Disconti [...] nued 10 MEQ PO DAILY 30 2019 7:36pm 2020 12:40p m take with lasix Rosuvastatin (Crestor) 40 mg tablet Disconti nued 40 MG PO DAILY 2019 7:36pm 2020 12:40p m Hydrocodone- Ibuprofen Disconti nued 1 TAB PO . daily 2019 [facility] er 2019 5:23pm Lisinopril Disconti nued 2.5 [...] 1,250 mcg (50,000 unit) [place] 88141 UNIT PO Every Week October 24, 2020 [...] 1,250 mcg (50,000 unit) [place]ued 86498 UNIT PO Every Week 4 February 15, [...] 1,250 mcg (50,000 unit) [place] 33951 UNIT PO Every Week 4 Novembe r 2020 10:36am Februa ry , 2022 2:58pm Ferrous Sulfate Active 325 MG PO DAILY 30 r 2020 10:36am Furosemide Disconti nued 40 MG PO DAILY 30 r 2020 10:36am January 10, 2022 5:37pm Metformin Disconti nued 1000 MG PO TWICE A DAY 60 r 2020 10:36am January 10, 2022 5:37pm Montelukast Disconti nued 10 MG PO DAILY 30 r 2020 10:36am January 10, 2022 5:37pm Potassium Chloride Disconti nued 10 MEQ PO DAILY 30 r 2020 10:36am Februa 2021 9:27am Dextromethor jaramillo-Guaifen esin Disconti nued 10 ML PO EVERY 4-8 HOURS 180 r 2020 1:00am February 01, 2022 9:03pm Ondansetron Hcl (Zofran) 4 mg tablet Active 4 MG PO Q8H 30 r 2020 1:00am Gabapentin Disconti nued 400 MG PO DAILY 30 [facility] 2019 10:32am [facility] r 2019 11:30a m Hydrocodone- Ibuprofen Disconti nued 1 TAB PO . daily 30 [facility] 2019 [facility] r 2019 11:30a m Blood-Glucos e Meter Disconti nued 0 .ROUTE .MEDSUPPLY 1 [facility] 2019 12:00am April 03, 2021 11:57a m Glucometer Diabetic Supplies, Miscellan. Disconti nued 0 .ROUTE .MEDSUPPLY 1 [facility] 2019 12:00am [facility] 2019 7:37pm Test Strips and Lancets for daily BG testing Empagliflozi n Disconti nued 25 MG PO DAILY r 2019 1:00am Sepua2020 12:40p m Amoxicillin- Pot Clavulanate (Augmentin) 875-125 mg tablet Disconti nued 1 TAB PO Q12H 19 07May 09, 2021 12:00am May 19, 2021 12:22a m Methylpredni solone (Medrol (Lb)) 4 mg tablets,dose pack Disconti nued 0 PO Per package directions May 09, 2021 12:00am Octobe r 2020 2:40pm PO PER PKG DIR Fluconazole (Diflucan) 150 mg tablet Disconti nued 150 MG PO Q3D May 09, 2021 12:00am Octobe r 2020 2:40pm may repeat second dose 72 hrs after first dose if symptoms persist Empagliflozi n Active 25 MG PO DAILY February 28, 2022 12:00am Duloxetine Disconti nued 30 MG PO DAILY January 10, 2022 12:00am April 23, 2022 8:25am Take with 60mg to make 90mg total Losartan Disconti nued 25 MG PO DAILY January 10, 2022 12:00am April 09, 2022 11:44a m Buspirone Disconti nued 30 MG PO TWICE A DAY January 10, 2022 12:00am May 07, 2022 8:15am Albuterol Sulfate (Ventolin Hfa) 90 mcg/actuatio n HFA aerosol inhaler Active 2 PUFF INH Q6H 8.5 January 10, 2022 5:36pm Celecoxib Disconti nued 100 MG PO TWICE A DAY 60 January 10, 2022 5:36pm April 25, 2022 2:59pm Cyanocobalam in (Vitamin B-12) Active 1000 MCG IM every month 1 January 10, 2022 5:36pm Empagliflozi n (Jardiance) 10 mg tablet Disconti nued 10 MG PO DAILY 30 January 10, 2022 5:36pm February 28, 2022 10:53a m Ergocalcifer ol (Vitamin D2) Disconti nued 1250 MCG PO Every Week 4 January 10, 2022 5:36pm April 25, 2022 2:48pm Furosemide Active 40 MG PO DAILY January 10, 2022 5:36pm Metformin Disconti nued 1000 MG PO TWICE A DAY 60 January 10, 2022 5:36pm January 29, 2022 8:47am Montelukast Disconti nued 10 MG PO DAILY January 10, 2022 5:37pm April 23, 2022 8:25am Potassium Chloride Disconti nued 10 MEQ PO DAILY January 10, 2022 5:37pm April 09, 2022 11:44a m Rosuvastatin (Crestor) 40 mg tablet Disconti nued 40 MG PO DAILY January 10, 2022 5:37pm April 09, 2022 11:44a m Duloxetine Active 60 MG PO DAILY January 10, 2022 5:38pm Relevant Diagnostic Tests and/or Laboratory Data Laboratory Results Test Date/Time Result Interpretation Reference Range Result Comment Performing Site Coronavirus (COVID-19)(PCR ) May 05, 2022 8:15am Positive DNAPCR Neg/NotDet [facility] Core Reference Laboratory [address] [place] [address] Vital Signs Vital Reading Result Reference Range Collection Date/Time Height 60 [in_i] February 01, 2022 8 [...] No February 01, 2022 8:49pm Power of Correctional Officer Lieutenant No February 01, 2022 8:49pm Living Will No February 01, 2022 8: 49pm Insurance Providers Guarantor Kavitha Jarrell Address [address] [place] [id number] Contact Info. Home Phone: Payer Policy Id Coverage Id Subscriber's Name Subscriber Id Effective Date Expiration Date [place] [id number] Stephania Jarrell [id number] [facility] [id number] Kavitha Jarrell [id number] MEDICARE A AND B [id number] Kavitha Jarrell [id number] [employer] MEDICARE HMO [id number] Kavitha Jarrell [id number] Encounters Encounter Location(s) Arrival/Admit Date Discharge/Depart Date [...] 2022 6:25pm March 01, 2022 6:00am Nisa Elsa DO Departed Physician/Prov ider Office Visit [facility] March 05, 2022 3:58pm March 05, 2022 11:59pm Araceli Sethi APRN Departed Physician/Prov ider Office Visit [facility] April 05, 2022 1:52pm April 05, 2022 2:33pm Moises Pinzon MD Departed Clinical [facility] April 25, 2022 6:36pm April 26, 2022 6:00am Nisa Hunter DO Departed Clinical [facility] May 05, 2022 7:33am May 05, 2022 7:34am Nisa Hunter DO Departed Physician/Prov ider Office Visit [facility] May 14, 2022 3:47pm May 14, 2022 11:59pm Moises Pinzon MD Recent Diagnosis Onset Date Low back pain Lumbar spondylosis Spondylolisthesis Bereavement Depression Hospital discharge follow-up Diabetes mellitus type 2 in obese Hypertension Obesity Small bowel obstruction Lumbar spondylosis Spondylolisthesis Lumbar spondylosis Spondylolisthesis Lumbar spondylosis Assessments Diagnosis Onset Date Resolution Status Low back pain acute Lumbar spondylosis chronic Spondylolisthesis chronic Bereavement acute Depression acute Hospital discharge follow-up acute Diabetes mellitus type 2 in obese chronic Hypertension chronic Obesity chronic Small bowel obstruction reso lved Lumbar spondylosis chronic Spondylolisthesis chronic Lumbar spondylosis chronic Spondylolisthesis chronic Lumbar spondylosis chronic Plan of Treatment Ms. Jarrell?? is a pleasant 56-year-old female with a long history of axial back pain which has responded radiofrequency ablation of the lumbar facet in the past she currently rates her pain as a 3/10.?? patient complains of primarily axial back pain but does have occasional radicular symptoms Past surgical history: Exploratory lap for 2 bowel obstructions January 30, 2022 Dr. Jimenes [facility] Past injection history: RFA right-sided L3 and L4 medial branch and L5 dorsal ramus on April 04, 2021, right S1 transforaminal epidural steroid injection February 14, 2021 Jarek reviewed compliant, request [id number] ?? UDS -?? January 04, 2022 confirmation-positive hydrocodone in metabolites, gabapentin -consistent with therapy in [place] Opioid risk tool -October 09, 2021 scored as 1 placing patient at low risk category for opioid abuse PEG -October 09, 2021 scored average pain 7/10, enjoyment of life 8/10, generalized activity 9/10 ?? Studies/Imaging: ?? MRI cervical spine without contrast [facility] date of exam 07/22/2020 Impression: Negative study ?? MRI lumbar spine without contrast [facility] date of exam 07/22/2020 FINDINGS The lumbar [...] Number 28 for 28 day supply Past surgical history:?? Exploratory lap for 2 bowel obstructions January 30, 2022 Dr. Jalil Sanchez [facility] Past injection history: RFA right-sided L3 and L4 medial branch and L5 dorsal ramus on April 04, 2021, right S1 transforaminal epidural steroid injection February 14, 2021 Jarek reviewed compliant, request [id number] ?? UDS -?? January 04, 2022 confirmation-positive hydrocodone in metabolites, gabapentin -consistent with therapy in [place] Opioid risk tool -October 09, 2021 scored as 1 placing patient at low risk category for opioid abuse PEG -October 09, 2021 scored average pain 7/10, enjoyment of life 8/10, generalized activity 9/10 ?? Studies/Imaging: ?? MRI cervical spine without contrast [facility] date of exam 07/22/2020 Impression: Negative study ?? MRI lumbar spine without contrast [facility] date of exam 07/22/2020 FINDINGS The lumbar [...] There is first-degree spondylolisthesis at L4-L5. Patient tells me she is recovering well from COVID. NO aberrant flags. Will refill medications today: day supply RTC 28 days or prn. Ms. Jarrell?? is a pleasant 55-year-old female [...] February 14, 2021 Jarek reviewed compliant, request [id number] ?? UDS -?? October 09, 2021 confirmation - positive for cup?? carboxyTHC at 30 ng/mg creatinine Opioid risk tool -October 09, 2021 scored as 1 placing patient at low risk category for opioid abuse PEG -October 09, 2021 scored average pain 7/10, enjoyment of life 8/10, generalized activity 9/10 ?? Studies/Imaging: ?? MRI cervical spine without contrast [facility] date of exam 07/22/2020 Impression: Negative study ?? MRI lumbar spine without contrast [facility] date of exam 07/22/2020 FINDINGS The lumbar [...] February 14, 2021 Jarek reviewed compliant, request [id number] ?? UDS -?? October 09, 2021 confirmation - positive for cup?? carboxyTHC at 30 ng/mg creatinine Opioid risk tool -October 09, 2021 scored as 1 placing patient at low risk category for opioid abuse PEG -October 09, 2021 scored average pain 7/10, enjoyment of life 8/10, generalized activity 9/10 ?? Studies/Imaging: ?? MRI cervical spine without contrast [facility] date of exam 07/22/2020 Impression: Negative study ?? MRI lumbar spine without contrast [facility] date of exam 07/22/2020 FINDINGS The lumbar [...] Address Nisa Hunter , DO Work Phone: [facility] [phone] [address] Future Procedures Future procedure information is unavailable Future Medications Future medication information is unavailable Patient Instructions Small Bowel Obstruction (DC)
--- OUTSIDE RECORDS SUMMARY | 2024-07-22 10:38 | XMS_ITS | Continuity of Care Document ---
Author Organization [facility]. Address [address] [place] [address] Support Name Relationship Address Phone DO Nisa uHnter Personal Relationship [facility] [place] [address] MD Moises Pinzon Personal Relationship [address] [place] [address] SAHARA Sethi Personal Relationship [address] [place] [address] DO Nisa Hunter Personal Relationship [address] [place] [address] FERNA[place] [address] DO Nisa Hunter Personal Relationship [address] [place] [address] Chief Complaint and Reason for Visit Chief [...] obese Active Obstructive sleep apnea Active Other joint terminal attack controller (current) drug therapy Active Lumbar radiculopathy Active [...] 1,250 mcg (50,000 unit) [place] 88511 UNIT PO Every Week 4 December 30, [...] 2021 3:07pm February 01, 2022 9:03pm Tumeric-Ging -[place]-Oreg- Capryl Active 1 CAP PO DAILY July [...] nued 400 MG PO DAILY 2020 4:08pm [facility] 2020 3:30pm Hydrocodone- Ibuprofen Disconti nued 1 [...] (Vitamin D2) 50,000 unit [place] 02034 UNIT PO Every Week 4 2018 4:14pm [...] tablet Disconti nued 40 MG PO DAILY [facility] 2018 4:44pm December 30, 2019 2:37pm [...] (Vitamin D2) 50,000 unit capsule [place] 62657 UNIT PO Every Week 4 March 09, [...] 1,250 mcg (50,000 unit) [place] 77651 UNIT PO Every Week 4 2019 5:42pm [...] 1,250 mcg (50,000 unit) capsule [place] 39690 UNIT PO Every Week 4 2019 3:47pm [...] 40 MG PO DAILY 30 2019 3:48pm [facility] 7:37pm Fluconazole (Diflucan) 150 mg tablet Disconti nued 150 MG PO DAILY 2 2 2019 3:48pm Septem ra 2019 12:10a m Gabapentin Disconti nued 400 MG PO DAILY July 30, 2020 11:29am [facility] er 2019 7:37pm Hydrocodone- Ibuprofen Disconti nued 1 TAB PO . daily July 30, 2020 11:29am [facility] er 2019 7:37pm Albuterol Sulfate (Ventolin Hfa) [...] 10 MG PO DAILY 30 2019 7:35pm [facility] er 2019 7:59pm Ergocalcifer ol (Vitamin D2) (Vitamin D2) 1,250 mcg (50,000 unit) capsule [place] 24366 UNIT PO Every Week 4 r 2019 [...] 1,250 mcg (50,000 unit) capsule [place] 96574 UNIT PO Every Week October 24, 2020 [...] 1,250 mcg (50,000 unit) capsule [place] 61785 UNIT PO Every Week 4 February 15, [...] MG PO DAILY February 15, 2021 5:54pm [facility] er 2020 11:42a m Empagliflozi n Disconti [...] Disconti nued 60 MG PO DAILY 30 [facility] 2020 10:36am January 10, 2022 5:38pm Ergocalcifer ol (Vitamin D2) (Vitamin D2) 1,250 mcg (50,000 unit) capsule [place] 85520 UNIT PO Every Week 4 [facility] 2020 10:36am Februa 2021 2:58pm Ferrous Sulfate Active 325 MG PO DAILY 30 [facility] 2020 10:36am Furosemide Disconti nued 40 MG PO DAILY 30 [facility] 2020 10:36am January 10, 2022 5:37pm Metformin Disconti nued 1000 MG PO TWICE A DAY 60 [facility] 2020 10:36am January 10, 2022 5:37pm Montelukast Disconti nued 10 MG PO DAILY 30 [facility] 2020 10:36am January 10, 2022 5:37pm Potassium Chloride Disconti nued 10 MEQ PO DAILY 30 [facility] 2020 10:36am Februa 2021 9:27am Dextromethor jaramillo-Guaifen esin Disconti nued 10 ML PO EVERY 4-8 HOURS 180 [facility] 2020 10:37am February 01, 2022 9:03pm Ondansetron Hcl (Zofran) 4 mg tablet Active 4 MG PO Q8H 30 [facility] 2020 10:37am Gabapentin Disconti nued 400 MG PO DAILY 30 [facility] 2019 10:32am Octobe r 2019 11:30a m Hydrocodone- Ibuprofen Disconti nued 1 TAB PO . daily 30 [facility] 2019 10:32am Octobe r 2019 11:30a m Blood-Glucos e Meter Disconti nued 0 .ROUTE .MEDSUPPLY 1 [facility] 2019 10:34am April 03, 2021 11:57a m Glucometer Diabetic Supplies, Miscellan. Disconti nued 0 .ROUTE .MEDSUPPLY 1 [facility] 2019 10:34am Novemb er 2019 7:37pm Test [...] February 01, 2022 9:08pm 16.62 x10^3/uL 3.98-10.04 [facility] [address] [address] Red Blood Count February 01, 2022 9:08pm 5.90 x10^6/uL 3.93-5.22 [facility] [address] [address] Hemoglobin February 01, 2022 9:08pm 16.5 g/dL 11.8-15.3 [facility] [address] [address] Hematocrit February 01, 2022 9:08pm 50.2 % 36.9-46.9 [facility] [address] [address] Mean Corpuscular Volume February 01, 2022 9:08pm 85.1 fL 79.4-94.8 [facility] [address] [address] Mean Corpuscular Hemoglobin February 01, 2022 9:08pm 28.0 pg 25.6-32.2 [facility] [address] [address] Mean Corpuscular Hemoglobin Concent February 01, 2022 9:08pm 32.9 g/dL 32.2-35.5 [facility] [address] [address] RDW Standard Deviation February 01, 2022 9:08pm 40.6 fL 36.4-46.3 [facility] [address] [address] RDW Coefficient of Variation February 01, 2022 9:08pm 13.1 % 11.7-14.4 [facility] [address] [address] Platelet Count February 01, 2022 9:08pm 329 x10^3/uL 182-369 [place] [address] Mean Platelet Volume February 01, 2022 9:08pm 10.1 fL 9.4-12.3 [place] [address] Neutrophils (%) (Auto) February 01, 2022 9:08pm 88.5 % 34.0-71.1 [place] [address] Lymphocytes (%) (Auto) February 01, 2022 9:08pm 8.1 % 19.3-51.7 [place] [address] Monocytes (%) (Auto) February 01, 2022 9:08pm 2.7 % 4.7-12.5 [place] [address] Eosinophils (%) (Auto) February 01, 2022 9:08pm 0.1 % 0.7-5.8 [place] [address] Basophils (%) (Auto) February 01, 2022 9:08pm 0.2 % 0.1-1.2 [place] [address] Nucleated Red Blood Cells % (auto) February 01, 2022 9:08pm 0.0 /100 WBC 0-0.2 [place] [address] Immature/Total Granulocytes (auto) February 01, 2022 9:08pm 0.400 % 0-0.429 [place] [address] Neutrophils # (Auto) February 01, 2022 9:08pm 14.70 x10^3/uL 1.56-6.13 [place] [address] Lymphocytes # (Auto) February 01, 2022 9:08pm 1.35 x10^3/uL 1.18-3.74 [place] [address] Monocytes # (Auto) February 01, 2022 9:08pm 0.45 x10^3/uL 0.24-0.86 [place] [address] Eosinophils # (Auto) February 01, 2022 9:08pm 0.01 x10^3/uL 0.04-0.36 [facility] [address] [place] [address] Basophils # (Auto) February 01, 2022 9:08pm 0.04 x10^3/uL 0.01-0.08 [place] [address] [place] [address] Nucleated Red Blood Cells # February 01, 2022 9:08pm 0.000 x10^3/uL 0-0.012 [place] [address] [place] [address] Absolute Immature Granulocyte (auto February 01, 2022 9:08pm 0.0700 X10^3/uL 0-0.0310 [place] [address] Sodium Level February 01, 2022 9:08pm 138 mmol/L 136-145 [facility] [address] [place] [address] Potassium Level February 01, 2022 9:08pm 4.3 mmol/L 3.5-5.1 [facility] [address] [place] [address] Chloride Level February 01, 2022 9:08pm 98 mmol/L 98-107 [facility] [address] [place] [address] Carbon Dioxide Level February 01, 2022 9:08pm 23.9 mmol/L 21.0-32 [facility] [address] [place] [address] Anion Gap February 01, 2022 9:08pm 16.1 mmol/L 5.0-15.0 [facility] [address] [place] [address] Blood Urea Nitrogen February 01, 2022 9:08pm 17 mg/dL 7.0-18.0 [place] [address] Creatinine February 01, 2022 9:08pm 0.87 mg/dL 0.55-1.02 [facility] [address] [place] [address] Estimat Glomerular Filtration Rate February 01, 2022 [...] tive determinations of GFR should be obtained. [facility] [address] [facility] [address] Estimated GFR () February 01, 2022 9:08pm > 60.0 [facility] [address] [facility] [address] BUN/Creatinine Ratio February 01, 2022 9:08pm 19.5 Ratio 6.0-20.0 [facility] [address] [facility] [address] Glucose Level February 01, 2022 9:08pm 249 mg/dL 70-99 Falsely depressed or elevated results may occur on samples drawn from patients taking Sulfasalazine and Sulfapyridine, if the blood sample is drawn before clearance of the drug. [facility] [address] [facility] [address] Calcium Level February 01, 2022 9:08pm 11.1 mg/dL 8.5-10.1 [facility] [address] [facility] [address] Total Bilirubin February 01, 2022 9:08pm 0.61 mg/dL 0.20-1.00 Use of this assay is not recommended for patients undergoing treatment with eltrombopag due to the potential for falsely elevated results [facility] [address] [facility] [address] Aspartate Amino Transf (AST/SGOT) February 01, 2022 9:08pm 31 U/L 15-37 Falsely depressed or elevated results may occur on samples drawn from patients taking Sulfasalazine and Sulfapyridine, if the blood sample is drawn before clearance of the drug. [facility] [address] [facility] [address] Alanine Aminotransfera se February 01, 2022 9:08pm 42 U/L 14-59 Falsely depressed or elevated results may occur on samples drawn from patients taking Sulfasalazine and Sulfapyridine, if the blood sample is drawn before clearance of the drug. [facility] [address] [facility] [address] Troponin I February 01, 2022 11:00pm 7.0 [...] Biotin intake can cause falsely depressed results [place] [address] Total Protein February 01, 2022 9:08pm 8.3 g/dL 6.4-8.2 [place] [address] Albumin February 01, 2022 9:08pm 4.7 g/dL 3.4-5.0 [place] [address] Albumin/Globul in Ratio February 01, 2022 9:08pm 1.3 Ratio 1.0-2.0 [place] [address] Alkaline Phosphatase February 01, 2022 9:08pm 102 U/L 46-116 [place] [address] Lipase February 01, 2022 9:08pm 123 U/L 73-393 [place] [address] Influenza Virus Type A (PCR) February 01, 2022 9:58pm Negative Negative [place] [address] Influenza Virus Type B (PCR) February 01, 2022 9:58pm Negative Negative [place] [address] Respiratory Syncytial Virus (PCR) February 01, 2022 9:58pm Negative Negative [place] [address] Coronavirus (COVID-19)(PCR ) February 01, 2022 9:58pm Negative DNAPCR Negative [place] [address] Diagnostic Imaging Reports Report Dictated Date/Time Dictated By Status Radiology Report February 01, 2022 9:34pm [place] [address] CT Scan Report Signed [place]#: [id number] Patient: Kavitha Jarrell MR#: [id number] : 1965 Acct:[id number] Age/Sex: 56 / F ADM Date: 2 Loc: EH.ED Attending Provider: Ordering Provider: Sid Freeman NP Date of Service: 02/01/22 Procedure(s): CT abdomen pelvis w con Accession Number(s): [id number] cc: Sid Freeman NP~ CLINICAL HISTORY: Abdominal [...] By: Yaya Parham MD 02/01/222133 Transcribed By: Yaya Parham MD 02/01/222133 Signed By: <Electronically signed [...] No February 01, 2022 8:49pm Power of Hand Icer No February 01, 2022 8:49pm Living Will No February 01, 2022 8: 49pm Advance Directives No January 10 4:17pm Power of Hand Icer No January 10 4:17pm Living Will No January 10, 2022 4:17pm Insurance Providers Guarantor Kavitha Jarrell Address [address] [place], [place] [address] Contact Info. Home Phone: Payer Policy Id Coverage Id Subscriber's Name Subscriber Id Effective Date Expiration Date NITO HERMAN [id number] Stephania Jarrell [id number] MARY HERMAN [id number] Kavitha Jarrell [id number] MEDICARE A AND B [id number] Kavitha Jarrell [id number] SELF [employer]Y [employer] MEDICARE HMO [id number] Kavitha Jarrell [id number] Encounters Encounter Location(s) Arrival/Admit Date Discharge/Depart Date Provider(s) Departed Physician/Prov ider Office Visit [facility] November 06, 2021 3:53pm November 06, 2021 5:08pm Moises Pinzon MD Departed Physician/Prov ider Office Visit [facility] December 06, 2021 1:58pm December 06, 2021 2:55pm Araceli Sethi APRN Departed Physician/Prov ider Office Visit [facility] January 04, 2022 2:48pm January 04, 2022 3:20pm Araceli Sethi APRN Departed Physician/Prov ider Office Visit [facility] January 10, 2022 3:55pm January 10, 2022 5:26pm Nisa Hunter DO Departed Physician/Prov ider Office Visit [facility] February 01, 2022 3:20pm February 01, 2022 3:30pm Moises Pinzon MD Departed Emergency [facility] Emergency Department February 01, 2022 8:39pm February [...] Hypomagnesemia chronic Obesity chronic 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 Osteoarthritis chronic Vitamin D deficiency [...] February 14, 2021 Jarek reviewed compliant, request [id number] UDS - October 09, 2021 confirmation - positive for cup carboxyTHC at 30 ng/mg creatinine Opioid risk tool -October 09, 2021 scored as 1 placing patient at low risk category for opioid abuse PEG -October 09, 2021 scored average pain 7/10, enjoyment of life 8/10, generalized activity 9/10 Studies/Imaging: MRI cervical spine without contrast [facility] date of exam 07/22/2020 Impression: Negative study MRI lumbar spine without contrast [facility] date of exam 07/22/2020 FINDINGS The lumbar [...] patient said that she had taken some [id number] CBD oral products. Advised patient to discontinue [...] February 14, 2021 Jarek reviewed compliant, request [id number] ?? UDS -?? October 09, 2021 confirmation - positive for cup?? carboxyTHC at 30 ng/mg creatinine Opioid risk tool -October 09, 2021 scored as 1 placing patient at low risk category for opioid abuse PEG -October 09, 2021 scored average pain 7/10, enjoyment of life 8/10, generalized activity 9/10 ?? Studies/Imaging: ?? MRI cervical spine without contrast [facility] date of exam 07/22/2020 Impression: Negative study ?? MRI lumbar spine without contrast [facility] date of exam 07/22/2020 FINDINGS The lumbar [...] transforaminal epidural steroid injection February 14, 2021 [facility] reviewed compliant, request [id number] ?? UDS -?? October 09, 2021 confirmation - positive for cup?? carboxyTHC at 30 ng/mg creatinine Opioid risk tool -October 09, 2021 scored as 1 placing patient at low risk category for opioid abuse PEG -October 09, 2021 scored average pain 7/10, enjoyment of life 8/10, generalized activity 9/10 ?? Studies/Imaging: ?? MRI cervical spine without contrast [facility] date of exam 07/22/2020 Impression: Negative study ?? MRI lumbar spine without contrast [facility] date of exam 07/22/2020 FINDINGS The lumbar [...] February 14, 2021 Jarek reviewed compliant, request [id number] ?? UDS -?? October 09, 2021 confirmation - positive for cup?? carboxyTHC at 30 ng/mg creatinine Opioid risk tool -October 09, 2021 scored as 1 placing patient at low risk category for opioid abuse PEG -October 09, 2021 scored average pain 7/10, enjoyment of life 8/10, generalized activity 9/10 ?? Studies/Imaging: ?? MRI cervical spine without contrast [facility] date of exam 07/22/2020 Impression: Negative study ?? MRI lumbar spine without contrast [facility] date of exam 07/22/2020 FINDINGS The lumbar [...] Address Nisa Hunter , DO Work Phone: [facility] [phone] [address] Z63.4 - Disappearance and of family member January 10, 2022 Grief Counseling Future Procedures Future procedure information is unavailable Future Medications Future medication information is unavailable Patient Instructions Small Bowel Obstruction (DC)
--- OUTSIDE RECORDS SUMMARY | 2024-07-22 10:38 | XMS_ITS | Continuity of Care Document ---
[facility] Organization [facility] Address [address] [place] [address] Support Name Relationship Address Phone DO Nisa Hunter Personal Relationship [address] [place] [address] DO Nisa Hunter Personal Relationship [facility] [place] [address] MD Moises Pinzon Personal Relationship [address] [place] [address] SAHARA Sethi Personal Relationship [address] [place] [address] DO Nisa Hunter Personal Relationship [address] [place] [address] SAHARA Sethi Personal Relationship [facility] [address] MD Moises Pinzon Personal Relationship [facility] [place] [address] Chief Complaint and Reason for Visit Chief Complaint BLOOD SUGARS off follow up follow up lab Routine pain injections pain injections Reason for Visit Diabetes mellitus ty pe 2 in obese Hypertension Hypomagnesemia Vitamin D deficiency Lumbar spondylosis Lumbar spondylosis Spondylolisthesis Lumbar radiculopathy Lumbar spondylosis Allergies, Adverse Reactions, Alerts Allergen Type Severity Reaction Last Updated Verified Status latex Allergy Rash February 14, 2021 8:18am Yes Ac tive Social History Smoking Status Status Start Date End Date Date of Observa tion Unknown if ever smoked January 282020 8:23am Observation Status Date of Observation Not December 21, 2020 Observation Status Observation Response Date of Response substance use type does not use February 14 8:23am alcohol intake never February 14, 2021 8 :23am Additional Data Assigned Sex Female Family History [...] (current) drug therapy Active Lumbar radiculopathy Active Rash of face Active Joint pain Active Shortness of breath Active Chronic fatigue Active Increased urinary frequency Acti ve Anxiety Active Hyperlipidemia Active Osteoarthritis Active Skin lesion Active Spondylolisthesis Active 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 Right knee pain Active Chronic neck pain Active Chronic pain syndrome Active Lumbar disc disease Active Hypertension Active Vitamin D deficiency Active Lumbar spondylosis Active Asthma Active Contact dermatitis Active Hypomagnesemia Active Inactive/Resolved Problems Medical Problem [...] A DAY 60 December 30, 2019 2:33pm Sepuar y 2020 12:40p m Celecoxib Disconti nued 100 MG PO TWICE A DAY 60 December 30, 2019 2:34pm 2019 3:48pm Ergocalcifer ol (Vitamin D2) (Vitamin D2) 1,250 mcg (50,000 unit) [place] 68517 UNIT PO Every Week 4 December 30, 2019 2:34pm 2019 3:48pm Metformin Disconti nued 1000 MG PO TWICE A DAY 60 December 30, 2019 2:34pm May 25, 2020 [...] 24, 2020 2:31pm Septem ra 2019 3:48pm take with lasix Albuterol Sulfate (Ventolin Hfa) 90 mcg/actuatio n HFA aerosol inhaler Disconti nued 2 PUFF INH Q6H 8.5 February 25, 2020 4:00pm Septem 2019 3:48pm Ferrous Sulfate Disconti nued 325 MG PO DAILY April 07, 2020 9:04am Septem 2019 3:48pm Empagliflozi n (Jardiance) 10 mg tablet Disconti nued 10 MG PO DAILY April 25, 2020 2:11pm Septem ra 2019 3:48pm Metformin Disconti nued 1000 MG PO TWICE A DAY 60 May 25, 2020 8:44am Septem ra 2019 3:48pm Empagliflozi n (Jardiance) 10 mg tablet Disconti nued 10 MG PO DAILY 30 r 2019 10:00am Novemb er 2019 7:37pm Potassium Chloride Disconti nued 10 MEQ PO DAILY 30 2020 9:40am February 13, 2021 6:25pm Metformin Active 1000 MG PO TWICE A DAY 60 Ma h 2020 10:28am Magnesium Oxide Active 400 MG PO DAILY November 30, 2020 5:04pm Buspirone Active 15 MG PO TWICE A DAY 60 Ap [facility] 2020 9:54am Duloxetine Active 60 MG PO DAILY 30 January 26, 2021 7:55am Fluticasone Propion-Salm eterol (Advair Diskus) 250-50 mcg/dose blister with device Disconti nued 1 INHALAT ION INH TWICE A DAY 60 January 26, 2021 3:17pm February 13, 2021 6:25pm Albuterol Sulfate (Ventolin Hfa) 90 mcg/actuatio n HFA aerosol inhaler Active 2 PUFF INH Q6H 8.5 January 26, 2021 3:18pm Gabapentin Active 400 MG PO DAILY 30 February 14, 2021 8:49am Hydrocodone- Ibuprofen Active 1 TAB PO . daily 7 February 14, 2021 8:49am Esomeprazole Magnesium (Nexium) 40 mg Capsule,Janey yed Release(Dr/E c) Active 40 MG PO DAILY February 13, 2021 6:19pm Potassium Chloride Active 10 MEQ PO DAILY February 13, 2021 6:24pm Lisinopril Active 2.5 MG PO DAILY February 13, 2021 6:24pm Gabapentin Disconti nued 400 MG PO DAILY 2019 5:19pm y 2020 4:16pm Hydrocodone- Ibuprofen Disconti nued 1 TAB PO . daily 2019 5:20pm y 2020 4:16pm Celecoxib Disconti nued 100 MG PO TWICE A DAY 60 October 26, 2020 4:16pm December 21, 2020 3:50pm Gabapentin Disconti nued 400 MG PO DAILY October 26, 2020 4:16pm December 21, 2020 3:50pm Hydrocodone- Ibuprofen Disconti nued 1 TAB PO . daily October 26, 2020 4:16pm December 21, 2020 3:50pm ketorolac 30 mg/mL (1 mL) injection solution Disconti nued 30 MG IM ONCE December 21, 2020 2:27pm December 21, 2020 4:00pm dexamethason e sodium phosphate 4 mg/mL injection solution Disconti nued 4 MG IM ONCE December 21, 2020 2:27pm December 21, 2020 4:00pm Gabapentin Disconti nued 400 MG PO DAILY [...] 2021 5:09pm January 18, 2021 5:20pm Celecoxib Active 100 MG PO TWICE A DAY 60 2020 5:09pm Hydrocodone- Ibuprofen Disconti nued 1 TAB PO . daily January 18, 2021 5:20pm February 14, 2021 8:50am Ergocalcifer ol (Vitamin D2) (Vitamin D2) 50,000 [...] 20, 2019 12:17pm March 09, 2019 4:23pm Budesonide-F ormoterol (Symbicort) 160-4.5 mcg/actuatio n HFA aerosol inhaler Disconti nued 2 INHALAT ION INH TWICE A DAY 10.2 Sept er 2018 4:14pm Februa ry 2019 5:43pm Buspirone Disconti nued 15 MG PO TWICE A DAY 60 Septemb er 2018 4:14pm Februa ry 2019 5:43pm Celecoxib Disconti nued 100 MG PO TWICE A DAY 60 Septemb er 2018 4:14pm Februa ry 2019 5:43pm Duloxetine Disconti nued 60 MG PO DAILY 30 Sept er 2018 4:14pm Februa ry 2019 5:43pm Ergocalcifer ol (Vitamin D2) (Vitamin D2) 50,000 unit capsule [place] nued 67747 UNIT PO Every Week 4 2018 4:14pm [...] 10 MG PO DAILY 30 2018 4:15pm ry 2019 5:43pm Potassium Chloride Disconti nued 10 MEQ PO DAILY 30 2018 4:15pm ua 2019 5:43pm take with lasix Simvastatin Disconti nued 40 MG PO DAILY 30 2018 4:15pm Septem 2018 4:44pm Rosuvastatin (Crestor) 40 mg tablet Disconti nued 40 MG PO [facility]ILY [facility] 2018 4:44pm December 30, 2019 2:37pm Budesonide-F [...] (Vitamin D2) 50,000 [place] 47593 UNIT PO Every Week 4 March 09, 2019 4:19pm Sept2018 4:15pm Furosemide Disconti nued 40 MG PO DAILY March 09, 2019 4:20pm 2018 4:15pm Gabapentin Disconti nued 400 MG PO DAILY March 09, 2019 4:20pm 2019 10:33a m Hydrocodone- Acetaminophe n Disconti nued 1 TAB PO DAILY March 09, 2019 4:20pm 2019 10:33a m Metformin Disconti nued 1000 [...] DAILY March 09, 2019 4:22pm 2018 4:15pm methylpredni solone acetate 40 mg/mL suspension for injection Disconti nued 40 MG IM ONCE 1 2019 5:03pm 2019 5:44pm Budesonide-F ormoterol (Symbicort) 160-4.5 mcg/actuatio n HFA [...] 1,250 mcg (50,000 unit) [place] 98030 UNIT PO Every Week 4 2019 5:42pm December 30, 2019 2:37pm Furosemide Disconti nued 40 MG PO DAILY 30 2019 5:42pm Sept2019 3:48pm Lisinopril Disconti nued 2.5 MG PO [...] 60 2019 3:43pm Novemb er 2019 7:37pm Cyanocobalam in [...] 1,250 mcg (50,000 unit) capsule [place]ued 62748 UNIT PO Every Week 4 2019 3:47pm Novemb er 2019 7:37pm Ferrous Sulfate Disconti nued 325 MG PO DAILY 30 Sept2019 3:47pm Novemb er 2019 7:37pm Furosemide Disconti nued 40 MG PO DAILY 30 er 2019 3:47pm Novemb er 2019 7:37pm Magnesium Oxide Disconti nued 400 MG PO DAILY 30 2019 3:48pm Novemb er 2019 7:37pm Metformin Disconti nued 1000 MG PO TWICE A DAY 60 2019 3:48pm Novemb er 2019 7:37pm Montelukast Disconti nued 10 MG PO DAILY 30 er 2019 3:48pm Novemb er 2019 7:37pm Potassium Chloride Disconti nued 10 MEQ PO DAILY 30 [facility] Rosuvastatin (Crestor) 40 mg tablet Disconti nued 40 MG PO DAILY 30 2019 [facility] Fluconazole (Diflucan) 150 mg tablet Disconti nued 150 MG PO DAILY 2 2 2019 3:48pm Septem ra 2019 12:10a m Gabapentin Disconti nued 400 MG PO DAILY July 30, 2020 11:29am [facility] Hydrocodone- Ibuprofen Disconti nued 1 TAB PO . daily July 30, 2020 11:29am [facility] Albuterol Sulfate (Ventolin Hfa) 90 mcg/actuatio n HFA aerosol inhaler Disconti nued 2 PUFF INH Q6H 8.5 Novembe r 2019 7:35pm January 26, 2021 3:18pm Buspirone Disconti nued 15 MG PO TWICE A DAY 60 Novembe r 2019 7:35pm Sepua y 2020 12:40p m Celecoxib Disconti nued 100 MG PO TWICE A DAY 60 Novembe r 2019 7:35pm Sepua2020 12:40p m Cyanocobalam [...] 1,250 mcg (50,000 unit) [place] 98985 UNIT PO Every Week 4 2019 7:35pm [...] 12:39pm 2020 4:17pm Cyanocobalam in (Vitamin B-12) Active 1000 MCG IM every month October 24, 2020 12:39pm Diabetic Supplies, Miscellan. Active 0 .ROUTE .MEDSUPPLY October 24, 2020 12:39pm Test Strips and Lancets for daily BG testing Duloxetine Disconti nued 60 MG PO DAILY October 24, 2020 12:39pm January 26, 2021 7:56am Empagliflozi n Disconti nued 25 MG PO DAILY October 24, 2020 12:39pm February 13, 2021 6:25pm Ergocalcifer ol (Vitamin D2) (Vitamin D2) 1,250 mcg (50,000 unit) capsule Active 25750 UNIT PO Every Week October 24, 2020 12:39pm Ferrous Sulfate Active 325 MG PO DAILY October 24, 2020 12:39pm Fluticasone Propion-Salm eterol (Advair Diskus) 250-50 mcg/dose blister with device Disconti nued 1 INHALAT ION INH TWICE A DAY October 24, 2020 12:39pm January 26, 2021 3:18pm Furosemide Active 40 MG PO DAILY 2020 12:39pm Lisinopril Disconti nued 2.5 MG PO DAILY October 24, 2020 12:39pm February 13, 2021 6:25pm Magnesium Oxide Disconti nued 400 MG PO DAILY October 24, 2020 12:39pm November 30, 2020 5:04pm Metformin Disconti nued 1000 MG PO TWICE A DAY October 24, 2020 12:39pm November 30, 2020 10:28a m Montelukast Active 10 MG PO DAILY 2020 12:39pm Potassium Chloride Disconti nued 10 MEQ PO DAILY October 24, 2020 12:40pm Februa ry 2020 9:41am take with lasix Rosuvastatin (Crestor) 40 mg tablet Active 40 MG PO DAILY October 24, 2020 12:40pm methylpredni solone sod suc(PF) 125 mg/2 mL solution for injection Disconti nued 125 MG IM ONCE 1 er 2019 9:33am Septem ra 2019 11:28a m Gabapentin Disconti nued 400 MG PO DAILY er 2019 10:32am Octobe r 2019 11:30a m Hydrocodone- Ibuprofen Disconti nued 1 TAB PO . daily er 2019 10:32am Octobe r 2019 11:30a m Blood-Glucos e Meter Active 0 .ROUTE .MEDSUPPLY 1 er 2019 10:34am Glucometer Diabetic Supplies, Miscellan. Disconti nued 0 .ROUTE .MEDSUPPLY 1 er 2019 10:34am [facility] er 2019 7:37pm Test Strips and Lancets for daily BG testing Empagliflozi n Disconti nued 25 MG PO DAILY mb r 2019 7:58pm Sepuar y 2020 12:40p m Procedures Procedure Date Performed Status Transforaminal Epidural Steroid Inj. (Right) February 14, 2021 7:40am completed Relevant Diagnostic Tests and/or Laboratory Data Laboratory Results Test Date/Time Result Interpretation Reference Range Result Comment Performing Site White Blood Count February 13, 2021 11:20am 5.43 x10^3/uL 3.98-10.04 [facility] [id number] [place] [address] Red Blood Count February 13, 2021 11:20am 5.05 x10^6/uL 3.93-5.22 [facility] [address] [place] [address] Hemoglobin February 13, 2021 11:20am 13.8 g/dL 11.8-15.3 [facility] [address] [address] Hematocrit February 13, 2021 11:20am 42.6 % 36.9-46.9 [facility] [address] [address] Mean Corpuscular Volume February 13, 2021 11:20am 84.4 fL 79.4-94.8 [facility] [address] [address] Mean Corpuscular Hemoglobin February 13, 2021 11:20am 27.3 pg 25.6-32.2 [facility] [address] [address] Mean Corpuscular Hemoglobin Concent February 13, 2021 11:20am 32.4 g/dL 32.2-35.5 [facility] [address] [address] RDW Standard Deviation February 13, 2021 11:20am 45.0 fL 36.4-46.3 [facility] [address] [address] RDW Coefficient of Variation February 13, 2021 11:20am 14.9 % 11.7-14.4 [facility] [address] [address] Platelet Count February 13, 2021 11:20am 275 x10^3/uL 182-369 [facility] [address] [address] Mean Platelet Volume February 13, 2021 11:20am 9.6 fL 9.4-12.3 [facility] [address] [address] Neutrophils (%) (Auto) February 13, 2021 11:20am 58.9 % 34.0-71.1 [facility] [address] [address] Lymphocytes (%) (Auto) February 13, 2021 11:20am 31.3 % 19.3-51.7 [facility] [address] [address] Monocytes (%) (Auto) February 13, 2021 11:20am 7.2 % 4.7-12.5 [facility] [place] [id number] Eosinophils (%) (Auto) February 13, 2021 11:20am 2.2 % 0.7-5.8 [facility] [place] [address] Basophils (%) (Auto) February 13, 2021 11:20am 0.4 % 0.1-1.2 [facility] [place] [address] Neutrophils # (Auto) February 13, 2021 11:20am 3.20 x10^3/uL 1.56-6.13 [facility] [place] [address] Lymphocytes # (Auto) February 13, 2021 11:20am 1.70 x10^3/uL 1.18-3.74 [facility] [place] [address] Monocytes # (Auto) February 13, 2021 11:20am 0.39 x10^3/uL 0.24-0.86 [facility] [place] [id number] Eosinophils # (Auto) February 13, 2021 11:20am 0.12 x10^3/uL 0.04-0.36 [facility] [place] [address] Basophils # (Auto) February 13, 2021 11:20am 0.02 x10^3/uL 0.01-0.08 [facility] [place] [address] Sodium Level February 13, 2021 11:20am 138 mmol/L 136-145 [facility] [place] [id number] Potassium Level February 13, 2021 11:20am 4.4 mmol/L 3.5-5.0 [facility] [place] [address] Chloride Level February 13, 2021 11:20am 99 mmol/L 98.0-107 [facility] [place] [address] Carbon Dioxide Level February 13, 2021 11:20am 28.0 mmol/L 23.0-29.0 [facility] [place] [address] Anion Gap February 13, 2021 11:20am 11.0 mmol/L 5.0-15.0 [facility] [address] [address] Blood Urea Nitrogen February 13, 2021 11:20am 17 mg/dL 8-21 [facility] [address] [address] Creatinine February 13, 2021 11:20am 0.50 mg/dL 0.70-1.20 [facility] [address] [address] Estimat Glomerular Filtration Rate February 13, 2021 11:20am > 60.0 eGFR Interpretation: Disease State Ref [...] tive determinations of GFR should be obtained. [facility] [address] [address] Estimated GFR () February 13, 2021 11:20am > 60.0 [facility] [place] [id number] BUN/Creatinine Ratio February 13, 2021 11:20am 34.0 Ratio 6.0-20.0 [facility] [place] [id number] Glucose Level February 13, 2021 11:20am 220 mg/dL 70-105 [facility] [address] [address] Hemoglobin A1c February 13, 2021 11:20am 8.8 % 4.5-5.7 [facility] [place] [id number] Estimated Average Glucose (eAG) February 13, 2021 11:20am 206 mg/dL 70-99 [facility] [place] [id number] Calcium Level February 13, 2021 11:20am 9.2 mg/dL 8.8-10.2 [facility] [address] [address] Magnesium Level February 13, 2021 11:20am 1.6 mg/dL 1.4-2.4 [facility] [address] [address] Total Bilirubin February 13, 2021 11:20am 0.27 mg/dL 0.00-1.30 [facility] [place] [id number] Aspartate Amino Transf (AST/SGOT) February 13, 2021 11:20am 28 U/L 7.0-27.0 [facility] [place] [id number] Alanine Aminotransfera se February 13, 2021 11:20am 33 U/L 3.5-33.9 [facility] [place] [id number] Total Protein February 13, 2021 11:20am 6.8 g/dL 6.6-8.7 [facility] [place] [id number] Albumin February 13, 2021 11:20am 3.8 g/dL 3.5-5.0 [facility] [address] [address] Albumin/Globul in Ratio February 13, 2021 11:20am 1.0 Ratio 1.0-2.0 [facility] [address] [address] Alkaline Phosphatase February 13, 2021 11:20am 93 U/L 45-122 [facility] [address] [address] Coronavirus (COVID-19)(PCR ) February 10, 2021 4:24pm Not detected DNAPCR Neg/NotDet [facility] Core Reference Laboratory [address] [place] [address] Vital Signs Vital Reading Result Reference Range Collection Date/Time Height 60 [in_i] October 26 3:04pm Weight 273.00 [lb_av] October 26, 2020 3:04pm Body Temperature 97.6 [degF] 97.6-99.6 September 3:04pm Heart Rate 72 /min 60-100 October 26 3:04pm Respiratory rate 16 /min 12-20 September 3:04pm Oxygen saturation by Pulse oximetry 97 % 95-100 October 26, 2020 3 :04pm BP Systolic 136 mm[Hg] 90-120 October 26, 2 021 3:04pm BP Diastolic 82 mm[Hg] 60-80 October 26, 2 021 3:04pm BMI (Body Mass Index) 53.3 kg/m2 Vicki reeder 2020 3:04pm Height 60 [in_i] December 21 3:09pm Weight 273.00 [lb_av] December 21, 2 021 3:09pm Body Temperature 97.1 [degF] 97.6-99.6 December 21, 2020 3:09pm Heart Rate 78 /min 60-100 December 21 3:09pm Respiratory rate 20 /min -December 21, 2020 3:09pm Oxygen saturation by Pulse oximetry 98 % 95-100 December 21, 2020 3:0 9pm BP Systolic 153 mm[Hg] 90-120 December 21 3:09pm BP Diastolic 90 mm[Hg] 60-80 December 21 3:09pm BMI (Body Mass Index) 53.3 kg/m2 December 21, 2020 3:09pm Height 60 [in_i] January 18 4:58pm Weight 275.00 [lb_av] January 18, 2 021 4:58pm Body Temperature 97.4 [degF] 97.6-99.6 January 18, 2021 4:58pm Heart Rate 84 /min 60-100 January 18 4:58pm Respiratory rate 18 /min -January 18, 2021 4:58pm Oxygen saturation by Pulse oximetry 98 % 95-100 January 18, 2021 4:5 8pm BP Systolic 143 mm[Hg] 90-120 January 18 4:58pm BP Diastolic 83 mm[Hg] 60-80 January 18 4:58pm BMI (Body Mass Index) 53.6 kg/m2 January 18, 2021 4:58pm Height 60 [in_i] February 14, 2021 8:23am Weight 277.00 [lb_av] February 14 8:23am Body Temperature 97.9 [degF] 97.6-99.6 February 14, 2 021 8:49am Heart Rate 80 /min 60-100 February 14, 2021 8:49am Respiratory rate 16 /min 12-20 February 14, 2 021 8:49am Oxygen saturation by Pulse oximetry 98 % 95-100 February 14, 2021 8:49a m BP Systolic 170 mm[Hg] 90-120 February 14, 2021 8:49am BP Diastolic 92 mm[Hg] 60-80 February 14, 2021 8:49am Advance Directives Advance Directive Response Recorded Date/ Time Advance Directives No February 14 8:23am Power of Pilot Boat Operator No February 14, 2021 8:23am Living Will No February 14, 2021 8 :23am Health Care Proxy No February 14, 2021 8:23am Insurance Providers Guarantor Kavitha Jarrell Address [address] [place] [address] Contact Info. Home Phone: Payer Policy Id Coverage Id Subscriber's Name Subscriber Id Effective Date Expiration Date [employer] [place] [id number] Stephania Jarrell [id number] [facility] [id number] Kavitha Jarrell [id number] MEDICARE A AND B [id number] Kavitha Jarrell [id number] [facility] [id number] Kavitha Jarrell [id number] Encounters Encounter Location(s) Arrival/Admit Date Discharge/Depart Date Provider(s) Departed Physician/Prov ider Office Visit [facility] Telemed October 24, 2020 11:54am October 24, 2020 12:40pm Nisa Hunter DO Departed Physician/Prov ider Office Visit [facility] Pain Clinic October 26, 2020 3:24pm October 26, 2020 5:48pm Moises Pinzon MD Departed Physician/Prov ider Office Visit [facility] Pain Clinic December 21, 2020 2:27pm December 21, 2020 4:22pm Moises Pinzon MD Departed Physician/Prov ider Office Visit [facility] January 18, 2021 4:52pm January 18, 2021 5:22pm Araceli Sethi APRN Departed Clinical [facility] February 10, 2021 4:15pm February 10, 2021 4:16pm Araceli Sethi APRN Departed Clinical [facility] February 13, 2021 11:04am February 13, 2021 11:05am iNsa Hunter DO Departed Clinical [facility] February 14, 2021 7:59am February 14, 2021 8:53am Moises Pinzon MD Non-patient / Non-visit [facility] February 14, 2021 8:46am Moises Pinzon MD Recent Diagnosis Onset Date Diabetes mellitus type 2 in obese Hypertension Hypomagnesemia Vitamin D deficiency Lumbar spondylosis Lumbar spondylosis Spondylolisthesis Lumbar radiculopathy Lumbar spondylosis Functional Status Observation Response Date Recorded Ambulation Ability Independent February 14 8:23am Assessments Diagnosis Onset Date Resolution Status Diabetes mellitus type 2 in obese chronic Hypertension chronic Hypomagnesemia chronic Vitamin D deficiency chronic Lumbar spondylosis acute Lumbar spondylosis acute Spondylolisthesis acute Lumbar radiculopathy acute Lumbar spondylosis acute Plan of Treatment Ms. Jarrell is a pleasant 54-year-old white female well known to me with a long history of axial back pain she has had previous intra-articular facet joint injections done at L4-L5 and L5-S1 and subsequently underwent bilateral RF of the L3, L4 medial branches and L5 dorsal ramus with excellent result. Patient today is telling me for the last 2 months she has had a different type of pain radiating for her buttocks down to her foot this occasionally lightening tingling numbness shooting pain along the right S1 nerve root distribution. Patient has undergone physical therapy in the past for her back pain with no benefit she has also undergone medicare contact specialist for her low back with no benefit patient states that nerve block/injections as above have been beneficial 10 units have been the beneficial and stretching has been beneficial patient also has a history of type 2 diabetes and her last A1c was in the low 7. Jarek reviewed compliant, request [id number] UDS - Confirmation from 09/28/2020, positive for hydrocodone and its metabolites- compliant with therapy Studies/Imaging: MRI cervical spine without contrast [facility] date of exam 07/22/2020 Impression: Negative study MRI lumbar spine without contrast [facility] date of exam 07/22/2020 Impression: There is mild degenerative changes at L2-3 with mild desiccation of the disc. There is mild desiccation of L4 with mild circumferential bulge with moderate to marked spinal stenosis with hypertrophy of the facet joints and ligamentum flavum. There is mild circumferential bulge at L5-S1 with mild spinal stenosis with hypertrophy of the facet joints. There is first-degree spondylolisthesis L4 on L5 Plan is to renew patient's medications without changes Prescriptions E prescribed today: As below Ms. Jarrell is a pleasant 55-year-old white female well known to me with a long history of axial back pain she has had previous intra-articular facet joint injections done at L4-L5 and L5-S1 and subsequently underwent bilateral RF of the L3, L4 medial branches and L5 dorsal ramus with excellent result. Patient today is telling me for the last 2 months she has had a different type of pain radiating for her buttocks down to her foot this occasionally lightening tingling numbness shooting pain along the right S1 nerve root distribution. Patient has undergone physical therapy in the past for her back pain with no benefit she has also undergone medicare contact specialist for her low back with no benefit patient states that nerve block/injections as above have been beneficial 10 units have been the beneficial and stretching has been beneficial patient also has a history of type 2 diabetes and her last A1c was in the low 7. after seen patient today I think the doing the facet joint injections could possibly help I reviewed her MRIs again today although she is having radicular pain down that right leg I am hoping that some of his coming from interference with facet joints and we might be like it was just the low-dose steroids in the intra- articular facets which may relieve that leg pain pain Jarek reviewed compliant, request [id number] UDS - Confirmation from 09/28/2020, positive for hydrocodone and its metabolites- compliant with therapy Studies/Imaging: MRI cervical spine without contrast [facility] date of exam 07/22/2020 Impression: Negative study MRI lumbar spine without contrast [facility] [place] date of exam 07/22/2020 FINDINGS The lumbar [...] facet joints. There is first-degree spondylolisthesis at L4-L5 Today after a talk with the patient we have the agree Arslan do 1 set of diagnostic L4-5 and L5-S1 intra-articular facet joint injections and if they are successful we plan on doing the radiofrequency ablation we also discuss the right S1 radiculopathy her hoping noted the low-dose steroids during the info of facet injections her beneficial. We also were going to give the patient a told her doll 30 mg IM injection along with a dexamethasone 4 mg injection today and see if this is beneficial Plan is to renew patient's medications without changes Jarek reviewed compliant, request [id number] UDS - Confirmation from 09/28/2020, positive for hydrocodone and its metabolites- compliant with therapy Studies/Imaging: MRI cervical spine without contrast [facility] date of exam 07/22/2020 Impression: Negative study MRI lumbar spine without contrast [facility] [place] date of exam 07/22/2020 FINDINGS The lumbar [...] facet joints. There is first-degree spondylolisthesis at L4-L5 Dr. Pinzon to exam room. Discussed with patient benefits & risks of right S1 transforaminal epidural steroid injection. Patient verbalized understanding & expresses desire to proceed. Called pharmacy to cancel hydrocodone 7.5mg/200mg Ibuprofen #30. Will re-send 7 day supply due to insurance purposes. Future Tests Future scheduled test information is unavailable Pending Tests Pending diagnostic test information is unavailable Future Visits Future appointment information is unavailable Referrals to Other Providers Reason for Referral Referral Start Date Provider Provider Contact Information Provider Address status post right S1 transforaminal epidural ster Moises Pinzon MD Work Phone: [facility] [address] [place] [address] Future Procedures Future procedure information is unavailable Future Medications Future medication information is unavailable Patient Instructions Corticosteroid Joint Injecti on
--- OUTSIDE RECORDS SUMMARY | 2024-07-22 10:38 | XMS_ITS | Continuity of Care Document ---
[facility] Organization [facility] Address [address] [place] [address] Support Name Relationship Address Phone DO Nisa Hunter Personal [facility] [place] [place] [address] SAHARA Sethi Personal Relationship [address] [address] DO Nisa Hunter Personal Relationship [address] [place] [address] MD Moises Pinzon Personal Relationship [address] [place] [address] [place] [address] DO Nisa Hunter Personal Relationship [address] [place] [address] Chief Complaint and Reason for Visit Chief Complaint Back pain Office visit Wellness/Preventative Back pain abdominal pains 1 MONTH FOLLOW UP G47.33 - Obstructive sleep apnea (adult) (pediatri Reason for Visit Low back pain Lumbar spondylosis Lumbar radiculopathy Lumbar spondylosis Bereavement Depression Anxiety Asthma Chronic pain syndrome Diabetes mellitus type 2 in obese Hyperlipidemia Hypertension Hypomagnesemia Obesity Obstructive sleep apnea Osteoarthritis Vitamin D deficiency Low back pain Lumbar spondylosis Spondylolisthesis Bereavement Depression Hospital discharge follow-up Diabetes mellitus type 2 in obese Hypertension Obesity Small bowel obstruction Lumbar spondylosis Spondylolisthesis Allergies, Adverse Reactions, Alerts [...] Active Obstructive sleep apnea 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 Active Lumbar radiculopathy Active [...] A DAY 60 December 30, 2019 2:33pm Sepua2020 12:40p m Celecoxib Disconti nued 100 MG PO TWICE A DAY 60 December 30, 2019 2:34pm Sept2019 3:48pm Ergocalcifer ol (Vitamin D2) (Vitamin D2) 1,250 mcg (50,000 unit) capsule [place] nued 03456 UNIT PO Every Week 4 December 30, [...] MG PO DAILY December 30, 2019 2:35pm Mayem 2019 3:43pm Take with iron Empagliflozi n (Jardiance) 10 mg tablet Disconti nued 10 MG PO DAILY December 30, 2019 2:36pm April 25, 2020 2:12pm Cyanocobalam in (Vitamin B-12) Disconti nued 1000 MCG IM every month 1 December 30, 2019 2:56pm 2019 3:48pm Buspirone Disconti nued 15 MG [...] DAILY 30 April 25, 2020 2:11pm Septem ra 2019 3:48pm Metformin Disconti nued 1000 MG PO TWICE A DAY 60 May 25, 2020 8:44am Septem ra 2019 3:48pm Empagliflozi n (Jardiance) 10 mg tablet Disconti nued 10 MG PO DAILY be r 2019 10:00am Novemb er 2019 [...] Magnesium Oxide Active 400 MG PO DAILY be r 2020 10:21am Empagliflozi n (Jardiance) 10 mg tablet Disconti nued 10 MG PO DAILY be r 2020 10:51am January 10, 2022 5:37pm [...] TWICE A DAY April 03, 2021 11:58am 2021 9:34am Duloxetine (Cymbalta) 60 mg capsule,janey [...] 2021 3:07pm February 01, 2022 9:03pm Tumeric-Ging -Bruce-Oreg- Capryl Active 1 CAP PO DAILY July 21, 2021 3:07pm Gabapentin Disconti nued 400 MG PO DAILY 2019 5:19pm Januar y 2020 4:16pm Hydrocodone- Ibuprofen Disconti nued 1 TAB PO . daily r 2019 5:20pm Januar y 2020 4:16pm Celecoxib Disconti nued 100 [...] 400 MG PO DAILY January 04, 2022 3:pm February [...] 2022 3:27pm March 05, 2022 4:44pm Gabapentin Active 400 MG PO DAILY March 05, 2022 4:44pm Hydrocodone- Ibuprofen Active 1 TAB PO DAILY March 05, 2022 4:44pm Ergocalcifer ol (Vitamin D2) (Vitamin D2) 50,000 [...] (Vitamin D2) 50,[place] [address]30 UNIT PO Every Week 4 2018 4:14pm ua 2019 5:43pm Furosemide Disconti nued 40 MG PO DAILY 30 2018 4:15pm Februa 2019 5:43pm Lisinopril Disconti nued 2.5 MG PO DAILY 30 2018 4:15pm ua ry 2019 5:43pm Metformin Disconti nued 1000 MG PO TWICE A DAY 60 2018 4:15pm Februa ry 2019 5:43pm Montelukast Disconti nued 10 MG PO DAILY 30 2018 4:15pm ua ry 2019 5:43pm Potassium Chloride Disconti nued 10 MEQ PO DAILY 30 2018 4:15pm Februa ry 2019 5:43pm take with lasix Simvastatin Disconti nued 40 MG PO DAILY 30 2018 4:15pm Septem ra 2018 4:44pm Rosuvastatin (Crestor) 40 mg tablet Disconti nued 40 MG PO DAILY [facility] 2018 4:44pm December 30, 2019 2:37pm Budesonide-F ormoterol (Symbicort) 160-4.5 mcg/actuatio n HFA aerosol inhaler Disconti nued 2 INHALAT ION INH TWICE A DAY 10.2 March 09, 2019 4:18pm Septem 2018 4:15pm Buspirone Disconti nued 15 MG PO TWICE A DAY 60 March 09, 2019 4:19pm Mayem 2018 4:15pm Celecoxib Disconti nued 100 MG PO TWICE A DAY 60 March 09, 2019 4:19pm Septem 2018 4:15pm Duloxetine Disconti nued 60 MG PO DAILY 30 March 09, 2019 4:19pm Septem 2018 4:15pm Ergocalcifer ol (Vitamin D2) (Vitamin D2) 50,000 [place] 44279 UNIT PO Every Week 4 March 09, 2019 4:19pm Septem 2018 4:15pm Furosemide Disconti nued 40 MG PO DAILY 30 March 09, 2019 4:20pm Septem 2018 4:15pm Gabapentin Disconti nued 400 MG PO DAILY March 09, 2019 4:20pm Septem 2019 10:33a m Hydrocodone- Acetaminophe n Disconti nued 1 TAB PO DAILY March 09, 2019 4:20pm 2019 10:33a m Metformin Disconti nued 1000 MG PO TWICE A DAY March 09, 2019 4:21pm 2018 4:15pm Montelukast [...] 1,250 mcg (50,000 unit) capsule [place] 86527 UNIT PO Every Week 4 2019 5:42pm [...] 1,250 mcg (50,000 unit) [place]ued 71086 UNIT PO Every Week 4 2019 3:47pm [...] 10 MG PO DAILY 30 2019 [facility] Potassium Chloride Disconti nued 10 MEQ PO DAILY 30 2019 3:48pm [facility] 7[facility] take with lasix Rosuvastatin (Crestor) 40 mg tablet Disconti nued 40 MG PO DAILY 30 2019 3:48pm [facility] 7[facility] Fluconazole (Diflucan) 150 mg tablet Disconti nued 150 MG PO DAILY 2 2 2019 3:48pm Septem ra 2019 12:10a m Gabapentin Disconti nued 400 MG PO DAILY July 30, 2020 11:29am [facility] Hydrocodone- Ibuprofen Disconti nued 1 TAB PO . daily July 30, 2020 11:29am [facility] er 2019 7:37pm Albuterol Sulfate (Ventolin Hfa) [...] Miscellan. Disconti nued 0 .ROUTE .MEDSUPPLY 1 r 2019 7:35pm 2020 12:40p m Test Strips and Lancets for daily BG testing Duloxetine Disconti nued 60 MG PO DAILY 30 r 2019 7:35pm 2020 12:40p m Empagliflozi n (Jardiance) 10 mg tablet Disconti nued 10 MG PO DAILY 30 2019 7:35pm Decemb er 2019 7:59pm Ergocalcifer ol (Vitamin D2) (Vitamin D2) 1,250 mcg (50,000 unit) capsule [place]ued 92347 UNIT PO Every Week 4 2019 7:35pm [...] 1,250 mcg (50,000 unit) [place] 60910 UNIT PO Every Week October 24, 2020 [...] 1,250 mcg (50,000 unit) [place] 33290 UNIT PO Every Week February 15, 2021 [...] nued 2 PUFF INH Q6H 8.5 r 2020 10:35am January 10, 2022 5:37pm Buspirone Disconti nued 15 MG PO TWICE A DAY 60 r 2020 10:36am Januar y 2021 9:10am Cyanocobalam in (Vitamin B-12) Disconti nued 1000 MCG IM every month 1 r 2020 10:36am January 10, 2022 5:37pm Duloxetine Disconti nued 60 MG PO DAILY 30 r 2020 10:36am January 10, 2022 5:38pm Ergocalcifer ol (Vitamin D2) (Vitamin D2) 1,250 mcg (50,000 unit) capsule Discont[place] nued 84499 UNIT PO Every Week 4 r 2020 10:36am Februa 2021 2:58pm Ferrous Sulfate Active 325 MG PO DAILY 30 r 2020 10:36am Furosemide Disconti nued 40 MG PO DAILY 30 r 2020 10:36am January 10, 2022 5:37pm Metformin Disconti nued 1000 MG PO TWICE A DAY 60 r 2020 10:36am January 10, 2022 5:37pm Montelukast Disconti nued 10 MG PO DAILY 30 [facility] r 2020 10:36am January 10, 2022 5:37pm Potassium Chloride Disconti nued 10 MEQ PO DAILY 30 r 2020 10:36am Februa ry 2021 9:27am Dextromethor jaramillo-Guaifen esin Disconti nued 10 ML PO EVERY 4-8 HOURS 180 r 2020 10:37am February 01, 2022 9:03pm Ondansetron Hcl (Zofran) 4 mg tablet Active 4 MG PO Q8H 30 [facility] r 2020 10:37am Gabapentin Disconti nued 400 MG PO DAILY 30 er 2019 10:32am Octobe r 2019 11:30a m Hydrocodone- Ibuprofen Disconti nued 1 TAB PO . daily 30 er 2019 10:32am Octobe r 2019 11:30a m Blood-Glucos e Meter Disconti nued 0 .ROUTE .MEDSUPPLY 1 2019 10:34am April 03, 2021 11:57a m Glucometer Diabetic Supplies, Miscellan. Disconti nued 0 .ROUTE .MEDSUPPLY 1 2019 10:34am Novem er 2019 7:37pm Test Strips and Lancets [...] B-12) Active 1000 MCG IM every month January 10, 2022 5:36pm Empagliflozi n (Jardiance) 10 mg tablet Disconti nued 10 MG PO DAILY January 10, 2022 5:36pm February 28, 2022 10:53a m Ergocalcifer ol (Vitamin D2) Active 1250 MCG PO Every Week January 10, 2022 5:36pm Furosemide Active 40 [...] com pleted Blood Culture February 01, 2022 completed Relevant Diagnostic Tests and/or Laboratory Data Laboratory Results Test Date/Time Result Interpretation Reference Range Result Comment Performing Site White Blood Count February 01, 2022 9:08pm 16.62 x10^3/uL 3.98-10.04 [facility] [address] [address] Red Blood Count February 01, 2022 9:08pm 5.90 x10^6/uL 3.93-5.22 [facility] [address] [address] Hemoglobin February 01, 2022 9:08pm 16.5 g/dL 11.8-15.3 [facility] [address] [address] Hematocrit February 01, 2022 9:08pm 50.2 % 36.9-46.9 [facility] [address] [address] Mean Corpuscular Volume February 01, 2022 9:08pm 85.1 fL 79.4-94.8 [facility] [address] [address] Mean Corpuscular Hemoglobin February 01, 2022 9:08pm 28.0 pg 25.6-32.2 [facility] [address] [address] Mean Corpuscular Hemoglobin Concent February 01, 2022 9:08pm 32.9 g/dL 32.2-35.5 [place] [address] RDW Standard Deviation February 01, 2022 9:08pm 40.6 fL 36.4-46.3 [place] [address] RDW Coefficient of Variation February 01, 2022 9:08pm 13.1 % 11.7-14.4 [place] [address] Platelet Count February 01, 2022 9:08pm 329 x10^3/uL 182-369 [place] [address] Mean Platelet Volume February 01, 2022 9:08pm 10.1 fL 9.4-12.3 [place] [address] Neutrophils (%) (Auto) February 01, 2022 9:08pm 88.5 % 34.0-71.1 [place] [address] Lymphocytes (%) (Auto) February 01, 2022 9:08pm 8.1 % 19.3-51.7 [place] [address] Monocytes (%) (Auto) February 01, 2022 9:08pm 2.7 % 4.7-12.5 [place] [address] Eosinophils (%) (Auto) February 01, 2022 9:08pm 0.1 % 0.7-5.8 [place] [address] Basophils (%) (Auto) February 01, 2022 9:08pm 0.2 % 0.1-1.2 [place] [address] Nucleated Red Blood Cells % (auto) February 01, 2022 9:08pm 0.0 /100 WBC 0-0.2 [place] [address] Immature/Total Granulocytes (auto) February 01, 2022 9:08pm 0.400 % 0-0.429 [place] [address] Neutrophils # (Auto) February 01, 2022 9:08pm 14.70 x10^3/uL 1.56-6.13 [facility] [address] [facility] [address] Lymphocytes # (Auto) February 01, 2022 9:08pm 1.35 x10^3/uL 1.18-3.74 [place] [address] [address] [facility] [address] Monocytes # (Auto) February 01, 2022 9:08pm 0.45 x10^3/uL 0.24-0.86 [place] [address] [address] [place] [address] Eosinophils # (Auto) February 01, 2022 9:08pm 0.01 x10^3/uL 0.04-0.36 [facility] [address] [facility] [address] Basophils # (Auto) February 01, 2022 9:08pm 0.04 x10^3/uL 0.01-0.08 [facility] [address] [facility] [address] Nucleated Red Blood Cells # February 01, 2022 9:08pm 0.000 x10^3/uL 0-0.012 [place] [address] [address] [place] [address] Absolute Immature Granulocyte (auto February 01, 2022 9:08pm 0.0700 X10^3/uL 0-0.0310 [place] [address] [address] [facility] [address] Sodium Level February 01, 2022 9:08pm 138 mmol/L 136-145 [facility] [address] [facility] [address] Potassium Level February 01, 2022 9:08pm 4.3 mmol/L 3.5-5.1 [facility] [address] [facility] [address] Chloride Level February 01, 2022 9:08pm 98 mmol/L 98-107 [facility] [address] [facility] [address] Carbon Dioxide Level February 01, 2022 9:08pm 23.9 mmol/L 21.0-32 [facility] [address] [facility] [address] Anion Gap February 01, 2022 9:08pm 16.1 mmol/L 5.0-15.0 [facility] [address] [facility] [address] Blood Urea Nitrogen February 01, 2022 9:08pm 17 mg/dL 7.0-18.0 [facility] [address] [place] [address] [address] [facility] [address] Creatinine February 01, 2022 9:08pm 0.87 mg/dL 0.55-1.02 [place] [address] Estimat Glomerular Filtration Rate February 01, 2022 [...] tive determinations of GFR should be obtained. [facility] [address] [place] [address] Estimated GFR () February 01, 2022 9:08pm > 60.0 [place] [address] BUN/Creatinine Ratio February 01, 2022 9:08pm 19.5 Ratio 6.0-20.0 [place] [address] Glucose Level February 01, 2022 9:08pm 249 mg/dL 70-99 Falsely depressed or elevated results may occur on samples drawn from patients taking Sulfasalazine and Sulfapyridine, if the blood sample is drawn before clearance of the drug. [facility] [address] [place] [address] Calcium Level February 01, 2022 9:08pm 11.1 mg/dL 8.5-10.1 [place] [address] Total Bilirubin February 01, 2022 9:08pm 0.61 mg/dL 0.20-1.00 Use of this assay is not recommended for patients undergoing treatment with eltrombopag due to the potential for falsely elevated results [place] [address] Aspartate Amino Transf (AST/SGOT) February 01, 2022 9:08pm 31 U/L 15-37 Falsely depressed or elevated results may occur on samples drawn from patients taking Sulfasalazine and Sulfapyridine, if the blood sample is drawn before clearance of the drug. [address] [address] Alanine Aminotransfera se February 01, 2022 9:08pm 42 U/L 14-59 Falsely depressed or elevated results may occur on samples drawn from patients taking Sulfasalazine and Sulfapyridine, if the blood sample is drawn before clearance of the drug. [place] [id number] Troponin I February 01, 2022 11:00pm 7.0 [...] Biotin intake can cause falsely depressed results [address] [address] Total Protein February 01, 2022 9:08pm 8.3 g/dL 6.4-8.2 [place] [address] Albumin February 01, 2022 9:08pm 4.7 g/dL 3.4-5.0 [place] [address] Albumin/Globul in Ratio February 01, 2022 9:08pm 1.3 Ratio 1.0-[address] [address] Alkaline Phosphatase February 01, 2022 9:08pm 102 U/L 46-[address] [address] Lipase February 01, 2022 9:08pm 123 U/L 73-[address] [address] Influenza Virus Type A (PCR) February 01, 2022 9:58pm Negative Negative [place] [address] Influenza Virus Type B (PCR) February 01, 2022 9:58pm Negative Negative [place] [address] Respiratory Syncytial Virus (PCR) February 01, 2022 9:58pm Negative Negative [facility] [address] [facility] [address] Coronavirus (COVID-19)(PCR ) February 01, 2022 9:58pm Negative DNAPCR Negative [facility] [address] [facility] [address] Microbiology Results Procedure Source Result Collection Date/Time Result Date/Time Result Comment Performing Site Blood Culture Blood NO GROWTH AFTER 5 DAYS February 01, 2022 9:08pm February 06, 2022 11:08am [facility] [address] [place] [address] Diagnostic Imaging Reports Report Dictated Date/Time Dictated By Status Radiology Report February 01, 2022 9:34pm Yaya Pahram MD completed [facility] [address] [address] [address] Scan Report Signed [place]#: [id number] Patient: Kavitha Jarrell MR#: [id number] : 1965 Acct:[id number] Age/Sex: 56 / F ADM Date: 2 Loc: .ED Attending Provider: Ordering Provider: Sid Freeman NP Date of Service: 02/01/22 Procedure(s): CT abdomen pelvis w con Accession Number(s): [id number] cc: Sid Freeman NP~ CLINICAL HISTORY: Abdominal [...] 06, 2021 2:49pm Respiratory rate 18 /min 12-20 December 06, 2021 2:49pm Oxygen saturation by Pulse [...] 14, 2022 3:44pm Respiratory rate 17 /min 12-February 14, 2 022 3:44pm Oxygen saturation by Pulse oximetry 96 % 95-100 February 14, 2022 3:44p m BP Systolic 123 mm[Hg] 90-120 February 14, 2022 3:44pm BP Diastolic 75 mm[Hg] 60-80 February 14, 2022 3:44pm BMI (Body Mass Index) 45.9 kg/m2 February 142021 3:44pm Advance Directives Advance Directive Response Recorded Date/ Time Advance Directives No February 01, 2022 8:49pm Power of Machine Accountant No February 01, 2022 8:49pm Living Will No February 01, 2022 8: 49pm Advance Directives No January 10 2 022 4:17pm Power of Machine Accountant No January 10 4:17pm Living Will No January 10, 2022 4:17pm Insurance Providers Guarantor Kavitha Jarrell Address [address] [place] [address] Contact Info. Home Phone: Payer Policy Id Coverage Id Subscriber's Name Subscriber Id Effective Date Expiration Date [employer] [place] [id number] Stephania Jarrell [id number] [facility] [id number] Kavitha Jarrell [id number] MEDICARE A AND B [id number] Kavitha Jarrell [id number] [employer] MEDICARE HMO [id number] Kavitha Jarrell [id number] Encounters Encounter Location(s) Arrival/Admit Date Discharge/Depart Date [...] 2022 3:30pm Moises Pinzon MD Departed Emergency [facility] Emergency Department February 01, 2022 8:39pm February 02, 2022 12:05am null Departed Physician/Prov ider Office Visit [facility] [...] March 05, 2022 11:59pm Araceli Sethi APRN Recent Diagnosis Onset Date Low back pain Lumbar spondylosis Lumbar radiculopathy Lumbar spondylosis Bereavement Depression Anxiety Asthma Chronic pain syndrome Diabetes mellitus type 2 in obese Hyperlipidemia Hypertension Hypomagnesemia Obesity Obstructive sleep apnea Osteoarthritis Vitamin D deficiency Low back pain Lumbar spondylosis Spondylolisthesis Bereavement Depression Hospital discharge follow-up Diabetes mellitus type 2 in obese Hypertension Obesity Small bowel obstruction Lumbar spondylosis Spondylolisthesis Assessments Diagnosis Onset Date Resolution Status Low back pain acute Lumbar spondylosis chronic Lumbar radiculopathy acute Lumbar spondylosis chronic Bereavement acute Depression acute Anxiety chronic Asthma chronic Chronic pain syndrome chroni c Diabetes mellitus type 2 in obese chronic Hyperlipidemia chronic Hypertension chronic Hypomagnesemia chronic Obesity chronic Obstructive sleep apnea face man [place] Osteoarthritis chronic Vitamin D deficiency chronic Low back pain acute Lumbar spondylosis chronic Spondylolisthesis chronic Bereavement acute Depression acute Hospital discharge follow-up acute Diabetes mellitus type 2 in obese chronic Hypertension chronic Obesity chronic Small bowel obstruction reso lved Lumbar spondylosis chronic Spondylolisthesis chronic Plan of Treatment Past injection history: RFA right-sided L3 and L4 medial branch and L5 dorsal ramus on April 04, 2021, right S1 transforaminal epidural steroid injection February 14, 2021 Jarek reviewed compliant, request [id number] ?? UDS -?? October 09, 2021 confirmation - positive for cup?? carboxyTHC at 30 ng/mg creatinine Opioid risk tool -October 09, 2021 scored as 1 placing patient at low risk category for opioid abuse PEG -October 09, 2021 scored average pain 7/10, enjoyment of life 8/10, generalized activity 9/10 ?? Studies/Imaging: ?? MRI cervical spine without contrast [facility] date of exam 07/22/2020 Impression: Negative study ?? MRI lumbar spine without contrast [facility] date of exam 07/22/2020 FINDINGS The lumbar [...] Patient educated on prescribed medications, universal precautions, [facility] Opioid Contract, & continue daily wellness therapies at home. Patient verbalized understanding. Past injection history: RFA right-sided L3 and L4 medial branch and L5 dorsal ramus on April 04, 2021, right S1 transforaminal epidural steroid injection February 14, 2021 Jarek reviewed compliant, request [id number] ?? UDS -?? October 09, 2021 confirmation - positive for cup?? carboxyTHC at 30 ng/mg creatinine Opioid risk tool -October 09, 2021 scored as 1 placing patient at low risk category for opioid abuse PEG -October 09, 2021 scored average pain 7/10, enjoyment of life 8/10, generalized activity 9/10 ?? Studies/Imaging: ?? MRI cervical spine without contrast [facility] date of exam 07/22/2020 Impression: Negative study ?? MRI lumbar spine without contrast [facility] date of exam 07/22/2020 FINDINGS The lumbar [...] February 14, 2021 Jarek reviewed compliant, request [id number] ?? UDS -?? October 09, 2021 confirmation - positive for cup?? carboxyTHC at 30 ng/mg creatinine Opioid risk tool -October 09, 2021 scored as 1 placing patient at low risk category for opioid abuse PEG -October 09, 2021 scored average pain 7/10, enjoyment of life 8/10, generalized activity 9/10 ?? Studies/Imaging: ?? MRI cervical spine without contrast [facility] date of exam 07/22/2020 Impression: Negative study ?? MRI lumbar spine without contrast [facility] date of exam 07/22/2020 FINDINGS The lumbar [...] February 14, 2021 Jarek reviewed compliant, request [id number] ?? UDS -?? October 09, 2021 confirmation - positive for cup?? carboxyTHC at 30 ng/mg creatinine Opioid risk tool -October 09, 2021 scored as 1 placing patient at low risk category for opioid abuse PEG -October 09, 2021 scored average pain 7/10, enjoyment of life 8/10, generalized activity 9/10 ?? Studies/Imaging: ?? MRI cervical spine without contrast [facility] date of exam 07/22/2020 Impression: Negative study ?? MRI lumbar spine without contrast [facility] date of exam 07/22/2020 FINDINGS The lumbar [...] Address Nisa Elsa , DO Work Phone: [facility] [address] [facility] 2nd Floor [facility] [address] Z63.4 - Disappearance and of family member January 10, 2022 Grief Counseling Future Procedures Future procedure information is unavailable Future Medications Future medication information is unavailable Patient Instructions Small Bowel Obstruction (DC)
--- OUTSIDE RECORDS SUMMARY | 2024-07-22 10:39 | XMS_ITS | Continuity of Care Document ---
[facility] Address [address] [place] [address] Support Name Relationship Address Phone DO Nisa Hunter Personal Relationship [id number] [place] [address] DO Nisa Hunter Personal Relationship [facility] [place] [address] MD Moises Pinzon A Personal Relationship [address] [place] [address] [place] [address] MD Yaya Parham Personal Relationship [address] [place] [address] Unavailable SAHARA Sethi Personal Relationship [address] [place] [address] Chief Complaint and Reason for Visit Chief Complaint Wellness/Preventativ e Back pain abdominal pains 1 MONTH FOLLOW UP G47.33 - Obstructive sleep apnea (adult) (pediatri Back pain Sleep apnea COVID Reason for Visit Bereavement Depression Anxiety Asthma Chronic pain syndrome Diabetes mellitus type 2 in obese Hyperlipidemia Hypertension Hypomagnesemia Obesity Obstructive sleep apnea Osteoarthritis Vitamin D deficiency Encounter for Medicare annual wellness exam Low back pain Lumbar spondylosis Spondylolisthesis Bereavement [...] Active Obstructive sleep apnea 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 Lumbar radiculopathy [...] INH TWICE A DAY December 30, 2019 12:00am Sepua2020 12:40p m Celecoxib Disconti nued 100 MG PO TWICE A DAY 60 December 30, 2019 2:34pm Sept2019 3:48pm Ergocalcifer ol (Vitamin D2) (Vitamin D2) 1,250 mcg (50,000 unit) [place] 26045 UNIT PO Every Week 4 December 30, [...] nued 1000 MG PO TWICE A DAY November 30, 2020 10:28am February 15, 2021 [...] MG PO DAILY be r 2020 10:21am April 25, 2022 2:48pm [...] A DAY 60 Ju ly 2021 2:58pm Esomeprazole Magnesium (Nexium) 40 mg Capsule,Janey yed Release(Dr/E c) Disconti nued 40 MG PO DAILY February 13, 2021 12:00am February 01, 2022 9:02pm Potassium Chloride Disconti nued 10 MEQ PO DAILY February 13, 2021 6:24pm May 22, 2021 11:35a m Lisinopril Disconti nued 2.5 MG PO DAILY February 13, 2021 6:24pm Octobe 2020 2:40pm Celecoxib (Celebrex) 100 mg capsule [...] 2021 12:00am February 01, 2022 9:03pm Tumeric-Ging -Britton-Oreg- Capryl Active 1 CAP PO DAILY July 21, 2021 12:00am Gabapentin Disconti nued 400 MG PO DAILY 2019 5:19pm 2020 4:16pm Hydrocodone- Ibuprofen Disconti nued 1 TAB PO . daily 2019 y 2020 4:16pm Celecoxib Disconti nued 100 [...] Gabap[facility]ued [facility] N[facility] er 2020 4:09pm Hydrocodone- Ibuprofen Disconti nued 1 TAB [facility] N[facility] 2020 4:09pm Gabapentin [...] 1 TAB PO DAILY April 05, 2022 Gabapentin Active 400 MG PO DAILY April 05, 2022 2:25pm Gabapentin Disconti nued 400 MG PO DAILY be r 2020 4:08pm Decemb er 2020 3:30pm Hydrocodone- Ibuprofen Disconti nued 1 TAB PO DAILY be r 2020 Decemb er 2020 8:51am Gabapentin (Neurontin) 400 mg capsule Disconti nued 400 MG PO DAILY r 2020 12:00am Decemb er 2020 3:29pm Gabapentin Disconti nued 400 MG PO DAILY October 09, 2021 2:59pm Februa 2021 5:13pm Hydrocodone- Ibuprofen Disconti nued 1 TAB PO DAILY October 09, 2021ua ry 2021 5:13pm Gabapentin Disconti nued 400 [...] Disconti nued 1 TAB PO DAILY 2018 1:00March 09, 2019 4:21pm Simvastatin Disconti nued 40 [...] 100 MG PO TWICE A DAY 2020 1:00am must administer with a meal/food Budesonide-F ormoterol (Symbicort) 160-4.5 mcg/actuatio n HFA aerosol inhaler Disconti nued 2 INHALAT ION INH TWICE A DAY [facility] 4[facility] ry 2019 5:43pm Buspirone Disconti nued 15 MG PO TWICE A DAY [facility] 4:14pm ry 2019 5:43pm Celecoxib Disconti nued 100 MG PO TWICE A DAY [facility] 4:14pm ry 2019 5:43pm Duloxetine Disconti nued 60 MG PO DAILY 30 [facility] 4:14pm [facility] 2019 5:43pm Ergocalcifer ol (Vitamin D2) (Vitamin D2) 50,000 [place] 85246 UNIT PO Every Week 4 [facility] 4:14pm [facility] ry 2019 5:43pm Furosemide Disconti nued 40 MG PO DAILY 30 [facility] 4:15pm ry 2019 5:43pm Lisinopril Disconti nued 2.5 MG PO DAILY [facility] 4:15pm [facility] 2019 5:43pm Metformin Disconti nued 1000 MG PO TWICE A DAY [facility] 4:15pm [facility] ry 2019 5:43pm Montelukast Disconti nued 10 MG PO DAILY [facility] 2018 4:15pm ry 2019 5:43pm Potassium Chloride Disconti nued 10 MEQ PO DAILY [facility] 4:15pm [facility] ry 2019 5:43pm take with lasix Simvastatin Disconti nued 40 MG PO DAILY [facility] 4:15pm Septem ra 2018 4:44pm Rosuvastatin (Crestor) 40 mg tablet Disconti nued 40 MG PO DAILY [facility] 2018 12:00am December 30, 2019 2:37pm Budesonide-F ormoterol (Symbicort) 160-4.5 mcg/actuatio n HFA aerosol inhaler Disconti nued 2 INHALAT ION INH TWICE A DAY 10.2 March 09, 2019 4:18pm 2018 4:15pm Buspirone Disconti nued 15 MG PO TWICE A DAY 60 March 09, 2019 4:19pm 2018 4:15pm Celecoxib Disconti nued 100 MG PO TWICE A DAY 60 March 09, 2019 4:19pm 2018 4:15pm Duloxetine Disconti nued 60 MG PO DAILY 30 March 09, 2019 4:19pm 2018 4:15pm Ergocalcifer ol (Vitamin D2) (Vitamin D2) 50,000 unit capsule [place] 17836 UNIT PO Every Week 4 March 09, 2019 4:19pm 2018 4:15pm Furosemide Disconti nued 40 MG [...] MG PO DAILY March 09, 2019 12:00am 2018 4:15pm Budesonide-F ormoterol (Symbicort) 160-4.5 mcg/actuatio n HFA aerosol inhaler Disconti nued 2 INHALAT ION INH TWICE A DAY 10.2 2019 5:42pm December 30, 2019 2:33pm Buspirone Disconti nued 15 MG PO TWICE A DAY 60 uar 2019 5:42pm December 24, 2019 1:46pm Celecoxib Disconti nued 100 MG PO TWICE A DAY 60 2019 5:42pm December 30, 2019 2:37pm Duloxetine Disconti nued 60 MG PO DAILY 30 2019 5:42pm December 24, 2019 1:46pm Ergocalcifer ol (Vitamin D2) (Vitamin D2) 1,250 mcg (50,000 unit) [place] 90412 UNIT PO Every Week 4 2019 5:42pm [...] Disconti nued 2 PUFF INH Q6H 8.5 er 2019 3:42pm Novemb er 2019 7:37pm Buspirone Disconti nued 15 MG PO TWICE A DAY 60 er 2019 3:43pm Novemb er 2019 7:37pm Celecoxib Disconti nued 100 MG PO TWICE A DAY 60 er 2019 3:43pm Novemb er 2019 7:37pm Cyanocobalam in (Vitamin B-12) Disconti nued 1000 MCG IM every month 1 er 2019 3:44pm Novemb er 2019 7:37pm Duloxetine Disconti nued 60 MG PO DAILY 30 2019 3:44pm b er 2019 7:37pm Empagliflozi n (Jardiance) 10 mg tablet Disconti nued 10 MG PO DAILY 30 2019 3:44pm b er 2019 10:01a m Ergocalcifer ol (Vitamin D2) (Vitamin D2) 1,250 mcg (50,000 unit) capsule [place]ued 40500 UNIT PO Every Week 4 2019 3:47pm [...] 40 MG PO DAILY 30 2019 3:48pm b er 2019 7:37pm Fluconazole (Diflucan) 150 mg tablet Disconti nued 150 MG PO DAILY 2 2 2019 12:00am Septem ra 2019 12:10a m Gabapentin Disconti nued 400 MG PO DAILY July 30, 2020 [facility] Hydro[facility]- Ibuprofen Disconti nued 1 TAB PO . daily July 30, 2020b er 2019 7:37pm Albuterol Sulfate (Ventolin Hfa) [...] 1,250 mcg (50,000 unit) [place] 54342 UNIT PO Every Week 4 2019 7:35pm 2020 12:40p m Ferrous Sulfate Disconti nued 325 MG PO DAILY 30 2019 7:35pm 2020 12:40p m Furosemide Disconti nued 40 MG PO DAILY 30 2019 7:35pm 2020 12:40p m Gabapentin Disconti nued 400 MG PO DAILY 30 2019 7:36pm Decemb er 2019 5:23pm Metformin Disconti nued 1000 MG PO TWICE A DAY 60 2019 7:36pm 2020 12:40p m Magnesium Oxide Disconti nued 400 MG PO DAILY 2019 7:36pm Jan2020 12:40p m Montelukast Disconti nued 10 MG PO DAILY 2019 7:36pm Jan2020 12:40p m Potassium Chloride Disconti nued 10 MEQ PO DAILY 2019 7:36pm 2020 12:40p m take with lasix Rosuvastatin (Crestor) 40 mg tablet Disconti nued 40 MG PO DAILY 2019 7:36pm Jan2020 12:40p m Hydrocodone- Ibuprofen Disconti nued 1 TAB PO . daily 2019 Decemb er 2019 5:23pm Lisinopril Disconti nued 2.5 MG PO DAILY 2019 7:41pm Jan2020 12:40p m Buspirone Disconti nued 15 MG [...] 1,250 mcg (50,000 unit) [place] 26494 UNIT PO Every Week October 24, 2020 [...] 1,250 mcg (50,000 unit) capsule [place]ued 59991 UNIT PO Every Week February 15, 2021 [...] Disconti nued 2 PUFF INH Q6H 8.5 be r 2020 10:35am January 10, 2022 5:37pm Buspirone Disconti nued 15 MG PO TWICE A DAY 60 r 2020 10:36am Sepuar y 2021 9:10am Cyanocobalam in (Vitamin B-12) Disconti nued 1000 MCG IM every month 1 be r 2020 10:36am January 10, 2022 5:37pm Duloxetine Disconti nued 60 MG PO DAILY 30 be r 2020 10:36am January 10, 2022 5:38pm Ergocalcifer ol (Vitamin D2) (Vitamin D2) 1,250 mcg (50,000 unit) capsule [place]ued 10077 UNIT PO Every Week 4 be r 2020 10:36am Febr2021 2:58pm Ferrous Sulfate Active 325 MG PO DAILY 30 be r 2020 10:36am Furosemide Disconti nued 40 MG PO DAILY 30 be r 2020 10:36am January 10, 2022 5:37pm Metformin Disconti nued 1000 MG PO TWICE A DAY 60 r 2020 10:36am January 10, 2022 5:37pm Montelukast Disconti nued 10 MG PO DAILY 30 [facility] r 2020 10:36am January 10, 2022 5:37pm Potassium Chloride Disconti nued 10 MEQ PO DAILY 30 [facility] r 2020 10:36am Februa ry 2021 9:27am Dextromethor jaramillo-Guaifen esin Disconti nued 10 ML PO EVERY 4-8 HOURS 180 [facility] 2020 1:00am February 01, 2022 9:03pm Ondansetron Hcl (Zofran) 4 mg tablet Active 4 MG PO Q8H 30 [facility] 2020 1:00am Gabapentin Disconti nued 400 MG PO DAILY [facility] 10:32am [facility] r 2019 11:30a m Hydrocodone- Ibuprofen Disconti nued 1 TAB PO . daily [facility] r 2019 11:30a m Blood-Glucos e Meter Disconti nued 0 .ROUTE .MEDSUPPLY [facility] 2019 12:00am April 03, 2021 11:57a m Glucometer Diabetic Supplies, Miscellan. Disconti nued 0 .ROUTE .MEDSUPPLY 1 [facility] er 2019 12:00am [facility] er 2019 7:37pm Test Strips and Lancets for daily BG testing Empagliflozi n Disconti nued 25 [facility] 1:[facility]am 2020 12:40p m Amoxicillin- Pot Clavulanate (Augmentin) 875-125 mg tablet Disconti nued 1 TAB PO Q12H 19 07May 09, 2021 12:00am May 19, 2021 12:22a m Methylpredni solone (Medrol (Lb)) 4 mg tablets,dose pack Disconti nued 0 PO Per package directions May 09, 2021 12:00am [facility] 2:40pm PO PER PKG DIR Fluconazole (Diflucan) 150 mg tablet Disconti nued 150 MG PO Q3D 2 May 09, 2021 12:00am Octobe r 2020 [...] 12:00am April 09, 2022 11:44a m Buspirone Active 30 MG PO TWICE A DAY 60 2021 12:00am Albuterol Sulfate (Ventolin Hfa) 90 mcg/actuatio n [...] Reference Range Collection Date/Time Height 61 [in_i] January 10 4:01pm Weight 249.37 [lb_av] January 10, 2 022 4:01pm Body Temperature 98.6 [degF] 97.6-99.6 January 10, 2022 4:01pm Heart Rate 78 /min 60-100 January 10 4:01pm Respiratory rate 18 /min 12-January 10, 2022 4:01pm Oxygen saturation by Pulse [...] 05, 2022 2:20pm Respiratory rate 20 /min -April 05, 2 022 2:20pm Oxygen saturation by Pulse oximetry 98 % 95-100 April 05, 2022 2:20p m BP Systolic 146 mm[Hg] 90-120 April 05, 2022 2:20pm BP Diastolic 88 mm[Hg] 60-80 April 05, 2022 2:20pm BMI (Body Mass Index) 45.9 kg/m2 April 052021 2:20pm Advance Directives Advance Directive Response Recorded Date/ Time Advance Directives No February 01, 2022 8:49pm Power of Counter Helper No February 01, 2022 8:49pm Living Will No February 01, 2022 8: 49pm Advance Directives No January 10, 022 4:17pm Power of Counter Helper No January 10 4:17pm Living Will No January 10, 2022 4:17pm Insurance Providers Guarantor Kavitha Jarrell Address [address] [place] [address] Contact Info. Home Phone: Payer Policy Id Coverage Id Subscriber's Name Subscriber Id Effective Date Expiration Date NITO HERMAN [id number] Stephania Jarrell [id number] [facility] [id number] Kavitha Jarrell [id number] MEDICARE A AND B [id number] Kavitha Jarrell [id number] [employer] MEDICARE HMO [id number] Kavitha Jarrell [id number] Encounters Encounter Location(s) Arrival/Admit Date Discharge/Depart Date Provider(s) Departed Physician/Prov ider Office Visit [facility] January 10, 2022 3:55pm January 10, 2022 5:26pm Nisa Hunter DO Departed Physician/Prov ider Office Visit [facility] Med & Spec Pain VV February 01, 2022 3:20pm February 01, 2022 3:30pm Moises Pinzon MD Non-patient / Non-visit [facility] Radiology SL February 01, 2022 8:39pm Yaya Parham MD Departed Physician/Prov ider Office Visit [facility] [place] February 14, 2022 3:29pm February 14, 2022 4:46pm Nisa Hunter DO Departed Clinical [facility] Sleep February 28, 2022 6:25pm March 01, 2022 6:00am Nisa Hunter DO Departed Physician/Prov ider Office Visit [facility] Med & Spec Pain VV March 05, 2022 3:58pm March 05, 2022 11:59pm Araceli Sethi APRN Departed Physician/Prov ider Office Visit [facility] Med & Spec Pain April 05, 2022 1:52pm April 05, 2022 2:33pm Moises Pinzon MD Departed Clinical [facility] Sleep April 25, 2022 6:36pm April 26, 2022 6:00am Nisa Hunter DO Departed Clinical [facility] LAB May 05, 2022 7:33am May 05, 2022 7:34am Nisa Hunter DO Recent Diagnosis Onset Date Bereavement Depression Anxiety Asthma Chronic pain syndrome Diabetes mellitus type 2 in obese Hyperlipidemia Hypertension Hypomagnesemia Obesity Obstructive sleep apnea Osteoarthritis Vitamin D deficiency Encounter for Medicare annual wellness e xam Low back pain Lumbar spondylosis Spondylolisthesis Bereavement Depression Hospital discharge follow-up Diabetes mellitus type 2 in obese Hypertension Obesity Small bowel obstruction Lumbar spondylosis Spondylolisthesis Lumbar spondylosis Spondylolisthesis Assessments Diagnosis Onset Date Resolution Status Bereavement acute Depression acute Anxiety chronic Asthma chronic Chronic pain syndrome chroni c Diabetes mellitus type 2 in obese chronic Hyperlipidemia chronic Hypertension chronic Hypomagnesemia chronic Obesity chronic Obstructive sleep apnea sider sherita Osteoarthritis chronic Vitamin D deficiency chronic Encounter for Medicare annual wellness exam noneactive Low back pain acute Lumbar spondylosis chronic Spondylolisthesis chronic Bereavement acute Depression acute Hospital discharge follow-up acute Diabetes mellitus type 2 in obese chronic Hypertension chronic Obesity chronic Small bowel obstruction reso lved Lumbar spondylosis chronic Spondylolisthesis chronic Lumbar spondylosis chronic Spondylolisthesis chronic Plan of Treatment Ms. Jarrell?? is [...] bowel obstructions January 30, 2022 Dr. Jalil Caicedo [place] Past injection history: RFA right-sided L3 and L4 medial branch and L5 dorsal ramus on April 04, 2021, right S1 transforaminal epidural steroid injection February 14, 2021 Jarek reviewed compliant, request [id number] ?? UDS -?? January 04, 2022 confirmation-positive hydrocodone in metabolites, gabapentin -consistent with therapy in [place] Opioid risk tool -October 09, 2021 scored as 1 placing patient at low risk category for opioid abuse PEG -October 09, 2021 scored average pain 7/10, enjoyment of life 8/10, generalized activity 9/10 ?? Studies/Imaging: ?? MRI cervical spine without contrast [facility] date of exam 07/22/2020 Impression: Negative study ?? MRI lumbar spine without contrast [facility] date of exam 07/22/2020 FINDINGS The lumbar [...] February 14, 2021 Jarek reviewed compliant, request [id number] ?? UDS -?? October 09, 2021 confirmation - positive for cup?? carboxyTHC at 30 ng/mg creatinine Opioid risk tool -October 09, 2021 scored as 1 placing patient at low risk category for opioid abuse PEG -October 09, 2021 scored average pain 7/10, enjoyment of life 8/10, generalized activity 9/10 ?? Studies/Imaging: ?? MRI cervical spine without contrast [facility] date of exam 07/22/2020 Impression: Negative study ?? MRI lumbar spine without contrast [facility] date of exam 07/22/2020 FINDINGS The lumbar [...] February 14, 2021 Jarek reviewed compliant, request [id number] ?? UDS -?? October 09, 2021 confirmation - positive for cup?? carboxyTHC at 30 ng/mg creatinine Opioid risk tool -October 09, 2021 scored as 1 placing patient at low risk category for opioid abuse PEG -October 09, 2021 scored average pain 7/10, enjoyment of life 8/10, generalized activity 9/10 ?? Studies/Imaging: ?? MRI cervical spine without contrast [facility] date of exam 07/22/2020 Impression: Negative study ?? MRI lumbar spine without contrast [facility] date of exam 07/22/2020 FINDINGS The lumbar [...] scheduled test information is unavailable Pending Tests Test Name Date ordered Vitamin B12 January 10, 2022 5:3 8pm Complete Blood Count Auto Diff December 5:38pm Comprehensive Metabolic Panel December 5:38pm Folic Acid January 10, 2022 5:3 8pm Hemoglobin A1c January 10, 2022 5:3 8pm Lipid Panel January 10, 2022 5:3 8pm Magnesium January 10, 2022 5:3 8pm Thyroid Stimulating Hormone January 10, 2022 5:38pm Microalbumin Urine January 10, 2022 5:3 8pm Vitamin D, 2/3 Total January 10, 2022 5: 38pm Future Visits Future appointment information is unavailable Referrals to Other Providers Reason for Referral Referral Start Date Provider Provider Contact Information Provider Address Nisa Hunter , DO Work Phone: [facility] [id number] [place] [id number] Z63.4 - Disappearance and of family member January 10, 2022 Grief Counseling Future Procedures Procedure Name Scheduled Date Iron Profile Future Medications Future medication information is unavailable Patient Instructions Small Bowel Obstruction (DC) Hospital Discharge Instructions
--- OUTSIDE RECORDS SUMMARY | 2024-07-22 10:39 | XMS_ITS | Continuity of Care Document ---
[facility] Organization [facility]. Address [address] [place] [address] Support Name Relationship Address Phone DO Nisa Hunter Personal Relationship [facility] [place] [address] SAHARA Sethi Personal Relationship [address] [place] [address] DO Nisa Hunter Personal Relationship [address] [place] [address] MD Moises Pinzon Personal Relationship [address] [place] [address] [place] [address] MD Yaya Parham Personal Relationship [address] [place] [address] Unavailable Chief Complaint and Reason for Visit Chief Complaint Office visit Wellness/Preventative Back pain abdominal pains 1 MONTH FOLLOW UP G47.33 - Obstructive sleep apnea (adult) (pediatri Back pain Sleep apnea Reason for Visit Lumbar radiculopathy Lumbar spondylosis Bereavement Depression Anxiety [...] obese Active Obstructive sleep apnea Active Other fci (current) drug therapy Active Lumbar radiculopathy Active [...] TWICE A DAY December 30, 2019 12:00am Sepua y 2020 12:40p m Celecoxib Disconti nued 100 MG PO TWICE A DAY December 30, 2019 2:34pm Sept2019 3:48pm Ergocalcifer ol (Vitamin D2) (Vitamin D2) 1,250 mcg (50,000 unit) capsule [place] nued 10532 UNIT PO Every Week 4 December 30, [...] IM every month December 30, 2019 12:00am Mayem 2019 3:48pm Buspirone Disconti nued 15 [...] tablet Disconti nued 40 MG PO DAILY mb r 2020 11:41am January 10, 2022 5:37pm [...] 2:32pm Montelukast Active 10 MG PO DAILY April 25, 2022 2:46pm Magnesium Oxide Active [...] 2021 12:00am February 01, 2022 9:03pm Tumeric-Ging -Mayo-Oreg- Capryl Active 1 CAP PO DAILY July 21, 2021 12:00am Gabapentin Disconti nued 400 MG PO DAILY r 2019 5:19pm 2020 4:16pm Hydrocodone- Ibuprofen Disconti nued 1 TAB PO . daily r 2019 4:16pm Celecoxib Disconti nued 100 MG [...] Gabapentin Disconti nued 400 MG PO DAILY [facility] 2020 4:26pm Novemb er 2020 4:09pm Hydrocodone- Ibuprofen Disconti nued 1 TAB PO DAILY [facility] 2020 Novem er 2020 4:09pm Gabapentin Disconti nued 400 [...] 1 TAB PO DAILY October 09, 2021 ry 2021 5:13pm Gabapentin Disconti nued 400 [...] INHALAT ION INH TWICE A DAY 10.2 [facility] 2018 4:14pm ua 2019 5:43pm Buspirone Disconti nued 15 MG PO TWICE A DAY 60 2018 4:14pm ry 2019 5:43pm Celecoxib Disconti nued 100 MG PO TWICE A DAY 60 [facility] 2018 4:14pm ry 2019 5:43pm Duloxetine Disconti nued 60 MG PO DAILY 30 [facility] 2018 4:14pm [facility] 2019 5:43pm Ergocalcifer ol (Vitamin D2) (Vitamin D2) 50,000 [place] 21254 UNIT PO Every Week 4 2018 4:14pm ry 2019 5:43pm Furosemide Disconti nued 40 MG PO DAILY 30 [facility] 2018 4:15pm ry 2019 5:43pm Lisinopril Disconti nued 2.5 MG PO DAILY 30 [facility] 2018 4:15pm [facility] 2019 5:43pm Metformin Disconti nued 1000 MG PO TWICE A DAY 60 2018 4:15pm [facility] 2019 5:43pm Montelukast Disconti nued 10 MG PO DAILY 30 [facility] 2018 4:15pm ry 2019 5:43pm Potassium Chloride Disconti nued 10 MEQ PO DAILY 30 [facility] 2018 4:15pm [facility] ry 2019 5:43pm take with lasix Simvastatin Disconti nued 40 MG PO DAILY 30 [facility] 2018 4:15pm Septem ra 2018 4:44pm Rosuvastatin (Crestor) 40 mg tablet Disconti nued 40 MG PO DAILY [facility] 2018 12:00am December 30, 2019 2:37pm Budesonide-F [...] (Vitamin D2) 50,000 unit capsule [place]ued 70623 UNIT PO Every Week 4 March 09, 2019 4:19pm 2018 4:15pm Furosemide Disconti nued 40 MG PO DAILY 30 March 09, 2019 4:20pm 2018 4:15pm Gabapentin [...] 30 March 09, 2019 4:21pm 2018 4:15pm Potassium [...] 1,250 mcg (50,000 unit) [place] 82015 UNIT PO Every Week 4 2019 5:42pm [...] 1,250 mcg (50,000 unit) capsule [place] nued 87550 UNIT PO Every Week 4 2019 3:47pm [...] MG PO DAILY July 30, 2020 11:29am b er 2019 7:37pm Hydrocodone- Ibuprofen Disconti nued [...] 1,250 mcg (50,000 unit) [place] 55687 UNIT PO Every Week 4 2019 7:35pm [...] Disconti nued 40 MG PO DAILY r 2019 7:36pm 2020 12:40p m Hydrocodone- Ibuprofen Disconti nued 1 TAB PO . daily r 2019 Decemb er 2019 5:23pm Lisinopril Disconti [...] 1,250 mcg (50,000 unit) capsule [place]ued 44577 UNIT PO Every Week October 24, 2020 [...] 1,250 mcg (50,000 unit) capsule Disconti nued 74300 UNIT PO Every Week February 15, 2021 [...] Disconti nued 60 MG PO DAILY 30 Novembe r 2020 10:36am January 10, 2022 5:38pm Ergocalcifer ol (Vitamin D2) (Vitamin D2) 1,250 mcg (50,000 unit) capsule Disconti nued 64517 UNIT PO Every Week 4 Novembe r 2020 10:36am Februa 2021 2:58pm Ferrous Sulfate Active 325 MG PO DAILY 30 Novembe r 2020 10:36am Furosemide Disconti nued 40 MG PO DAILY 30 Novembe r 2020 10:36am January 10, 2022 5:37pm Metformin Disconti nued 1000 MG PO TWICE A DAY 60 r 2020 10:36am January 10, 2022 5:37pm Montelukast Disconti nued 10 MG PO DAILY 30 Replaced By [facility] r 2020 10:36am January 10, 2022 5:37pm Potassium Chloride Disconti nued 10 MEQ PO DAILY 30 [facility] 2020 10:36am Februa ry 2021 9:27am Dextromethor jaramillo-Guaifen esin Disconti nued 10 ML PO EVERY 4-8 HOURS 180 [facility] 2020 1:00am February 01, 2022 9:03pm Ondansetron Hcl (Zofran) 4 mg tablet Active 4 MG PO Q8H 30 [facility] 2020 1:00am Gabapentin Disconti nued 400 MG PO DAILY 30 [facility] er 2019 10:32am [facility] 2019 11:30a m Hydrocodone- Ibuprofen Disconti nued 1 TAB PO . daily 30 [facility] 2019 [facility] r 2019 11:30a m Blood-Glucos e Meter Disconti nued 0 .ROUTE .MEDSUPPLY 1 [facility] 2019 12:00am April 03, 2021 11:57a m Glucometer Diabetic Supplies, Miscellan. Disconti nued 0 .ROUTE .MEDSUPPLY 1 [facility] er 2019 12:00am [facility] er 2019 7:37pm Test Strips and Lancets for daily BG testing Empagliflozi n Disconti nued 25 MG PO DAILY [facility] r 2019 1:00am 2020 12:40p m Amoxicillin- Pot Clavulanate (Augmentin) 875-125 mg tablet Disconti nued 1 TAB PO Q12H 19 07May 09, 2021 12:00am May 19, 2021 12:22a m Methylpredni solone (Medrol (Lb)) 4 mg tablets,dose pack Disconti nued 0 PO Per package directions May 09, 2021 12:00am [facility] r 2020 2:40pm PO PER PKG DIR [...] No February 01, 2022 8:49pm Power of Licensed Sales Assistant No February 01, 2022 8:49pm Living Will No February 01, 2022 8: 49pm Advance Directives No January 10 022 4:17pm Power of Licensed Sales Assistant No January 10 4:17pm Living Will No January 10, 2022 4:17pm Insurance Providers Guarantor Kavitha Jarrell Address [address] [place] [id number] Contact Info. Home Phone: Payer Policy Id Coverage Id Subscriber's Name Subscriber Id Effective Date Expiration Date NITO HERMAN [id number] Stephania Jarrell [id number] [facility] [id number] Kavitha Jarrell [id number] MEDICARE A AND B [id number] Kavitha Reji Jarrell [id number] [employer] MEDICARE HMO [id number] Kavitha Jarrell [id number] Encounters Encounter Location(s) Arrival/Admit Date Discharge/Depart Date Provider(s) Departed Physician/Prov ider Office Visit [facility] Med & Spec Pain January 04, 2022 2:48pm January 04, 2022 3:20pm Araceli Sethi APRN Departed Physician/Prov ider Office Visit [facility] [place] January 10, 2022 3:55pm January 10, 2022 5:26pm Nisa Hunter DO Departed Physician/Prov ider Office Visit [facility] Med & Spec Pain VV February 01, 2022 3:20pm February 01, 2022 3:30pm Moises Pinzon MD Non-patient / Non-visit [facility] Radiology [facility] February 01, 2022 8:39pm Yaay Parham MD Departed Physician/Prov ider Office Visit [facility] [place] February 14, 2022 3:29pm February 14, 2022 4:46pm Nisa Hunter DO Departed Clinical [facility] Sleep February 28, 2022 6:25pm March 01, 2022 6:00am Nisa Hunter DO Departed Physician/Prov ider Office Visit [facility] Med & Spec Pain VV March 05, 2022 3:58pm March 05, 2022 11:59pm Araceli Sethi APRN Departed Physician/Prov ider Office Visit [facility] Med & Spec Pain April 05, 2022 1:52pm April 05, 2022 2:33pm Moises Pinzon MD Departed Clinical [facility] Sleep April 25, 2022 6:36pm April 26, 2022 6:00am Nisa Hunter DO Recent Diagnosis Onset Date Lumbar radiculopathy Lumbar spondylosis Bereavement Depression Anxiety [...] Date Resolution Status Lumbar radiculopathy acute Lumbar spondylosis chronic Bereavement acute Depression acute Anxiety chronic Asthma chronic Chronic pain syndrome chroni c Diabetes mellitus type 2 in obese chronic Hyperlipidemia chronic Hypertension chronic Hypomagnesemia chronic Obesity chronic 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 UDS -?? October 09, 2021 confirmation - positive for cup?? carboxyTHC at 30 ng/mg creatinine Opioid risk tool -October 09, 2021 scored as 1 placing patient at low risk category for opioid abuse PEG -October 09, 2021 scored average pain 7/10, enjoyment of life 8/10, generalized activity 9/10 ?? Studies/Imaging: ?? MRI cervical spine without contrast [facility] date of exam 07/22/2020 Impression: Negative study ?? MRI lumbar spine without contrast [facility] date of exam 07/22/2020 FINDINGS [...] bowel obstructions January 30, 2022 Dr. Jimenes [facility] Past injection history: RFA right-sided L3 and L4 medial branch and L5 dorsal ramus on April 04, 2021, right S1 transforaminal epidural steroid injection February 14, 2021 [facility] reviewed compliant, request [id number] ?? UDS -?? January 04, 2022 confirmation-positive hydrocodone in metabolites, gabapentin -consistent with therapy in [place] Opioid risk tool -October 09, 2021 scored as 1 placing patient at low risk category for opioid abuse PEG -October 09, 2021 scored average pain 7/10, enjoyment of life 8/10, generalized activity 9/10 ?? Studies/Imaging: ?? MRI cervical spine without contrast [facility] date of exam 07/22/2020 Impression: Negative study ?? MRI lumbar spine without contrast [facility] date of exam 07/22/2020 FINDINGS [...] February 14, 2021 Jarek reviewed compliant, request [id number] ?? UDS -?? October 09, 2021 confirmation - positive for cup?? carboxyTHC at 30 ng/mg creatinine Opioid risk tool -October 09, 2021 scored as 1 placing patient at low risk category for opioid abuse PEG -October 09, 2021 scored average pain 7/10, enjoyment of life 8/10, generalized activity 9/10 ?? Studies/Imaging: ?? MRI cervical spine without contrast [facility] date of exam 07/22/2020 Impression: Negative study ?? MRI lumbar spine without contrast [facility] date of exam 07/22/2020 FINDINGS [...] February 14, 2021 Jarek reviewed compliant, request [id number] ?? UDS -?? October 09, 2021 confirmation - positive for cup?? carboxyTHC at 30 ng/mg creatinine Opioid risk tool -October 09, 2021 scored as 1 placing patient at low risk category for opioid abuse PEG -October 09, 2021 scored average pain 7/10, enjoyment of life 8/10, generalized activity 9/10 ?? Studies/Imaging: ?? MRI cervical spine without contrast [facility] date of exam 07/22/2020 Impression: Negative study ?? MRI lumbar spine without contrast [facility] date of exam 07/22/2020 FINDINGS [...] Address Nisa Hunter , DO Work Phone: [facility] [address] [address] Z63.4 - Disappearance and of family member January 10, 2022 Grief Counseling Future Procedures Procedure Name Scheduled Date Iron Profile Future Medications Future medication information is unavailable Patient Instructions Small Bowel Obstruction (DC)
--- OUTSIDE RECORDS SUMMARY | 2024-07-22 10:40 | XMS_ITS | Continuity of Care Document ---
Author Organization [facility]. Address [address] [place] [address] Support Name Relationship Address Phone DO Nisa Hunter Personal [facility] [place] [place] [address] SAHARA Sethi Personal Relationship [address] [place] [address] DO Nisa Hunter Personal Relationship [address] [place] [address] MD Moises Pinzon Personal Relationship [address] [place] [address] FERNA[place] [address] DO Nisa Hunter Personal Relationship [address] [place] [address] Chief Complaint and Reason for Visit Chief [...] in obese Hypertension Obesity Small bowel obstruction Allergies, Adverse Reactions, Alerts Allergen Type Severity [...] obese Active Obstructive sleep apnea Active 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 Lumbar radiculopathy Active [...] 1,250 mcg (50,000 unit) [place] 13628 UNIT PO Every Week 4 December 30, 2019 2:34pm Septem 2019 3:48pm Metformin Disconti nued 1000 MG PO TWICE A DAY December 30, 2019 2:34pm May 25, 2020 8:44am Montelukast Disconti nued 10 MG PO DAILY December 30, 2019 2:34pm Septem ra 2019 3:48pm Rosuvastatin (Crestor) 40 mg tablet Disconti nued 40 MG PO DAILY December 30, 2019 2:34pm Septem ra 2019 3:48pm Magnesium Oxide Disconti nued 400 MG PO DAILY December 30, 2019 2:34pm Septem ra 2019 3:48pm Ferrous Sulfate Disconti nued 325 MG PO DAILY December 30, 2019 2:35pm April 07, 2020 9:05am Ascorbic Acid (Vitamin C) Disconti nued 500 MG PO DAILY December 30, 2019 2:35pm Septem ra 2019 3:43pm Take with iron Empagliflozi n (Jardiance) 10 mg tablet Disconti nued 10 MG PO DAILY December 30, 2019 2:36pm April 25, 2020 2:12pm Cyanocobalam in (Vitamin B-12) Disconti nued 1000 MCG IM every month 1 December 30, 2019 2:56pm Septem 2019 3:48pm Buspirone Disconti nued 15 MG PO TWICE A DAY February 24, 2020 2:31pm Septem ra 2019 3:48pm Duloxetine Disconti nued 60 MG [...] 100 MG PO TWICE A DAY October 30, 2021 9:33am January 10, 2022 [...] TWICE A DAY April 03, 2021 11:58am Sepua y 2021 9:34am Duloxetine (Cymbalta) 60 mg [...] 2021 3:07pm February 01, 2022 9:03pm Tumeric-Ging -[place]-Oreg- Capryl Active 1 CAP PO DAILY July 21, 2021 3:07pm Gabapentin Disconti nued 400 MG PO DAILY 2019 5:19pm Januar y 1 4:16pm Hydrocodone- Ibuprofen Disconti nued 1 TAB PO . daily 2019 5:20pm Sepuar 2020 4:16pm Celecoxib Disconti nued 100 MG [...] Gabapentin Disconti nued 400 MG PO DAILY [facility]2020 4:08pm Decemb er 2020 3:30pm Hydrocodone- Ibuprofen [...] PO TWICE A DAY 60 2018 4:14pm 2019 5:43pm Celecoxib Disconti nued 100 MG PO TWICE A DAY 60 2018 4:14pm 2019 5:43pm Duloxetine Disconti nued 60 MG PO DAILY 30 2018 4:14pm ua 2019 5:43pm Ergocalcifer ol (Vitamin D2) (Vitamin D2) 50,000 [place] 93944 UNIT PO Every Week 4 2018 4:14pm ua ry 2019 5:43pm Furosemide Disconti nued 40 MG PO DAILY 30 2018 4:15pm ua ry 2019 5:43pm Lisinopril Disconti nued 2.5 MG PO DAILY 30 2018 4:15pm ua ry 2019 5:43pm Metformin Disconti nued 1000 MG PO TWICE A DAY 60 2018 4:15pm Februa ry 2019 5:43pm Montelukast Disconti nued 10 MG PO DAILY 30 er 2018 4:15pm Februa ry 2019 5:43pm Potassium Chloride Disconti nued 10 MEQ PO DAILY 30 er 2018 4:15pm Februa ry 2019 5:43pm take with lasix Simvastatin Disconti nued 40 MG PO DAILY 30 2018 4:15pm Septem ra 2018 4:44pm Rosuvastatin (Crestor) 40 mg tablet Disconti nued 40 MG PO [facility]ILY [facility] 4:44pm December 30, 2019 2:37pm [...] (Vitamin D2) 50,000 [place] 26695 UNIT PO Every Week 4 March 09, [...] 1,250 mcg (50,000 unit) capsule [place] 84383 UNIT PO Every Week 4 2019 5:42pm [...] 1,250 mcg (50,000 unit) capsule [place]ued 93317 UNIT PO Every Week 4 2019 3:47pm [...] 10 MEQ PO DAILY 30 2019 3:48pm Novemb er 2019 7:37pm take with lasix Rosuvastatin (Crestor) 40 mg tablet Disconti nued 40 MG PO DAILY 30 2019 3:48pm Novemb er 2019 7:37pm Fluconazole (Diflucan) 150 mg tablet Disconti nued 150 MG PO DAILY 2 2 er 2019 3:48pm Septem ra 2019 12:10a m Gabapentin Disconti nued 400 MG PO DAILY July 30, 2020 11:29am Novemb er 2019 7:37pm Hydrocodone- Ibuprofen Disconti nued 1 TAB PO . daily July 30, 2020 11:29am [facility] 7[facility] Albuterol Sulfate (Ventolin Hfa) 90 mcg/actuatio n HFA aerosol inhaler Disconti nued 2 PUFF INH Q6H 8.5 r 2019 7:35pm January 26, 2021 3:18pm Buspirone Disconti nued 15 MG PO TWICE A DAY 60 r 2019 7:35pm 2020 12:40p m Celecoxib Disconti nued 100 MG PO TWICE A DAY 60 r 2019 7:35pm 2020 12:40p m Cyanocobalam in (Vitamin B-12) Disconti nued 1000 MCG IM every month 1 r 2019 7:35pm 2020 12:40p m Diabetic Supplies, Miscellan. Disconti nued 0 .ROUTE .MEDSUPPLY 1 r 2019 7:35pm 2020 12:40p m Test Strips and Lancets for daily BG testing Duloxetine Disconti nued 60 MG PO DAILY 30 r 2019 7:35pm 2020 12:40p m Empagliflozi n (Jardiance) 10 mg tablet Disconti nued 10 MG PO DAILY 30 r 2019 7:35pm [facility] er 2019 7:59pm Ergocalcifer ol (Vitamin D2) (Vitamin D2) 1,250 mcg (50,000 unit) capsule Discont[place] nued 63457 UNIT PO Every Week 4 2019 7:35pm [...] 400 MG PO DAILY 30 2019 7:36pm 2020 12:40p m Montelukast Disconti nued 10 MG PO DAILY 30 2019 7:36pm 2020 12:40p m Potassium Chloride [...] 1,250 mcg (50,000 unit) [place] 71980 UNIT PO Every Week October 24, 2020 [...] 1,250 mcg (50,000 unit) [place] 13156 UNIT PO Every Week February 15, 2021 [...] 1,250 mcg (50,000 unit) [place] 53001 UNIT PO Every Week 4 r 2020 10:36am ua 2021 2:58pm Ferrous Sulfate Active 325 MG PO DAILY 30 r 2020 10:36am Furosemide Disconti nued 40 MG PO DAILY 30 r 2020 10:36am January 10, 2022 5:37pm Metformin Disconti nued 1000 MG PO TWICE A DAY 60 [facility] 2020 10:36am January 10, 2022 5:37pm Montelukast Disconti nued 10 MG PO DAILY 30 r 2020 10:36am January 10, 2022 5:37pm Potassium Chloride Disconti nued 10 MEQ PO DAILY 30 r 2020 10:36am Februa 2021 9:27am Dextromethor jaramillo-Guaifen esin Disconti nued 10 ML PO EVERY 4-8 HOURS 180 [facility] 2020 10:37am February 01, 2022 9:03pm Ondansetron Hcl (Zofran) 4 mg tablet Active 4 MG PO Q8H 30 [facility] 2020 10:37am Gabapentin Disconti nued 400 MG PO DAILY 30 [facility] 2019 10:32am Octobe r 2019 11:30a m Hydrocodone- Ibuprofen Disconti nued 1 TAB PO . daily 30 er 2019 10:32am Octobe r 2019 11:30a m Blood-Glucos e Meter Disconti nued 0 .ROUTE .MEDSUPPLY 1 2019 10:34am April 03, 2021 11:57a m Glucometer Diabetic Supplies, Miscellan. Disconti nued 0 .ROUTE .MEDSUPPLY 1 er 2019 10:34am Novemb er 2019 7:37pm Test Strips and Lancets for daily BG testing Empagliflozi n Disconti nued 25 MG PO DAILY 30 Decembe r 2019 7:58pm Januar y 2020 12:40p [...] nued 1000 MG PO TWICE A DAY January 10, 2022 5:36pm January 29, 2022 [...] February 01, 2022 9:08pm 16.62 x10^3/uL 3.98-10.04 [facility] [address] [address] Red Blood Count February 01, 2022 9:08pm 5.90 x10^6/uL 3.93-5.22 [facility] [address] [address] Hemoglobin February 01, 2022 9:08pm 16.5 g/dL 11.8-15.3 [facility] [address] [address] Hematocrit February 01, 2022 9:08pm 50.2 % 36.9-46.9 [facility] [address] [address] Mean Corpuscular Volume February 01, 2022 9:08pm 85.1 fL 79.4-94.8 [facility] [address] [address] Mean Corpuscular Hemoglobin February 01, 2022 9:08pm 28.0 pg 25.6-32.2 [facility] [address] [address] Mean Corpuscular Hemoglobin Concent February 01, 2022 9:08pm 32.9 g/dL 32.2-35.5 [facility] [address] [address] RDW Standard Deviation February 01, 2022 9:08pm 40.6 fL 36.4-46.3 [place] [address] RDW Coefficient of Variation February 01, 2022 9:08pm 13.1 % 11.7-14.4 [place] [address] Platelet Count February 01, 2022 9:08pm 329 x10^3/uL 182-369 [place] [address] Mean Platelet Volume February 01, 2022 9:08pm 10.1 fL 9.4-12.3 [place] [address] Neutrophils (%) (Auto) February 01, 2022 9:08pm 88.5 % 34.0-71.1 [place] [address] Lymphocytes (%) (Auto) February 01, 2022 9:08pm 8.1 % 19.3-51.7 [place] [address] Monocytes (%) (Auto) February 01, 2022 9:08pm 2.7 % 4.7-12.5 [place] [address] Eosinophils (%) (Auto) February 01, 2022 9:08pm 0.1 % 0.7-5.8 [place] [address] Basophils (%) (Auto) February 01, 2022 9:08pm 0.2 % 0.1-1.2 [place] [address] Nucleated Red Blood Cells % (auto) February 01, 2022 9:08pm 0.0 /100 WBC 0-0.2 [place] [address] Immature/Total Granulocytes (auto) February 01, 2022 9:08pm 0.400 % 0-0.429 [place] [address] Neutrophils # (Auto) February 01, 2022 9:08pm 14.70 x10^3/uL 1.56-6.13 [place] [address] Lymphocytes # (Auto) February 01, 2022 9:08pm 1.35 x10^3/uL 1.18-3.74 [place] [address] Monocytes # (Auto) February 01, 2022 9:08pm 0.45 x10^3/uL 0.24-0.86 [facility] [address] [place] [address] Eosinophils # (Auto) February 01, 2022 9:08pm 0.01 x10^3/uL 0.04-0.36 [facility] [address] [place] [address] Basophils # (Auto) February 01, 2022 9:08pm 0.04 x10^3/uL 0.01-0.08 [facility] [address] [place] [address] Nucleated Red Blood Cells # February 01, 2022 9:08pm 0.000 x10^3/uL 0-0.012 [facility] [address] [place] [address] Absolute Immature Granulocyte (auto February 01, 2022 9:08pm 0.0700 X10^3/uL 0-0.0310 [facility] [address] [place], [place] [id number] Sodium Level February 01, 2022 9:08pm 138 mmol/L 136-145 [facility] [address] [place] [address] Potassium Level February 01, 2022 9:08pm 4.3 mmol/L 3.5-5.1 [facility] [address] [place] [address] Chloride Level February 01, 2022 9:08pm 98 mmol/L 98-107 [facility] [address] [place] [address] Carbon Dioxide Level February 01, 2022 9:08pm 23.9 mmol/L 21.0-32 [facility] [address] [place] [address] Anion Gap February 01, 2022 9:08pm 16.1 mmol/L 5.0-15.0 [facility] [address] [place] [address] Blood Urea Nitrogen February 01, 2022 9:08pm 17 mg/dL 7.0-18.0 [facility] [address] [place] [address] Creatinine February 01, 2022 9:08pm 0.87 mg/dL 0.55-1.02 [facility] [address] [place] [address] Estimat Glomerular Filtration Rate February 01, 2022 [...] tive determinations of GFR should be obtained. [facility] [address] [place] [address] Estimated GFR () February 01, 2022 9:08pm > 60.0 [facility] [address] [place] [address] BUN/Creatinine Ratio February 01, 2022 9:08pm 19.5 Ratio 6.0-20.0 [facility] [address] [place] [address] Glucose Level February 01, 2022 9:08pm 249 mg/dL 70-99 Falsely depressed or elevated results may occur on samples drawn from patients taking Sulfasalazine and Sulfapyridine, if the blood sample is drawn before clearance of the drug. [facility] [address] [place] [address] Calcium Level February 01, 2022 9:08pm 11.1 mg/dL 8.5-10.1 [facility] [address] [place] [address] Total Bilirubin February 01, 2022 9:08pm 0.61 mg/dL 0.20-1.00 Use of this assay is not recommended for patients undergoing treatment with eltrombopag due to the potential for falsely elevated results [facility] [address] [place] [address] Aspartate Amino Transf (AST/SGOT) February 01, 2022 9:08pm 31 U/L 15-37 Falsely depressed or elevated results may occur on samples drawn from patients taking Sulfasalazine and Sulfapyridine, if the blood sample is drawn before clearance of the drug. [facility] [address] [place] [address] Alanine Aminotransfera se February 01, 2022 9:08pm 42 U/L 14-59 Falsely depressed or elevated results may occur on samples drawn from patients taking Sulfasalazine and Sulfapyridine, if the blood sample is drawn before clearance of the drug. [address] [address] Troponin I February 01, 2022 11:00pm 7.0 [...] Biotin intake can cause falsely depressed results [address] [address] Total Protein February 01, 2022 9:08pm 8.3 g/dL 6.4-8.2 [place] [address] Albumin February 01, 2022 9:08pm 4.7 g/dL 3.4-5.0 [place] [address] Albumin/Globul in Ratio February 01, 2022 9:08pm 1.3 Ratio 1.0-2.0 [place] [address] Alkaline Phosphatase February 01, 2022 9:08pm 102 U/L 46-[address] [address] Lipase February 01, 2022 9:08pm 123 U/L 73-393 [place] [address] Influenza Virus Type A (PCR) February 01, 2022 9:58pm Negative Negative [place] [address] Influenza Virus Type B (PCR) February 01, 2022 9:58pm Negative Negative [place] [address] Respiratory Syncytial Virus (PCR) February 01, 2022 9:58pm Negative Negative [place] [address] Coronavirus (COVID-19)(PCR ) February 01, 2022 9:58pm Negative DNAPCR Negative [place] [address] Microbiology Results Procedure Source Result Collection Date/Time Result Date/Time Result Comment Performing Site Blood Culture Blood NO GROWTH AFTER 5 DAYS February 01, 2022 9:08pm February 06, 2022 11:08am [facility] Laboratory [address] [place] [address] Diagnostic Imaging Reports Report Dictated Date/Time Dictated By Status Radiology Report February 01, 2022 9:34pm Yaya Parham MD completed [facility] [address] [place] [address] [address] [place] [address] [address] Scan Report Signed [place] Ira#: [id number] Patient: Kavitha Jarrell MR#: [id number] : 1965 Acct:[id number] Age/Sex: 56 / F ADM Date: 2 Loc: .ED Attending Provider: Ordering Provider: Sid Freeman NP Date of Service: 02/01/22 Procedure(s): CT abdomen pelvis w con Accession Number(s): [id number] cc: Sid Freemna NP~ CLINICAL HISTORY: Abdominal pain with nausea. [...] January 10 4:01pm Respiratory rate 18 /min 12-20 January 10, 2022 4:01pm Oxygen saturation by Pulse [...] No February 01, 2022 8:49pm Power of Geospatial Information Technologist No February 01, 2022 8:49pm Living Will No February 01, 2022 8: 49pm Advance Directives No January 10, 2 022 4:17pm Power of Geospatial Information Technologist No January 10 4:17pm Living Will No January 10, 2022 4:17pm Insurance Providers Guarantor Kavitha Jarrell Address [address] [facility] [address] Contact Info. Home Phone: [phone] Payer Policy Id Coverage Id Subscriber's Name Subscriber Id Effective Date Expiration Date [employer] [place] [id number] Stephania Jarrell [id number] [facility] [place] [id number] Kavitha Jarrell [id number] MEDICARE A AND B [id number] Kavitha Jarrell [id number] [employer] MEDICARE HMO [id number] Kavitha Jarrell [id number] Encounters Encounter Location(s) Arrival/Admit Date Discharge/Depart Date Provider(s) Departed Physician/Prov ider Office Visit [facility] December 06, 2021 1:58pm December 06, 2021 2:55pm Araceli Sethi APRN Departed Physician/Prov ider Office Visit [facility] January 04, 2022 2:48pm January 04, 2022 3:20pm Araceli Sethi APRN Departed Physician/Prov ider Office Visit [facility] [place] January 10, 2022 3:55pm January 10, 2022 5:26pm Nisa Hunter DO Departed Physician/Prov ider Office Visit [facility] Spec Pain VV February 01, 2022 3:20pm February 01, 2022 3:30pm Moises Pinzon MD Departed Emergency [facility] Emergency Department February 01, 2022 8:39pm February 02, 2022 12:05am null Departed Physician/Prov ider Office Visit [facility] [place] February 14, 2022 3:29pm February 14, 2022 4:46pm Nisa Hunter DO Departed Clinical [facility] Sleep February 28, 2022 6:25pm March 01, 2022 6:00am Nisa Hunter DO Recent Diagnosis Onset Date Low back pain Lumbar spondylosis Lumbar radiculopathy Lumbar spondylosis Bereavement Depression Anxiety Asthma Chronic pain syndrome Diabetes mellitus type 2 in obese Hyperlipidemia Hypertension Hypomagnesemia Obesity Obstructive sleep apnea Osteoarthritis Vitamin D deficiency Low back pain Lumbar spondylosis Spondylolisthesis Bereavement Depression Hospital discharge follow-up Diabetes mellitus type 2 in obese Hypertension Obesity Small bowel obstruction Assessments Diagnosis Onset Date Resolution Status Low back pain acute Lumbar spondylosis chronic Lumbar radiculopathy acute Lumbar spondylosis chronic Bereavement acute Depression acute Anxiety chronic Asthma chronic Chronic pain syndrome chroni c Diabetes mellitus type 2 in obese chronic Hyperlipidemia chronic Hypertension chronic Hypomagnesemia chronic Obesity chronic 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 UDS -?? October 09, 2021 confirmation - positive for cup?? carboxyTHC at 30 ng/mg creatinine Opioid risk tool -October 09, 2021 scored as 1 placing patient at low risk category for opioid abuse PEG -October 09, 2021 scored average pain 7/10, enjoyment of life 8/10, generalized activity 9/10 ?? Studies/Imaging: ?? MRI cervical spine without contrast [facility] date of exam 07/22/2020 Impression: Negative study ?? MRI lumbar spine without contrast [facility] date of exam 07/22/2020 FINDINGS The [...] February 14, 2021 Jarek reviewed compliant, request [id number] ?? UDS -?? October 09, 2021 confirmation - positive for cup?? carboxyTHC at 30 ng/mg creatinine Opioid risk tool -October 09, 2021 scored as 1 placing patient at low risk category for opioid abuse PEG -October 09, 2021 scored average pain 7/10, enjoyment of life 8/10, generalized activity 9/10 ?? Studies/Imaging: ?? MRI cervical spine without contrast [facility] date of exam 07/22/2020 Impression: Negative study ?? MRI lumbar spine without contrast [facility] date of exam 07/22/2020 FINDINGS The [...] February 14, 2021 J[facility] reviewed compliant, request [id number] ?? UDS -?? October 09, 2021 confirmation - positive for cup?? carboxyTHC at 30 ng/mg creatinine Opioid risk tool -October 09, 2021 scored as 1 placing patient at low risk category for opioid abuse PEG -October 09, 2021 scored average pain 7/10, enjoyment of life 8/10, generalized activity 9/10 ?? Studies/Imaging: ?? MRI cervical spine without contrast [facility] date of exam 07/22/2020 Impression: Negative study ?? MRI lumbar spine without contrast [facility] date of exam 07/22/2020 FINDINGS The [...] Address Nisa Hunter , DO Work Phone: [facility] [place] [address] [address] Z63.4 - Disappearance and of family member January 10, 2022 Grief Counseling Future Procedures Future procedure information is unavailable Future Medications Future medication information is unavailable Patient Instructions Small Bowel Obstruction (DC)
== END 2024-07-22 23:59 | disposition home or self-care (01) ==
LOC: RAD 10:31
PROVIDERS: Visit Provider Orthopaedic Surgery
DX: M17.31 Unilateral post-traumatic osteoarthritis, right knee (principal)
CPT/HCPCS: 73562

== ENCOUNTER 2024-08-20 13:40 | Outpatient (RCR) | payer MEDICARE, SELFPAY | END 2024-08-20 14:30 | disposition home or self-care (01) | LOC: PT 13:40 | PROVIDERS: Visit Provider Physician Assistant | DX: M25.561 Pain in right knee (principal) | CPT/HCPCS: 97760 ==

== ENCOUNTER 2024-11-29 17:38 | Emergency (ER) | payer MEDICARE, SELFPAY ==
[2024-11-29 17:45] VITALS: BP 168/86; PULSE 78; RESP 18; TEMP 36.7; O2SAT 98; BMI 41.8
--- NOTE | 2024-11-29 18:00 | PC.NURSE ---
Pt approaches desk and states she is going to go be seen at [facility] where the provider is that did her surgery. Pt leaves with no acute distress noted.
[2024-11-29 18:01] VITALS: BP 000/000; PULSE 0; RESP 0; TEMP -17.7; TEMP 0; O2SAT 0
== END 2024-11-29 18:01 | disposition left against medical advice (07) ==
LOC: ER 17:55
PROVIDERS: Emergency Provider Student in an Organized Health Care Education/Training Program
DX: Z53.21 Procedure and treatment not carried out due to patient leaving prior to being seen by health care provider (principal)

== ENCOUNTER 2025-04-29 17:36 | Emergency (ER) | payer MEDICARE, SELFPAY ==
--- OUTSIDE RECORDS SUMMARY | 2024-07-13 09:15 | XMS_ITS | Continuity of Care Document ---
Author Organization [facility] [place] Address [address] [place] [address] Phone Care Team Providers Care Vehicle Assembly Inspector Name Role Phone Elio Concepcion OD, Ada [...] unit-trimethoprim 1 mg/mL eye drops - Active buspirone 30 mg tablet - Act karolina celecoxib 100 mg capsule - Active losartan 25 mg tablet - Acti ve montelukast 10 mg tablet - Active rosuvastatin 40 mg tablet - Active cyanocobalamin (vit B-12) 1,000 mcg/mL injection solution ADMINISTER 1 ML IN THE MUSCLE EVERY MONTH - Active duloxetine 60 mg capsule,delayed release - Active potassium chloride ER 10 mEq tablet,extended release - Active ondansetron HCl 4 mg tablet - Active Procedures Procedure Date REFRACTION OFFICE/OUTPATIENT VISIT, EST Oct-14-2024 REFRACTION COMPREHENSIVE EYE EXAM, NEW PATIENT Advance Directives Directive Yes / No Effective Date File Name No Information Encounters Encounter Description Practice Location Reason(s) For Visit Diagnoses Date Provider Providers Copied on Encounter OFFICE/OUTPA TIENT VISIT, EST [facility], [address] [place] [address] 100, [place], [place], [facility], [place] tel:[phone] [facility] Diagnostic diabetic eye exam (chief complaint) Type 2 diabetes mellitus without complication, without long-term current use of insulinAge-re lated nuclear cataract, bilateralInco mplete closure of lid, leftPresbyopi a Jun- 4 Elio Concepcion OD Lyndsay. [address] [place] [address], [id number], [place]. tel:[phone] Referring Provider: Lyndsay Concepcion OD, [address] [place] [address], [id number]. tel:[phone] [facility], [address] [place] [address] 100, [place], [place], [facility], [place] tel:[phone] [facility] Diagnostic No Information Jun- 4 Elio Concepcion OD Ada. [address] [place] [address], [id number], [place]. tel:[phone] [facility], [address] [place] [address] 100, [place], [place], [facility], [place] tel:[phone] [facility] Diagnostic diabetic eye exam (chief complaint) MGD (meibomian gland dysfunction)T ype 2 diabetes mellitus without complication, without long-term current use of insulinPresby opiaAge-relat ed nuclear cataract, bilateralInco mplete closure of lid, left Oct- 3 Elio Umana. [address] [place] [address], [id number], [place]. tel:[phone] Referring Provider: Lyndsay Concepcion OD, [address] [place] [address], [id number]. tel:[phone] [facility], [address] [place] [address] 100, [place], [address], [place] tel:[phone] [facility] No Information 3 Elio Concepcion OD Ada. [address] [facility], [place], [place], [id number], [place]. tel:[phone] Family History Family Member Type Diagnosis Age At Onset Father Problem Diabetes mellitus Mother Problem Diabetes mellitus Mother Problem Cataracts Payers Payer name Insurance type Covered libertarian ID Syed brandt(s) [employer] GOLD Medicare Replacement CI [id number] Social History Type Description Quantity Date Captured Comments Alcohol Use Details Unknown Caffeine Use Details Unknown Tobacco Use Status Current non-smoker Smoking Status Never smoker Non-Smoking Tobacco Use Details : No Details Available : No Details Available Sex Female Chief Complaint And Reason For Visit From encounter dated '07/13/2024 13:15'. diabetic eye exam (chief complaint). 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 Functional Status Date Functional Assessmen t No Information Instructions Date Instruction Additional Infor finn Impression/Plan Related to Type 2 diabetes mellitus without complication, without long-term current use of insulin Impression/Plan Related to Age-r elated nuclear cataract, bilateral Impression/Plan Related to Incom plete closure of lid, left Impression/Plan Related to Presb yopia Impression/Plan Related to MGD ( meibomian gland dysfunction) Impression/Plan Related to Incom plete closure of lid, left Impression/Plan Related to Presb yopia Impression/Plan Related to Type 2 diabetes mellitus without complication, without long-term current use of insulin Impression/Plan Related to Age-r elated nuclear cataract, bilateral Assessments Type Assessment Date assessment Type 2 diabetes jaiden itus without complication, without long-term current use of insulin impression Type 2 diabetes jaiden itus without complication, without long-term current use of insulin: E11.9 assessment Age-related nuclear cataract, bi lateral impression Age-related nuclear cataract, bi lateral: H25.13 assessment Incomplete closure of lid, 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
--- OUTSIDE RECORDS SUMMARY | 2025-04-29 17:58 | XMS_ITS | Clinical Summary ---
Author Organization [facility] [place] [address] Care Team Providers Care Vinyl Hanger Name Role Phone Nisa Hunter DO Primary Care Provider Allergies Active Allergy Reactions Criticality Noted Date Comments Latex Rash Low 12/07/2023 Morphine Itching Medium 12/08/2023 Medications celecoxib (CeleBREX) 100 MG capsule Take 1 capsule (100 mg) by mouth 2 (two) times a day. Active D3-50 1.25 MG (99747 UT) capsule Take 1 capsule (50,000 Units) by mouth 1 (one) time per week. 3 Active DULoxetine (Cymbalta) [address] capsule Take 1 capsule (20 mg) by mouth 2 (two) times a day. 4 Active ferrous sulfate 325 (65 Fe) MG EC tablet Take 1 tablet (325 mg) by mouth daily. 4 Active hydrocortisone (Anusol-HC) 2.5 % rectal cream APPLY THIN LAYER TOPICALLY TO THE AFFECTED AREA 2 TO 4 TIMES DAILY 4 Active hydrOXYzine pamoate (Vistaril) 25 MG capsule Take 1 capsule (25 mg) by mouth every 6 hours as needed for itching. 4 Active losartan (Cozaar) 25 MG tablet Take 1 tablet (25 mg) by mouth daily. 4 Active magnesium oxide (Mag-Ox) 400 (240 Mg) MG tablet Take 1 tablet (400 mg) by mouth daily. 4 Active Nystop 951702 UNIT/GM powder APPLY POWDER TOPICALLY ONCE DAILY 4 Active omeprazole (PriLOSEC) [address] capsule Take 1 capsule (20 mg) by mouth daily. 4 Active ondansetron (Zofran) 4 MG tablet Take 1 tablet (4 mg) by mouth every 8 hours as needed for nausea or vomiting. 4 Active cyanocobalamin 1000 MCG tablet Take 1 tablet (1,000 mcg) by mouth daily. Active Turmeric (QC TUMERIC COMPLEX PO) Take by mouth 1 (one) time each day. Active CINNAMON PO Take by mouth 1 (one) time each day. Active carboxymethylcellu lose sod PF (Refresh Celluvisc) 1 % ophthalmic solution dropperette Apply 1 drop to both eyes as needed for dry eyes. Active montelukast (Singulair) 10 MG tablet Take 1 tablet (10 mg) by mouth nightly. Active methocarbamol (Robaxin) 500 MG tablet Take 2 tablets (1,000 mg) by mouth 4 (four) times a day for 7 days. 56 tablet 5 Active ondansetron ODT (Zofran-ODT) 4 MG disintegrating tablet Take 1 tablet (4 mg) by mouth every 6 (six) hours if needed for nausea or vomiting. 9 tablet 5 Active oxyCODONE (Roxicodone) 5 MG immediate release tablet Take 1 tablet (5 mg) by mouth every 6 (six) hours if needed for moderate pain or severe pain. 15 tablet 5 Active fluconazole (Diflucan) 150 MG tabletIndications: Yeast infection involving the vagina and surrounding area Take 1 tablet today. Repeat in 1 week. 2 tablet 5 Active Active Problems Problem Noted Date Diagnosed Date Class III obesity with body mass index (BMI) of 40.0 or higher 11/05/2024 Excessive and redundant skin and subcutaneous ti ssue 11/04/2024 Excess skin of abdomen 12/06/2023 Family History Medical History Relation Name Comments Colon cancer Father FH: colon cance r Melanoma Mother FH: melanoma Liver cancer Other 1 FH: liver cance r Lung cancer Other 2 FH: lung cancer Ovarian cancer Paternal Grandmother FH: o varian cancer Relation Name Status Comments Father Mother Other 1 Other 2 Paternal Grandmother Social History Tobacco Use Types Packs/Day Years Used Date Smoking Tobacco: Former Cigarettes Smokeless Tobacco: Never Tobacco Cessation:Counseling Given: Not Answered Alcohol Use Standard Drinks/Week Comments Never 0 (1 standard drink = 0.6 oz pur e alcohol) Comments No Sex and Gender Information Value Date Recorded Sex Assigned at Not on file Legal Sex Female 7:19 PM EDT Gender Identity Not on file Sexual Orientation Not on file Last Filed Vital Signs Vital Sign Reading Time Taken Comments Blood Pressure 124/76 12/07/2024 1:18 PM EDT Pulse 78 12/07/2024 1:18 PM EDT Temperature 36.7 C (98.1 F) 11/05/2024 2:44 AM EST Respiratory Rate 16 11/05/2024 2:31 AM EST Oxygen Saturation 95% 12/07/2024 1:18 PM EDT Inhaled Oxygen Concentration - - Weight 101 kg (221 lb 9 oz) 12/07/2024 1:18 PM E DT Height 152.4 cm (5') 11/30/2024 12:56 PM EST Body Mass Index 43.27 11/30/2024 12:56 PM EST Plan of Treatment Health Maintenance Due Date Last Done Comments [facility]-Depression Screening 1964 [facility]-HIV Screening 1964 [facility]-Hepatitis C Screening 1964 [facility]-Medicare Annual Wellness (AWV) 1964 [facility]-Infant/Child/Adol SDOH Screenings 1964 [id number] Vaccine (#1) 1969 [facility]- SDOH Screenings 1982 [facility]-Adult SDOH Screenings 1982 [facility]-DTaP,Tdap,and Td Vaccines (1 - Tdap) 1983 CT Colonography 2009 Colonoscopy 2009 FIT-DNA 2009 FIT 2009 FOBT 2009 Sigmoidoscopy 2009 [facility]-Colorectal Cancer Screening 2009 [facility]-Breast Cancer Screening 2014 [facility]-Pneumococcal Vaccine: 50+ Years (1 of 1 - PCV) 2014 [facility]-Zoster Vaccines (1 of 2) 2014 [facility]-RSV Vaccine: 60+ Years or (1 - Risk 60-74 years 1-dose series) 2024 [facility]-Influenza Vaccine (#1) 2025 [facility]-Obesity Intervention Completed 025, 11/30/2024, 11/20/2024, Additional history exists HPV Vaccines Aged Out No longer eligi ble based on patient's age to complete this topic [facility]-HIB Vaccines Aged Out No longer e ligible based on patient's age to complete this topic [facility]-Hepatitis A Vaccines Aged Out No longer eligible based on patient's age to complete this topic [facility]-IPV Vaccines Aged Out No longer e ligible based on patient's age to complete this topic [facility]-Rotavirus Vaccines Aged Out No lo nger eligible based on patient's age to complete this topic Additional Health Concerns Infection Onset Date Last Indicated MRSA 11/30/2024 11/30/2024 Insurance Advance Directives * Full Code (Latest Code Status on File) Date Activated Date Inactivated Comments 11/04/2024 1:54 PM 11/05/2024 12:10 PM Question Answer Comments Patient has decision-making capacity? Yes Care Teams Vinyl Hanger Relationship Specialty [place] [address] [place] [address] PCP - General 11/13/24
[2025-04-29 18:00] VITALS: BP 113/53; PULSE 63; O2SAT 97
[2025-04-29 18:05] VITALS: BP 106/56; PULSE 68; RESP 15; TEMP 36.4; O2SAT 97; BMI 41.0
[2025-04-29 18:21] VITALS: BP 109/59; PULSE 70; O2SAT 98
--- NOTE | 2025-04-29 18:22 | CT_ITS ---
PROCEDURE INFORMATION: Exam: CT Abdomen And Pelvis Without Contrast Exam date and time: 04/29/2025 6:41 PM Age: 59 years old Clinical indication: Abdominal pain; Additional info: L flank pain, dysuria TECHNIQUE: Imaging protocol: Computed tomography of the abdomen and pelvis without contrast. Radiation optimization: All CT scans at this facility use at least one of these dose optimization techniques: automated exposure control; mA and/or kV adjustment per patient size (includes targeted exams where dose is matched to clinical indication); or iterative reconstruction. COMPARISON: CT ANGIO ABDOMEN PELVIS 12/07/2023 9:48 PM FINDINGS: Limitations: Lack of intravenous contrast material limits sensitivity in detection and/or characterization of intra-abdominal pathology. Diaphragm: Moderate-sized hiatal hernia with partially intrathoracic stomach. Liver: Unremarkable. Gallbladder and biliary ducts: Status post cholecystectomy. Pancreas: Unremarkable. Spleen: Unremarkable. Adrenal glands: Unremarkable. Kidneys and ureters: No renal or ureteral stones. No hydronephrosis. Small lipomatous lesion in the lower pole of the right kidney compatible with a benign adenomyolipoma. No follow up required. Bilateral kidneys are otherwise unremarkable as visualized. Stomach and bowel: No evidence of bowel obstruction or acute inflammatory changes in the gastrointestinal tract. Appendix: No evidence of appendicitis. Intraperitoneal space: No free fluid. No pneumoperitoneum. Vasculature: No abdominal aortic aneurysm. Lymph nodes: Unremarkable. Urinary bladder: Diffuse urinary bladder wall thickening and paravesical fat stranding compatible with acute cystitis. Reproductive: Status post hysterectomy. No adnexal mass. Bones/joints: Multi-level bridging or beaked disc osteophytes in the lower thoracic spine compatible with diffuse idiopathic skeletal hyperostosis (DISH). No evidence of acute osseous abnormality. Grade 1 anterolisthesis L4-L5. No pars defects. Soft tissues: Unremarkable. IMPRESSION: 1. Diffuse urinary bladder wall thickening and paravesical fat stranding compatible with acute cystitis. Please correlate with urinalysis. No other evidence of acute intra-abdominal pathology within the limits this non-contrast enhanced exam. 2. Moderate-sized hiatal hernia with partially intrathoracic stomach. 3. Grade 1 anterolisthesis L4-L5. 4. Diffuse idiopathic skeletal hyperostosis (DISH) in the lower thoracic spine. COMMENTS: Consistent with the [employer]'s Incidental Findings Committee white paper (J Am Shade Radiol 2018): Any incidental renal lesion less than 1 cm or classified as too small to characterize, or any incidental cystic renal lesion characterized as simple-appearing, is likely benign. No follow-up imaging is recommended for these lesions per consensus recommendations based on imaging criteria.
--- NOTE | 2025-04-29 18:23 | ED_ITS ---
Discharge Plan Disposition Patient Disposition: Home, Self-Care Condition: Good Prescriptions Prescriptions: New cefdinir 300 mg capsule 300 mg PO BID 10 Days Qty: 20 0RF No Action ondansetron HCl 4 mg tablet 4 mg PO Q8HP PRN (Reason: Vomiting) Patient Comments: TAKE 1 TABLET BY MOUTH EVERY 8 HOURS NEEDED FOR NAUSEA AND VOMITING buspirone 30 mg tablet 30 mg PO BID Patient Comments: TAKE 1 TABLET BY MOUTH TWICE DAILY losartan 25 mg tablet 25 mg PO DAILY Patient Comments: TAKE 1 TABLET BY MOUTH DAILY omeprazole 20 mg capsule,delayed release(DR/EC) 20 mg PO DAILY Patient Comments: TAKE 1 CAPSULE BY MOUTH ONCE DAILY montelukast 10 mg tablet 10 mg PO DAILY Patient Comments: TAKE 1 TABLET BY MOUTH DAILY ferrous sulfate 325 mg (65 mg iron) tablet,delayed release (DR/EC) 325 mg PO DAILY Patient Comments: TAKE 1 TABLET BY MOUTH DAILY celecoxib 100 mg capsule 100 mg PO BID Patient Comments: TAKE 1 CAPSULE BY MOUTH TWICE DAILY loratadine 10 mg Tablet 10 mg PO DAILY hydroxyzine pamoate 25 mg capsule 25 mg PO QIDP PRN (Reason: Itching) Patient Comments: TAKE 1 CAPSULE BY MOUTH 4 TIMES DAILY NEEDED FOR ITCHING duloxetine 20 mg capsule,delayed release(DR/EC) 20 mg PO BID Patient Comments: TAKE 1 CAPSULE BY MOUTH TWICE DAILY magnesium oxide 400 mg (241.3 mg magnesium) tablet 400 mg PO DAILY Patient Comments: TAKE 1 TABLET BY MOUTH ONCE DAILY metformin 1,000 mg tablet 1,000 mg PO BIDWMEAL nystatin [Nystop] 100,000 unit/gram powder 1 applic TOPICAL DAILY Patient Comments: APPLY POWDER TOPICALLY ONCE DAILY rosuvastatin 40 mg tablet 40 mg PO HS Referrals Follow up/Referrals: Nisa Hunter MD [Primary Care Provider, Family Practice] - See instructions Activity Restrictions/Add. Instructions Additional Instructions/Restrictions: You were evaluated in the emergency department today. You have a urinary tract infection, but there is no kidney stone visualized on CT scan. A urine culture was sent and is pending. We will call you if your antibiotic needs to be changed based on this. supervisor brake repair your prescription for antibiotic and take the full course as prescribed. Take Tylenol and ibuprofen as needed for pain. Follow-up closely with your primary care provider over the next week to ensure you are doing better. Return to the emergency department for new or worsening symptoms. Clinical Impressions Clinical Impression: Pyelonephritis Stand Alone Forms Stand Alone Forms: Work/School Release Instructions Patient Instructions: DI for Kidney Infection, DI for Urinary Tract Infection (UTI) Print Language Print Language: Burkinan Discharge ED Provider: Mavis Flores General Adult HPI General Chief complaint: Urogenital-Female Stated complaint: Possible kidney stone,sent from clinic Time Seen by Provider: 04/29/25 18:15 Mode of Arrival: Ambulatory Source of Information: Patient Description of Symptoms (Recalled from ER Triage Doc. by RN): patient states she was urinating yesterday and it felt like her urethra had knifes stabbing her, she then developed lower abdomianl pain that radiates to her left flank she went to urgent care and they sent her here, no history of kidney stones History of Present Illness HPI narrative: This patient is a 59-year-old female who has a history of obesity, hypertension, hyperlipidemia, diabetes, and anxiety presenting to the emergency department for evaluation with concern for stabbing pain when she pees and left flank pain. Patient states that she took Lasix yesterday for some swelling, as she takes it as needed at home when she needs to for swelling. She states that yesterday she noted that when she went to the bathroom to pee, it fell like knives were stabbing her urethra as she peed. She states that then later on last night she developed suprapubic pain that radiated to her left flank. She went to [facility] her sent here for evaluation. No other concerns complaints noted at this time such as fevers, vomiting, changes bowel movements, or other concerns. Related Data Home Medications ?Medication ?Instructions ?Recorded ?Confirmed buspirone 30 mg tablet 30 mg PO BID Anxiety 4 04/29/25 celecoxib 100 mg capsule 100 mg PO BID Pain 12/07/23 04/29/25 duloxetine 20 mg capsule,delayed 20 mg PO BID Anxiety 12/07/23 04/29/25 release ferrous sulfate 325 mg (65 mg 325 mg PO DAILY Suppleme nt 12/07/23 04/29/25 iron) tablet,delayed release hydroxyzine pamoate 25 mg capsule 25 mg PO QIDP PRN It yarely 12/07/23 04/29/25 loratadine 10 mg tablet 10 mg PO DAILY Allergy Sympt oms 12/07/23 04/29/25 losartan 25 mg tablet 25 mg PO DAILY High Blood Pr essure 12/07/23 04/29/25 montelukast 10 mg tablet 10 mg PO DAILY Allergy Sympt oms 12/07/23 04/29/25 omeprazole 20 mg capsule,delayed 20 mg PO DAILY Acid R eflux 12/07/23 04/29/25 release ondansetron HCl 4 mg tablet 4 mg PO Q8HP PRN Vomiting 12/07/23 04/29/25 magnesium oxide 400 mg (241.3 mg 400 mg PO DAILY Suppl ement 12/08/23 04/29/25 magnesium) tablet metformin 1,000 mg tablet 1,000 mg PO BIDWMEAL Diabete s 12/08/23 04/29/25 nystatin 100,000 unit/gram topical 1 applic topical DA ADDISON Skin 12/08/23 04/29/25 powder (Nystop) Condition rosuvastatin 40 mg tablet 40 mg PO HS Cholesterol 11/2804/29/25 Previous Rx's ?Medication ?Instructions ?Recorded cefdinir 300 mg capsule 300 mg PO BID 10 days #20 ca ps 04/29/25 Allergies Allergy/AdvReac Type Severity Reaction Status Date / Time latex Allergy Verified 04/29/25 16:54 morphine AdvReac Verified 04/29/25 16:54 PFSH [facility] Disclaimer: The information contained in this section may have been updated after the patient was seen, as this information can be updated by other users. Medical History Hernia Surgical History Incarcerated hernia H/O hernia repair Hx of cholecystectomy H/O: hysterectomy Social History Smoking Status: Never smoker alcohol intake: never current occupational status: unemployed Travel in the last 8 weeks?: None Have you lived/traveled outside US in past 30 days?: No Contact w/someone who lives/traveled outside US past 30 days?: No Exposure to someone with infectious disease in past 14 days?: No Do you have a fever (greater than 100.4 F or 38 C)?: No Have you tested positive for COVID-19?: No Exposed to someone with COVID-19 in past 14 days?: No Do you have a sore throat?: No Do you have a cough?: No Do you have any weakness?: No Do you have any diarrhea?: No Are you experiencing any unusual bleeding?: No Do you have any muscle aches/pain?: No Do you have any abdominal pain?: No Are you experiencing loss of taste or smell?: No Other Medical History Have you received the Flu Vaccine for this season: No Have you received the Pneumonia Vaccine: No ROS Obtained: Yes All systems reviewed & no additional complaints except as documented Physical Exam General General appearance: alert and in no apparent distress Head Head exam: atraumatic and normocephalic Eye Eye exam: Present normal appearance, PERRL and EOMI ENT ENT exam: Present normal exam, normal oropharynx, mucous membranes moist and normal external ear exam Neck Neck exam: Present normal inspection, full ROM and trachea midline; Absent tenderness Chest Chest inspection: Present normal inspection and symmetric chest wall rise; Absent tenderness Respiratory Respiratory exam: Present normal lung sounds bilaterally; Absent respiratory distress, wheezes, stridor or accessory muscle use Cardiovascular Cardiovascular exam: Present regular rate and normal rhythm Abdominal Exam Abdominal exam: Present soft; Absent distention, tenderness or guarding Extremities Exam Extremities exam: Present normal inspection, full ROM and normal capillary refill; Absent tenderness or edema Back Exam Back exam: Present normal inspection and full ROM; Absent tenderness Neurological Exam Neurological exam: Present alert, oriented X3, CN II-XII intact and normal gait; Absent motor sensory deficit Psychiatric Psychiatric exam: Present normal affect and normal mood Skin Skin exam: Present warm and dry Medical Decision Making Medical Records Medical records reviewed: Yes I reviewed the patient's medical records. Screening: Per USPSTF and CDC recommendations, given the prevalence of disease in our region, it is our hospital?s policy to screen for HIV and viral Hepatitis for all patients aged 18 and over and those with ongoing risk factors. Jarek Inquiry Pt receiving controlled substance: No Vital Signs: 04/29/25 18:00 04/29/25 18:05 04/29/25 18:21 Temperature 97.6 F Temperature Source Oral Pulse Rate 63 70 Pulse Rate [Right Radial] 68 Respiratory Rate 15 Blood Pressure 113/53 L 109/59 L Blood Pressure [Right Arm] 106/56 L Blood Pressure Mean Blood Pressure Mean [Right Arm] 72 Blood Pressure Source [Right Arm] Automatic Cuff Blood Pressure Position Blood Pressure Position [Right Arm] Sitting 02 Sat by Pulse Oximetry 97 97 98 Oxygen Delivery Method Room Air 04/29/25 20:19 04/29/25 20:49 Temperature 98.0 F 98.0 F Temperature Source Oral Pulse Rate 64 64 Pulse Rate [Right Radial] Respiratory Rate 18 16 Blood Pressure 135/56 L 135/56 L Blood Pressure [Right Arm] Blood Pressure Mean 82 Blood Pressure Mean [Right Arm] Blood Pressure Source [Right Arm] Blood Pressure Position Supine Blood Pressure Position [Right Arm] 02 Sat by Pulse Oximetry 98 Oxygen Delivery Method Room Air Lab Data Lab results reviewed: Yes I reviewed the patient's lab results. Lab Results 04/29/25 18:25: Urine Color Yellow, Urine Appearance Clear, Urine pH 7.5, Ur Specific Challenge 1.015, Urine Protein 2+ A, Urine Glucose (UA) Negative, Urine Ketones Negative, Urine Blood 3+ A, Urine Nitrate Negative, Urine Bilirubin Negative, Urine Urobilinogen 0.2, Ur Leukocyte Esterase 3+ A, Urine RBC 5-10, Urine WBC Tntc, Ur Squamous Epith Cells None, Urine Bacteria 3+ 04/29/25 18:35: WBC 9.5, RBC 5.06, Hgb 14.2, Hct 42.7, MCV 84.4, MCH 28.1, MCHC 33.3, RDW 14.4, Plt Count 286, MPV 10.2, Neut % (Auto) 66.3, Lymph % (Auto) 24.7, [place] % (Auto) 6.7, Eos % (Auto) 1.4, Baso % (Auto) 0.6, Neut # (Auto) 6.3, Lymph # (Auto) 2.3, [place] # (Auto) 0.6, Eos # (Auto) 0.1, Baso # (Auto) 0.1, Sodium 138, Potassium 4.0, Chloride 101, Carbon Dioxide 31 H, Anion Gap 10.0, BUN 16, Creatinine 0.70, Estimated Creat Clear 129, Estimated GFR 85, Est GFR ( Amer) 103, Glucose 98, Calcium 9.8, Total Bilirubin 0.6, AST 35, ALT 21, Alkaline Phosphatase 77, Total Protein 7.5 D, Albumin 4.4, Globulin 3.1, Albumin/Globulin Ratio 1.4, Lipase 193, HCV Ab ZUNILDA w/Rflx PCR Qn Negative, HIV Ag/Ab Combo Qual Negative 04/29/25 18:35 04/29/25 18:35 Orders (Tests/Meds): ED MEDICATIONS Discontinued Medications Generic Name Dose Route Start Last Admin Trade Name Lorena PRN Reason Stop Dose Admin Lactated Ringer's 1,000 mls @ 999 mls/hr 04/29/25 18:22 04/29/25 18:54 Lactated Ringer's 1000 Ml Bag IV 04/29/25 19:22 999 mls/hr .Q1H1M ONE Administration Ceftriaxone Sodium 2 gm/ 100 mls @ 200 mls/hr 04/29/25 19:41 04/29/25 19:48 Sodium Chloride IV 04/29/25 20:10 200 mls/hr ONCE ONE Administration Ketorolac Tromethamine 15 mg 04/29/25 18:22 04/29/25 18:54 Ketorolac 30mg/Ml Vial IV 04/29/25 18:23 15 mg ONCE ONE Administration ORDERS Category Date Time Status CT abdomen pelvis wo con Stat Cat Scan 04/29/25 18:22 Completed Complete Blood Count Auto Diff Stat Lab 04/29/25 18:35 Completed Comprehensive Metabolic Panel Stat Lab 04/29/25 18:35 Completed HIV Combo Stat Lab 04/29/25 18:35 Completed Hepatitis C Ab Qual. W/ RFX Stat Lab 04/29/25 18:35 Completed Lipase Stat Lab 04/29/25 18:35 Completed UA [Urinalysis and Microscopic] Stat Lab 04/29/25 18:25 Completed Urine Culture Stat Micro 04/29/25 18:25 Received Medical Decision Narrative: In summary, this patient is a 59-year-old female presenting to the Emergency Department for evaluation of burning when she pees, suprapubic pain and left flank pain. Differential diagnoses considered include but are not limited to cystitis, ureterolithiasis, pyelonephritis, colitis. Ruling out the most morbid conditions drove assessment. It should be noted patient's history includes obesity, hypertension, hyperlipidemia, diabetes which may or may not be at goal therapy. She also has a history of MRSA and is concerned that this could be related. This complicates all aspects of care by increasing patient's risk for morbidity. On exam, the patient is lying in bed in no acute distress. She is well- appearing, afebrile, nontoxic. Abdominal exam is benign. Workup included CBC , CMP, lipase, urinalysis, CT abdomen pelvis without IV contrast. She was given a bolus of IV fluids as well as IV Toradol for symptomatic improvement. I independently interpreted CT prior to the radiologist read and noted no obstructive ureterolithiasis, but she does have cystitis. Please see their read for final interpretation. Labs were obtained that demonstrated reassuring CBC with no significant leukocytosis. Kidney function is normal. Urinalysis is concerning for infection with 3+ leukocyte esterase and too numerous to count white blood cells with 3+ bacteria. On reassessment, patient had good improvement after administration of interventions above. I feel she has urinary tract infection, possibly pyelonephritis given the flank pain. I feel the patient is appropriate for discharge home with prescriptions for antibiotics. Patient was given IV Rocephin and discharged with prescription for cefdinir as well as instructions for supportive care and close PCP follow-up. Strict return precautions given. Critical Care Critical Care Time Critical Care Time: No
[2025-04-29 18:37] LABS: Microscopic, Urine URINE MICROSCOPIC (MICROSCOPIC)
[2025-04-29 18:44] LABS: Bilirubin,Urine Negative (Negative); Color,Urine YELLOW (Yellow); Glucose,Urine (UA) Negative (Negative); Ketones,Urine Negative (Negative); Leukocyte Esterase,Urine 3+ (Negative); PH,Urine 7.5 (5.0-8.5); Protein,Urine 2+ (Negative); Specific Gravity, Urine 1.015 (1.005-1.030); Urobilinogen,Urine 0.2 EU/dl (0.2)
[2025-04-29 18:54] LABS: Hematocrit 42.7 % (37.0-47.0); Hemoglobin 14.2 g/dL (12.2-16.2); Immature Granulocytes % 0.3 %; Mean Corpuscular HGB Conc 33.3 g/dL (31.8-35.4); Mean Corpuscular Hemoglobin 28.1 pg (27.0-31.2); Mean Corpuscular Volume 84.4 fl (81-99); Nucleated Red Blood Cells % 0 %; Platelet Count 286 K/mm3 (142-424); Red Blood Count 5.06 M/mm3 (4.20-5.40); Red Cell Distribution Width-SD 43.8 fL; White Blood Count 9.5 K/mm3 (4.8-10.8)
[2025-04-29] MEDS: KETOROLAC 30MG/ML VIAL 15 MG IV (18:54)
[2025-04-29] MEDS: LACTATED RINGERS 1000ML 1,000 ML 999 ML IV (18:54)
[2025-04-29 19:01] LABS: Alanine Aminotransferase 21 U/L (12-78); Albumin Level 4.4 g/dl (3.5-5.0); Albumin/Globulin Ratio 1.4 (1.1-1.8); Alkaline Phosphatase 77 U/L (38-126); Anion Gap 10.0 mEq/L (5-15); Aspartate Amino Transferase 35 U/L (14-36); Bilirubin,Total 0.6 mg/dl (0.2-1.3); Blood Urea Nitrogen 16 mg/dl (7-17); Calcium 9.8 mg/dl (8.4-10.2); Carbon Dioxide 31 mmol/L (22.0-30.0); Chloride 101 mmol/L (98-107); Creatinine Clearance Estimated 129 mL/min (50-200); Creatinine,Serum 0.70 mg/dl (0.52-1.04); Estimated Glomerular Filt Rate 85 ml/min (>60); GFR (African American) 103 ML/MIN (>60); Globulin 3.1 g/dL (1.3-3.2); Glucose 98 mg/dl (74-100); Lipase 193 U/L (23-300); Potassium 4.0 mmoL/L (3.5-5.1); Sodium 138 mmol/L (136-145); Total Protein,Serum 7.5 g/dl (6.3-8.2)
[2025-04-29 19:11] LABS: WBC,Urine TNTC #/hpf (0-3)
[2025-04-29 19:12] LABS: Bacteria,Urine 3+ /lpf
--- NOTE | 2025-04-29 19:32 | PC.NURSE ---
Pt was provided a warm blanket.
[2025-04-29 20:09] LABS: Hepatitis C Ab Qual. W/ RFX NEGATIVE (Negative)
[2025-04-29 20:19] VITALS: BP 135/56; PULSE 64; RESP 18; TEMP 36.7; O2SAT 98
[2025-04-29 20:49] VITALS: BP 135/56; PULSE 64; RESP 16; TEMP 36.7; O2SAT 98
--- NOTE | 2025-05-01 17:10 | PC.NURSE ---
I discussed the pts final urine culture with . No changed needed to treatment plan.
== END 2025-04-29 20:50 | disposition home or self-care (01) ==
PROVIDERS: Emergency Provider Emergency Medicine; PCP Family Medicine
DX: R10.9 Unspecified abdominal pain (principal); N12 Tubulo-interstitial nephritis, not specified as acute or chronic; I10 Essential (primary) hypertension
CPT/HCPCS: 74176; 80053; 81001; 83690; 85025; 86803; 87086; 87088; 87186; 87389; 96361; 96365; 96375; 99285; J0696; J1885; J7120

== ENCOUNTER 2025-07-12 17:24 | Outpatient (CLI) | payer MEDICARE, SELFPAY ==
--- OUTSIDE RECORDS SUMMARY | 2024-02-12 09:15 | XMS_ITS ---
Author Organization [id number] [facility] Address [address] [place], [place] [id number] Care Team Providers Care Desizing Pad Operator Name Role Phone PILY RUSS Unavailable [phone] REASON FOR VISIT (R) knee Encounters Encounter Location Date Provider Diagnosis [id number] [facility] [place] [address] [place], [place] [id number] 02/12/2024 PILY RUSS Plan Of Treatment No Information Progress Notes * Kaia JARRELLhDOB: [birth year] (59 yo F)Acc No.[id number]:02/12/2024 PROGRESS NOTE Patient: Kavitha MARROQUIN Provider: Reji RUSS MD :[id number] A ge:58 Y S ex:Female Date:02/12/2024 C HN#:[id number] Address:[address], [address], [place] [address] Subjective: * Chief Complaints: * 1 . (R) knee. * Medical History: Objective: * Vitals: Assessment: Plan: * Treatment: * Care Plan Details* * This progress note has not b een verified nor is it considered complete until locked and signed by the provider. Sign off status: Pending * Provider: Reji RUSS MD Date: 0 02/12/2024 Generated for Andre blackman/Rosendo/Reynaldoitting on: 1 05:26 PM EDT
--- OUTSIDE RECORDS SUMMARY | 2025-07-13 17:26 | XMS_ITS | Clinical Summary ---
Author Organization [facility] [place] [address] Care Team Providers Care Liquor Store Manager Name Role Phone Nisa Hunter DO Primary Care Provider Allergies Active Allergy Reactions Criticality Noted Date Comments Latex Rash Low 12/07/2023 Morphine Itching Medium 12/08/2023 Medications celecoxib (CeleBREX) 100 MG capsule Take 1 capsule (100 mg) by mouth 2 (two) times a day. Active D3-50 1.25 MG (78311 UT) capsule Take 1 capsule (50,000 Units) [...] mg) by mouth daily. 4 Active Nystop 588864 UNIT/GM powder APPLY POWDER TOPICALLY ONCE DAILY [...] Screening 1964 [facility]-Medicare Annual Wellness (AWV) 1964 [facility]-/Child/Adol SDOH Screenings 1964 [id number] Vaccine (#1) 1969 [facility]- SDOH Screenings 1982 [...] Patient has decision-making capacity? Yes Care Teams Liquor Store Manager Relationship Specialty [place] [address] [place] [address] PCP - General 11/13/24
--- OUTSIDE RECORDS SUMMARY | 2025-07-13 17:26 | XMS_ITS | Patient Health Record ---
Author Organization [id number] [facility] Address [address] [facility] [address] [place], [place] [id number] Care Team Providers Care Embossing Machine Operator Helper Name Role Phone PILY RUSS Unavailable [phone] Reason For Referral No Information Plan Of Treatment No Information
== END 2025-07-12 23:59 | disposition home or self-care (01) ==
LOC: LAB.DROPOF 07-13 17:24
PROVIDERS: PCP Nurse Practitioner Family; Visit Provider Nurse Practitioner Family
DX: N39.0 Urinary tract infection, site not specified (principal)
CPT/HCPCS: 87086

== ENCOUNTER 2025-08-17 18:50 | Outpatient (CLI) | payer MEDICARE, SELFPAY ==
--- NOTE | 2025-08-17 18:57 | XR_ITS ---
PROCEDURE INFORMATION: Exam: XR Right Knee Exam date and time: 08/17/2025 6:47 PM Age: 59 years old Clinical indication: Pain; Knee; Right; Additional info: Right knee pain TECHNIQUE: Imaging protocol: Radiologic exam of the right knee. Views: 3 views. COMPARISON: CR XR KNEE RT 3V 07/22/2024 10:34 AM FINDINGS: Bones/joints: Severe joint space narrowing medial and lateral compartment right knee with moderate hypertrophic osteophyte formation involving the medial and lateral compartments and the patellofemoral joint. No abnormality of alignment appreciated on the AP projection or subluxation of the patella on the sunrise view. No fracture identified. No knee joint effusion is appreciated. Soft tissues: Normal. IMPRESSION: No acute findings. Advanced tricompartmental osteoarthritis again demonstrated that is similar to 07/22/2024.
== END 2025-08-17 23:59 | disposition home or self-care (01) ==
LOC: RAD 18:53
PROVIDERS: PCP Nurse Practitioner Family; Visit Provider Physician Assistant
DX: M17.11 Unilateral primary osteoarthritis, right knee (principal)
CPT/HCPCS: 73562

== ENCOUNTER 2025-08-25 10:54 | Outpatient (CLI) | payer MEDICARE, SELFPAY ==
--- OUTSIDE RECORDS SUMMARY | 2024-07-13 08:15 | XMS_ITS | Continuity of Care Document ---
Author Organization [facility] [place] Address [address] [place] [address] Phone Care Team Providers Care Supervisor Landscape Name Role Phone Elio Concepcion OD, Ada Unavailable Unavailable Allergies, Adverse Reactions, Alerts Substance Reaction Status Criticality No Known Allergies Active No Inform ation Medications Medication Instructions Dosage Effective Dates (start - stop) Status Comments omeprazole 20 mg capsule,delayed release - Active Nystop 100,000 unit/gram topical powder APPLY POWDER TOPICALLY ONCE DAILY - Active hydrocortisone 2.5 % topical cream with perineal applicator APPLY THIN LAYER TOPICALLY TO THE AFFECTED AREA 2 TO 4 TIMES DAILY - Active polymyxin B sulfate 10,000 unit-trimethoprim 1 mg/mL eye drops - Active rosuvastatin 40 mg tablet - Active montelukast 10 mg tablet - Active losartan 25 mg tablet - Acti ve celecoxib 100 mg capsule - Active buspirone 30 mg tablet - Act karolina cyanocobalamin (vit B-12) 1,000 mcg/mL injection solution ADMINISTER 1 ML IN THE MUSCLE EVERY MONTH - Active duloxetine 60 mg capsule,delayed release - Active potassium chloride ER 10 mEq tablet,extended release - Active ondansetron HCl 4 mg tablet - Active Procedures Procedure Date REFRACTION OFFICE/OUTPATIENT VISIT, EST REFRACTION COMPREHENSIVE EYE EXAM, NEW PATIENT Advance Directives Directive Yes / No Effective Date File Name No Information Encounters Encounter Description Practice Location Reason(s) For Visit Diagnoses Date Provider Providers Copied on Encounter OFFICE/OUTPA TIENT VISIT, EST [facility], [address] [place] [address] 100, [place], [place], [facility], [place] tel:[phone] [facility] Diagnostic diabetic eye exam (chief complaint) Type 2 diabetes mellitus without complication, without long-term current use of insulinAge-re lated nuclear cataract, bilateralInco mplete closure of lid, leftPresbyopi a Jun- 4 Elio Concepcion OD Ada. [address] [place] [address], [id number], [place]. tel:[phone] Referring Provider: Lyndsay Concepcion OD, [address] [place] [address], [id number]. tel:[phone] [facility], [address] [place] [address] 100, [place], [place], [facility], [place] tel:[phone] [facility] No Information Oct- 4 Elio Concepcion OD Ada. [address] [place] [address], [id number], [place]. tel:[phone] [facility], [address] [place] [address] 100, [place], [place], [facility], [place] tel:[phone] [facility] Diagnostic diabetic eye exam (chief complaint) MGD (meibomian gland dysfunction)T ype 2 diabetes mellitus without complication, without long-term current use of insulinPresby opiaAge-relat ed nuclear cataract, bilateralInco mplete closure of lid, left Oct- 3 Elio Concepcion OD Ada. [address] [place] [address], [id number], [place]. tel:[phone] Referring Provider: Lyndsay Concepcion OD, [address] [place] [address], [id number]. tel:[phone] [facility], [address] [place] [address] 100, [place], [place], [facility], [place] tel:[phone] [facility] No Information 3 Elio Concepcion OD Ada. [address], [place], [place], [id number], [place]. tel:[phone] Family History Family Member Type Diagnosis Age At Onset Father Problem Diabetes mellitus Mother Problem Diabetes mellitus Mother Problem Cataracts Payers Payer name Insurance type Covered republican ID Syed brandt(s) Joseph GOLD Medicare Replacement CI [id number] Social History Type Description Quantity Date Captured Comments Alcohol Use Details Unknown Caffeine Use Details Unknown Tobacco Use Status Current non-smoker Smoking Status Never smoker Non-Smoking Tobacco Use Details : No Details Available : No Details Available Sex Female Chief Complaint And Reason For Visit From encounter dated 07/13/2024 13:15'. diabetic eye exam (chief complaint). Description: The 58 year old patient presents for evaluation of diabetic eye exam in the right eye and left eye. It started about 2 year(s) ago.- pt states she isseeing Dr. Medina for care- last FBS: unknown Last A1C: 6.7 last month - pt is not taking any form of Insulin- pt states changes in VAs, has noticed blurring OU. pt is having a hard time focusing on things up close- pt thinks she will occasionally see flashes of light. a couple times per week- hx of floaters, denies changes - pt sees glares, halos with vehicle and street lights - pt is using refresh gel once daily Reason For Referral Reason For Referral No Information Plan Of Treatment Date Type Action Status Appointment Kavitha Jarrell BOOKED Patient Education Learning About Your Eye s completed Patient Education Learning About Your Eye s completed History Of Present Illness Encounter Date Complaint History Of Prese nt Illness diabetic eye exam The 58 year ol d patient presents for evaluation of diabetic eye exam in the right eye and left eye. It started about 2 year(s) ago.- pt states she is seeing Dr. Medina for care- last FBS: unknown Last A1C: 6.7 last month - pt is not taking any form of Insulin- pt states changes in VAs, has noticed blurring OU. pt is having a hard time focusing on things up close- pt thinks she will occasionally see flashes of light. a couple times per week- hx of floaters, denies changes - pt sees glares, halos with vehicle and street lights - pt is using refresh gel once daily diabetic eye exam The 57 year ol d patient presents for evaluation of diabetic eye exam in the right eye and left eye. It started about 5 year(s) ago. Pt states:- Last A1c: 6.5- LBS: Unknown- Usually takes metformin but has stopped taking it. 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 Functional Status Date Functional Assessmen t No Information Instructions Date Instruction Additional Infor mation Impression/Plan Related to Type 2 diabetes mellitus without complication, without long-term current use of insulin Impression/Plan Related to Age-r elated nuclear cataract, bilateral Impression/Plan Related to Presb yopia Impression/Plan Related to Incom plete closure of lid, left Impression/Plan Related to Age-r elated nuclear cataract, bilateral Impression/Plan Related to Type 2 diabetes mellitus without complication, without long-term current use of insulin Impression/Plan Related to Presb yopia Jun- Impression/Plan Related to Incom plete closure of lid, left Impression/Plan Related to MGD ( meibomian gland dysfunction) Assessments Type Assessment Date assessment Type 2 diabetes jaiden itus without complication, without long-term current use of insulin impression Type 2 diabetes jaiden itus without complication, without long-term current use of insulin: E11.9 assessment Age-related nuclear cataract, bi lateral Oct-14-2024 impression Age-related nuclear cataract, bi lateral: H25.13 assessment Incomplete closure of lid, 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
[2025-08-25 20:13] LABS: Coronavirus 19, PCR Not Detected (NotDetected); Influenza A, PCR Not Detected (NotDetected); Influenza B, PCR Not Detected (NotDetected)
--- OUTSIDE RECORDS SUMMARY | 2025-08-30 11:43 | XMS_ITS | Clinical Summary ---
Author Organization [facility] [place] [address] Care Team Providers Care Medical Imaging Specialist Name Role Phone Nisa Hunter DO Primary Care Provider [phone] Allergies Active Allergy Reactions Criticality Noted Date Comments Latex Rash Low 12/07/2023 Morphine Itching Medium 12/08/2023 Medications celecoxib (CeleBREX) 100 MG capsule Take 1 capsule (100 mg) by mouth 2 (two) times a day. Active D3-50 1.25 MG (06465 UT) capsule Take 1 capsule (50,000 Units) [...] mg) by mouth daily. 4 Active Nystop 033418 UNIT/GM powder APPLY POWDER TOPICALLY ONCE DAILY [...] Wellness (AWV) 1965 [facility]-/Child/Adol SDOH Screenings 1964 PCL-NWTPN-80 Vaccine (#1) 1969 [facility]- SDOH Screenings 1982 [...] Patient has decision-making capacity? Yes Care Teams Medical Imaging Specialist Relationship Specialty [place] [id number] [place] [address] PCP - General 11/13/24
== END 2025-08-25 23:59 ==
LOC: LAB.DROPOF 08-30 10:54
PROVIDERS: PCP Nurse Practitioner Family; Visit Provider Nurse Practitioner
DX: J06.9 Acute upper respiratory infection, unspecified (principal)
CPT/HCPCS: 87631